=== PATIENT | female | born 1950 | race Caucasian/White ===

== ENCOUNTER 2023-07-18 13:19 | Outpatient (OUT) | payer MEDICARE, MEDICAID, SELFPAY ==
--- NOTE | 2023-07-18 13:32 | MM_ITS ---
Patient Name: NAHED HAMILTON MR#: [id number] : 1950 Exam Date: 07/18/2023 Ordering Doctor: DR NEGRO SUAREZ M.D. RADIOLOGY REPORT PROCEDURE: MM TOMOSYNTHESIS SCREENING BI COMPARISON: MG MAMM SCREEN 3D LILIANA CAD, 06/09/2021. MG MAMM SCREEN 3D LILIANA CAD, 07/06/2022. INDICATIONS: screening Calculator Name NCI Breast Cancer Risk Assessment Tool 5 Year Breast Cancer Risk 1.30% Lifetime Breast Cancer Risk 3.50% Personal Breast Cancer No Personal Ovarian Cancer No Treatments Radiation and Chemotherapy Family Cancers Sister with ovarian cancer at age 64; Mother with lung cancer at age 73; Father with lung cancer at age 61. LOCATION: [facility] BREAST COMPOSITION: Scattered areas fibroglandular density. FINDINGS: DIAGNOSTIC CATEGORY 2--BENIGN FINDING. NO CHANGE FROM COMPARISON. Scattered benign-appearing calcifications are present. Scattered benign-appearing lymph nodes are present. RIGHT BREAST: No significant suspicious finding. LEFT BREAST: No significant suspicious finding. RECOMMENDATIONS: ROUTINE MAMMOGRAM AND CLINICAL EVALUATION IN 12 MONTHS. PLEASE NOTE: A NORMAL MAMMOGRAM DOES NOT EXCLUDE THE POSSIBILITY OF BREAST CANCER. A CLINICALLY SUSPICIOUS PALPABLE LUMP SHOULD BE BIOPSIED. Dictated by: Juvenal Fuentes MD on 07/18/2023 at 15:38 Approved by: Juvenal Fuentes MD on 07/18/2023 at 15:40
== END 2023-07-18 13:20 | disposition home or self-care (01) ==
LOC: MAMMO 13:23
PROVIDERS: PCP Internal Medicine; Visit Provider Internal Medicine
DX: Z12.31 Encounter for screening mammogram for malignant neoplasm of breast (principal); Z80.41 Family history of malignant neoplasm of ovary; Z80.1 Family history of malignant neoplasm of trachea, bronchus and lung
CPT/HCPCS: 77063; 77067

== ENCOUNTER 2023-12-13 14:39 | Outpatient (OUT) | payer MEDICARE, MEDICAID, SELFPAY ==
--- NOTE | 2023-12-13 14:45 | XR_ITS ---
[address] [address] Patient Name: NAHED HAMILTON MRN: [id number] date: 1950 Sex: F Assigned Patient Location: [facility] Current Patient Location: [facility] Accession/Order Number: [id number] Exam Date: 12/13/2023 14:55 Report Date: 12/13/2023 16:00 At the request of: NEGRO SUAREZ Procedure: XR DEXA axial skeleton EXAMINATION: XR DEXA axial skeleton HISTORY: Estrogen Deficiency E28.39 COMPARISON: DEXA bone densitometry 06/09/2021 TECHNIQUE: Dual-energy X-ray absorptiometry (DXA) was performed. FINDINGS: SPINE ANALYSIS: Average bone mineral density is 1.954 g/cm2. T-score (standard deviation relative to young adult mean): 6.5 . -3.9% change since prior study. HIP ANALYSIS: Lowest bone mineral density is within the right femoral neck, 1.392 g/cm2. T-score (standard deviation relative to young adult mean): 2.5 . -1.3% change since prior study. XR/XR DEXA axial skeleton IMPRESSION: World Health Organization Classification: Osteopenia - Moderate Fracture Risk FRAX: Cannot calculate. Pharmacologic treatment recommendations * No uniform recommendation applies to all patients. Management plans must be individualized. * Consider initiating pharmacologic treatment in postmenopausal women and men >= 50 years of age who have the following: Primary fracture prevention: * T-score <= - 2.5 at the femoral neck, total hip, lumbar spine, 33% radius (some uncertainty with existing data) by DXA. * Low bone mass (osteopenia: T-score between - 1.0 and - 2.5) at the femoral neck or total hip by DXA with a 10-year hip fracture risk >= 3% or a 10-year major osteoporosis-related fracture risk >= 20% (i.e., clinical vertebral, hip, forearm, or proximal humerus) based on the [place]-adapted FRAXregistered model. Secondary fracture prevention: * Fracture of the hip or vertebra regardless of BMD [4, 5]. * Fracture of proximal humerus, pelvis, or distal forearm in persons with low bone mass (osteopenia: T-score between - 1.0 and - 2.5). The decision to treat should be individualized in persons with a fracture of the proximal humerus, pelvis, or distal forearm who do not have osteopenia or low BMD [12, 13]. Bertram MS, Gulshan SL, Derek KL, Timmy EM, Chaz KG, AJ, Griffin ES. The clinician's guide to prevention and treatment of osteoporosis. Osteoporos Int. 2021;33(10):1851-3656. doi: 10.1007/t27155-485-46992-q. Epub 2021Oct 08. Erratum in: Osteoporos Int. 2021Jan 07;: PMID: [id number]; PMCID: [id number]. Electronically authenticated by: JENNIFER CROOKS Date: 12/13/2023 16:00
== END 2023-12-13 14:40 | disposition home or self-care (01) ==
LOC: RAD 14:40
PROVIDERS: PCP Internal Medicine; Visit Provider Internal Medicine
DX: E28.39 Other primary ovarian failure (principal); M85.80 Other specified disorders of bone density and structure, unspecified site
CPT/HCPCS: 77080

== ENCOUNTER 2024-03-03 15:30 | Emergency (ER) | payer OTHER, MEDICAID, SELFPAY ==
--- OUTSIDE RECORDS SUMMARY | 2024-03-03 15:36 | XMS_ITS | CCD ---
Author Organization [facility] Care Team Providers Care Blasting Entryman Name Role Phone DR BRUNO SUAREZ Primary Care Unavailable SAMI, DR AGNES Molina Admitting Unavailabl e REINECK, DR AGNES Molina Attending Unavailabl e REINECK, DR AGNES Molina Consulting Unavailabl e HEMMER, DR RENETTA Diaz Admitting Unavailable HEMMER, DR RENETTA Diaz Attending Unavailable ERICK, DR TOM Primary Care Unavailable ZIEBER, DR KUNAL Mckinney Consulting Unavailable HEMMER, DR RENETTA Diaz Consulting Unavailable BRUNO SUAREZ Attending Unavailable BRUNO SUAREZ Attending Unavailable HEMBOO, ERNETTA Diaz Attending Unavailable BRUNO SUAREZ Attending Unavailable BRUNO SUAREZ Attending Unavailable HEMMER, RENETTA Diaz Attending Unavailable Allergies Allergy Classification Reported Allergen(s) Allergy Type Date of Onset Reaction(s) Facility (1 source) Acetaminophen / oxyCODONE Drug Allergy 04-11-2013 [facility] (1 source) Codeine Drug Allergy 04-11-2013 [facility] (1 source) Cortisone Drug Allergy 04-11-2013 [facility] (1 source) diazePAM Drug Allergy 04-11-2013 [facility] (1 source) Esomeprazole Drug Allergy [facility] (1 source) Penicillins Drug allergy (disorder) 04-11-2013 [facility] Problems Problem Classification Problem Date Documented Date Episodic/Chronic Cancer of rectum and anus (1 source) Personal history of other malignant neoplasm of rectum, rectosigmoid junction, and anus; 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: [PERS HX OTH MAL MELVIN RECT RSJ AND ANUS] Onset: 3 Episodic Disorders of lipid metabolism (1 source) Pure hypercholesterolemia, unspecified; 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: [PURE HYPERCHOLESTEROLEMIA UNSPEC] Onset: 3 Chronic E Codes: Natural/environment (1 source) Other and unspecified overexertion or strenuous movements or postures, initial encounter; 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: [OTH AND UNS OVREXRT/STRN MVMT/POS INT] Onset: 3 Episodic Esophageal disorders (1 source) Gastro-esophageal reflux disease without esophagitis; 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: [GERD WITHOUT ESOPHAGITIS] Onset: 3 Chronic Essential hypertension (1 source) Essential (primary) hypertension; 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: [ESSENTIAL PRIMARY HYPERTENSION] Onset: 3 Chronic Other aftercare (1 source) 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; 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: [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] Onset: 3 Episodic Other connective tissue disease (1 source) Fibromyalgia; 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: [FIBROMYALGIA] Onset: 3 Episodic Other screening for suspected conditions (not mental disorders or infectious disease) (4 sources) Encounter for screening mammogram for malignant neoplasm of breast; 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: [ENC SCR MAMMO MALIG NEOPLASM BREAST] Onset: 3 Episodic Residual codes; unclassified (1 source) Family history of malignant neoplasm of trachea, bronchus and lung; 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: [FAM HX MALIG NEOPLSM TRACH BRON LNG] Onset: 3 Episodic Residual codes; unclassified (1 source) Family history of malignant neoplasm of ovary; 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: [FAM HX MALIGNANT NEOPLASM OVARY] Onset: 3 Episodic Spondylosis; intervertebral disc disorders; other back problems (2 sources) Spondylosis without myelopathy or radiculopathy, lumbar region; 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: [Spondylosis without myelopathy or radiculopathy, cervical region] Onset: 3 Chronic Spondylosis; intervertebral disc disorders; other back problems (3 sources) Cervicalgia; 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: [CERVICALGIA] Onset: 3 Episodic Sprains and strains (1 source) Strain of muscle, fascia and tendon at neck level, initial encounter; 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: [STRN MUSC FASC TENDON NECK LEVL INT] Onset: 3 Episodic Results Test Name Value Interpretation Reference Range Facil ity MG MAMM SCREEN 3D LILIANA CADon 07-06-2022 MG MAMM SCREEN 3D LILIANA CAD Patient: NAHED HAMILTON Exam Date: 07/06/2022 : 1950 Gender:F Ordering : DR RENETTA STANFORD Admission #: [id number] Family : Order #: [id number] CLICK HERE TO VIEW EXAM RADIOLOGY REPORT PROCEDURE: MAMMOGRAM SCREENING 3D BILATERAL CAD COMPARISON: MG MAMM SCREEN LILIANA W CAD, 06/02/2020. MG MAMM SCREEN LILIANA W CAD, 04/26/2019. DIGITIZED_MAMMO, 01/22/2008. MG MAMM SCREEN 3D LILIANA CAD, 06/09/2021. INDICATIONS: Screening for malignant neoplasm of breast Calculator Name NCI Breast Cancer Risk Assessment Tool 5 Year Breast Cancer Risk 1.20% Lifetime Breast Cancer Risk 3.70% Personal Breast Cancer No Personal Ovarian Cancer No Treatments Radiation and Chemotherapy Family Cancers Sister with ovarian cancer at age 64; Mother with lung cancer at age 73; Father with lung cancer at age 61. LOCATION: [facility] BREAST COMPOSITION: Scattered areas fibroglandular density. FINDINGS: DIAGNOSTIC CATEGORY 2--BENIGN FINDING: RIGHT BREAST: No significant suspicious finding. Scattered benign-appearing calcifications are present. No significant change has occurred. LEFT BREAST: No significant suspicious finding. No significant change has occurred. RECOMMENDATIONS: ROUTINE MAMMOGRAM AND CLINICAL EVALUATION IN 12 MONTHS. PLEASE NOTE: A NORMAL MAMMOGRAM DOES NOT EXCLUDE THE POSSIBILITY OF BREAST CANCER. A CLINICALLY SUSPICIOUS PALPABLE LUMP SHOULD BE BIOPSIED. Dictated by: Kunal Mallory M.D. on 07/07/2022 at 11:46 Approved by: Kunal Mallory M.D. on 07/07/2022 at 12:01 Normal [facility] Complete Blood Count with Au to Diffon 05-28-2021 Basophils (Bld) [#/Vol] 0.02 10*3/uL Normal 0.00-0.20 [facility] [employer] Operator Comment on above: Performed By: #### C BCAD, CMP, LIPD #### [facility] [address] [place] [id number] Basophils/100 WBC (Bld) 0.3 % Normal [facility] [employer] Comment on above: Performed By: #### C BCAD, CMP, LIPD #### [facility] [address] [place], [place] [id number] Eosinophils (Bld) [#/Vol] 0.04 10*3/uL Normal 0.02-0.50 [facility] [employer] Operator Comment on above: Performed By: #### C BCAD, CMP, LIPD #### [facility] [address] [place], [place] [id number] Eosinophils/100 WBC (Bld) 0.6 % Normal [facility] Specialist Comment on above: Performed By: #### C BCAD, CMP, LIPD #### [facility] [address] [place], [place] [id number] Erythrocyte distribution width (RBC) [Ratio] 13.2 % Normal 11.0-15.0 [facility] Specialist Comment on above: Performed By: #### C BCAD, CMP, LIPD #### [facility] [address] [place], [place] [id number] Hematocrit (Bld) [Volume fraction] 41.5 % Normal 35.0-47.0 [facility] Specialist Comment on above: Performed By: #### C BCAD, CMP, LIPD #### [facility] [address] [place], [place] [id number] Hemoglobin (Bld) [Mass/Vol] 13.7 g/dL Normal 11.6-15.5 [facility] Specialist Comment on above: Performed By: #### C BCAD, CMP, LIPD #### [facility] [address] [place], [place] [id number] Lymphocytes (Bld) [#/Vol] 2.3 10*3/uL Normal 0.9-3.9 [facility] Specialist Comment on above: Performed By: #### C BCAD, CMP, LIPD #### [facility] [address] [place], [place] [id number] Lymphocytes/100 WBC (Bld) 32.3 % Normal [facility] Specialist Comment on above: Performed By: #### C BCAD, CMP, LIPD #### [facility] [address] [place], [place] [id number] MCH (RBC) [Entitic mass] 30.7 pg Normal 27.0-33.0 [facility] Specialist Comment on above: Performed By: #### C BCAD, CMP, LIPD #### [facility] [address] [place], [place] [id number] MCHC (RBC) [Mass/Vol] 33.0 g/dL Normal 32.0-36.0 [facility] [employer] Operator Comment on above: Performed By: #### C BCAD, CMP, LIPD #### [facility] [address] [place], [place] [id number] MCV (RBC) [Entitic vol] 93 fL Normal 80-100 [facility] Operator Comment on above: Performed By: #### C BCAD, CMP, LIPD #### [facility] [address] [place], [place] [id number] Monocytes (Bld) [#/Vol] 0.6 10*3/uL Normal 0.2-0.9 [facility] Operator Comment on above: Performed By: #### C BCAD, CMP, LIPD #### [facility] [address] [place], [place] [id number] Monocytes/100 WBC (Bld) 8.0 % Normal [facility] Operator Comment on above: Performed By: #### C BCAD, CMP, LIPD #### [facility] [address] [place], [place] [id number] Neutrophils (Bld) [#/Vol] 4.1 10*3/uL Normal 1.5-7.8 [facility] Operator Comment on above: Performed By: #### C BCAD, CMP, LIPD #### [facility] [address] [place], [place] [id number] Neutrophils/100 WBC (Bld) 58.5 % Normal [facility] Operator Comment on above: Performed By: #### C BCAD, CMP, LIPD #### [facility] [address] [place], [place] [id number] Platelet mean volume (Bld) [Entitic vol] 9.70 fL Normal 7.50-12.50 [facility] [employer] Operator Comment on above: Performed By: #### C BCAD, CMP, LIPD #### [facility] [address] [place], [place] [id number] Platelets (Bld) [#/Vol] 238 10*3/uL Normal 140-400 [facility] [employer] Operator Comment on above: Performed By: #### C BCAD, CMP, LIPD #### [facility] [address] [place], [place] [id number] RBC (Bld) [#/Vol] 4.46 10*6/uL Normal 3.90-5.20 [facility] Specialist Comment on above: Performed By: #### C BCAD, CMP, LIPD #### [facility] [address] [place], [place] [id number] RDW-SD 45.0 fL Normal 37.0-50.0 [facility] [employer] Operator Comment on above: Performed By: #### C BCAD, CMP, LIPD #### [facility] [address] [place], [place] [id number] WBC (Bld) [#/Vol] 7.0 10*3/uL Normal 3.8-11.0 [facility] [employer] Operator Comment on above: Performed By: #### C BCAD, CMP, LIPD #### [facility] [address] [place], [place] [id number] Comprehensive Metabolic Pane vandana 05-28-2021 Albumin [Mass/Vol] 4.3 g/dL Normal 3.6-5.1 [facility] [employer] Operator Comment on above: Performed By: #### C BCAD, CMP, LIPD #### [facility] [address] [place], [place] [id number] Albumin/Globulin [Mass ratio] 1.6 {ratio} Normal 1.0-2.5 [facility] Specialist Comment on above: Performed By: #### C BCAD, CMP, LIPD #### [facility] [address] [place], [place] [id number] ALP [Catalytic activity/Vol] 86 U/L Normal 35-119 [facility] Specialist Comment on above: Performed By: #### C BCAD, CMP, LIPD #### [facility] [address] [place], [place] [id number] ALT [Catalytic activity/Vol] 16 U/L Normal 6-33 [facility] [employer] Operator Comment on above: Result Comment: 05/13 Female reference range changed. Performed By: #### C BCAD, CMP, LIPD #### [facility] [address] [place], [place] [id number] Anion gap [Moles/Vol] 18 mmol/L Normal 12-20 [facility] [employer] Operator Comment on above: Result Comment: Effe ctive 06/18/2019 reference range changed. Performed By: #### C BCAD, CMP, LIPD #### [facility] [address] [place], [place] [id number] AST [Catalytic activity/Vol] 16 U/L Normal 9-34 [facility] Comment on above: Performed By: #### C BCAD, CMP, LIPD #### [facility] [address] [facility] [place] [id number] Bilirubin [Mass/Vol] 0.53 mg/dL Normal 0.30-1.20 [facility] Comment on above: Performed By: #### C BCAD, CMP, LIPD #### [facility] [address] [place], [place] [id number] BUN/CREA 20 Ratio Normal 6-22 [facility] Specialist Comment on above: Performed By: #### C BCAD, CMP, LIPD #### [facility] [address] [place], [place] [id number] Calcium [Mass/Vol] 10.1 mg/dL Normal 8.6-10.2 [facility] Comment on above: Performed By: #### C BCAD, CMP, LIPD #### [facility] [address] [place], [place] [id number] Chloride [Moles/Vol] 101 mmol/L Normal 98-107 [facility] Specialist Comment on above: Performed By: #### C BCAD, CMP, LIPD #### [facility] [address] [place], [place] [id number] CO2 [Moles/Vol] 28 mmol/L Normal 20-31 [facility] Specialist Comment on above: Performed By: #### C BCAD, CMP, LIPD #### [facility] [address] [facility] [place] [id number] Creatinine [Mass/Vol] 0.8 mg/dL Normal 0.6-1.4 [facility] Comment on above: Performed By: #### C BCAD, CMP, LIPD #### [facility] [address] [facility] [place] [id number] eGFRAA 84 mL/min/1.73m2 Normal >60 [facility] Specialist Comment on above: Performed By: #### C BCAD, CMP, LIPD #### [facility] [address] [place], [place] [id number] eGFRNAA 69 mL/min/1.73m2 Normal >60 [facility] [employer] Operator Comment on above: Performed By: #### C BCAD, CMP, LIPD #### [facility] [address] [place], [place] [id number] Globulin (S) [Mass/Vol] 2.7 g/dL Normal 1.9-3.7 [facility] Operator Comment on above: Performed By: #### C BCAD, CMP, LIPD #### [facility] [address] [place], [place] [id number] Glucose [Mass/Vol] 91 mg/dL Normal 65-99 [facility] Operator Comment on above: Result Comment: For FASTING Glucose --- ADA reference ranges: Normal 65-99 mg/dl Prediabetes 100-125 Diabetes >/= 126 Performed By: #### C BCAD, CMP, LIPD #### [facility] [address] [place], [place] [id number] Potassium [Moles/Vol] 3.8 mmol/L Normal 3.5-5.5 [facility] Operator Comment on above: Performed By: #### C BCAD, CMP, LIPD #### [facility] [address] [place], [place] [id number] Protein [Mass/Vol] 7.0 g/dL Normal 6.1-8.1 [facility] [employer] [facility] Comment on above: Performed By: #### C BCAD, CMP, LIPD #### [facility] [address] [place], [place] [id number] Sodium [Moles/Vol] 143 mmol/L Normal 135-146 [facility] [place] [employer] Comment on above: Performed By: #### C BCAD, CMP, LIPD #### [facility] [address] [place], [place] [id number] Urea nitrogen [Mass/Vol] 16 mg/dL Normal 7-25 [facility] Operator Comment on above: Performed By: #### C BCAD, CMP, LIPD #### [facility] [address] [place], [place] [id number] Lipid Panelon 12-16-2021 Cholesterol [Mass/Vol] 181 mg/dL Normal 125-200 [facility] [employer] Operator Comment on above: Result Comment: Low risk < 200mg/dL Borderline risk 201-239 mg/dl High risk > or equal to 240 Performed By: #### C BCAD, CMP, LIPD #### [facility] [address] [place], [place] [id number] Cholesterol in HDL [Mass/Vol] 54 mg/dL Normal >40 [facility] [employer] Operator Comment on above: Result Comment: High Cardiovascular Risk HDL <40 mg/dL Low Cardiovascular Risk HDL > or equal to 60 mg/dl Performed By: #### C BCAD, CMP, LIPD #### [facility] [address] [place], [place] [id number] Cholesterol in LDL [Mass/Vol] 96 mg/dL Normal [facility] [employer] Operator Comment on above: Result Comment: LDL ATP III CLASSIFICATION LDL less than 100 mg/dl Optimal LDL 100-129 mg/dl Near or above optimal LDL 130-159 Borderline high LDL 160-189 High LDL greater than 189 mg/dl Very High Performed By: #### C BCAD, CMP, LIPD #### [facility] [address] [place], [place] [id number] Cholesterol in VLDL [Mass/Vol] 31 mg/dL Normal [facility] [employer] Operator Comment on above: Performed By: #### C BCAD, CMP, LIPD #### [facility] [address] [place], [place] [id number] Cholesterol.total/C holesterol in HDL [Mass ratio] 3 {ratio} Normal [facility] [employer] Operator Comment on above: Performed By: #### C BCAD, CMP, LIPD #### [facility] [address] [place], [place] [id number] Triglyceride [Mass/Vol] 157 mg/dL High 30-150 [facility] Operator Comment on above: Result Comment: TRIG ATPIII CLASSIFICATIONS TRIG less than 150 mg/dl Normal TRIG 150-199 mg/dl Borderline High TRIG 200-500 mg/dl High TRIG greather than 500 mg/dl Very High Performed By: #### C BCAD, CMP, LIPD #### [facility] [address] [place], [place] [id number] CNOVon 04-04-2019 [facility] Office Visit (RADTSA ) NAHED HAMILTON ([id number]) 1950 F Date Time Provider Department 04/04/19 2:00 PM JOYCE ESTEVES During your visit today, we recorded the following information about you: Temperature Pulse Respiration Blood pressure 98.3 degrees 83/minute 16/minute 141/81 Weight 128.7 kg Joyce Esteves MD 04/04/2019 2:27 PM Signed Radiation Oncology - Follow Up Note PATIENT NAME: Nahed Hamilton PATIENT DIAGNOSIS: ?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 ? INTERVAL HISTORY: Mrs. Hamilton?is doing very well. ?Her appetite is good and she is maintaining her weight. ?She denies diarrhea or dysuria. ALLERGIES Allergen Reactions - Codeine GI Upset - Cortizone-10 Scalp * Rash - Nexium [Esomeprazol* Intolerance - Penicillins Anaphylaxis - Percocet [Oxycodone* Mental Status Change - Valium [Diazepam] Mental Status Change MEDICATIONS: LACTOBACILLUS ACIDOPHILUS (PROBIOTIC ORAL) Take by mouth. cyclobenzaprine (FLEXERIL) 10 mg tablet dicyclomine (BENTYL) 20 mg tablet HYDROcodone-acetamino phen (NORCO) 5-325 mg per tablet terbinafine HCl (LAMISIL AT) 1 % cream Apply 1 application to affected area twice daily. DOCUSATE CALCIUM (STOOL SOFTENER ORAL) Take by mouth. vitamin E acetate (VITAMIN E) 200 unit Capsule Take by mouth once daily. furosemide (LASIX) 40 mg tablet Take 40 mg by mouth as directed. pravastatin 40 mg tablet Take 40 mg by mouth once daily. lisinopril-hydrochlor othiazide (ZESTORETIC) 20-12.5 mg per tablet Take 1 tablet by mouth twice daily. Multivitamin capsule Take 1 capsule by mouth once daily. Ascorbic Acid (VITAMIN C) 500 mg CpER Take 1 tablet by mouth once daily. Potassium 99 mg Tab Take by mouth twice daily. Houck-3 Fatty Acids-Vitamin E (FISH OIL) 1,000 mg cap Take 1 capsule by mouth. PLANT STANOL JUAN ALBERTO (CHOLEST OFF ORAL) Take by mouth once daily. Aspirin 81 mg CpDR Take by mouth once daily. PHYSICAL EXAM: VS: BP 141/81 Pulse 83 Temp 36.8 ?C (98.3 ?F) (Oral) Resp 16 Wt 128.7 kg (283 lb 12.8 oz) SpO2 97% BMI 48.69 kg/m? KPS: 90 General Appearance: Alert and oriented. No acute distress. HEENT: NCAT. Sclera anicteric. PERRL. EOMI. Neck: Normal ROM. No palpable cervical or supraclavicular adenopathy. Chest: No respiratory distress. Lungs clear to auscultation bilaterally. Heart: Regular rate and rhythm. Abdomen: Soft. Nontender. Nondistended.??Rectal examination is unremarkable. Musculoskeletal: No edema. Normal ROM in extremities. No bone or spine tenderness. Neuro: Strength intact and symmetric. Sensation intact. CN II-XII intact. Gait normal. No focal deficits. Skin: No rashes noted Lymphatics: No palpable lymphadenopathy. ? ASSESSMENT AND PLAN: There is no evidence of for recurrence at this time. No follow-up appointment was given in this department. ? Signed by: Joyce Esteves M.D., [facility] ? cc: Dr. Bruno Edouard ? This note was dictated with Matthew Henderson Speaking and may contain some grammatical errors due to limitations of the software. Natalia Flores MA, was present in the examination room throughout the encounter. Referring Provider: JOYCE ESTEVES [[id number]] Allergies As of Date: 04/04/2019 Noted Allergy Reaction CODEINE 08/28/2012 8 - GI Upset CORTIZONE-10 SCALP ITCH RELIEF 08/28/2012 2 - Rash NEXIUM (ESOMEPRAZOLE MAGNESIUM) 08/27/2013 5 - Intolerance PENICILLINS 08/28/2012 10 - Anaphylaxis PERCOCET (OXYCODONE-ACETAMINOP HEN)08/28/2012 1 - Mental Status Change VALIUM (DIAZEPAM) 08/28/2012 1 - Mental Status Change Date Reviewed: 04/04/2019 Reviewed by: Natalia Flores - Fully Assessed Reason for Visit: Anal cancer [Other] Cmt: 1 year follow up Primary Visit Diagnosis:History of anal cancer [Z85.048] Prescriptions as of 04/04/2019 Sig: PROBIOTIC ORAL Take by mouth. CYCLOBENZAPRINE 10 MG TABLET DICYCLOMINE 20 MG TABLET HYDROCODONE 5 MG-ACETAMINOPHE* TERBINAFINE HCL 1 % TOPICAL C* Apply 1 application to affect* STOOL SOFTENER ORAL Take by mouth. VITAMIN E ACETATE 200 UNIT CA* Take by mouth once daily. FUROSEMIDE 40 MG TABLET Take 40 mg by mouth as direct* PRAVASTATIN 40 MG TABLET Take 40 mg by mouth once ariel* LISINOPRIL 20 MG-HYDROCHLOROT* Take 1 tablet by mouth twice * MULTIVITAMIN CAPSULE Take 1 capsule by mouth once * ASCORBIC ACID (VITAMIN C) ER * Take 1 tablet by mouth once d* POTASSIUM 99 MG TABLET Take by mouth twice daily. OMEGA-3 FATTY ACIDS-VITAMIN E* Take 1 capsule by mouth. CHOLEST OFF ORAL Take by mouth once daily. ASPIRIN 81 MG CAPSULE,DELAYED* Take by mouth once daily. Problem List As Of Date 04/04/2019 Noted Resolved Rectal cancer [C20] INVALID FOR*06/25/2015 Anal cancer (HCC) [C21.0] INVALID FOR* History of anal cancer [Z85.048] INVALID FOR* Follow-up and Disposition History Recorded Encounter Status:Closed by JOYCE ESTEVES MD on 04/04/19 [facility] PROGRESSon 04-04-2019 PROGRESS HNO ID: [id number] Author: Joyce Esteves Service: ? 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 ? INTERVAL HISTORY: Mrs. Hamilton?is doing very well. ?Her appetite is good and she is maintaining her weight. ?She denies diarrhea or dysuria. ALLERGIES Allergen Reactions - Codeine GI Upset - Cortizone-10 Scalp * Rash - Nexium [Esomeprazol* Intolerance - Penicillins Anaphylaxis - Percocet [Oxycodone* Mental Status Change - Valium [Diazepam] Mental Status Change MEDICATIONS: LACTOBACILLUS ACIDOPHILUS (PROBIOTIC ORAL) Take by mouth. cyclobenzaprine (FLEXERIL) 10 mg tablet dicyclomine (BENTYL) 20 mg tablet HYDROcodone-acetamino phen (NORCO) 5-325 mg per tablet terbinafine HCl (LAMISIL AT) 1 % cream Apply 1 application to affected area twice daily. DOCUSATE CALCIUM (STOOL SOFTENER ORAL) Take by mouth. vitamin E acetate (VITAMIN E) 200 unit Capsule Take by mouth once daily. furosemide (LASIX) 40 mg tablet Take 40 mg by mouth as directed. pravastatin 40 mg tablet Take 40 mg by mouth once daily. lisinopril-hydrochlor othiazide (ZESTORETIC) 20-12.5 mg per tablet Take 1 tablet by mouth twice daily. Multivitamin capsule Take 1 capsule by mouth once daily. Ascorbic Acid (VITAMIN C) 500 mg CpER Take 1 tablet by mouth once daily. Potassium 99 mg Tab Take by mouth twice daily. Houck-3 Fatty Acids-Vitamin E (FISH OIL) 1,000 mg cap Take 1 capsule by mouth. PLANT STANOL JUAN ALBERTO (CHOLEST OFF ORAL) Take by mouth once daily. Aspirin 81 mg CpDR Take by mouth once daily. PHYSICAL EXAM: VS: BP 141/81 Pulse 83 Temp 36.8 ?C (98.3 ?F) (Oral) Resp 16 Wt 128.7 kg (283 lb 12.8 oz) SpO2 97% BMI 48.69 kg/m? KPS: 90 General Appearance: Alert and oriented. No acute distress. HEENT: NCAT. Sclera anicteric. PERRL. EOMI. Neck: Normal ROM. No palpable cervical or supraclavicular adenopathy. Chest: No respiratory distress. Lungs clear to auscultation bilaterally. Heart: Regular rate and rhythm. Abdomen: Soft. Nontender. Nondistended.??Rectal examination is unremarkable. Musculoskeletal: No edema. Normal ROM in extremities. No bone or spine tenderness. Neuro: Strength intact and symmetric. Sensation intact. CN II-XII intact. Gait normal. No focal deficits. Skin: No rashes noted Lymphatics: No palpable lymphadenopathy. ? ASSESSMENT AND PLAN: There is no evidence of for recurrence at this time. No follow-up appointment was given in this department. ? Signed by: Joyce Esteves M.D., [facility] ? cc: Dr. Bruno Edouard ? This note was dictated with Dragon Naturally Speaking and may contain some grammatical errors due to limitations of the software. Natalia Flores MA, was present in the examination room throughout the encounter. 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 ? INTERVAL HISTORY: Mrs. Hamilton is doing very well. Her appetite is good and she is maintaining her weight. She denies diarrhea or dysuria. She has been having rectal pain and occasional rectal bleeding for the past 2-3 days. She had seen Dr. 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 He is going to do a colonoscopic examination on 04/07/2018. ALLERGIES Allergen Reactions - Codeine GI Upset - Cortizone-10 Scalp * Rash - Nexium [Esomeprazol* Intolerance - Penicillins Anaphylaxis - Percocet [Oxycodone* Mental Status Change - Valium [Diazepam] Mental Status Change MEDICATIONS: LACTOBACILLUS ACIDOPHILUS (PROBIOTIC ORAL) Take by mouth. cyclobenzaprine (FLEXERIL) 10 mg tablet dicyclomine (BENTYL) 20 mg tablet HYDROcodone-acetamino phen (NORCO) 5-325 mg per tablet terbinafine HCl (LAMISIL AT) 1 % cream Apply 1 application to affected area twice daily. DOCUSATE CALCIUM (STOOL SOFTENER ORAL) Take by mouth. vitamin E acetate (VITAMIN E) 200 unit Capsule Take by mouth once daily. furosemide (LASIX) 40 mg tablet Take 40 mg by mouth as directed. pravastatin 40 mg tablet Take 40 mg by mouth once daily. lisinopril-hydrochlor othiazide (ZESTORETIC) 20-12.5 mg per tablet Take 1 tablet by mouth twice daily. Multivitamin capsule Take 1 capsule by mouth once daily. Ascorbic Acid (VITAMIN C) 500 mg CpER Take 1 tablet by mouth once daily. Potassium 99 mg Tab Take by mouth twice daily. Houck-3 Fatty Acids-Vitamin E (FISH OIL) 1,000 mg cap Take 1 capsule by mouth. Aspirin 81 mg CpDR Take by mouth once daily. PLANT STANOL JUAN ALBERTO (CHOLEST OFF ORAL) Take by mouth once daily. PHYSICAL EXAM: VS: BP 148/56 Pulse 75 Temp 36.8 ?C (98.2 ?F) (Oral) Resp 18 Wt 126.1 kg (278 lb) SpO2 96% BMI 47.69 kg/m? KPS: 90 General Appearance: Alert and oriented. No acute distress. HEENT: NCAT. Sclera anicteric. PERRL. EOMI. Neck: Normal ROM. No palpable cervical or supraclavicular adenopathy. Chest: No respiratory distress. Lungs clear to auscultation bilaterally. Heart: Regular rate and rhythm. Abdomen: Soft. Nontender. Nondistended. Rectal examination is unremarkable. Musculoskeletal: No edema. Normal ROM in extremities. No bone or spine tenderness. Neuro: Strength intact and symmetric. Sensation intact. CN II-XII intact. Gait normal. No focal deficits. Skin: No rashes noted Lymphatics: No palpable lymphadenopathy. ? ASSESSMENT AND PLAN: There is no evidence of for recurrence at this time. I will see her again in one year for follow-up examination. ? Signed by: Joyce Esteves M.D., GARRYRO ? cc: Dr. [place] Edouard ? This note was dictated with Matthew Naturally Speaking and may contain some grammatical errors due to limitations of the software. Magali Andino RN was present in the room throughout the encounter. Referring Provider: JOYCE ESTEVES [[id number]] Allergies As of Date: 04/05/2018 Noted Allergy Reaction CODEINE 08/28/2012 8 - GI Upset CORTIZONE-10 SCALP ITCH RELIEF 08/28/2012 2 - Rash NEXIUM (ESOMEPRAZOLE MAGNESIUM) 08/27/2013 5 - Intolerance PENICILLINS 08/28/2012 10 - Anaphylaxis PERCOCET (OXYCODONE-ACETAMINOP HEN)08/28/2012 1 - Mental Status Change VALIUM (DIAZEPAM) 08/28/2012 1 - Mental Status Change Date Reviewed: 04/05/2018 Reviewed by: Magali (Susan) SUSAN Andino - Fully Assessed Reason for Visit: anal cancer [Other] Primary Visit Diagnosis:History of anal cancer [Z85.048] Prescriptions as of 04/05/2018 Sig: PROBIOTIC ORAL Take by mouth. CYCLOBENZAPRINE 10 MG TABLET DICYCLOMINE 20 MG TABLET HYDROCODONE 5 MG-ACETAMINOPHE* TERBINAFINE HCL 1 % TOPICAL C* Apply 1 application to affect* STOOL SOFTENER ORAL Take by mouth. VITAMIN E ACETATE 200 UNIT CA* Take by mouth once daily. FUROSEMIDE 40 MG TABLET Take 40 mg by mouth as direct* PRAVASTATIN 40 MG TABLET Take 40 mg by mouth once ariel* LISINOPRIL 20 MG-HYDROCHLOROT* Take 1 tablet by mouth twice * MULTIVITAMIN CAPSULE Take 1 capsule by mouth once * ASCORBIC ACID (VITAMIN C) ER * Take 1 tablet by mouth once d* POTASSIUM 99 MG TABLET Take by mouth twice daily. OMEGA-3 FATTY ACIDS-VITAMIN E* Take 1 capsule by mouth. ASPIRIN 81 MG CAPSULE,DELAYED* Take by mouth once daily. CHOLEST OFF ORAL Take by mouth once daily. Problem List As Of Date 04/05/2018 Noted Resolved Rectal cancer [C20] INVALID FOR*06/25/2015 Anal cancer (HCC) [C21.0] INVALID FOR* History of anal cancer [Z85.048] INVALID FOR* Disposition: Return in about 1 year (around 04/05/2019). 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 ? INTERVAL HISTORY: Mrs. Hamilton is doing very well. Her appetite is good and she is maintaining her weight. She denies diarrhea or dysuria. She has been having rectal pain and occasional rectal bleeding for the past 2-3 days. She had seen Dr. 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 He is going to do a colonoscopic examination on 04/07/2018. ALLERGIES Allergen Reactions - Codeine GI Upset - Cortizone-10 Scalp * Rash - Nexium [Esomeprazol* Intolerance - Penicillins Anaphylaxis - Percocet [Oxycodone* Mental Status Change - Valium [Diazepam] Mental Status Change MEDICATIONS: LACTOBACILLUS ACIDOPHILUS (PROBIOTIC ORAL) Take by mouth. cyclobenzaprine (FLEXERIL) 10 mg tablet dicyclomine (BENTYL) 20 mg tablet HYDROcodone-acetamino phen (NORCO) 5-325 mg per tablet terbinafine HCl (LAMISIL AT) 1 % cream Apply 1 application to affected area twice daily. DOCUSATE CALCIUM (STOOL SOFTENER ORAL) Take by mouth. vitamin E acetate (VITAMIN E) 200 unit Capsule Take by mouth once daily. furosemide (LASIX) 40 mg tablet Take 40 mg by mouth as directed. pravastatin 40 mg tablet Take 40 mg by mouth once daily. lisinopril-hydrochlor othiazide (ZESTORETIC) 20-12.5 mg per tablet Take 1 tablet by mouth twice daily. Multivitamin capsule Take 1 capsule by mouth once daily. Ascorbic Acid (VITAMIN C) 500 mg CpER Take 1 tablet by mouth once daily. Potassium 99 mg Tab Take by mouth twice daily. Houck-3 Fatty Acids-Vitamin E (FISH OIL) 1,000 mg cap Take 1 capsule by mouth. Aspirin 81 mg CpDR Take by mouth once daily. PLANT STANOL JUAN ALBERTO (CHOLEST OFF ORAL) Take by mouth once daily. PHYSICAL EXAM: VS: BP 148/56 Pulse 75 Temp 36.8 ?C (98.2 ?F) (Oral) Resp 18 Wt 126.1 kg (278 lb) SpO2 96% BMI 47.69 kg/m? KPS: 90 General Appearance: Alert and oriented. No acute distress. HEENT: NCAT. Sclera anicteric. PERRL. EOMI. Neck: Normal ROM. No palpable cervical or supraclavicular adenopathy. Chest: No respiratory distress. Lungs clear to auscultation bilaterally. Heart: Regular rate and rhythm. Abdomen: Soft. Nontender. Nondistended. Rectal examination is unremarkable. Musculoskeletal: No edema. Normal ROM in extremities. No bone or spine tenderness. Neuro: Strength intact and symmetric. Sensation intact. CN II-XII intact. Gait normal. No focal deficits. Skin: No rashes noted Lymphatics: No palpable lymphadenopathy. ? ASSESSMENT AND PLAN: There is no evidence of for recurrence at this time. I will see her again in one year for follow-up examination. ? Signed by: Joyce Esteves M.D., RASHEEDA ? cc: Dr. [place] Edouard ? This note was dictated with Matthew Naturally Speaking and may contain some grammatical errors due to limitations of the software. Magali Andino RN was present in the room throughout the encounter. Normal [facility] Encounters Encounter Date Encounter Type Care Provider Facility Start: 01-09-2024 End: 01-09-2024 ambulatory BRUNO SUAREZ Not Available Start: 11-01-2023 End: 11-01-2023 ambulatory RENETTA LANDAVERDE Not Available Start: 10-10-2023 End: 10-10-2023 ambulatory BRUNO SUAREZ Not Available Start: 07-13-2023 End: 07-13-2023 ambulatory BRUNO SUAREZ Not Available Start: 05-12-2023 End: 05-12-2023 ambulatory BRUNO SUAREZ Not Available Start: 04-26-2023 End: 04-26-2023 ambulatory RENETTA LANDAVERDE Not Available Start: 09-25-2022 End: 09-25-[address] BRUNO SUAREZ Facility:[facility] Start: 07-06-2022 End: 07-07-[address] RENETTA LANDAVERDE Facility:[facility] Payers Date Payer Category Payer Medicare [id number] 1957 Medicaid [id number] 1957 Medicare [id number] 1950 Unknown [id number] 2.16.84 [id number] 1950 Unknown [id number] 2.16.84 [id number] 1950 Unknown [id number] 2.16.84 [id number] 1950 Unknown [id number] 2.16.84 [id number] 1950 Unknown [id number] 2.16.84 [id number] 1950 Unknown [id number] 2.16.84 [id number] 1950 Unknown [id number] [id number] 1950 Unknown [id number] Summary Purpose Family History No Family History Records FoundNo Family History Records FoundNo Family History Records FoundNo Family History Records Found Advance Directives No Advanced Directives Records FoundNo Advanced Directives Records FoundNo Advanced Directives Records FoundNo Advanced Directives Records Found Additional Source Comments INFORMATION SOURCE (unrecogn ized section and content) DATE CREATED AUTHOR 04/05/2019 [facility] DATE CREATED AUTHOR AUTHOR'S ORGANIZ ATION 05/29/2021 [facility] d[facility] Specialist DATE CREATED AUTHOR AUTHOR'S ORGANIZ ATION 09/28/2022 [facility] pital DATE CREATED AUTHOR AUTHOR'S ORGANIZ ATION 01/11/2024 [facility] EPIC FOR RECORDS PERTAINING TO PATIENTS WHO ARE OR HAVE BEEN ENROLLED IN A CHEMICAL DEPENDENCY/SUBSTANCEABUSE PROGRAM, SOME INFORMATION MAY BE OMITTED. This clinical summary was aggregated from multiple sources. Caution should be exercised in using it in the provision of clinical care. This summary normalizes information from multiple sources, and as a consequence, information in this document may materially change the coding, format and clinical context of patient data. In addition, data may be omitted in some cases. CLINICAL DECISIONS SHOULD BE BASED ON THE PRIMARY CLINICAL RECORDS. [facility]. provides no warranty or guarantee of the accuracy or completeness of information in this document.
[2024-03-03 15:38] VITALS: O2SAT 97
[2024-03-03 15:39] VITALS: BP 186/94; PULSE 90; TEMP 36.8; O2SAT 97; BMI 42.5
[2024-03-03 15:40] VITALS: O2SAT 97
[2024-03-03 15:50] VITALS: PULSE 82; O2SAT 96
--- NOTE | 2024-03-03 15:55 | XR_ITS ---
The [address] [address] Patient Name: NAHED HAMILTON MRN: [id number] date: 1950 Sex: F Assigned Patient Location: ER Current Patient Location: ER Accession/Order Number: [id number] Exam Date: 03/03/2024 16:14 Report Date: 03/03/2024 17:11 At the request of: DAVID PEREZ Procedure: XR cervical spine 2-3V PROCEDURE: XR cervical spine 2-3V, XR shoulder RT min 2V, 03/03/2024 4:14 PM EDT CLINICAL INDICATIONS: Right neck and shoulder pain, stiffness. Placental symptoms this a.m. COMPARISON: None TECHNIQUE: Cervical spine 3 views. Right shoulder 3 views. FINDINGS: CERVICAL SPINE: The bones are normal in density. Acute osseous pathology is not demonstrated. 0.2 cm grade 1 anterior C3-4 C4-5 spondylolisthesis is noted. Disc degeneration, spondylosis is most apparent C5-C6 and C6-7. Dorsal nuchal ligament calcifications are seen throughout the mid and lower cervical levels. Remote process favored. Fracture malalignment or bone destruction are not demonstrated. RIGHT SHOULDER: There is mild osteoarthrosis. Mild tuberosity and acromial enthesopathy seen. Chest wall abnormality is not evident. Acute osseous pathology is not demonstrated. Regional soft tissues are normal. XR/XR cervical spine 2-3V IMPRESSION: 1. No acute osseous cervical spine right shoulder pathology 2. Grade 1 anterior C3-4 and C4-5 spondylolisthesis 3. Multilevel mid and lower cervical spine disc degeneration, spondylosis most apparent C5 through C7 4. Remote dorsal nuchal ligament calcification mid and lower cervical spine levels 5. Mild right shoulder osteoarthrosis and enthesopathy Electronically authenticated by: ROMARIO VILLEGAS Date: 03/03/2024 17:11
--- NOTE | 2024-03-03 15:55 | XR_ITS ---
The [address] [address] Patient Name: NAHED HAMILTON MRN: [id number] date: 1950 Sex: F Assigned Patient Location: ER Current Patient Location: ER Accession/Order Number: [id number] Exam Date: 03/03/2024 16:14 Report Date: 03/03/2024 17:11 At the request of: DAVID PEREZ Procedure: XR shoulder RT min 2V PROCEDURE: XR cervical spine 2-3V, XR shoulder RT min 2V, 03/03/2024 4:14 PM EDT CLINICAL INDICATIONS: Right neck and shoulder pain, stiffness. Placental symptoms this a.m. COMPARISON: None TECHNIQUE: Cervical spine 3 views. Right shoulder 3 views. FINDINGS: CERVICAL SPINE: The bones are normal in density. Acute osseous pathology is not demonstrated. 0.2 cm grade 1 anterior C3-4 C4-5 spondylolisthesis is noted. Disc degeneration, spondylosis is most apparent C5-C6 and C6-7. Dorsal nuchal ligament calcifications are seen throughout the mid and lower cervical levels. Remote process favored. Fracture malalignment or bone destruction are not demonstrated. RIGHT SHOULDER: There is mild osteoarthrosis. Mild tuberosity and acromial enthesopathy seen. Chest wall abnormality is not evident. Acute osseous pathology is not demonstrated. Regional soft tissues are normal. XR/XR shoulder RT min 2V IMPRESSION: 1. No acute osseous cervical spine right shoulder pathology 2. Grade 1 anterior C3-4 and C4-5 spondylolisthesis 3. Multilevel mid and lower cervical spine disc degeneration, spondylosis most apparent C5 through C7 4. Remote dorsal nuchal ligament calcification mid and lower cervical spine levels 5. Mild right shoulder osteoarthrosis and enthesopathy Electronically authenticated by: ROMARIO VILLEGAS Date: 03/03/2024 17:11
--- NOTE | 2024-03-03 15:55 | ECG_ITS ---
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
--- NOTE | 2024-03-03 15:59 | ED.EXTPRO1 ---
HPI - Extremity Problem General Chief complaint: Extremity Problem, Nontraumatic Stated complaint: shoulder pain radiating Time Seen by Provider: 03/03/24 15:44 Source: patient Mode of arrival: Wheelchair Limitations: no limitations History of Present Illness HPI Narrative: 74-year-old female presents to the emergency department for right shoulder and right sided neck pain. She has had it for 2 or 3 days, she cannot really remember when it started. There was no injury. It does not seem to radiate anywhere else and she does not have chest pain or left shoulder pain. No fever or cough. She did not have any unusual activity or heavy lifting or injury. It does not hurt at all if she does not move but it hurts if she turns her head. Most of the pain is in her neck, on the right side. Related Data Home Medications ?Medication ?Instructions ?Recorded ?Confirmed amlodipine 5 mg tablet 5 mg PO QDAY 03/03/24 03/03/24 clonidine 0.2 mg/24 hr weekly 1 patch transdermal .weekly 03/03/24 03/03/24 transdermal patch dicyclomine 20 mg tablet 20 mg PO QID 03/03/24 03/03/24 furosemide 40 mg tablet 40 mg PO .COMPLEX 03/03/24 03/03/24 hydrocodone 10 mg-acetaminophen 1 tab PO Q12H PRN pain 03/03/24 03/03/24 325 mg tablet hydrocortisone acetate 25 mg 25 mg NJ Q12H PRN hemorrhoids 03/03/24 03/03/24 rectal suppository lisinopril 20 1 tab PO QDAY 03/03/24 03/03/24 mg-hydrochlorothiazide 12.5 mg tablet methocarbamol 750 mg tablet 750 mg PO Q6H PRN muscle spasm 03/03/24 03/03/24 montelukast 10 mg tablet 10 mg PO QDAY 03/03/24 03/03/24 pravastatin 40 mg tablet 40 mg PO .qhs 03/03/24 03/03/24 sulfamethoxazole 400 1 tab PO QDAY 03/03/24 03/03/24 mg-trimethoprim 80 mg tablet Allergies Allergy/AdvReac Type Severity Reaction Status Date / Time codeine Allergy Abdominal Verified 03/03/24 15:39 Pain Penicillins Allergy Rash Verified 03/03/24 15:39 tizanidine [From Zanaflex] Allergy Rash Verified 03/03/24 15:39 diazepam [From Valium] AdvReac Agitated Verified 03/03/24 15:39 cortisone Allergy Rash Uncoded 03/03/24 15:39 percocet AdvReac Agitated Uncoded 03/03/24 15:39 Review of Systems ROS Narrative A ten point review of systems is negative except as noted above. PFSH PFSH Social History Little interest or pleasure in doing things: not at all Feeling down, depressed, or hopeless: not at all Exam Narrative Exam Narrative: Nurses note and vital signs reviewed and patient is not hypoxic. General: The patient appears uncomfortable and is in no distress. Skin: Warm, dry, no pallor noted. There is no rash noted. Head: Normocephalic, atraumatic Eye: Normal conjunctiva, no drainage Ears, Nose, Mouth, and Throat: oral mucosa is moist. Nares patent. Cardiovascular: Regular Rate and Rhythm Respiratory: Patient is in no distress, no accessory muscle use, lungs are clear to auscultation, no wheezing, rales or rhonchi Back: non-tender. No masses or swelling or rash or bruising in her neck. GI: Soft and nontender Musculoskeletal: The right shoulder is examined. She is reluctant to move it. She is reluctant to turn her head. There is no swelling in her right arm, radial pulse 2+. No bruising or rash. Neurological: A&O, normal speech Psychiatric: Cooperative Constitutional Vital Signs, click to edit/add: Last Vital Signs Temp 98.3 F 03/03/24 15:39 Pulse 76 03/03/24 16:00 Resp 17 03/03/24 16:00 BP 156/69 H 03/03/24 16:00 Pulse Ox 94 L 03/03/24 16:00 O2 Del Method Room Air 03/03/24 15:39 Course Vital Signs Vital signs: Vital Signs Pulse Oximetry 97 03/03/24 15:38 Temperature 98.3 F 03/03/24 15:39 Pulse Rate 76 03/03/24 16:00 Respiratory Rate 17 03/03/24 16:00 Blood Pressure 156/69 H 03/03/24 16:00 Pulse Oximetry 94 L 03/03/24 16:00 Oxygen Delivery Method Room Air 03/03/24 15:39 MDM - Extremity (Nontraumatic) MDM Narrative Medical decision making narrative: X-ray showed significant cervical arthritis. She was given IM Toradol and is feeling improved. She has Champion and Robaxin and Aleve at home that she can take. She is feeling much improved. Treatment diagnosis and follow-up were discussed with the patient. Differential Diagnosis Differential diagnosis: Likely other (Cervical strain, cervical arthritis, muscle) Imaging Data Shoulder, C-spine x-ray: Radiologist's impression: ITS Impressions Cervical Spine X-Ray 03/03/24 15:55 IMPRESSION: 1. No acute osseous cervical spine right shoulder pathology 2. Grade 1 anterior C3-4 and C4-5 spondylolisthesis 3. Multilevel mid and lower cervical spine disc degeneration, spondylosis most apparent C5 through C7 4. Remote dorsal nuchal ligament calcification mid and lower cervical spine levels 5. Mild right shoulder osteoarthrosis and enthesopathy Electronically authenticated by: ROMARIO VILLEGAS Date: 03/03/2024 17:11 Shoulder X-Ray 03/03/24 15:55 IMPRESSION: 1. No acute osseous cervical spine right shoulder pathology 2. Grade 1 anterior C3-4 and C4-5 spondylolisthesis 3. Multilevel mid and lower cervical spine disc degeneration, spondylosis most apparent C5 through C7 4. Remote dorsal nuchal ligament calcification mid and lower cervical spine levels 5. Mild right shoulder osteoarthrosis and enthesopathy Electronically authenticated by: ROMARIO VILLEGAS Date: 03/03/2024 17:11 ECG Data Attestation ECG: I personally reviewed and interpreted this ECG as follows: (EKG on my interpretation shows normal sinus rhythm with rate of 77 and no acute changes.) Discharge Plan Discharge Chief Complaint: Extremity Problem, Nontraumatic Clinical Impression: Cervical arthritis Patient Disposition: Home, Self-Care Time of Disposition Decision: 17:38 Condition: Good Mode of Transportation: Private Vehicle Prescriptions / Home Meds: No Action amlodipine 5 mg tablet 5 mg PO QDAY clonidine 0.2 mg/24 hr patch weekly 1 patch transdermal .weekly dicyclomine 20 mg tablet 20 mg PO QID furosemide 40 mg tablet 40 mg PO .COMPLEX Rx Instructions: 40 mg orally tuesday, tuesday, tuesday; hydrocodone-acetaminophen 10-325 mg tablet 1 tab PO Q12H PRN (Reason: pain) hydrocortisone acetate 25 mg suppository 25 mg NJ Q12H PRN (Reason: hemorrhoids) lisinopril-hydrochlorothiazide 20-12.5 mg tablet 1 tab PO QDAY methocarbamol 750 mg tablet 750 mg PO Q6H PRN (Reason: muscle spasm) montelukast 10 mg tablet 10 mg PO QDAY pravastatin 40 mg tablet 40 mg PO .qhs sulfamethoxazole-trimethoprim 400-80 mg tablet 1 tab PO QDAY Print Language: Kiswahili Instructions: Osteoarthritis (ED), Neck Pain (ED) Referrals: NEGRO SUAREZ [Primary Care Provider] - 1 week
[2024-03-03 16:00] VITALS: BP 156/69; PULSE 76; O2SAT 94
[2024-03-03] MEDS: KETOROLAC TROMETHAMINE 60 MG/2 ML VIAL IM (16:08)
[2024-03-03] MEDS: METHOCARBAMOL 500 MG TABLET PO (17:50)
== END 2024-03-03 17:58 | disposition home or self-care (01) ==
PROVIDERS: Emergency Provider Emergency Medicine; PCP Internal Medicine
DX: M47.812 Spondylosis without myelopathy or radiculopathy, cervical region (principal); M19.011 Primary osteoarthritis, right shoulder
CPT/HCPCS: 72040; 73030; 93005; 96372; 99285; J1885

== ENCOUNTER 2024-07-19 12:41 | Outpatient (OUT) | payer OTHER, MEDICAID, SELFPAY ==
--- NOTE | 2024-07-19 12:43 | MM_ITS ---
Patient Name: NAHED HAMILTON MR#: [id number] : 1950 Exam Date: 07/19/2024 Ordering Doctor: DR NEGRO SUAREZ M.D. RADIOLOGY REPORT PROCEDURE: MM TOMOSYNTHESIS SCREENING BI COMPARISON: MG MAMM SCREEN 3D LILIANA CAD, 07/06/2022. MM TOMOSYNTHESIS SCREENING BI, 07/18/2023. INDICATIONS: Screening for malignant neoplasm of breast Calculator Name NCI Breast Cancer Risk Assessment Tool 5 Year Breast Cancer Risk 1.30% Lifetime Breast Cancer Risk 3.30% Personal Breast Cancer No Personal Ovarian Cancer No Treatments Radiation and Chemotherapy Family Cancers Sister with ovarian cancer at age 64; Mother with lung cancer at age 73; Father with lung cancer at age 61. LOCATION: [facility] BREAST COMPOSITION: There are scattered areas of fibroglandular density. FINDINGS: DIAGNOSTIC CATEGORY 2--BENIGN FINDING. NO CHANGE FROM COMPARISON. Scattered benign-appearing calcifications are present. RIGHT BREAST: No significant suspicious finding. LEFT BREAST: No significant suspicious finding. RECOMMENDATIONS: ROUTINE MAMMOGRAM AND CLINICAL EVALUATION IN 12 MONTHS. PLEASE NOTE: A NORMAL MAMMOGRAM DOES NOT EXCLUDE THE POSSIBILITY OF BREAST CANCER. A CLINICALLY SUSPICIOUS PALPABLE LUMP SHOULD BE BIOPSIED. Dictated by: Juvenal Fuentes MD on 07/20/2024 at 07:24 Approved by: Juvenal Fuentes MD on 07/20/2024 at 07:26
--- OUTSIDE RECORDS SUMMARY | 2024-07-19 12:55 | XMS_ITS | CCD ---
Author Organization [facility] Care Team Providers Care 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 Name Role Phone DR BRUNO MCDANIEL Primary Care Unavailable SAMI, DR AGNES Molina Admitting Unavailabl e REINECK, DR AGNES Molina Attending Unavailabl e REINECK, DR AGNES Molina Consulting Unavailabl e HEMMER, DR RENETTA Diaz Admitting Unavailable HEMBOO, DR RENETTA Diaz Attending Unavailable ERICK, DR TOM Primary Care Unavailable KELSEYEBFELIX, DR KUNAL Mckinney Consulting Unavailable SAIMA, DR RENETTA Diaz Consulting Unavailable Bruno Mcdaniel MD Primary Care Provider Bruno Mcdaniel MD Unavailable [phone] Tuesday ACCOUNTING MACHINE MECHANIC, Magdalene Unavailable RENETTA LANDAVERDE Attending Unavailable BRUNO MCDANIEL Attending Unavailable BRUNO MCDANIEL Attending Unavailable RENETTA LANDAVERDE Attending Unavailable BRUNO MCDANIEL Attending Unavailable BRUNO MCDANIEL Attending Unavailable BRUNO MCDANIEL Attending Unavailable Allergies Allergy Classification Reported Allergen(s) Allergy Type Date of Onset Reaction(s) Facility (1 source) Acetaminophen / oxyCODONE Drug Allergy 04-11-20 13 [facility] Repository (1 source) Codeine Drug Allergy 04-11-20 13 [facility] (1 source) Cortisone Drug Allergy 04-11-20 13 [facility] (1 source) diazePAM Drug Allergy 04-11-20 13 [facility] (1 source) Esomeprazole Drug Allergy [facility] (1 source) Penicillins Drug allergy (disorder) 04-11-20 13 [facility]ository (6 sources) Acetaminophen / oxyCODONE Drug Allergy 08-29-19 13 Unknown [facility] Healthcare (6 sources) Codeine Drug Allergy 11-06-19 23 GI intolerance [facility] Healthcare (6 sources) Cortisone Drug Allergy 02-27-20 20 [facility] (6 sources) Diazepam Propensity to adverse reactions 11-06-19 23 Unknown [facility] (6 sources) Esomeprazole Drug Allergy 08-28-19 14 Unknown [facility] (6 sources) Nitrofurantoin Drug Allergy 11-06-19 23 Unknown [facility] (6 sources) Penicillins Drug Intolerance 03-18-20 20 Unknown [facility] (6 sources) tiZANidine Drug Allergy 11-06-19 23 Rash [facility] Medications Current Medications Medication Drug Class(es) Dates Sig (Normalized) Sig (Original) acetaminophen 325 mg / HYDROcodone bitartrate 10 mg oral tablet (8 sources) Opioid Agonist Start: 04-02-2024 End: 04-17-2024 take 0.5-1 tablets by mouth every six hours for pain HYDROcodone-acetami nophen ([place]) 10-325 MG tablet Indications: Spinal stenosis of lumbar region without neurogenic claudication Take 0.5-1 tablets by mouth every 6 (six) hours if needed for severe pain for up to 15 days 60 tablet 04/02/2024 04/17/2024 Active Start: 05-12-2023 End: 01-09-2024 take 1-2 tablets by mouth every six hours for pain HYDROcodone-acetaminophen ([place]) 5-325 MG tablet Indications: Spinal stenosis of lumbar region without neurogenic claudication Take 1-2 tablets by mouth every 6 (six) hours if needed for moderate pain or severe pain 120 tablet 07/13/2023 01/09/2024 Discontinued (Reorder) amLODIPine 5 mg oral tablet (6 sources) Dihydropyridine Calcium Channel Jaison Start: 12-27-2023 take 1 tablet by mouth in the morning amLODIPine (Norvasc) 5 MG tablet Indications: Benign essential hypertension (CMS/HCC) Take 1 tablet (5 mg) by mouth in the morning. 100 tablet 3 12/27/2023 Active Start: 11-25-2022 End: 11-21-2023 take 1 tablet by mouth in the morning amLODIPine (Norvasc) 5 MG tablet Indications: Benign essential hypertension (CMS/HCC) Take 1 tablet (5 mg) by mouth in the morning. 100 tablet 3 11/25/2022 11/21/2023 Discontinued ascorbic acid 500 mg extended release oral capsule (6 sources) Vitamin C take 1 tablet by mouth in the morning ascorbic acid (Vitamin C) 500 MG ER capsule Take 1 tablet by mouth in the morning. Active calcium carbonate 1250 mg / cholecalciferol 200 unt oral tablet (6 sources) Vitamin D take 1 tablet by mouth once in the morning, then take 1 tablet by mouth once at mealtime Calcium Carbonate-Vitamin D (Oyster Shell Calcium/D) 500-5 MG-MCG tablet Take 1 tablet by mouth in the morning and 1 tablet in the evening. Take with meals. Active 168 hr cloNIDine 0.25046 mg/hr transdermal system (6 sources) Central alpha-2 Adrenergic Agonist Start : 12-27 End: 11-27 cloNIDine (Catapres-TTS) 0.2 MG/24HR Indications: Benign essential hypertension (CMS/HCC) Place 1 patch on the skin 1 (one) time per week 12 patch 3 11/28/2023 Active Cranberry-Vitamin C-Probiotic (AZO CRANBERRY PO) (6 sources) take 1 tablet by mouth in the morning Cranberry-Vitamin C-Probiotic (AZO CRANBERRY PO) Take 1 tablet by mouth in the morning. Active dicyclomine hydrochloride 20 mg oral tablet (6 sources) Anticholinergic Start : 05-20 take 1 tablet by mouth four times daily dicyclomine (Bentyl) 20 MG tablet Indications: Ulcerative proctocolitis (CMS/HCC) TAKE 1 TABLET BY MOUTH FOUR TIMES DAILY 120 tablet 10 05/20/2023 Active diphenhydrAMINE hydrochloride 25 mg oral tablet (6 sources) Histamine-1 Receptor Antagonist diphenhydrAMINE (Benadryl Allergy) 25 MG tablet Take 25 mg by mouth as needed at bedtime. Active famotidine 10 mg oral tablet (6 sources) Histamine-2 Receptor Antagonist take 1 tablet by mouth in the morning famotidine (Pepcid) 10 MG tablet Take 1 tablet by mouth in the morning. Active furosemide 40 mg oral tablet (6 sources) Loop Diuretic Start : 08-17 End: 08-17 take 1 tablet by mouth once furosemide (Lasix) 40 MG tablet Indications: Edema, unspecified type TAKE 1 TABLET BY MOUTH EVERY TUESDAY, TUESDAY, AND TUESDAY 13 tablet 10 08/18/2023 Active hydroCHLOROthiazide 12.5 mg / lisinopril 20 mg oral tablet (6 sources) Thiazide Diuretic, Angiotensin Converting Enzyme Inhibitor Start : 05-12 End: 05-11 take 1 tablet by mouth in the morning lisinopril-hydroCHLOR Othiazide 20-12.5 MG tablet Indications: Benign essential hypertension (CMS/HCC) Take 1 tablet by mouth in the morning. 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 12 suppository 5 10/10/2023 10/09/2024 Active loratadine 10 mg oral tablet (6 sources) take 1 tablet by mouth in the morning loratadine (Claritin) 10 MG tablet Take 10 mg by mouth in the morning. Active methocarbamol 750 mg oral tablet (8 sources) Muscle Relaxant Start : 02-13 End: 04-09 methocarbamol (Robaxin) 750 MG tablet Indications: Spinal stenosis of lumbar region without neurogenic claudication Take 1 tablet (750 mg) by mouth in the morning and 1 tablet (750 mg) at noon and 1 tablet (750 mg) in the evening and 1 tablet (750 mg) before bedtime. 120 tablet 2 04/09/2024 Active Start: 03-28-2023 End: 09-26-2023 methocarbamol (Robaxin) 750 MG tablet Indications: Spinal stenosis of lumbar region without neurogenic claudication Take 1 tablet (750 mg) by mouth in the morning and 1 tablet (750 mg) at noon and 1 tablet (750 mg) in the evening and 1 tablet (750 mg) before bedtime. 120 tablet 2 03/28/2023 09/26/2023 Discontinued (Reorder) montelukast 10 mg oral tablet (6 sources) Leukotriene Receptor Antagonist Start: 01-02-2024 take 1 tablet by mouth in the morning montelukast (Singulair) 10 MG tablet Indications: Allergic rhinitis, unspecified seasonality, unspecified trigger TAKE 1 TABLET BY MOUTH IN THE MORNING 100 tablet 3 01/02/2024 Active Start: 06-03-2023 End: 10-03-2023 take 1 tablet by mouth in the morning montelukast (Singulair) 10 MG tablet Indications: Allergic rhinitis, unspecified seasonality, unspecified trigger Take 1 tablet (10 mg) by mouth in the morning. 30 tablet 3 06/03/2023 10/03/2023 Discontinued (Reorder) Multiple Vitamin (multivitamin) capsule (6 sources) take 1 capsule by mouth in the morning Multiple Vitamin (multivitamin) capsule Take 1 capsule by mouth in the morning. Active pravastatin sodium 40 mg oral tablet (6 sources) HMG-CoA Reductase Inhibitor Start: 023 take 1 tablet by mouth at bedtime pravastatin (Pravachol) 40 MG tablet Indications: Hyperlipidemia, unspecified hyperlipidemia type (CMS/HCC) TAKE 1 TABLET BY MOUTH AT BEDTIME 30 tablet 10 05/20/2023 Active sulfamethoxazole 400 mg / trimethoprim 80 mg oral tablet (8 sources) Dihydrofolate Reductase Inhibitor Antibacterial, Sulfonamide Antimicrobial Start: End: 024 take 1 tablet by mouth once daily sulfamethoxazole-trim ethoprim (Bactrim) 400-80 MG tablet Indications: Recurrent UTI Take 1 tablet by mouth Daily 30 tablet 2 04/09/2024 Active Start: 04-26-2023 End: 08-10-2023 take 1 tablet by mouth in the morning sulfamethoxazole-trimethoprim (Bactrim) 400-80 MG tablet Indications: Recurrent UTI Take 1 tablet by mouth in the morning. 30 tablet 2 04/26/2023 08/10/2023 Discontinued (Reorder) triamcinolone acetonide 1 mg/ml topical cream (6 sources) Corticosteroid Start: 03-15-2022 triamcinolone (Kenalog) 0.1 % cream Apply topically 2 (two) times a day. 03/15/2022 Active vitamin B12 (6 sources) Vitamin B12 Cyanocobalamin 5 00 MCG chewable tablet Chew 500 tablets 1 (one) time each day at the same time. Active vitamin e 180 mg oral capsule (6 sources) take 1 capsule by mouth in the morning vitamin E 180 MG (400 UNIT) capsule Take 180 mg by mouth in the morning. Active Problems Active Problems Problem Classification Problem Date Documented Date Episodic/Chronic Anal and rectal conditions (8 sources) Radiation proctitis; 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: [Radiation proctitis] Onset: 11-05-2022 11-05-2022 Episodic Cancer of rectum and anus (6 sources) Malignant tumor of anus; 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: [Malignant neoplasm of anus, unspecified] Onset: 06-26-2014 11-05-2022 Chronic Disorders of lipid metabolism (9 sources) Pure hypercholesterolemia, unspecified; 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: [Mixed hyperlipidemia] Onset: 03-18-2020 07-13-2023 Chronic E Codes: Natural/environment (1 source) Other and unspecified overexertion or strenuous movements or postures, initial encounter; 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: [OTH AND UNS OVREXRT/STRN MVMT/POS INT] Onset: 09-27-2022 Episodic Esophageal disorders (1 source) Gastro-esophageal reflux disease without esophagitis; 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: [GERD WITHOUT ESOPHAGITIS] Onset: 09-27-2022 Chronic Essential hypertension (15 sources) Essential (primary) hypertension; 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: [Benign essential hypertension] Onset: 03-18-2020 Resolved: 11-11-2022 07-13-2023 Chronic Menopausal disorders (6 sources) Decreased estrogen level; 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: [Other primary ovarian failure] Onset: 11-05-2022 11-05-2022 Chronic Nutritional deficiencies (6 sources) Moderate protein energy malnutrition; 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: [Moderate protein-calorie malnutrition] Onset: 11-05-2022 11-05-2022 Chronic Osteoarthritis (12 sources) Arthritis of left elbow; 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: [Primary osteoarthritis, left elbow] Onset: 11-05-2022 11-05-2022 Chronic Other aftercare (1 source) Other fci (current) drug therapy; 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: [OTH PERSONNEL RECRUITER CURRENT DRUG THERAPY] Onset: 09-27-2022 Episodic Other connective tissue disease (1 source) Fibromyalgia; 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: [FIBROMYALGIA] Onset: 09-27-2022 Episodic Other nervous system disorders (6 sources) Ulnar nerve entrapment at elbow; 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: [Lesion of ulnar nerve, left upper limb] Onset: 11-05-2022 11-05-2022 Chronic Other nutritional; endocrine; and metabolic disorders (6 sources) Morbid obesity; 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: [Morbid (severe) obesity due to excess calories] Onset: 11-05-2022 11-05-2022 Chronic Other screening for suspected conditions (not mental disorders or infectious disease) (6 sources) Encounter for screening mammogram for malignant neoplasm of breast; 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: [Patient encounter status] Onset: 07-06-2022 Episodic Other upper respiratory disease (6 sources) Allergic rhinitis; 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: [Allergic rhinitis, unspecified] Onset: 11-05-2022 11-05-2022 Chronic Regional enteritis and ulcerative colitis (6 sources) Ulcerative proctocolitis; 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] Onset: 11-05-2022 11-05-2022 Chronic Residual codes; unclassified (6 sources) Obstructive sleep apnea syndrome; 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: [Obstructive sleep apnea (adult) (pediatric)] Onset: 11-05-2022 11-05-2022 Chronic Residual codes; unclassified (1 source) Family history of malignant neoplasm of trachea, bronchus and lung; 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: [FAM HX MALIG NEOPLSM TRACH BRON LNG] Onset: 07-08-2022 Episodic Residual codes; unclassified (1 source) Family history of malignant neoplasm of ovary; 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: [FAM HX MALIGNANT NEOPLASM OVARY] Onset: 07-08-2022 Episodic Spondylosis; intervertebral disc disorders; other back problems (10 sources) Spondylosis without myelopathy or radiculopathy, lumbar region; 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: [Spondylosis without myelopathy or radiculopathy, cervical region] Onset: 09-27-2022 11-05-2022 Chronic Spondylosis; intervertebral disc disorders; other back problems (20 sources) Cervicalgia; 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: [Spinal stenosis of lumbar region] Onset: 09-25-2022 Episodic Sprains and strains (1 source) Strain of muscle, fascia and tendon at neck level, initial encounter; 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: [STRN MUSC FASC TENDON NECK LEVL INT] Onset: 09-27-2022 Episodic Urinary tract infections (6 sources) Chronic cystitis; 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: [Other chronic cystitis without hematuria] Onset: 11-05-2022 11-05-2022 Chronic Urinary tract infections (8 sources) Recurrent urinary tract infection; 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: [Urinary tract infection, site not specified] Onset: 11-05-2022 11-05-2022 Episodic Past or Other Problems Problem Classification Problem Date Documented Da te Episodic/Chronic Abdominal pain (6 sources) Generalized abdominal pain; 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: [Generalized abdominal pain] Onset: 02-27-2020 11-05-2022 Episodic Cancer of rectum and anus (13 sources) Personal history of other malignant neoplasm of rectum, rectosigmoid junction, and anus; 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: [History of malignant neoplasm of anus] Onset: 04-06-2017 11-05-2022 Episodic Intestinal obstruction without hernia (6 sources) Intestinal obstruction; 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: [Unspecified intestinal obstruction, unspecified as to partial versus complete obstruction] Onset: 03-12-2020 11-05-2022 Episodic Other connective tissue disease (8 sources) Fibromyalgia; 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: [Fibromyalgia] Onset: 11-05-2022 07-13-2023 Episodic Other connective tissue disease (6 sources) Ganglion cyst of tendon sheath; 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: [Ganglion, unspecified site] Onset: 11-05-2022 11-05-2022 Episodic Other connective tissue disease (6 sources) Muscle pain; 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: [Myalgia, unspecified site] Onset: 11-05-2022 11-05-2022 Episodic Residual codes; unclassified (6 sources) Acquired absence of cervix and uterus; 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: [Acquired absence of both cervix and uterus] Onset: 11-05-2022 11-05-2022 Episodic Residual codes; unclassified (6 sources) Edema; 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: [Edema, unspecified] Onset: 11-05-2022 11-05-2022 Episodic Syncope (6 sources) Syncope; 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: [Syncope and collapse] Onset: 11-05-2022 11-05-2022 Episodic Results Test Name Value Interpretation Reference Range Facil ity MG MAMM SCREEN 3D LILIANA CADon 07-06-2022 MG MAMM SCREEN 3D LILIANA CAD Patient: NAHED WALKER Exam Date: 07/06/2022 : 1950 Gender:F Ordering : DR RENETTA LANDAVERDE PA Admission #: [id number] Family : Order #: [id number] CLICK HERE TO VIEW EXAM RADIOLOGY REPORT [...] lung cancer at age 63. LOCATION: [facility] BREAST COMPOSITION: Scattered areas fibroglandular density. FINDINGS: [...] M.D. on 07/07/2022 at 12:01 Normal [facility] Complete Blood Count with Au to Diffon 05-28-2021 Basophils (Bld) [#/Vol] 0.02 10*3/uL Normal 0.00-0.20 [facility] Specialist Comment on above: Performed By: #### C BCAD, CMP, LIPD #### [facility] [address], [place] [id number] Basophils/100 WBC (Bld) 0.3 % Normal [facility] Specialist Comment on above: Performed By: #### C BCAD, CMP, LIPD #### [facility] [address], [place] [id number] Eosinophils (Bld) [#/Vol] 0.04 10*3/uL Normal 0.02-0.50 [facility] Specialist Comment on above: Performed By: #### C BCAD, CMP, LIPD #### [facility] [address], [place] [id number] Eosinophils/100 WBC (Bld) 0.6 % Normal [facility] Specialist Comment on above: Performed By: #### C BCAD, CMP, LIPD #### [facility] [address], [place] [id number] Erythrocyte distribution width (RBC) [Ratio] 13.2 % Normal 11.0-15.0 [employer] [place] [employer] Comment on above: Performed By: #### C BCAD, CMP, LIPD #### [facility] [address], [place] [id number] Hematocrit (Bld) [Volume fraction] 41.5 % Normal 35.0-47.0 [facility] [employer] Comment on above: Performed By: #### C BCAD, CMP, LIPD #### [facility] [address], [place] [id number] Hemoglobin (Bld) [Mass/Vol] 13.7 g/dL Normal 11.6-15.5 [facility] [employer] Comment on above: Performed By: #### C BCAD, CMP, LIPD #### [facility] [address], [place] [id number] Lymphocytes (Bld) [#/Vol] 2.3 10*3/uL Normal 0.9-3.9 [facility] [employer] Comment on above: Performed By: #### C BCAD, CMP, LIPD #### [facility] [address], [place] [id number] Lymphocytes/100 WBC (Bld) 32.3 % Normal [facility] [employer] Comment on above: Performed By: #### C BCAD, CMP, LIPD #### [facility] [address], [place] [id number] MCH (RBC) [Entitic mass] 30.7 pg Normal 27.0-33.0 [facility] [employer] Comment on above: Performed By: #### C BCAD, CMP, LIPD #### [facility] [address], [place] [id number] MCHC (RBC) [Mass/Vol] 33.0 g/dL Normal 32.0-36.0 [facility] [employer] Comment on above: Performed By: #### C BCAD, CMP, LIPD #### [facility] [address], [place] [id number] MCV (RBC) [Entitic vol] 93 fL Normal 80-100 [facility] [employer] Comment on above: Performed By: #### C BCAD, CMP, LIPD #### [facility] [address], [place] [id number] Monocytes (Bld) [#/Vol] 0.6 10*3/uL Normal 0.2-0.9 [facility] Specialist Comment on above: Performed By: #### C BCAD, CMP, LIPD #### [facility] [address], [place] [id number] Monocytes/100 WBC (Bld) 8.0 % Normal [facility] Specialist Comment on above: Performed By: #### C BCAD, CMP, LIPD #### [facility] [address], [place] [id number] Neutrophils (Bld) [#/Vol] 4.1 10*3/uL Normal 1.5-7.8 [facility] Specialist Comment on above: Performed By: #### C BCAD, CMP, LIPD #### [facility] [address], [place] [id number] Neutrophils/100 WBC (Bld) 58.5 % Normal [facility] Specialist Comment on above: Performed By: #### C BCAD, CMP, LIPD #### [facility] [address], [place] [id number] Platelet mean volume (Bld) [Entitic vol] 9.70 fL Normal 7.50-12.50 [facility] Specialist Comment on above: Performed By: #### C BCAD, CMP, LIPD #### [facility] [address], [place] [id number] Platelets (Bld) [#/Vol] 238 10*3/uL Normal 140-400 [facility] Specialist Comment on above: Performed By: #### C BCAD, CMP, LIPD #### [facility] [address], [place] [id number] RBC (Bld) [#/Vol] 4.46 10*6/uL Normal 3.90-5.20 [facility] Specialist Comment on above: Performed By: #### C BCAD, CMP, LIPD #### [facility] [address], [place] [id number] RDW-SD 45.0 fL Normal 37.0-50.0 [facility] Specialist Comment on above: Performed By: #### C BCAD, CMP, LIPD #### [facility] [address], [place] [id number] WBC (Bld) [#/Vol] 7.0 10*3/uL Normal 3.8-11.0 [facility] [employer] Comment on above: Performed By: #### C BCAD, CMP, LIPD #### [facility] [address], [place] [id number] Comprehensive Metabolic Pane vandana 05-28-2021 Albumin [Mass/Vol] 4.3 g/dL Normal 3.6-5.1 [facility] [employer] Comment on above: Performed By: #### C BCAD, CMP, LIPD #### [facility] [address], [place] [id number] Albumin/Globulin [Mass ratio] 1.6 {ratio} Normal 1.0-2.5 [facility] Specialist Comment on above: Performed By: #### C BCAD, CMP, LIPD #### [facility] [address], [place] [id number] ALP [Catalytic activity/Vol] 86 U/L Normal 35-119 [facility] Specialist Comment on above: Performed By: #### C BCAD, CMP, LIPD #### [facility] [address], [place] [id number] ALT [Catalytic activity/Vol] 16 U/L Normal 6-33 [facility] Specialist Comment on above: Result Comment: 05/13 Female reference range changed. Performed By: #### C BCAD, CMP, LIPD #### [facility] [address], [place] [id number] Anion gap [Moles/Vol] 18 mmol/L Normal 12-20 [facility] Specialist Comment on above: Result Comment: Effe ctive 06/18/2019 reference range changed. Performed By: #### C BCAD, CMP, LIPD #### [facility] [address], [place] [id number] AST [Catalytic activity/Vol] 16 U/L Normal 9-34 [facility] Specialist Comment on above: Performed By: #### C BCAD, CMP, LIPD #### [facility] [address], [place] [id number] Bilirubin [Mass/Vol] 0.53 mg/dL Normal 0.30-1.20 [facility] Specialist Comment on above: Performed By: #### C BCAD, CMP, LIPD #### [facility] [address], [place] [id number] BUN/CREA 20 Ratio Normal 6-22 [facility] Specialist Comment on above: Performed By: #### C BCAD, CMP, LIPD #### [facility] [address], [place] [id number] Calcium [Mass/Vol] 10.1 mg/dL Normal 8.6-10.2 [facility] Comment on above: Performed By: #### C BCAD, CMP, LIPD #### [facility] [address], [place] [id number] Chloride [Moles/Vol] 101 mmol/L Normal 98-107 [facility] Specialist Comment on above: Performed By: #### C BCAD, CMP, LIPD #### [facility] [address], [place] [id number] CO2 [Moles/Vol] 28 mmol/L Normal 20-31 [facility] Specialist Comment on above: Performed By: #### C BCAD, CMP, LIPD #### [facility] [address], [place] [id number] Creatinine [Mass/Vol] 0.8 mg/dL Normal 0.6-1.4 [facility] Specialist Comment on above: Performed By: #### C BCAD, CMP, LIPD #### [facility] [address], [place] [id number] eGFRAA 84 mL/min/1.73m2 Normal >60 [facility] Specialist Comment on above: Performed By: #### C BCAD, CMP, LIPD #### [facility] [address], [place] [id number] eGFRNAA 69 mL/min/1.73m2 Normal >60 [facility] Specialist Comment on above: Performed By: #### C BCAD, CMP, LIPD #### [facility] [address], [place] [id number] Globulin (S) [Mass/Vol] 2.7 g/dL Normal 1.9-3.7 [employer] [place] [employer] Comment on above: Performed By: #### C BCAD, CMP, LIPD #### [facility] [address], [place] [id number] Glucose [Mass/Vol] 91 mg/dL Normal 65-99 [employer] [place] [employer] Comment on above: Result Comment: For FASTING Glucose --- ADA reference ranges: Normal 65-99 mg/dl Prediabetes 100-125 Diabetes >/= 126 Performed By: #### C BCAD, CMP, LIPD #### [facility] [address], [place] [id number] Potassium [Moles/Vol] 3.8 mmol/L Normal 3.5-5.5 [facility] [employer] Comment on above: Performed By: #### C BCAD, CMP, LIPD #### [facility] [address], [place] [id number] Protein [Mass/Vol] 7.0 g/dL Normal 6.1-8.1 [facility] ba [place] [employer] Comment on above: Performed By: #### C BCAD, CMP, LIPD #### [facility] [address], [place] [id number] Sodium [Moles/Vol] 143 mmol/L Normal 135-146 Lalo rn [place] [employer] Comment on above: Performed By: #### C BCAD, CMP, LIPD #### [facility] [address], [place] [id number] Urea nitrogen [Mass/Vol] 16 mg/dL Normal 7-25 [facility] [employer] Comment on above: Performed By: #### C BCAD, CMP, LIPD #### [facility] [address], [place] [id number] Lipid Panelon 05-28-2021 Cholesterol [Mass/Vol] 181 mg/dL Normal 125-200 [facility] [employer] Comment on above: Result Comment: Low risk < 200mg/dL Borderline risk 201-239 mg/dl High risk > or equal to 240 Performed By: #### C BCAD, CMP, LIPD #### [facility] [address], [place] [id number] Cholesterol in HDL [Mass/Vol] 54 mg/dL Normal >40 [facility] [employer] Comment on above: Result Comment: High Cardiovascular Risk HDL <40 mg/dL Low Cardiovascular Risk HDL > or equal to 60 mg/dl Performed By: #### C BCAD, CMP, LIPD #### [facility] [address], [place] [id number] Cholesterol in LDL [Mass/Vol] 96 mg/dL Normal [facility] Specialist Comment on above: Result Comment: LDL ATP III CLASSIFICATION LDL less than 100 mg/dl Optimal LDL 100-129 mg/dl Near or above optimal LDL 130-159 Borderline high LDL 160-189 High LDL greater than 189 mg/dl Very High Performed By: #### C BCAD, CMP, LIPD #### [facility] [address], [place] [id number] Cholesterol in VLDL [Mass/Vol] 31 mg/dL Normal [facility] [employer] Comment on above: Performed By: #### C BCAD, CMP, LIPD #### [facility] [address], [place] [id number] Cholesterol.total/C holesterol in HDL [Mass ratio] 3 {ratio} Normal [facility] [employer] Comment on above: Performed By: #### C BCAD, CMP, LIPD #### [facility] [address], [place] [id number] Triglyceride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 infection, site not specified Radiation proctitis Other specified disorder of rectum and anus Lumbar disc herniation Displacement of lumbar intervertebral disc without myelopathy documented in this encounter [facility] Summary Purpose Family History No Family History Records FoundNo Family History Records FoundNo Family History Records FoundNo Family History Records Found Advance Directives No Advanced Directives Records FoundNo Advanced Directives Records FoundNo Advanced Directives Records FoundNo Advanced Directives Records Found Additional Source Comments INFORMATION SOURCE (unrecogn ized section and content) DATE CREATED AUTHOR 04/05/2019 [facility] DATE CREATED AUTHOR AUTHOR'S ORGANIZ ATION 05/29/2021 [facility] dical Specialist DATE CREATED AUTHOR AUTHOR'S ORGANIZ ATION 09/28/2022 [facility] DATE CREATED AUTHOR AUTHOR'S ORGANIZ ATION 04/10/2024 [facility] dical Specialists EPIC Care Teams (unrecognized sec tion and content) 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 Relationship Specialty Start Date End Date Bruno Mcdaniel MD [address] [place] [address] PCP - General Internal Medicine 10/27/22 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 Relationship Specialty Start Date End Date Bruno Mcdaniel MD [address] [place] [address] PCP - General Internal Medicine 10/27/22 Bruno Mcdaniel MD [address] [place] [address] PCP - ACO Reach 08/12/23TuesdayMagdalene, ACCOUNTING MACHINE MECHANIC [address] [place] [address] Licensed Practical Nurse Family Medicine 03/09/24 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 Relationship Specialty Start Date End Date Bruno Mcdaniel MD [address] [place] [address] PCP - General Internal Medicine 10/27/22 Bruno Mcdaniel MD [address] [place] [address] PCP - ACO Reach 08/12/23Tuesday, Magdalene, ACCOUNTING MACHINE MECHANIC [address] [place] [address] Licensed Practical Nurse Family Medicine 03/09/24 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 [employer] provides no warranty or guarantee of the accuracy or completeness of information in this document.
== END 2024-07-19 12:42 | disposition home or self-care (01) ==
LOC: MAMMO 12:41
PROVIDERS: PCP Internal Medicine; Visit Provider Internal Medicine
DX: Z12.31 Encounter for screening mammogram for malignant neoplasm of breast (principal); Z80.41 Family history of malignant neoplasm of ovary; Z80.1 Family history of malignant neoplasm of trachea, bronchus and lung
CPT/HCPCS: 77063; 77067

== ENCOUNTER 2024-10-17 17:12 | Emergency (ER) | payer OTHER, MEDICAID, SELFPAY ==
[2024-10-17] VITALS (18 sets, daily range): BP systolic 154–216; BP diastolic 42–97; PULSE 59–78; TEMP 36.8; O2SAT 93–98; BMI 39.0
--- NOTE | 2024-10-17 17:29 | ECG_ITS ---
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 Measurements Intervals Vincent Rate: 69 P: 30 KS: 148 QRS: 3 QRSD: 92 T: 21 QT: 380 QTc: 399 Interpretive Statements 1100 Sinus rhythm 9110 normal ECG Compared to ECG 03/03/2024 15:42:42 No significant changes Electronically Signed On 10-17-2024 18:18:54 EDT by CHARLOTTE TIDWELL M.D.
--- NOTE | 2024-10-17 17:31 | ED.CHESTPAI1 ---
Documented by User: [email or web address] Claros 10/17/24 20:04 HPI - Chest Pain General Chief Complaint: Chest Pain Stated Complaint: CHEST PAINS Time Seen by Provider: 10/17/24 17:17 Source: patient Mode of arrival: walk-in Limitations: no limitations History of Present Illness HPI narrative: Patient is a 74-year-old female who presents to the emergency department for evaluation of pain across her upper chest that has been present since last night. She states the pain is worse with deep breathing and movement. She feels it is muscular pain. She has mild associated shortness of breath with no cough, congestion. She states for the last 2 to 3 months she has had pain in the left shoulder joint radiating to the left arm. She has an upcoming MRI that was ordered by her PCP. Documentation shows that she was prescribed baclofen yesterday by her primary care provider. She denies any history of coronary artery disease, CVA, diabetes. She was noted to be hypertensive at initial interview, she states she did take her blood pressure medication today. She denies any leg swelling. She is unaware of any injuries. She has no significant shoulder pain at this time. Risk Factors Coronary artery disease risk factors: hypertension Related Data Home Medications ?Medication ?Instructions ?Recorded ?Confirmed amlodipine 5 mg tablet 5 mg PO QDAY 03/03/24 10/17/24 clonidine 0.2 mg/24 hr weekly 1 patch transdermal .weekly 03/03/24 10/17/24 transdermal patch dicyclomine 20 mg tablet 20 mg PO QID 03/03/24 10/17/24 furosemide 40 mg tablet 40 mg PO .COMPLEX 03/03/24 10/17/24 hydrocodone 10 mg-acetaminophen 1 tab PO Q12H PRN pain 03/03/24 10/17/24 325 mg tablet hydrocortisone acetate 25 mg 25 mg GA Q12H PRN hemorrhoids 03/03/24 10/17/24 rectal suppository lisinopril 20 1 tab PO QDAY 03/03/24 10/17/24 mg-hydrochlorothiazide 12.5 mg tablet methocarbamol 750 mg tablet 750 mg PO Q6H PRN muscle spasm 03/03/24 10/17/24 montelukast 10 mg tablet 10 mg PO QDAY 03/03/24 10/17/24 pravastatin 40 mg tablet 40 mg PO .qhs 03/03/24 10/17/24 sulfamethoxazole 400 1 tab PO QDAY 03/03/24 10/17/24 mg-trimethoprim 80 mg tablet baclofen 10 mg tablet 10 mg PO DAILY 10/17/24 10/17/24 pantoprazole 40 mg tablet,delayed 40 mg PO DAILY 10/17/24 10/17/24 release Previous Rx's ?Medication ?Instructions ?Recorded methylprednisolone 4 mg tablets in See Rx Instructions .Route 10/17/24 a dose pack (Medrol (Chencho)) .COMPLEX #21 ea Allergies Allergy/AdvReac Type Severity Reaction Status Date / Time codeine Allergy Abdominal Verified 03/03/24 15:39 Pain Penicillins Allergy Rash Verified 03/03/24 15:39 tizanidine (From Zanaflex) Allergy Rash Verified 03/03/24 15:39 diazepam (From Valium) AdvReac Agitated Verified 03/03/24 15:39 cortisone Allergy Rash Uncoded 03/03/24 15:39 percocet AdvReac Agitated Uncoded 03/03/24 15:39 Review of Systems ROS Constitutional Denies: fever or chills Ears, nose, mouth, and throat Denies: throat pain or nasal congestion Cardiovascular Reports: chest pain; Denies: edema Respiratory Reports: shortness of breath and pain on inspiration; Denies: cough Gastrointestinal Denies: abdominal pain, nausea or vomiting Musculoskeletal Reports: back pain, extremity pain, joint pain and limited range of motion Integumentary/Breast Denies: rash Neurological Denies: numbness in extremities or weakness in extremities Hematologic/Lymphatic Denies: easy bruising or easy bleeding PFSH PFSH Social History Little interest or pleasure in doing things: not at all Feeling down, depressed, or hopeless: not at all Exam Narrative Exam Narrative: Gen.: Awake, alert, in no distress Head: Normocephalic, atraumatic ENT: Moist mucous membranes Respiratory: No respiratory distress, lungs clear bilaterally, tenderness of the anterior and superior chest bilaterally to palpation Cardio: Regular rate and rhythm Gastrointestinal: Abdomen is soft, nondistended and nontender to palpation Extremities: Limited abduction at the left shoulder, normal copy center specialist strength in the left hand. No bony tenderness or obvious deformity of the left shoulder. No pedal edema Psych: Normal mood and affect Neuro: No focal neuro deficit Skin: Warm, dry, intact, no rashes or color change noted of the shoulder chest Constitutional Vital Signs, click to edit/add: Last Vital Signs Temp 98.2 F 10/17/24 17:17 Pulse 65 10/17/24 19:30 Resp 20 10/17/24 19:30 BP 159/59 H 10/17/24 19:31 Pulse Ox 95 10/17/24 19:30 O2 Del Method Room Air 10/17/24 17:17 Course Vital Signs Vital signs: Vital Signs Temperature 98.2 F 10/17/24 17:17 Pulse Rate 78 10/17/24 17:17 Respiratory Rate 18 10/17/24 17:17 Blood Pressure 216/97 H 10/17/24 17:17 Pulse Oximetry 98 10/17/24 17:17 Oxygen Delivery Method Room Air 10/17/24 17:17 Temperature 98.2 F 10/17/24 17:17 Pulse Rate 65 10/17/24 19:30 Respiratory Rate 20 10/17/24 19:30 Blood Pressure 159/59 H 10/17/24 19:31 Pulse Oximetry 95 10/17/24 19:30 Oxygen Delivery Method Room Air 10/17/24 17:17 MDM - Chest Pain MDM Narrative Medical decision making narrative: EKG, laboratory studies including 2 troponins are within normal limits. CT angio of the chest with no evidence of pulmonary embolism. Patient given education and reassurance, she states she takes baclofen daily, she has been on this medication for some time. She was given a Medrol Dosepak for possible pleurisy/chest wall pain. Follow-up with PCP and return to the ER if symptoms change or worsen SUPERVISED APC VISIT, PHYSICIAN ATTESTATION: Based on the medical record the care appears appropriate. ? Medical Records Data Attestation: I reviewed the patient's medical records. Lab Data Attestation: I reviewed the patient's lab results. Labs: Lab Results 10/17/24 10/17/24 Range/Units 17:45 19:23 WBC 8.9 (4.0-11.0) 10^3/uL RBC 3.94 L (4.20-5.40) 10^6/uL Hgb 12.1 (12.0-16.0) g/dL Hct 36.4 (36.0-48.0) % MCV 92.4 (81.0-99.0) fL MCH 30.7 (26.7-34.0) pg MCHC 33.2 (29.9-35.2) g/dL RDW 13.2 (11.0-15.0) % Plt Count 226 (150-450) 10^3/uL MPV 10.4 (9.5-13.5) fL Neut % (Auto) 64.6 (43.0-75.0) % Lymph % (Auto) 24.8 (20.5-60.0) % [place] % (Auto) 9.3 (1.7-12.0) % Eos % (Auto) 0.5 L (0.9-7.0) % Baso % (Auto) 0.3 (0.2-2.0) % Neut # (Auto) 5.7 (1.4-6.5) 10^3/uL Lymph # (Auto) 2.2 (1.2-3.8) 10^3/uL [place] # (Auto) 0.8 (0.3-0.8) 10^3/uL Eos # (Auto) 0.0 (0.0-0.7) 10^3/uL Baso # (Auto) 0.0 (0.0-0.1) 10^3/uL Abs Immat Gran (auto) 0.04 H (0.00-0.03) 10^3/uL Imm/Tot Granulo (auto) 0.5 (0.0-0.5) % PT 10.7 (9.0-11.6) sec INR 1.01 Sodium 137 (136-145) mmol/L Potassium 3.3 L (3.5-5.1) mmol/L Chloride 100 (98-107) mmol/L Carbon Dioxide 31.7 (21.0-32.0) mmol/L Anion Gap 8.6 BUN 7.0 (7.0-18.0) mg/dL Creatinine 0.79 (0.55-1.02) mg/dL Est GFR ( Amer) >60 (>=60 mL/min/1.73m^2) Est GFR (Non-Af Amer) >60 (>=60 mL/min/1.73m^2) BUN/Creatinine Ratio 8.9 Glucose 98 (74-106) mg/dL Calcium 9.0 (8.5-10.1) mg/dL Magnesium 1.6 L (1.8-2.4) mg/dL Total Bilirubin 0.7 (0.2-1.0) mg/dL AST 22 (15-37) U/L ALT 20 (14-59) U/L Alkaline Phosphatase 95 (46-116) U/L Troponin I High Sens 5.3 6.6 (4.0-51.3) pg/mL NT-Pro-B Natriuret Pep 300.0 (<=900.0) pg/mL Total Protein 6.9 (6.4-8.2) g/dL Albumin 3.1 L (3.4-5.0) g/dL Globulin 3.8 g/dL Albumin/Globulin Ratio 0.[address] scan - chest: Attestation: I have reviewed the pertinent imaging results. Radiologist's impression: NAD ECG Data Attestation: I personally reviewed and interpreted this ECG as follows: (Normal sinus rhythm at a rate of 69, no acute ST elevation or ectopy. EKG reviewed by attending physician) Heart Score History: Slightly/Non-Suspicious ECG: Normal Age: >65 years Risk Factors: >3 Risk Factors/ HX of CAD:2 Troponin: <Normal Limit Total Heart Score Recommendations & Risks:: 4 Discharge Plan Discharge Chief Complaint: Chest Pain Clinical Impression: Atypical chest pain Patient Disposition: Home, Self-Care Time of Disposition Decision: 20:01 Condition: Good Mode of Transportation: Private Vehicle Prescriptions / Home Meds: New methylprednisolone [Medrol ([place])] 4 mg tablets,dose pack See Rx Instructions .ROUTE .COMPLEX Qty: 21 0RF Rx Instructions: Taper as directed No Action amlodipine 5 mg tablet 5 mg PO QDAY clonidine 0.2 mg/24 hr patch weekly 1 patch transdermal .weekly dicyclomine 20 mg tablet 20 mg PO QID furosemide 40 mg tablet 40 mg PO .COMPLEX Rx Instructions: 40 mg orally tuesday, tuesday, tuesday; hydrocodone-acetaminophen 10-325 mg tablet 1 tab PO Q12H PRN (Reason: pain) hydrocortisone acetate 25 mg suppository 25 mg GA Q12H PRN (Reason: hemorrhoids) lisinopril-hydrochlorothiazide 20-12.5 mg tablet 1 tab PO QDAY methocarbamol 750 mg tablet 750 mg PO Q6H PRN (Reason: muscle spasm) montelukast 10 mg tablet 10 mg PO QDAY pravastatin 40 mg tablet 40 mg PO .qhs sulfamethoxazole-trimethoprim 400-80 mg tablet 1 tab PO QDAY baclofen 10 mg tablet 10 mg PO DAILY pantoprazole 40 mg tablet,delayed release (DR/EC) 40 mg PO DAILY Print Language: Singaporean Instructions: Noncardiac Chest Pain (ED) Referrals: NEGRO SUAREZ [Primary Care Provider, Internal Medicine] - 1 week Discharge Date/Time: 10/17/24 20:12 Documented by User: Kathy Trammell MD 10/18/24 01:26 HPI - Chest Pain General Chief Complaint: Chest Pain Stated Complaint: CHEST PAINS Time Seen by Provider: 10/17/24 17:17 Related Data Home Medications ?Medication ?Instructions ?Recorded ?Confirmed amlodipine 5 mg tablet 5 mg PO QDAY 03/03/24 10/17/24 clonidine 0.2 mg/24 hr weekly 1 patch transdermal .weekly 03/03/24 10/17/24 transdermal patch dicyclomine 20 mg tablet 20 mg PO QID 03/03/24 10/17/24 furosemide 40 mg tablet 40 mg PO .COMPLEX 03/03/24 10/17/24 hydrocodone 10 mg-acetaminophen 1 tab PO Q12H PRN pain 03/03/24 10/17/24 325 mg tablet hydrocortisone acetate 25 mg 25 mg GA Q12H PRN hemorrhoids 03/03/24 10/17/24 rectal suppository lisinopril 20 1 tab PO QDAY 03/03/24 10/17/24 mg-hydrochlorothiazide 12.5 mg tablet methocarbamol 750 mg tablet 750 mg PO Q6H PRN muscle spasm 03/03/24 10/17/24 montelukast 10 mg tablet 10 mg PO QDAY 03/03/24 10/17/24 pravastatin 40 mg tablet 40 mg PO .qhs 03/03/24 10/17/24 sulfamethoxazole 400 1 tab PO QDAY 03/03/24 10/17/24 mg-trimethoprim 80 mg tablet baclofen 10 mg tablet 10 mg PO DAILY 10/17/24 10/17/24 pantoprazole 40 mg tablet,delayed 40 mg PO DAILY 10/17/24 10/17/24 release Previous Rx's ?Medication ?Instructions ?Recorded methylprednisolone 4 mg tablets in See Rx Instructions .Route 10/17/24 a dose pack (Medrol (Chencho)) .COMPLEX #21 ea Allergies Allergy/AdvReac Type Severity Reaction Status Date / Time codeine Allergy Abdominal Verified 03/03/24 15:39 Pain Penicillins Allergy Rash Verified 03/03/24 15:39 tizanidine (From Zanaflex) Allergy Rash Verified 03/03/24 15:39 diazepam (From Valium) AdvReac Agitated Verified 03/03/24 15:39 cortisone Allergy Rash Uncoded 03/03/24 15:39 percocet AdvReac Agitated Uncoded 03/03/24 15:39 PFSH PFS Social History Little interest or pleasure in doing things: not at all Feeling down, depressed, or hopeless: not at all Exam Constitutional Vital Signs, click to edit/add: Last Vital Signs Temp 98.2 F 10/17/24 17:17 Pulse 65 10/17/24 19:30 Resp 20 10/17/24 19:30 BP 159/59 H 10/17/24 19:31 Pulse Ox 95 10/17/24 19:30 O2 Del Method Room Air 10/17/24 17:17 Course Vital Signs Vital signs: Vital Signs Temperature 98.2 F 10/17/24 17:17 Pulse Rate 78 10/17/24 17:17 Respiratory Rate 18 10/17/24 17:17 Blood Pressure 216/97 H 10/17/24 17:17 Pulse Oximetry 98 10/17/24 17:17 Oxygen Delivery Method Room Air 10/17/24 17:17 Temperature 98.2 F 10/17/24 17:17 Pulse Rate 65 10/17/24 19:30 Respiratory Rate 20 10/17/24 19:30 Blood Pressure 159/59 H 10/17/24 19:31 Pulse Oximetry 95 10/17/24 19:30 Oxygen Delivery Method Room Air 10/17/24 17:17 MDM - Chest Pain Lab Data Labs: Lab Results 10/17/24 10/17/24 Range/Units 17:45 19:23 WBC 8.9 (4.0-11.0) 10^3/uL RBC 3.94 L (4.20-5.40) 10^6/uL Hgb 12.1 (12.0-16.0) g/dL Hct 36.4 (36.0-48.0) % MCV 92.4 (81.0-99.0) fL MCH 30.7 (26.7-34.0) pg MCHC 33.2 (29.9-35.2) g/dL RDW 13.2 (11.0-15.0) % Plt Count 226 (150-450) 10^3/uL MPV 10.4 (9.5-13.5) fL Neut % (Auto) 64.6 (43.0-75.0) % Lymph % (Auto) 24.8 (20.5-60.0) % [place] % (Auto) 9.3 (1.7-12.0) % Eos % (Auto) 0.5 L (0.9-7.0) % Baso % (Auto) 0.3 (0.2-2.0) % Neut # (Auto) 5.7 (1.4-6.5) 10^3/uL Lymph # (Auto) 2.2 (1.2-3.8) 10^3/uL [place] # (Auto) 0.8 (0.3-0.8) 10^3/uL Eos # (Auto) 0.0 (0.0-0.7) 10^3/uL Baso # (Auto) 0.0 (0.0-0.1) 10^3/uL Abs Immat Gran (auto) 0.04 H (0.00-0.03) 10^3/uL Imm/Tot Granulo (auto) 0.5 (0.0-0.5) % PT 10.7 (9.0-11.6) sec INR 1.01 Sodium 137 (136-145) mmol/L Potassium 3.3 L (3.5-5.1) mmol/L Chloride 100 (98-107) mmol/L Carbon Dioxide 31.7 (21.0-32.0) mmol/L Anion Gap 8.6 BUN 7.0 (7.0-18.0) mg/dL Creatinine 0.79 (0.55-1.02) mg/dL Est GFR ( Amer) >60 (>=60 mL/min/1.73m^2) Est GFR (Non-Af Amer) >60 (>=60 mL/min/1.73m^2) BUN/Creatinine Ratio 8.9 Glucose 98 (74-106) mg/dL Calcium 9.0 (8.5-10.1) mg/dL Magnesium 1.6 L (1.8-2.4) mg/dL Total Bilirubin 0.7 (0.2-1.0) mg/dL AST 22 (15-37) U/L ALT 20 (14-59) U/L Alkaline Phosphatase 95 (46-116) U/L Troponin I High Sens 5.3 6.6 (4.0-51.3) pg/mL NT-Pro-B Natriuret Pep 300.0 (<=900.0) pg/mL Total Protein 6.9 (6.4-8.2) g/dL Albumin 3.1 L (3.4-5.0) g/dL Globulin 3.8 g/dL Albumin/Globulin Ratio 0.8 Heart Score Total Heart Score Recommendations & Risks:: 4 Discharge Plan Discharge Chief Complaint: Chest Pain Clinical Impression: Atypical chest pain Patient Disposition: Home, Self-Care Time of Disposition Decision: 20:01 Condition: Good Mode of Transportation: Private Vehicle Prescriptions / Home Meds: New methylprednisolone [Medrol ([place])] 4 mg tablets,dose pack See Rx Instructions .ROUTE .COMPLEX Qty: 21 0RF Rx Instructions: Taper as directed No Action amlodipine 5 mg tablet 5 mg PO QDAY clonidine 0.2 mg/24 hr patch weekly 1 patch transdermal .weekly dicyclomine 20 mg tablet 20 mg PO QID furosemide 40 mg tablet 40 mg PO .COMPLEX Rx Instructions: 40 mg orally tuesday, tuesday, tuesday; hydrocodone-acetaminophen 10-325 mg tablet 1 tab PO Q12H PRN (Reason: pain) hydrocortisone acetate 25 mg suppository 25 mg GA Q12H PRN (Reason: hemorrhoids) lisinopril-hydrochlorothiazide 20-12.5 mg tablet 1 tab PO QDAY methocarbamol 750 mg tablet 750 mg PO Q6H PRN (Reason: muscle spasm) montelukast 10 mg tablet 10 mg PO QDAY pravastatin 40 mg tablet 40 mg PO .qhs sulfamethoxazole-trimethoprim 400-80 mg tablet 1 tab PO QDAY baclofen 10 mg tablet 10 mg PO DAILY pantoprazole 40 mg tablet,delayed release (DR/EC) 40 mg PO DAILY Print Language: Singaporean Instructions: Noncardiac Chest Pain (ED) Referrals: NEGRO SUAREZ [Primary Care Provider, Internal Medicine] - 1 week Discharge Date/Time: 10/17/24 20:12
[2024-10-17] MEDS: METHOCARBAMOL 1,000 MG/10 ML VIAL 1000 MG IV (17:48)
[2024-10-17] MEDS: KETOROLAC TROMETHAMINE 30 MG/ML VIAL 15 MG IVP (17:48)
[2024-10-17 17:59] LABS: Basophils Percent Auto 0.3 % (0.2-2.0); Eosinophils Percent Auto 0.5 % (0.9-7.0); Hematocrit 36.4 % (36.0-48.0); Hemoglobin 12.1 g/dL (12.0-16.0); Immature Granulocytes Abs Auto 0.04 10^3/uL (0.00-0.03); Immature Granulocytes Pct Auto 0.5 % (0.0-0.5); Lymphocytes Absolute Auto 2.2 10^3/uL (1.2-3.8); Lymphocytes Percent Auto 24.8 % (20.5-60.0); Mean Corpuscular HGB Conc 33.2 g/dL (29.9-35.2); Mean Corpuscular Hemoglobin 30.7 pg (26.7-34.0); Mean Corpuscular Volume 92.4 fL (81.0-99.0); Mean Platelet Volume 10.4 fL (9.5-13.5); Monocytes Absolute Auto 0.8 10^3/uL (0.3-0.8); Monocytes Percent Auto 9.3 % (1.7-12.0); Neutrophils Absolute Auto 5.7 10^3/uL (1.4-6.5); Neutrophils Percent Auto 64.6 % (43.0-75.0); Platelet Count 226 10^3/uL (150-450); Red Blood Count 3.94 10^6/uL (4.20-5.40); Red Cell Distribution Width 13.2 % (11.0-15.0); White Blood Count 8.9 10^3/uL (4.0-11.0)
[2024-10-17] MEDS: ASPIRIN 81 MG TAB.CHEW 162 MG PO (18:06)
[2024-10-17 18:18] LABS: INR 1.01; Prothrombin Time 10.7 sec (9.0-11.6)
[2024-10-17 18:31] LABS: Alanine Aminotransferase 20 U/L (14-59); Albumin Globulin Ratio 0.8; Albumin Level 3.1 g/dL (3.4-5.0); Alkaline Phosphatase 95 U/L (46-116); Anion Gap 8.6; Aspartate Amino Transferase 22 U/L (15-37); BUN Creatinine Ratio 8.9; Bilirubin Total 0.7 mg/dL (0.2-1.0); Carbon Dioxide 31.7 mmol/L (21.0-32.0); Chloride 100 mmol/L (98-107); Estimated GFR (African America >60 (>=60 mL/min/1.73m^2); Estimated GFR (Non-African Ame >60 (>=60 mL/min/1.73m^2); Globulin 3.8 g/dL; Glucose 98 mg/dL (74-106); Magnesium 1.6 mg/dL (1.8-2.4); Potassium 3.3 mmol/L (3.5-5.1); Sodium 137 mmol/L (136-145); Total Protein 6.9 g/dL (6.4-8.2); Troponin I High Sensitivity 5.3 pg/mL (4.0-51.3)
[2024-10-17 19:49] LABS: Troponin I High Sensitivity 6.6 pg/mL (4.0-51.3)
== END 2024-10-17 20:12 | disposition home or self-care (01) ==
PROVIDERS: Physician Assistant; Emergency Provider Emergency Medicine; PCP Internal Medicine
DX: R07.89 Other chest pain (principal); R06.02 Shortness of breath; I10 Essential (primary) hypertension; Z79.899 Other long term (current) drug therapy
CPT/HCPCS: 36415; 71275; 80053; 83735; 83880; 84484; 85025; 85610; 93005; 96374; 96375; 99285; J1885; J2800; Q9967

== ENCOUNTER 2024-11-15 12:54 | Outpatient (OUT) | payer OTHER, MEDICAID, SELFPAY ==
--- OUTSIDE RECORDS SUMMARY | 2015-07-11 05:11 | XMS_ITS | Continuity of Care Document ---
Author Organization [facility] Address 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 Name Role Phone No Information Unavailable Unavailable Advance Directives Directive Yes / No Effective Date File Name No Information Encounters Encounter Description Practice Location Reason(s) For Visit Diagnoses Date Provider Providers Copied on Encounter [facility], [address], [place], [place], [id number], [place] tel:[phone] [facility] No Information No Information Family History Family Member Type Diagnosis Age At Onset No Information Payers Payer name Insurance type Covered green party ID Authoriza tion(s) No Information Social History Type Description Quantity Date Captured Comments Sex Female Smoking Status No Information Sexual Orientation Straight or heterosexual Chief Complaint And Reason For Visit No Information Reason For Referral Reason For Referral No Information History Of Present Illness Encounter Date Complaint History Of Prese nt Illness No Information Functional Status Date Functional Assessmen t No Information Instructions Date Instruction Additional Infor mation No Information Assessments Type Assessment Date No Information Patient Care Teams Name Effective Dates (start - stop) Status Members No Information
--- OUTSIDE RECORDS SUMMARY | 2024-11-15 12:57 | XMS_ITS | Encounter Summary ---
Author Organization [facility] Address [address] [place] [address] Care Team Providers Care Machine Wood Sander Name Role Phone Bruno Mcdaniel MD Primary Care Provider Chio Boothe LPN Unavailable Unavailable Encounter Details Date Type Department Care Team (Late st Contact Info) Description 09/17/2024 Abstract [facility] 112 [facility] 110 [place] [address] Bruno Mcdaniel MD 112 [facility] 110 [place], [place] [id number] Social History Tobacco Use Types Packs/Day Years Used Date Smoking Tobacco: Former Cigarettes Q uit: 2002 Smokeless Tobacco: Never Alcohol Use Standard Drinks/Week Comments Not Currently 0 (1 standard drink = 0.6 oz pure alcohol) Caffeine intake: coffee, soda B1300 Health Literacy Answer Date Recor ded How often do you need to hav e someone help you when you read instructions, pamphlets, or other written material from your doctor or pharmacy? Rarely 01/09/2024 Humiliation, Afraid, Rape, and Kick questionnair e Answer Date Recorded Within the last year, have y ou been afraid of your partner or ex-partner? No 11/10/2022 Within the last year, have y ou been humiliated or emotionally abused in other ways by your partner or ex-partner? No Within the last year, have y ou been kicked, hit, slapped, or otherwise physically hurt by your partner or ex-partner? No 11/10/2022 Within the last year, have y ou been raped or forced to have any kind of sexual activity by your partner or ex-partner? No 11/10/2022 Social Connection and Isolat ion Panel [NHANES] Answer Date Recorded In a typical week, how many times do you talk on the phone with family, friends, or neighbors? More than three times a week 01/09/2024 How often do you get togethe r with friends or relatives? Once a week 01/09/2024 How often do you attend chur or judaism services? Never 01/09/2024 Do you belong to any clubs o r organizations such as yarsani groups, unions, fraternal or athletic groups, or school groups? No 01/09/2024 How often do you attend meet ings of the clubs or organizations you belong to? Never 01/09/2024 Are you , , di vorced, , never , or living with a partner? 01/09/2024 AUDIT-C Answer Date Recorded Q1: How often do you have a drink containing alcohol? Never 01/09/2024 Q2: How many drinks containi ng alcohol do you have on a typical day when you are drinking? Patient does not drink Q3: How often do you have si x or more drinks on one occasion? Never 01/09/2024 Overall Financial Resource Strain (CARDIA) Answe r Date Recorded How hard is it for you to pa y for the very basics like food, housing, medical care, and heating? Not very hard 01/09/2024 PHQ-2 Answer Date Recorded Patient Health Questionnaire-2 Score 0 07/31/2024 [facility] - Occupational Stress Questionnaire Answer Date Recorded Do you feel stress - tense, restless, nervous, or anxious, or unable to sleep at night because your mind is troubled all the time - these days? Not at all 01/09/2024 Exercise Vital Sign Answer Date Recorde d On average, how many days pe r week do you engage in moderate to strenuous exercise (like a brisk walk)? 0 days 01/09/2024 On average, how many minutes do you engage in exercise at this level? 0 min 01/09/2024 Hunger Vital Sign Answer Date Recorded Within the past 12 months, y ou worried that your food would run out before you got the money to buy more. Never true 01/09/20 24 Within the past 12 months, t he food you bought just didn't last and you didn't have money to get more. Never true 01/09/2024 PRAPARE - Transportation Answer Date Re corded In the past 12 months, has l ack of transportation kept you from medical appointments or from getting medications? No 12/12 In the past 12 months, has l ack of transportation kept you from meetings, work, or from getting things needed for daily living? No 01/09/2024 Housing Stability Vital Sign Answer Job e Recorded In the last 12 months, was t here a time when you were not able to pay the mortgage or rent on time? No 11/10/2022 In the last 12 months, how many places have you lived? 1 11/10/2022 In the last 12 months, was t here a time when you did not have a steady place to sleep or slept in a mcc (including now)? No 11/10/2022 Housing Stability Vital Sign Answer Job e Recorded In the last 12 months, was t here a time when you were not able to pay the mortgage or rent on time? No 01/09/2024 In the past 12 months, how m any times have you moved where you were living? 0 01/09/2024 At any time in the past 12 m [facility], were you homeless or living in a mcc (including now)? No 01/09/2024 Comments Unknown Sex and Gender Information Value Date Recorded Sex Assigned at Not on file Legal Sex Female 6:58 PM EDT Gender Identity Not on file Sexual Orientation Not on file documented as of this encounter Plan of Treatment Upcoming Encounters Date Type Department Care Team (Late st Contact Info) Description 01/29/2025 2:00 PM EDT Office Visit [facility] [address] [facility] 110 [place] [address] Kendra Eason PA [address] [facility] 110 [place], [place] [id number] documented as of this encounter Visit Diagnoses Not on filedocumented in this encounter Additional Health Concerns Assessment Noted Time PHQ-9 Depression Total Score: 0 07/31/19 25 1:00 PM EST documented as of this encounter Care Teams Machine Wood Sander Relationship Specialty Start Date End Date Bruno Mcdaniel MD 112 [facility] 110 [place] [address] PCP - General Internal Medicine 10/27/22 Chio Boothe LPN 08/31/24 11/09/24 documented as of this encounter
--- OUTSIDE RECORDS SUMMARY | 2024-11-15 12:57 | XMS_ITS | Encounter Summary ---
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 Never 01/09/2024 Do you belong to any clubs o r organizations such as methodist groups, unions, fraternal or athletic groups, or [...] Date Recorded Patient Health Questionnaire-2 Score 0 10/29/2024 [facility] [place] of Occupat ional Health - Occupational Stress Questionnaire Answer Date [...] place to sleep or slept in a group home (including now)? No 11/10/2022 Housing Stability Vital Sign Answer Job e Recorded In the last 12 months, was t here a time when you were not able to pay the mortgage or rent on time? No 01/09/2024 In the past 12 months, how m any times have you moved where you were living? 0 01/09/2024 At any time in the past 12 m [facility], were you homeless or living in a group home (including now)? No 01/09/2024 Comments Unknown Sex and Gender Information Value Date Recorded Sex Assigned at Not on file Legal Sex Female 6:58 PM EDT Gender Identity Not on file Sexual Orientation Not on file documented as of this encounter Plan of Treatment Upcoming Encounters Date Type Department Care Team (Late st Contact Info) Description 01/29/2025 2:00 PM EDT Office Visit [facility] [address] [place] [address] [place] [address] Kendra Eason PA [address] [place] [address] [place] [address] documented as of this encounter Visit Diagnoses Diagnosis Spinal stenosis of lumbar region without neurogenic claudication documented in this encounter Additional Health Concerns Assessment Noted Time PHQ-9 Depression Total Score: 0 07/31/19 25 1:00 PM EST documented as of this encounter Care Teams Manager Case Relationship Specialty Start Date End Date Bruno Mcdaniel MD 112 [facility] 110 [place] [address] PCP - General Internal Medicine 10/27/22 documented as of this encounter
--- OUTSIDE RECORDS SUMMARY | 2024-11-15 12:57 | XMS_ITS | Encounter Summary ---
Author Organization [facility] Address [address] [place] [address] Care Team Providers Care Supervisor Research Kennel Name Role Phone Bruno Mcdaniel MD Primary Care Provider Bruno Mcdaniel MD Unavailable [phone] TuesdayMagdalene LPN Unavailable [phone] Magnolia Alva RN Unavailable Bruno Mcdaniel MD Unavailable [phone] Chio Boothe LPN Unavailable Unavailable Encounter Details Date Type Department Care Team (Late st Contact Info) Description 04/25/2024 Abstract [facility] 112 [facility] 110 [place] [id number] Bruno Mcdaniel MD 112 [facility] 110 [place] [address] Social History Tobacco Use Types Packs/Day Years [...] How often do you attend chur or hindu services? Never 01/09/2024 Do you belong to any clubs o r organizations such as jehovah's witness groups, unions, fraternal or athletic groups, or [...] Date Recorded Patient Health Questionnaire-2 Score 0 10/09/2023 [facility] of Occupat ional Health - Occupational Stress [...] place to sleep or slept in a snf (including now)? No 11/10/2022 Housing Stability Vital Sign Answer Job e Recorded In the last 12 months, was t here a time when you were not able to pay the mortgage or rent on time? No 01/09/2024 In the past 12 months, how m any times have you moved where you were living? 0 01/09/2024 At any time in the past 12 m [facility], were you homeless or living in a snf (including now)? No 01/09/2024 Comments Unknown Sex and Gender Information Value Date Recorded Sex Assigned at Not on file Legal Sex Female 6:58 PM EDT Gender Identity Not on file Sexual Orientation Not on file documented as of this encounter Plan of Treatment Upcoming Encounters Date Type Department Care Team (Late st Contact Info) Description 01/29/2025 2:00 PM EDT Office Visit [facility] [address] [place] [address] [place] [address] Kendra Eason PA [address] [place] [address] [place] [address] documented as of this encounter Visit Diagnoses Not on filedocumented in this encounter Care Teams Supervisor Research Kennel Relationship Specialty Start Date End Date Bruno Mcdaniel MD [address] [place] [address] [place] [address] PCP - General Internal Medicine 10/27/22 Bruno Mcdaniel MD [address] [place] [address] [place] [address] PCP - ACO Reach 08/12/23 07/19/24 Bruno Mcdaniel MD [address] [place] [address] [place] [address] PCP - ACO Reach 07/27/24 09/13/24TuesdayMagdalene LPN [address] [place] [address] Licensed Practical Nurse Family Medicine 03/09/24 07/20/24 Magnolia Alva, RN Licensed Practical Nurse Family Medicine 07/20/24 08/31/24 Chio Boothe LPN 08/31/24 11/09/24 documented as of this encounter
--- OUTSIDE RECORDS SUMMARY | 2024-11-15 12:57 | XMS_ITS | Encounter Summary ---
Author Organization [facility] Address [address] [place] [address] Care Team Providers Care Ornament Stapler Name Role Phone Bruno Mcdaniel MD Primary Care Provider [phone] Magnolia Alva RN Unavailable [phone] Bruno Mcdaniel MD Unavailable [phone] Chio Boothe LPN Unavailable Unavailable Encounter Details Date Type Department Care Team (Late st Contact Info) Description 07/26/2024 Abstract [facility] 112 [facility] 110 [place] [address] Bruno Mcdaniel MD 112 [facility] 110 [place], [place] [id number] Social History Tobacco Use Types Packs/Day Years [...] How often do you attend chur or congregation services? Never 01/09/2024 Do you belong to any clubs o r organizations such as pentecostal groups, unions, fraternal or athletic groups, or [...] Date Recorded Patient Health Questionnaire-2 Score 0 07/27/2024 [facility] [place] of Occupat ional Health - Occupational Stress [...] place to sleep or slept in a long-term (including now)? No 11/10/2022 Housing Stability Vital Sign Answer Job e Recorded In the last 12 months, was t here a time when you were not able to pay the mortgage or rent on time? No 01/09/2024 In the past 12 months, how m any times have you moved where you were living? 0 01/09/2024 At any time in the past 12 m [facility], were you homeless or living in a long-term (including now)? No 01/09/2024 Comments Unknown Sex and Gender Information Value Date Recorded Sex Assigned at Not on file Legal Sex Female 6:58 PM EDT Gender Identity Not on file Sexual Orientation Not on file documented as of this encounter Functional Status * Over the past 2 weeks, how often have you been bothered by any of the following problems? Question Answer Date of Assessment Author Patient Health Questionnaire-2 Score 0 07/14 7:50 AM EST Mychart, Generic * Little interest or pleasure in doing things Answer Date of Assessment Author Not at all 07/27/2024 7:50 AM EST Mychart, Generic * Feeling down, depressed, or hopeless Answer Date of Assessment Author Not at all 07/27/2024 7:50 AM EST Mychart, Generic documented as of this encounter Plan of Treatment Upcoming Encounters Date Type Department Care Team (Late st Contact Info) Description 01/29/2025 2:00 PM EDT Office Visit [facility] [address] [place] [address] [place] [address] Kendra Eason PA [address] [place] [address] [place] [address] documented as of this encounter Visit Diagnoses Not on filedocumented in this encounter Care Teams Ornament Stapler Relationship Specialty Start Date End Date Bruno Mcdaniel MD [address] [address] [place] [address] PCP - General Internal Medicine 10/27/22 Bruno Mcdaniel MD [address] [address] [place] [address] PCP - ACO Reach 07/27/24 09/13/24 Magnolia Alva, RN Licensed Practical Nurse Family Medicine 07/20/24 08/31/24 Chio Boothe LPN 08/31/24 11/09/24 documented as of this encounter
--- OUTSIDE RECORDS SUMMARY | 2024-11-15 12:57 | XMS_ITS | Encounter Summary ---
Author Organization [facility] Address [address] [place] [address] Care Team Providers Care Dresser Tender Name Role Phone Bruno Mcdaniel MD Primary Care Provider [phone] Chio Boothe LPN Unavailable Unavailable Encounter Details Date Type Department Care Team (Late st Contact Info) Description 09/18/2024 Abstract [facility] 112 [facility] 110 [place] [address] Bruno Mcdaniel MD 112 [facility] 110 [place], [place] [id number] Social History Tobacco Use Types Packs/Day Years [...] How often do you attend chur or confucianism services? Never 01/09/2024 Do you belong to any clubs o r organizations such as restoration groups, unions, fraternal or athletic groups, or [...] Recorded Patient Health Questionnaire-2 Score 0 07/31/2024 [facility] - Occupational Stress Questionnaire Answer Date [...] place to sleep or slept in a retirement (including now)? No 11/10/2022 Housing Stability Vital [...] were you homeless or living in a retirement (including now)? No 01/09/2024 Comments Unknown Sex [...] Visit [facility] [address] [facility] 110 [place] [address] Kendra Eason PA [address] [email or web address] 110 [place], [place] [id number] documented as of this encounter Visit Diagnoses Not on filedocumented in this encounter Additional Health Concerns Assessment Noted Time PHQ-9 Depression Total Score: 0 07/31/19 25 1:00 PM EST documented as of this encounter Care Teams Dresser Tender Relationship Specialty Start Date End Date Bruno Mcdaniel MD 112 [facility] 110 [place] [address] PCP - General Internal Medicine 10/27/22 Chio Boothe LPN 08/31/24 11/09/24 documented as of this encounter
--- OUTSIDE RECORDS SUMMARY | 2024-11-15 12:57 | XMS_ITS | Encounter Summary ---
Author Organization [facility] Address [address] [place] [address] Care Team Providers Care Pegger Dobby Looms Name Role Phone Bruno Mcdaniel MD Primary Care Provider [phone] Chio Boothe LPN Unavailable Unavailable Encounter Details Date Type Department Care Team (Late st Contact Info) Description 11/09/2024 Telephone [facility] 112 [facility] 110 [place] [address] Kendra Eason PA 112 [facility] 110 [place], [place] [id number] Social History Tobacco Use Types Packs/Day Years [...] How often do you attend chur or hoahaoism services? Never 01/09/2024 Do you belong to any clubs o r organizations such as taoism groups, unions, fraternal or athletic groups, or [...] Recorded Patient Health Questionnaire-2 Score 0 10/29/2024 [facility] Health - Occupational Stress Questionnaire Answer Date [...] place to sleep or slept in a senior living (including now)? No 11/10/2022 Housing Stability Vital Sign Answer Job e Recorded In the last 12 months, was t here a time when you were not able to pay the mortgage or rent on time? No 01/09/2024 In the past 12 months, how m any times have you moved where you were living? 0 01/09/2024 At any time in the past 12 m [facility], were you homeless or living in a senior living (including now)? No 01/09/2024 Comments Unknown Sex and Gender Information Value Date Recorded Sex Assigned at Not on file Legal Sex Female 6:58 PM EDT Gender Identity Not on file Sexual Orientation Not on file documented as of this encounter Miscellaneous Notes * Telephone Encounter - ABDOULAYE Wright - 11/09/2024 11:24 AM EDT Sent * Telephone Encounter - PEARL MILES - 11/09/2024 9:00 AM EDT Patient called and is having issues with a UTI. She is having burning and frequency with urination.She would like cipro called to [facility] in [place]. She is taking the bacterium, but it's not helping. Her symptoms started yesterday. documented in this encounter Plan of Treatment Upcoming Encounters Date Type Department Care Team (Late st Contact Info) Description 01/29/2025 2:00 PM EDT Office Visit [facility] [address] [facility] 110 [place] [address] Kendra Eason PA 112 [facility] 110 [place] [address] documented as of this encounter Visit Diagnoses Diagnosis Recurrent UTI- Primary Urinary tract infection, site not specified documented in this encounter Additional Health Concerns Assessment Noted Time PHQ-9 Depression Total Score: 0 07/31/19 1:00 PM EST documented as of this encounter Care Teams Pegger Dobby Looms Relationship Specialty Start Date End Date Bruno Mcdaniel MD 112 [facility] 110 [place] [address] PCP - General Internal Medicine 10/27/22 Chio Boothe LPN 08/31/24 11/09/24 documented as of this encounter
--- OUTSIDE RECORDS SUMMARY | 2024-11-15 12:57 | XMS_ITS | Clinical Summary ---
Author Organization [facility] Address [address] [place] [address] Care Team Providers Care Horse Farm Manager Name Role Phone Unavailable Primary Care Provider Unavailabl e Social History Tobacco Use Types Packs/Day Years Used Date Smoking Tobacco: Never Assessed Sex and Gender Information Value Date Recorded Sex Assigned at Not on file Gender Identity Not on file Sexual Orientation Not on file Plan of Treatment Health Maintenance Due Date Last Done Comments CT Colonography 1952 Colonoscopy 1952 Colorectal Cancer Screening 1952 FIT-DNA 1952 FIT 1952 FOBT 1950 Medicare Annual Wellness (AWV) 1950 Sigmoidoscopy 1952 Depression Screening 1964 Adult Tetanus 02/15/1974 Mammogram 1992 Zoster Vaccines (1 of 2) 02/15/2002 Fall Risk Screening 02/15/2017 Pneumococcal Vaccine: 65+ Ye ars (1 of 1 - PCV) 02/15/2017 COVID-19 Vaccine (2023-2 5 season) 2024 Influenza Vaccine (Season Ended) 2025 HIB Vaccines Aged Out No longer eligi ble based on patient's age to complete this topic HPV Vaccines Aged Out No longer eligi ble based on patient's age to complete this topic IPV Vaccines Aged Out No longer eligi ble based on patient's age to complete this topic Meningococcal B Vaccine Aged Out No l onger eligible based on patient's age to complete this topic Meningococcal Vaccine Aged Out No vandana layla eligible based on patient's age to complete this topic Rotavirus Vaccines Aged Out No longer eligible based on patient's age to complete this topic
--- OUTSIDE RECORDS SUMMARY | 2024-11-15 12:57 | XMS_ITS ---
Author Organization [facility] Address [address] [place] [address] Care Team Providers Care Buyer Internship Name Role Phone Jonas PHILLIP MD, Bruno Stubbs Primary Care Provider [phone] Active Problems Problem Noted Date Diagnosed Date History of anal cancer 04/06/2017 Anal cancer 06/26/2014 Current Treatment and Therapy Plans No current plan information found. Past Treatment and Therapy Plans NON-CHEMO 1 Plan Name Start Date Discontinue Date Treatment Medications Discontinue Reason Plan Provider Cycles CENTRAL LINE FLUSH - Weekly x 24 weeks 08/28/2012 No medications scheduled. Treatment Complete [place] 1 of 1 cycle started Resolved Problems Problem Noted Date Diagnosed Date Resolved Date Rectal cancer 08/28/2012 06/25/2015
--- OUTSIDE RECORDS SUMMARY | 2024-11-15 12:57 | XMS_ITS | Encounter Summary ---
Author Organization [facility] Address [address] [place] [address] Care Team Providers Care Gate Tender Name Role Phone Bruno Mcdaniel MD Primary Care Provider Magnolia Alva RN Unavailable [phone] Bruno Mcdaniel MD Unavailable [phone] Chio Boothe LPN Unavailable Unavailable Encounter Details Date Type Department Care Team (Late st Contact Info) Description 07/26/2024 Abstract [facility] 112 [facility] 110 [place] [address] Bruno Mcdaniel MD 112 [facility] 110 [place], [place] [id number] Social History Tobacco Use Types Packs/Day Years [...] How often do you attend chur or worship services? Never 01/09/2024 Do you belong to any clubs o r organizations such as congregation groups, unions, fraternal or athletic groups, or [...] Recorded Patient Health Questionnaire-2 Score 0 07/27/2024 [facility] of Occupat ional Health - Occupational Stress [...] to sleep or slept in a senior care (including now)? No 11/10/2022 Housing Stability Vital Sign Answer Job e Recorded In the last 12 months, was t here a time when you were not able to pay the mortgage or rent on time? No 01/09/2024 In the past 12 months, how m any times have you moved where you were living? 0 01/09/2024 At any time in the past 12 m [facility], were you homeless or living in a senior care (including now)? No 01/09/2024 Comments Unknown Sex [...] [address] [place] [address] Kendra Eason PA [address] [place] [address] documented as of this encounter Visit Diagnoses Not on filedocumented in this encounter Care Teams Gate Tender Relationship Specialty Start Date End Date Bruno Mcdaniel MD [address] [place] [address] PCP - General Internal Medicine 10/27/22 Bruno Mcdaniel MD [address] [place] [address] PCP - ACO Reach 07/27/24 09/13/24 Magnolia Alva, RN Licensed Practical Nurse Family Medicine 07/20/24 08/31/24 Chio Boothe LPN 08/31/24 11/09/24 documented as of this encounter
--- OUTSIDE RECORDS SUMMARY | 2024-11-15 12:57 | XMS_ITS | Encounter Summary ---
Author Organization [facility] Healthcare Address [address] [place] [address] Care Team Providers Care Childhood Development Teacher Name Role Phone Bruno Mcdaniel MD Primary Care Provider [phone] Chio Boothe LPN Unavailable Unavailable Encounter Details Date Type Department Care Team (Late st Contact Info) Description 11/09/2024 Patient Outreach [facility] [address] [place] [address] Magnolia Alva, SUSAN Social History Tobacco Use Types Packs/Day Years [...] How often do you attend chur or sabianism services? Never 01/09/2024 Do you belong to any clubs o r organizations such as confucianism groups, unions, fraternal or athletic groups, or [...] Patient Health Questionnaire-2 Score 0 10/29/2024 [facility] of Occupat ional Health - Occupational Stress [...] place to sleep or slept in a fdc (including now)? No 11/10/2022 Housing Stability Vital Sign Answer Job e Recorded In the last 12 months, was t here a time when you were not able to pay the mortgage or rent on time? No 01/09/2024 In the past 12 months, how m any times have you moved where you were living? 0 01/09/2024 At any time in the past 12 m [facility], were you homeless or living in a fdc (including now)? No 01/09/2024 Comments Unknown Sex and Gender Information Value Date Recorded Sex Assigned at Not on file Legal Sex Female 6:58 PM EDT Gender Identity Not on file Sexual Orientation Not on file documented as of this encounter Progress Notes * Magnolia Alva RN - 11/09/2024 10:43 AM EDT Chart reviewed. Pt returns phone call for CCM. States he is having burning with urination that started last night and has been taking the bactrim as prescribed for past year and has not had any issues until now. Advise her that message was sent to Sonali STANFORD this am when she called office and sonali will address when she has time and office or myself will call her back with directions. Discuss CCM pr jami with pt and explain that she has fallen off attribution list and will have a copay for CCM. Pt states she no longer wants to participate in CCM and does not want to fill out hardship form. Advise pt to call office with needs and if anything in the future changes, we can always re-assess for CCM. Pt verbalizes understanding. documented in this encounter Plan of Treatment Upcoming Encounters Date Type Department Care Team (Late st Contact Info) Description 01/29/2025 2:00 PM EDT Office Visit [facility] [address] [facility] [address] [place] [address] Sonali Eason PA [address] [facility] [address] [place] [address] documented as of this encounter Visit Diagnoses Diagnosis Benign essential hypertension (CMS/HCC)- Primary Essential hypertension, benign Moderate mixed hyperlipidemia not requiring statin therapy (CMS/HCC) documented in this encounter Additional Health Concerns Assessment Noted Time PHQ-9 Depression Total Score: 0 07/31/19 25 1:00 PM EST documented as of this encounter Care Teams Childhood Development Teacher Relationship Specialty Start Date End Date Bruno Mcdaniel MD [address] [facility] [address] [place] [address] PCP - General Internal Medicine 10/27/22 Chio Boothe LPN 08/31/24 11/09/24 documented as of this encounter
--- OUTSIDE RECORDS SUMMARY | 2024-11-15 12:57 | XMS_ITS | Encounter Summary ---
Author Organization [facility] Healthcare Address [address] [place] [address] Care Team Providers Care Groundskeeping Maintenance Worker Name Role Phone Bruno Mcdaniel MD Primary Care Provider [phone] Chio Boothe LPN Unavailable Unavailable Encounter Details Date Type Department Care Team (Late st Contact Info) Description 10/24/2024 Abstract [facility] [address] [place] [address] Chio Boothe LPN Social History Tobacco Use Types Packs/Day Years [...] 01/09/2024 How often do you attend chur ch or restorationist services? Never 01/09/2024 Do you belong to any clubs o r organizations such as christianity groups, unions, fraternal or athletic groups, or [...] Date Recorded Patient Health Questionnaire-2 Score 0 10/16/2024 [facility] of Occupat ional Health - Occupational Stress [...] time in the past 12 m [facility], were you homeless or living in [...] Visit [facility] [address] [place] [address] Kendra Eaosn PA [address] [place] [address] documented as of this encounter Visit Diagnoses Not on filedocumented in this encounter Additional Health Concerns Assessment Noted Time PHQ-9 Depression Total Score: 0 07/31/19 25 1:00 PM EST documented as of this encounter Care Teams Groundskeeping Maintenance Worker Relationship Specialty Start Date End Date Bruno Mcdaniel MD 112 [facility] 110 [place] [address] PCP - General Internal Medicine 10/27/22 Chio Boothe LPN 08/31/24 11/09/24 documented as of this encounter
--- OUTSIDE RECORDS SUMMARY | 2024-11-15 12:57 | XMS_ITS | Encounter Summary ---
Author Organization [facility] Address [address] [place] [address] Care Team Providers Care Traffic Director Name Role Phone Bruno Mcdaniel MD Primary Care Provider [phone] Bruno Mcdaniel MD Unavailable [phone] TuesdayMagdalene LPN Unavailable [phone] Magnolia Alva RN Unavailable [phone] Bruno Mcdaniel MD Unavailable [phone] Chio Boothe LPN Unavailable Unavailable Encounter Details Date Type Department Care Team (Late st Contact Info) Description 04/23/2024 Abstract [facility] 112 [facility] 110 [place] [id number] Bruno Mcdaniel MD 112 [facility] 110 [place] [address] Social History Tobacco Use Types [...] any clubs o r organizations such as cheondoism groups, unions, fraternal or athletic groups, or [...] Recorded Patient Health Questionnaire-2 Score 0 10/09/2023 [facility] of Occupat ional Health - Occupational [...] place to sleep or slept in a chcf (including now)? No 11/10/2022 Housing Stability Vital Sign Answer Job e Recorded In the last 12 months, was t here a time when you were not able to pay the mortgage or rent on time? No 01/09/2024 In the past 12 months, how m any times have you moved where you were living? 0 01/09/2024 At any time in the past 12 m [facility], were you homeless or living in a chcf (including now)? No 01/09/2024 Comments Unknown Sex [...] [address] [place] [address] Kendra Eason PA [address] [place] [address] documented as of this encounter Visit Diagnoses Not on filedocumented in this encounter Care Teams Traffic Director Relationship Specialty Start Date End Date Bruno Mcdaniel MD [address] [place] [address] PCP - General Internal Medicine 10/27/22 Bruno Mcdaniel MD [address] [place] [address] PCP - ACO Reach 08/12/23 07/19/24 Bruno Mcdaniel MD [address] [place] [address] PCP - ACO Reach 07/27/24 09/13/24TuesdayMagdalene LPN [address] [place] [address] Licensed Practical Nurse Family Medicine 03/09/24 07/20/24 Magnolia Alva, RN Licensed Practical Nurse Family Medicine 07/20/24 08/31/24 Chio Boothe LPN 08/31/24 11/09/24 documented as of this encounter
--- OUTSIDE RECORDS SUMMARY | 2024-11-15 12:57 | XMS_ITS | Encounter Summary ---
Author Organization [facility] Address [address] [place] [address] Care Team Providers Care Recreation Therapy Aide Name Role Phone Bruno Mcdaniel MD Primary Care Provider [phone] Bruno Mcdaniel MD Unavailable [phone] TuesdayMagdalene LPN Unavailable [phone] Magnolia Alva RN Unavailable Bruno Mcdaniel MD Unavailable [phone] Chio Boothe LPN Unavailable Unavailable Encounter Details Date Type Department Care Team (Late st Contact Info) Description 03/05/2024 Abstract [facility] 112 [facility] 110 [place] [id number] Bruno Mcdaniel MD 112 [facility] 110 [place] [address] Social History Tobacco Use Types [...] How often do you attend chur or alevism services? Never 01/09/2024 Do you belong to any clubs o r organizations such as bahai groups, unions, fraternal or athletic groups, or [...] Recorded Patient Health Questionnaire-2 Score 0 10/09/2023 [facility] of Occupat ional Health - Occupational Stress [...] place to sleep or slept in a long term (including now)? No 11/10/2022 Housing Stability Vital Sign Answer Job e Recorded In the last 12 months, was t here a time when you were not able to pay the mortgage or rent on time? No 01/09/2024 In the past 12 months, how m any times have you moved where you were living? 0 01/09/2024 At any time in the past 12 m [facility], were you homeless or living in a long term (including now)? No 01/09/2024 Comments Unknown Sex [...] [address] [place] [address] Kendra Eason PA [address] [place] [address] documented as of this encounter Visit Diagnoses Not on filedocumented in this encounter Care Teams Recreation Therapy Aide Relationship Specialty Start Date End Date Bruno Mcdaniel MD [address] [place] [address] PCP - General Internal Medicine 10/27/22 Bruno Mcdaniel MD [address] [place] [address] PCP - ACO Reach 08/12/23 07/19/24 Bruno Mcdaniel MD [address] [place] [address] PCP - ACO Reach 07/27/24 09/13/24TuesdayMagdalene LPN [address] [place] [address] Licensed Practical Nurse Family Medicine 03/09/24 07/20/24 Magnolia Alva, RN Licensed Practical Nurse Family Medicine 07/20/24 08/31/24 Chio Boothe LPN 08/31/24 11/09/24 documented as of this encounter
--- OUTSIDE RECORDS SUMMARY | 2024-11-15 12:57 | XMS_ITS | Clinical Summary ---
Author Organization [facility] Address [address] [place] [address] Care Team Providers Care Loan Coordinator Name Role Phone Bruno Mcdaniel MD Primary Care Provider [phone] Allergies Active Allergy Reactions Criticality Noted Date Comments Codeine GI intolerance 11/05/2022 Cortisone 02/27/2020 Esomeprazole GI intolerance 08/27/2013 Nausea Nitrofurantoin Unknown 11/05/2022 Oxycodone-Acetaminophen Unknown 08/28/2012 Penicillins Unknown 03/18/2020 Diazepam Unknown 11/05/2022 Tizanidine Rash Low 11/05/2022 Medications Cyanocobalamin 500 MCG chewable tablet Chew 500 tablets 1 (one) time each day at the same time. Active diphenhydrAMINE (Benadryl Allergy) 25 MG tablet Take 25 mg by mouth as needed at bedtime. Active loratadine (Claritin) 10 MG tablet Take 10 mg by mouth in the morning. Active Multiple Vitamin (multivitamin) capsule Take 1 capsule by mouth in the morning. Active ascorbic acid (Vitamin C) 500 MG ER capsule Take 1 tablet by mouth in the morning. Active Calcium Carbonate-Vitamin D (Oyster Shell Calcium/D) 500-5 MG-MCG tablet Take 1 tablet by mouth in the morning and 1 tablet in the evening. Take with meals. Active Cranberry-Vitamin C-Probiotic (AZO CRANBERRY PO) Take 1 tablet by mouth in the morning. Active famotidine (Pepcid) 10 MG tablet Take 1 tablet by mouth in the morning. Active vitamin E 180 MG (400 UNIT) capsule Take 180 mg by mouth in the morning. Active amLODIPine (Norvasc) 5 MG tabletIndications: Benign essential hypertension (CMS/HCC) Take 1 tablet (5 mg) by mouth in the morning. 100 tablet 3 12/27/19 24 Active montelukast (Singulair) 10 MG tabletIndications: Allergic rhinitis, unspecified seasonality, unspecified trigger TAKE 1 TABLET BY MOUTH IN THE MORNING 100 tablet 3 01/02/20 24 Active baclofen (Lioresal) 10 MG tabletIndications: Spinal stenosis of lumbar region without neurogenic claudication Take 1 tablet (10 mg) by mouth in the morning and 1 tablet (10 mg) in the evening and 1 tablet (10 mg) before bedtime. 90 tablet 11 04/19/20 24 025 Active lisinopril-hydroCH LOROthiazide 20-12.5 MG tabletIndications: Benign essential hypertension (CMS/HCC) Take 1 tablet by mouth Daily 100 tablet 3 05/07/20 24 025 Active pravastatin (Pravachol) 40 MG tabletIndications: Hyperlipidemia, unspecified hyperlipidemia type (CMS/HCC) Take 1 tablet (40 mg) by mouth at bedtime 100 tablet 06/27/19 25 Active furosemide (Lasix) 40 MG tabletIndications: Edema, unspecified type Take 1 tablet by mouth every Tuesday, Tuesday and Tuesday 13 tablet 06/27/19 25 Active dicyclomine (Bentyl) 20 MG tabletIndications: Ulcerative proctocolitis (CMS/HCC) Take 1 tablet (20 mg) by mouth in the morning and 1 tablet (20 mg) at noon and 1 tablet (20 mg) in the evening and 1 tablet (20 mg) before bedtime. 120 tablet 06/27/19 25 Active pantoprazole (ProtoNix) 40 MG EC tabletIndications: Gastroesophageal reflux disease, unspecified whether esophagitis present Take 1 tablet (40 mg) by mouth Daily Do not crush, chew, or split. 100 tablet 3 09/25/19 25 025 Active cloNIDine (Catapres-TTS) 0.2 MG/24HRIndications :Benign essential hypertension (CMS/HCC) Place 1 patch on the skin 1 (one) time per week 12 patch 3 10/09/19 25 Active ondansetron ODT (Zofran-ODT) 4 MG disintegrating tablet Take 4 mg by mouth every 8 (eight) hours if needed for nausea or vomiting 07/31/19 25 Active Lactobacillus (AZO VAGINAL HEALTH PROBIOTIC PO) Take by mouth Daily Active CRANBERRY-D MANNOSE PO Take 1 tablet by mouth Daily Active sulfamethoxazole-t rimethoprim (Bactrim) 400-80 MG tabletIndications: Recurrent UTI Take 1 tablet by mouth Daily 30 tablet 2 11/07/19 25 Active HYDROcodone-acetam inophen (Bangor) 10-325 MG tabletIndications: Spinal stenosis of lumbar region without neurogenic claudication Take 0.5-1 tablets by mouth every 6 (six) hours if needed for severe pain for up to 15 days 60 tablet 11/13/19 25 025 Active triamcinolone (Kenalog) 0.1 % cream Apply topically 2 (two) times a day. 03/15/20 22 025 Discontinu ed(Therapy completed) HYDROcodone-acetam inophen (Bangor) 10-325 MG tabletIndications: Spinal stenosis of lumbar region without neurogenic claudication Take 0.5-1 tablets by mouth every 6 (six) hours if needed for severe pain for up to 15 days 60 tablet 07/23/19 25 025 Discontinu ed(Reorder ) sulfamethoxazole-t rimethoprim (Bactrim) 400-80 MG tabletIndications: Recurrent UTI Take 1 tablet by mouth Daily 30 tablet 2 07/31/19 25 025 Discontinu ed(Reorder ) methylPREDNISolone (Medrol Dospak) 4 MG tablets TAKE BY MOUTH DIRECTED ON PACKAGE 10/19/19 25 025 Discontinu ed(Therapy completed) ciprofloxacin (Cipro) 250 MG tabletIndications: Recurrent UTI Take 1 tablet (250 mg) by mouth in the morning and 1 tablet (250 mg) before bedtime. Do all this for 3 days. 6 tablet 11/10/19 25 025 Active Problems Problem Noted Date Diagnosed Date Chronic superficial gastritis without bleeding 0 10/29/2024 Gastroesophageal reflux disease 07/31/2024 Spinal stenosis of thoracic region 11/09/2022 Allergic rhinitis 11/05/2022 Acquired absence of both cervix and uterus 11/05 Arthritis of left elbow 11/05/2022 Benign essential hypertension 11/05/2022 Chronic cystitis 11/05/2022 Edema 11/05/2022 Estrogen deficiency 11/05/2022 Fibromyalgia 11/05/2022 Ganglion of tendon sheath 11/05/2022 Lumbar disc herniation 11/05/2022 Moderate protein-calorie malnutrition 11/05/2022 Morbid obesity 11/05/2022 Myalgia 11/05/2022 Obstructive sleep apnea 11/05/2022 Osteoarthritis 11/05/2022 Radiation proctitis 11/05/2022 Recurrent UTI 11/05/2022 Spinal stenosis of lumbar re gion without neurogenic claudication 11/05/2022 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 10/12 Ulcerative proctocolitis 11/05/2022 Hyperlipidemia 03/18/2020 History of anal cancer 04/06/2017 Resolved Problems Problem Noted Date Diagnosed Date Resolved Date Nausea and vomiting 08/28/2024 10/30/19 25 Syncope 11/05/2022 07/31/2024 HTN (hypertension), benign 03/18/2020 0 11/11/2022 History of malignant neoplas m of rectum, rectosigmoid junction, and anus 03/18/2020 07/31/19 25 Bowel obstruction 03/12/2020 07/31/2024 Generalized abdominal pain 02/27/2020 0 07/31/2024 Anal cancer 06/26/2014 07/31/2024 Encounters Date Type Department Care Team Description 11/12/2024 Refill [facility] [address] [address] Bruno Mcdaniel MD Spinal stenosis of lumbar region without neurogenic claudication 11/09/2024 Patient Outreach [facility] [address] [place] [address] Magnolia Alva RN 11/09/2024 Telephone [facility] 112 [facility] [address] [place] [address] Kenrda Eason PA 11/06/2024 Refill [facility] 112 [facility] [address] [place] [address] DuklJaclyn mcmillan, RADIOCHEMICAL TECHNICIAN Recurrent UTI 10/29/2024 1:30 PM EDT Office Visit [facility] [address] [facility] [address] [place] [address] Kendra Eason PA Internal derangement of left shoulder (Primary Dx); Chronic left shoulder pain; Atypical chest pain; Benign essential hypertension (CMS/HCC); Chronic superficial gastritis without bleeding 10/29/2024 Bamboo flowsheet [facility] [address] [facility] [address] [place] [address] Kendra Eason PA 10/29/2024 Travel 10/24/2024 Patient Outreach [facility] [address] [place] [address] Chio Boothe LPN 10/24/2024 Abstract [facility] [address] [place] [address] Chio Boothe [facility] 10/23/2024 Travel 10/16/2024 2:30 PM EDT Office Visit [facility] [address] [facility] [address] [place] [address] Kendra Eason PA Internal derangement of left shoulder (Primary Dx); Chronic left shoulder pain 10/16/2024 Travel 10/08/2024 Refill [facility] [address] [facility] [address] [place] [address] Bruno Mcdaniel MD Benign essential hypertension (CMS/HCC) 09/24/2024 Refill [facility] [address] [facility] [address] [place] [address] Bruno Mcdaniel MD Gastroesophageal reflux disease, unspecified whether esophagitis present 09/18/2024 Abstract [facility] [address] [facility] [address] [place] [address] Bruno Mcdaniel MD 09/17/2024 Clinisync Result Encounter [facility] External Department Unsolicited Provider, Generic External Data 09/17/2024 Abstract [facility] [address] [facility] [address] [place] [address] Bruno Mcdaniel MD 09/17/2024 Abstract [facility] [address] [facility] [address] [place] [address] Bruno Mcdaniel MD from Last 3 Months Immunizations Immunization Administration Dates Next Due Influenza, High Dose Seasona l, Preservative Free 02/23/2024,04/21/2020,03/22/2019,03/23 Influenza, High-dose Seasona l, Quadrivalent, Preservative Free 03/15/2023 Influenza, injectable, quadrivalent 02/26/2016 Influenza, injectable, quadr ivalent, preservative free 03/25/2015 Influenza, recombinant, quad rivalent, injectable, preservative free 05/28/2021 Influenza, seasonal, injectable 02/11/2014 Influenza, seasonal, intrade rmal, preservative free 03/24/2017 Pneumococcal Conjugate PCV 13 03/25/2015 Pneumococcal Polysaccharide PPSV23 04/21/2017, Zoster, Recombinant 08/01/2024 Zoster, live 04/12/2014 Family History Medical History Relation Name Comments Cancer Father Hyperlipidemia Father Cancer Mother Multiple myeloma Neg Hx Relation Name Status Comments Father Mother Social History Tobacco Use Types Packs/Day Years Used Date Smoking Tobacco: Former Cigarettes Q uit: 2002 Smokeless Tobacco: Never Tobacco Cessation:Counseling Given: Not Answered Alcohol Use Standard Drinks/Week Comments Not Currently [...] How often do you attend chur or restorationist services? Never 01/09/2024 Do you belong to any clubs o r organizations such as amish groups, unions, fraternal or athletic groups, or [...] Recorded Patient Health Questionnaire-2 Score 0 10/29/2024 [facility] - [...] place to sleep or slept in a halfway (including now)? No 11/10/2022 Housing Stability Vital Sign Answer Job e Recorded In the last 12 months, was t here a time when you were not able to pay the mortgage or rent on time? No 01/09/2024 In the past 12 months, how m any times have you moved where you were living? 0 01/09/2024 At any time in the past 12 m [facility], were you homeless or living in a halfway (including now)? No 01/09/2024 Comments Unknown Sex and Gender Information Value Date Recorded Sex Assigned at Not on file Legal Sex Female 6:58 PM EDT Gender Identity Not on file Sexual Orientation Not on file Last Filed Vital Signs Vital Sign Reading Time Taken Comments Blood Pressure 130/72 10/29/2024 1:31 PM EDT Pulse 68 10/29/2024 1:31 PM EDT Temperature - - Respiratory Rate 16 10/29/2024 1:31 PM EDT Oxygen Saturation 97% 10/29/2024 1:31 PM EDT Inhaled Oxygen Concentration - - Weight 99.9 kg (220 lb 3.2 oz) 10/29/2024 1:31 P M EDT Height 161.3 cm (5' 3.5 ) 10/29/2024 1:31 PM EDT Body Mass Index 38.39 10/29/2024 1:31 PM EDT Plan of Treatment Upcoming Encounters Date Type Department Care Team (Late st Contact Info) Description 01/29/2025 2:00 PM EDT Office Visit [facility] 112 [facility] [address] [place] [address] Kendra Eason PA [address] [place] [facility] [address] [place] [address] Health Maintenance Due Date Last Done Comments CT Colonography 1950 FIT-DNA 1950 FIT 1950 FOBT 1950 Sigmoidoscopy 1950 Mammogram 07/20/2025 07/20/2024, 0 10/2023, 07/18/2023, Additional history exists Medicare Annual Wellness (AWV) 07/31/2025 0 07/31/2024, 10/10/2023, 05/27/2021 Colonoscopy 09/17/2034 09/17/2024, 040 12/2024, 04/07/2018, Additional history exists Colorectal Cancer Screening 09/17/2034 Pneumococcal Vaccine: 65+ Years Completed 04/21/2017, 03/25/2015, 03/15/2011 Influenza Vaccine Completed 02/23/2024, , 05/28/2021, Additional history exists Procedures Procedure Name Priority Date/Time Associated Diagnosis Comments [facility] Routine 09/17/2024 10:50 AM EDT COLONOSCOPY Routine 09/17/2024 MM TOMOSYNTHESIS SCREENING BI 07/20/2024 7:26 AM EST from Last 3 Months or Most Recently Relevant to Health Maintenance Results * [facility] (09/17/2024 10:50 AM EDT) [facility] Path Number: [id number] -- Diagnosis -- A. Gastric antrum, biopsy: - Mild chronic inactive gastritis. - Negative for H. pylori organisms on ANDI stain. B. Ascending colon, biopsy: - Pieces of tubular adenoma. C. Rectum, biopsy: - Mild active proctitis with lamina propria edema. Juvenal Bernstein M.D. Electronically Signed Out amish/09/20/2024 Clinical Information Pre-Op Diagnosis: ENCOUNTER FOR SCREENING COLONOSCOPY; NAUSEA AND VOMITING Operative Findings: ANTRAL BIOPSIES; ASCENDING COLON POLYP; RECTAL BIOPSIES Operation Performed: COLONOSCOPY POLYPECTOMY; ESOPHAGOGASTRODU ODENOSCOPY BIOPSY se Source of Specimen A: ANTRAL BX B: ASCENDING COLON POLYP C: RECTUM BIOPSY Gross Description A. NAHED HAMILTON ANTRAL BIOPSIES Received in formalin is one schultz-white tissue fragment, 0.4 x 0.2 x 0.1 cm. Entirely 1cs. B. NAHED HAMILTON, ASCENDING COLON POLYP Received in formalin are four schultz-white tissue fragments from < 0.1 to 0.7 cm and are 1.0 x 0.8 x 0.3 cm in aggregate. Entirely 1cs. C. NAHED HAMILTON, RECTAL BIOPSIES Received in formalin are four schultz-white tissue fragments from 0.3 to 0.7 cm and are 1.0 x 0.9 x 0.3 cm in aggregate. Entirely 1cs. jj tm Ishan Thacker M.D./se:09/18/2024 Microscopic Description A-C. Microscopic examination performed. Processing Lab: [place] [id number] Interpretation Performed at [place] [address] SURGICAL PATHOLOGY CONSULTATION Patient Name: NAHED HAMILTON [facility] Rec: [id number] [facility] [employer] [facility] ANATOMIC PATHOLOGY [address] [place] [address]. [address] MHPT 09/17/2024 10:5 0 AM EDT 09/17/2024 11:50 AM EDT Narrative [facility] - 09/20/2024 10:27 AM EDT Original Ordering Provider: CHENG WITT us Generic External Data Provider [facility] F inal Result [facility] MHPT * (ABNORMAL) Hm Colonoscopy (09/17/2024) Anatomical Region Laterality Modality Other 09/17/2024 Narrative 10/16/2024 7:44 AM EDT Polypectomy. Kendra [facility] Final Resul t * MM TOMOSYNTHESIS SCREENING BI (07/20/2024 7:26 AM EST) Anatomical Region Laterality Modality Other 07/20/2024 7:26 AM EST Narrative 07/20/2024 7:27 [place] [address] Mammography Report Signed Patient: NAHED HAMILTON MR#: [id number] : 1950 Acct:[id number] Age/Sex: 74 / F ADM Date: 07/19/24 Loc: MAMMO Attending Dr: BRUNO MCDANIEL Ordering Physician: BRUNO MCDANIEL Results: Date of Service: 07/19/24 Follow Up: Procedure(s): MM tomosynthesis screening BI Accession Number(s): [id number] cc: BRUNO MCDANIEL Patient Name: NAHED HAMILTON MR#: [id number] : 1950 Exam Date: 07/19/2024 Ordering Doctor: DR BRUNO MCDANIEL M.D. RADIOLOGY REPORT PROCEDURE: MM TOMOSYNTHESIS SCREENING BI COMPARISON: MG MAMM SCREEN 3D [place] CAD, 07/06/2022. MM TOMOSYNTHESIS SCREENING BI, 07/18/2023. INDICATIONS: Screening for malignant neoplasm of breast Calculator Name NCI Breast Cancer Risk Assessment Tool 5 Year Breast Cancer Risk 1.30% Lifetime Breast Cancer Risk 3.30% Personal Breast Cancer No Personal Ovarian Cancer No Treatments Radiation and Chemotherapy Family Cancers Sister with ovarian cancer at age 64; Mother with lung cancer at age 73; Father with lung cancer at age 61. LOCATION: [facility] BREAST COMPOSITION: There are scattered areas of fibroglandular density. FINDINGS: DIAGNOSTIC CATEGORY 2--BENIGN FINDING. NO CHANGE FROM COMPARISON. Scattered benign-appearing calcifications are present. RIGHT BREAST: No significant suspicious finding. LEFT BREAST: No significant suspicious finding. RECOMMENDATIONS: ROUTINE MAMMOGRAM AND CLINICAL EVALUATION IN 12 MONTHS. PLEASE NOTE: A NORMAL MAMMOGRAM DOES NOT EXCLUDE THE POSSIBILITY OF BREAST CANCER. A CLINICALLY SUSPICIOUS PALPABLE LUMP SHOULD BE BIOPSIED. Dictated by: Juvenal Fuentes MD on 07/20/2024 at 07:24 Approved by: Juvenal Fuentes MD on 07/20/2024 at 07:26 Dictated By: Juvenal Fuentes M.D. Signed By: 07/20/24726 DD/ 5 TD/TT: Retail Key Holder: Procedure Note Radiology, Radiologist, MD - 07/20/2024 [place] [address] Mammography Report Signed Patient: NAHED HAMILTON RMR#: [id number] : 1950cct:[id number] Age/Sex: 74 / FADM Date: 07/19/24 Loc: MAMMO Attending Dr: BRUNO MCDANIEL Ordering Physician: BRUNO MCDANIELResults: Date of Service: 07/19/24Follow Up: Procedure(s): MM tomosynthesis screening BI Accession Number(s): [id number] cc: BRUNO MCDANIEL Patient Name: NAHED HAMILTON MR#: [id number] : 1950 Exam Date: 07/19/2024 Ordering Doctor: DR BRUNO MCDANIEL M.D. RADIOLOGY REPORT PROCEDURE: MM TOMOSYNTHESIS SCREENING BI COMPARISON: MG MAMM SCREEN 3D [place] CAD, 07/06/2022. MM TOMOSYNTHESIS SCREENING BI, 07/18/2023. INDICATIONS: Screening for malignant neoplasm of breast Calculator Name NCI Breast Cancer Risk Assessment Tool 5 Year Breast Cancer Risk 1.30% Lifetime Breast Cancer Risk 3.30% Personal Breast Cancer No Personal Ovarian Cancer No Treatments Radiation and Chemotherapy Family Cancers Sister with ovarian cancer at age 64; Mother with lung cancer at age 73; Father with lung cancer at age 61. LOCATION: [facility] BREAST COMPOSITION: There are scattered areas of fibroglandulardensity. FINDINGS: DIAGNOSTIC CATEGORY 2--BENIGN FINDING. NO CHANGE FROM COMPARISON.Scattered benign-appearing calcifications are present. RIGHT BREAST: No significant suspicious finding. LEFT BREAST: No significant suspicious finding. RECOMMENDATIONS: ROUTINE MAMMOGRAM AND CLINICAL EVALUATION IN 12 MONTHS. PLEASE NOTE: A NORMAL MAMMOGRAM DOES NOT EXCLUDE THE POSSIBILITY OFBREAST CANCER. A CLINICALLY SUSPICIOUS PALPABLE LUMP SHOULD BE BIOPSIED. Dictated by: Juvenal Fuentes MD on 07/20/2024 at 07:24 Approved by: Juvenal Fuentes MD on 07/20/2024 at 07:26 Dictated By: Juvenal Fuentes M.D. Signed By:07/20/24726 DD/ 5 TD/TT: Retail Key Holder: Bruno Mcdaniel MD [facility] Final Result from Last 3 Months or Most Recently Relevant to Health Maintenance Insurance MEDICAID [place] [employer] MEDICARE Care Teams Loan Coordinator Relationship Specialty Start Date End Date Bruno Mcdaniel MD [address] [facility] [address] [place] [address] PCP - General Internal Medicine 10/27/22
--- OUTSIDE RECORDS SUMMARY | 2024-11-15 12:57 | XMS_ITS | Encounter Summary ---
Author Organization [facility] Address [address] [place] [address] Care Team Providers Care Laboratory Animal Facility Supervisor Name Role Phone Bruno Mcdaniel MD Primary Care Provider [phone] Chio Boothe LPN Unavailable Unavailable Encounter Details Date Type Department Care Team (Late st Contact Info) Description 09/17/2024 Abstract [facility] 112 [facility] [address] [place] [address] Bruno Mcdaniel MD 112 [facility] 110 [place], [place] [id number] Social History Tobacco Use Types Packs/Day Years [...] How often do you attend chur or shinto services? Never 01/09/2024 Do you belong to any clubs o r organizations such as moravian groups, unions, fraternal or athletic groups, or [...] Recorded Patient Health Questionnaire-2 Score 0 07/31/2024 [facility] Questionnaire Answer Date [...] any time in the past 12 m [facility], were you homeless or living in [...] Visit [facility] [address] [facility] [address] [place] [address] Kendra Eason PA [address] [facility] [address] [place], [place] [id number] documented as of this encounter Visit Diagnoses Not on filedocumented in this encounter Additional Health Concerns Assessment Noted Time PHQ-9 Depression Total Score: 0 07/31/19 25 1:00 PM EST documented as of this encounter Care Teams Laboratory Animal Facility Supervisor Relationship Specialty Start Date End Date Bruno Mcdaniel MD 112 [facility] [address] [place] [address] PCP - General Internal Medicine 10/27/22 Chio Boothe LPN 08/31/24 11/09/24 documented as of this encounter
--- OUTSIDE RECORDS SUMMARY | 2024-11-15 12:57 | XMS_ITS | Clinical Summary ---
Author Organization [facility] Address [address] [place], [place] [id number] Care Team Providers Care Pocket Maker Name Role Phone Jonas PHILLIP MD, Bruno Stubbs Primary Care Provider [phone] Allergies Active Allergy Reactions Criticality Noted Date Comments Codeine GI Upset 08/28/2012 Cortizone-10 Scalp Itch Relief Rash 08/28 Esomeprazole Magnesium Intolerance 08/27/2013 Penicillins Anaphylaxis 08/28/2012 Oxycodone-Acetaminophen Mental Status Change Diazepam Mental Status Change 08/28/2012 Medications furosemide (LASIX) 40 mg tablet Take 40 mg by mouth as directed. Active pravastatin 40 mg tablet Take 40 mg by mouth once daily. Active lisinopril-hydro chlorothiazide (ZESTORETIC) 20-12.5 mg per tablet Take 1 tablet by mouth twice daily. Active Multivitamin capsule Take 1 capsule by mouth once daily. Active Ascorbic Acid (VITAMIN C) 500 mg CpER Take 1 tablet by mouth once daily. Active Potassium 99 mg Tab Take by mouth twice daily. Active [place]-3 Fatty Acids-Vitamin E (FISH OIL) 1,000 mg cap Take 1 capsule by mouth. Active Aspirin 81 mg CpDR Take by mouth once daily. Active PLANT STANOL JUAN ALBERTO (CHOLEST OFF ORAL) Take by mouth once daily. Active DOCUSATE CALCIUM (STOOL SOFTENER ORAL) Take by mouth. Activ e vitamin E acetate (VITAMIN E) 200 unit Capsule Take by mouth once daily. Active terbinafine HCl (LAMISIL AT) 1 % cream Apply 1 application to affected area twice daily. 1 Tube 0 6 Active cyclobenzaprine (FLEXERIL) 10 mg tablet 6 Active dicyclomine (BENTYL) 20 mg tablet 6 Active HYDROcodone-acet aminophen (NORCO) 5-325 mg per tablet 6 Active LACTOBACILLUS ACIDOPHILUS (PROBIOTIC ORAL) Take by mouth. Active Active Problems Problem Noted Date Diagnosed Date History of anal cancer 04/06/2017 Anal cancer 06/26/2014 Resolved Problems Problem Noted Date Diagnosed Date Resolved Date Rectal cancer 08/28/2012 06/25/2015 Family History Medical History Relation Comments Cancer Brother Colon cancer Cancer Father lung cancer Cancer Mother Lung cancer Relation Status Comments Brother Father Mother Social History Tobacco Use Types Packs/Day Years Used Date Smoking Tobacco: Former Cigarettes Smokeless Tobacco: Never Alcohol Use Standard Drinks/Week Comments Not Asked 0 (1 standard drink = 0.6 oz pur e alcohol) Area Deprivation Index Answer Date Terence rded National Score (1-100), lower number is lower ri sk Not on file 05/21/2020 State Score (1-10), lower number is lower risk N ot on file 05/21/2020 Data from: https://www.neighborhoodatlas.medicine.[facility]/. Last address used for calculation Not on file 05/21/2020 Comments No Sex and Gender Information Value Date Recorded Sex Assigned at Not on file Legal Sex Female 10:12 AM EST Gender Identity Not on file Sexual Orientation Not on file Last Filed Vital Signs Vital Sign Reading Time Taken Comments Blood Pressure 141/81 04/04/2019 2:10 PM EDT Pulse 83 04/04/2019 2:10 PM EDT Temperature 36.8 C (98.3 F) 04/04/2019 2:10 PM EDT Respiratory Rate 16 04/04/2019 2:10 PM EDT Oxygen Saturation 97% 04/04/2019 2:1 0 PM EDT Inhaled Oxygen Concentration - - Weight 128.7 kg (283 lb 12. 8 oz) 04/04/2019 2:10 PM EDT Height 162.6 cm (5' 4.02 ) 12/01/2015 1 :57 PM EDT verified dmc Body Mass Index 48.69 12/01/2015 1:57 PM EDT Plan of Treatment Health Maintenance Due Date Last Done Comments Anxiety Screening 02/15/1970 Depression Screening 02/15/1970 Hepatitis C Screening 02/15/1970 DTaP,Tdap,Td Vaccine (1 - Tdap) 02/15/[address] Colonography 02/15/1997 Cologuard (FIT-DNA) 02/15/1997 Colonoscopy 02/15/1997 Colorectal Cancer Screening 02/15/1997 Fecal Occult Blood 02/15/1997 Lipid Screening 02/15/1997 Sigmoidoscopy 02/15/1997 Pneumococcal Vaccine: 50+ (1 of 1 - PCV) 02/15/2002 Shingrix Vaccine (1 of 2) 02/15/2002 Diabetes Screening 08/29/2015 08/28/2012 Bone Density Screening 02/15/2017 Covid-19 Vaccine (1 - 2023- season) 2024 Advance Directive Discussion 06/13/2024 Influenza Vaccine (Season Ended) 2025 RSV Vaccine (1 - 1-dose 75+ series) 02/15/2027 Procedures Procedure Name Priority Date/Time Associated Diagnosis Comments COMPREHENSIVE METABOLIC PANEL Routine 08/28/2012 1:03 PM EDT Anal cancer from Last 3 Months or Most Recently Relevant to Health Maintenance Results * (ABNORMAL) COMP METABOLIC PANEL (08/28/2012 1:03 PM EDT) Protein, Total 7.0 6.0 - 8.4 g/dL [facility] Albumin 4.2 3.5 - 5.0 g/dL [facility] Calcium 9.3 8.5 - 10.5 mg/dL [facility] Bilirubin, Total 0.2 0.0 - 1.5 mg/dL [facility] Alkaline Phosphatase 87 40 - 150 U/L [facility] AST 17 7 - 40 U/L [facility] Glucose 124(H) 65 - 100 mg/dL [facility] BUN 12 8 - 25 mg/dL [facility] Creatinine 0.82 0.70 - 1.40 mg/dL [facility] Sodium 140 132 - 148 mmol/L [facility] Potassium 3.5 3.5 - 5.0 mmol/L [facility] Chloride 99 98 - 110 mmol/L [facility] CO2 27 23 - 32 mmol/L [facility] Anion Gap 14 0 - 15 mmol/L [facility] ALT 22 0 - 45 U/L [facility] eGFR- >60 [facility] eGFR-All Other Races >60 . [facility] Comment: eGFR (Estimated GFR) Units of measure: mL/min/1.73 meters squared eGFR is derived from the reexpressed MDRD Study equation using the following parameters: serum creatinine, age, gender and race. The creatinine assay has been calibrated to be traceable to IDMS. An eGFR <60 mL/min/1.73m2 for >3 months is consistent with chronic kidney disease. Refer to KDOQI guidelines for clinical interpretation. 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 [address] from Last 3 Months or Most Recently Relevant to Health Maintenance Insurance MEDICAID [place] MEDICARE Advance Directives Documents on File Type Date Recorded Patient Comb Winder Expl anation Advance Directive(s) 12/25/2012 6:03 PM Care Teams Pocket Maker Relationship Specialty Start Date End Date Bruno Mcdaniel II, MD PCP - General Internal Medicine 06/09/11
--- OUTSIDE RECORDS SUMMARY | 2024-11-15 12:57 | XMS_ITS | Clinical Summary ---
Author Organization Selvin [facility] Address [address] [place] [address] Care Team Providers Care Cro Name Role Phone Bruno Mcdaniel MD Primary Care Provider [phone] Allergies Active Allergy Reactions Criticality Noted Date Comments Codeine Other (See Comments) 08/28/2012 Cortisone Rash Low 09/17/2024 Broke out with a rash after cortisone injection Diazepam Anxiety,Other (See Comments) Low 08/28/2012 Esomeprazole Other (See Comments) 08/27/2013 Nausea Hydrocortisone Rash Low 08/28/2012 Nitrofurantoin Nausea And Vomiting Low 11/05/2022 Oxycodone-Acetaminophen Other (See Comments) 08/28/2012 Penicillins Anaphylaxis,Other (See Comments) High 08/28/2012 Tizanidine Rash Low 11/05/2022 Medications amLODIPine (NORVASC) 5 MG tablet Take 1 tablet by mouth every morning Active baclofen (LIORESAL) 10 MG tablet TAKE 1 TABLET BY MOUTH THREE TIMES DAILY (IN THE MORNING, IN THE EVENING and BEFORE bedtime) Active Ascorbic Acid ER 500 MG CPCR Take 1 tablet by mouth every morning Active Calcium Carbonate-Vitamin D (OYSTER SHELL CALCIUM/D) 500-5 MG-MCG TABS Take 1 tablet by mouth 2 times daily (with meals) Active cloNIDine (CATAPRES) 0.2 MG/24HR PTWK place 1 patch on the skin ONCE A WEEK Active Cyanocobalamin 500 MCG CHEW Take 500 tablets by mouth every 24 hours Active dicyclomine (BENTYL) 20 MG tablet TAKE 1 TABLET BY MOUTH IN THE MORNING then TAKE 1 TABLET BY MOUTH at noon then TAKE 1 TABLET BY MOUTH IN THE EVENING then TAKE 1 TABLET BY MOUTH BEFORE bedtime Active diphenhydrAMINE (BENADRYL) 25 MG tablet Take 1 tablet by mouth nightly as needed Active famotidine (PEPCID) 10 MG tablet Take 1 tablet by mouth daily Active furosemide (LASIX) 40 MG tablet TAKE 1 TABLET BY MOUTH EVERY TUESDAY, TUESDAY, and TUESDAY Active HYDROcodone-acetam inophen (NORCO) 10-325 MG per tablet 5 Active lisinopril-hydroCH LOROthiazide (PRINZIDE;ZESTORET IC) 20-12.5 MG per tablet Take 1 tablet by mouth daily Active loratadine (CLARITIN) 10 MG tablet Take 1 tablet by mouth daily Active montelukast (SINGULAIR) 10 MG tablet Take 1 tablet by mouth every morning Active Multiple Vitamin (MULTIVITAMIN) capsule Take 1 capsule by mouth daily Active ondansetron (ZOFRAN-ODT) 4 MG disintegrating tablet DISSOLVE 1 TABLET ON THE TONGUE EVERY 8 HOURS NEEDED FOR NAUSEA and FOR VOMITING 5 Active pantoprazole (PROTONIX) 40 MG tablet Take 1 tablet by mouth daily 5 Active pravastatin (PRAVACHOL) 40 MG tablet Take 1 tablet by mouth nightly 5 Active sulfamethoxazole-t rimethoprim (BACTRIM;SEPTRA) 400-80 MG per tablet Take 1 tablet by mouth daily 5 Active vitamin E 180 MG (400 UNIT) CAPS capsule Take 180 mg by mouth daily Active Cranberry-Vitamin C-Probiotic (AZO CRANBERRY PO) Take 1 tablet by mouth daily Active triamcinolone (KENALOG) 0.1 % cream Apply topically 2 times daily Apply topically 2 times daily. Active Active Problems Problem Noted Date Diagnosed Date Nausea and vomiting 08/28/2024 Radiation proctitis 08/20/2024 UC (ulcerative colitis) 08/20/2024 Gastroesophageal reflux disease without esophagi tis 08/20/2024 Nausea 08/20/2024 History of anal cancer 08/20/2024 Entrapment of left ulnar nerve 08/20/2024 Spinal stenosis of thoracic region 08/20/2024 Spinal stenosis in cervical region 08/20/2024 Recurrent UTI 08/20/2024 Primary osteoarthritis of left elbow 08/20/2024 KARLOS (obstructive sleep apnea) 08/20/2024 Myalgia 08/20/2024 Morbid obesity 08/20/2024 Moderate protein-calorie malnutrition 08/20/2024 Lumbar disc herniation 08/20/2024 Mixed hyperlipidemia 08/20/2024 Anal cancer 08/20/2024 Fibromyalgia 08/20/2024 Estrogen deficiency 08/20/2024 Edema 08/20/2024 Chronic cystitis 08/20/2024 Primary hypertension 08/20/2024 Allergic rhinitis 08/20/2024 Resolved Problems Problem Noted Date Diagnosed Date Resolved Date Encounter for screening colonoscopy 08/28/2024 09/27/2024 Encounters Date Type Department Care Team Description 09/25/2024 1:00 PM EDT Office Visit [facility] Part of [facility] [address] [place] [address] Devan Dick, DO Postop check (Primary Dx) 09/17/2024 10:43 AM EDT Anesthesia Event [facility] [address] [facility] [address] [place] [address] Berry Hayden, TRANSPORTATION ANALYST - SKY 09/17/2024 10:09 AM EDT - 09/17/2024 10:51 AM EDT [facility] [address] [facility] [place] [address] Devan Dick, DO COLONOSCOPY POLYPECTOMY 09/17/2024 9:24 AM EDT - 09/17/2024 12:25 PM EDT Hospital Encounter [facility] [address] [facility] [place] [address] Devan Dick, DO Encounter for screening colonoscopy; Nausea and vomiting Discharge Disposition: Home or Self Care 09/17/2024 Travel 08/28/2024 2:26 PM EDT - 08/28/2024 11:59 PM EDT Hospital Encounter [facility] [address] [place] [address] Essential hypertension Discharge Disposition: Home or Self Care 08/28/2024 1:00 PM EDT Office Visit [facility] Part of [address] [place] [address] Devan Dick, DO History of anal cancer (Primary Dx); Nausea and vomiting, unspecified vomiting type 08/28/2024 Orders Only [facility] Part of [address] [place] [address] Devan Dick, DO Essential hypertension (Primary Dx); Encounter for screening colonoscopy 08/20/2024 Orders Only [facility] Part of [address] [place] [address] Carisa Ventura MA from Last 3 Months Immunizations Immunization Administration Dates Next Due Influenza Virus Vaccine 02/26/2016,03/25/2015, Influenza, FLUBLOK, (age 18 y+), Quadv PF, 0.5mL 05/28/2021 Influenza, FLUZONE High Dose (age 65 y+), IM, Quadv, 0.7mL 03/15/2023 Influenza, FLUZONE High Dose , (age 65 y+), IM, Trivalent PF, 0.5mL 02/23/2024,04/21/2020,03/22/2019,2017 Influenza, Intradermal, Pres ervative free 03/24/2017 Pneumococcal, PCV-13, PREVNA R 13, (age 6w+), IM, 0.5mL 03/25/2015 Pneumococcal, PPSV23, PNEUMO VAX 23, (age 2y+), SC/IM, 0.5mL 04/21/2017,03/15/2011 Zoster Live (Zostavax) 04/12/2014 Social History Tobacco Use Types Packs/Day Years Used Date Smoking Tobacco: Never Smokeless Tobacco: Never Tobacco Cessation:Counseling Given: Not Answered Alcohol Use Standard Drinks/Week Comments Not Currently 0 (1 standard drink = 0.6 oz pur e alcohol) Interpersonal Safety Domain Source: IP Abuse Scr eening Answer Date Recorded Physical abuse Denies 09/17/2024 Verbal abuse Denies 09/17/2024 Emotional abuse Denies 09/17/2024 Financial abuse Denies 09/17/2024 Sexual abuse Denies 09/17/2024 Comments Unknown Sex and Gender Information Value Date Recorded Sex Assigned at Not on file Legal Sex Female 2:44 AM EDT Gender Identity Not on file Sexual Orientation Not on file Last Filed Vital Signs Vital Sign Reading Time Taken Comments Blood Pressure 138/76 09/25/2024 1:05 PM EDT Pulse 55 09/17/2024 12:10 PM EDT Temperature 36.4 C (97.5 F) 09/17/2024 11:30 AM EDT Respiratory Rate 18 09/25/2024 1:05 PM EDT Oxygen Saturation 98% 09/25/2024 1:05 PM EDT Inhaled Oxygen Concentration - - Weight 99.7 kg (219 lb 11.2 oz) 09/25/2024 1:05 PM EDT Height 162.6 cm (5' 4.02 ) 09/25/2024 1:05 PM ED T Body Mass Index 37.69 09/25/2024 1:05 PM EDT Plan of Treatment Health Maintenance Due Date Last Done Comments Lipids 02/15/1962 Depression Screen 1964 Hepatitis C screen 02/15/1970 DTaP/Tdap/Td vaccine (1 - Tdap) 02/15/1971 FIT/FOBT: Average risk 02/15/1997 Fecal-DNA (Cologuard): Average risk 02/15/1997 Sigmoidoscopy/CT colonography 02/15/1997 Respiratory Syncytial Virus (RSV) or age 60 yrs+ (1 - Risk 60-74 years 1-dose series) 2012 COVID-19 Vaccine ( - 2023- season) 2024 Breast cancer screen 07/06/2024 07/06/2022, 06/09/2021, 06/02/2020, Additional history exists Annual Wellness Visit (Medicare) 08/28/2024 Shingles vaccine (3 of 3) 09/26/2024 08/01/2024, Colonoscopy 09/17/2029 09/17/2024 Colorectal Cancer Screen 09/17/2029 Pneumococcal 50+ years Vaccine Completed 04/21/2017, 03/25/2015, 03/15/2011 DEXA (modify frequency per FRAX score) Completed 05/27/2021, 05/31/2019, 05/31/2019 Flu vaccine Completed 02/23/2024, 10/0 08/2022, 05/28/2021, Additional history exists Hepatitis A vaccine Aged Out No longe r eligible based on patient's age to complete this topic Hepatitis B vaccine Aged Out No longe r eligible based on patient's age to complete this topic Hib vaccine Aged Out No longer eligi ble based on patient's age to complete this topic Meningococcal (ACWY) vaccine Aged Out No longer eligible based on patient's age to complete this topic Meningococcal B vaccine Aged Out No l onger eligible based on patient's age to complete this topic Polio vaccine Aged Out No longer elig ible based on patient's age to complete this topic Procedures Procedure Name Priority Date/Time Associated Diagnosis Comments SURGICAL PATHOLOGY REPORT Routine 2024 10:50 AM EDT ESOPHAGOGASTRODUODENOSCOPY BIOPSY 09/17/2024 10:43 AM EDT Encounter for screening colonoscopy Nausea and vomiting COLONOSCOPY POLYPECTOMY SNARE/BIOPSY 09/17/2024 10:43 AM EDT Encounter for screening colonoscopy Nausea and vomiting EKG 12-LEAD Routine 08/28/2024 2:32 PM EDT Essential hypertension from Last 3 Months Results * SURGICAL PATHOLOGY REPORT (09/17/2024 10:50 AM EDT) Surgical Pathology Report Path Number: [id number] -- Diagnosis -- A. Gastric antrum, biopsy: - Mild chronic inactive gastritis. - Negative for H. pylori organisms on H&E stain. B. Ascending colon, biopsy: - Pieces of tubular adenoma. C. Rectum, biopsy: - Mild active proctitis with lamina propria edema. Juvenal Bernstein M.D. Electronically Signed Out 09/20/2024 Clinical Information Pre-Op Diagnosis: ENCOUNTER FOR SCREENING COLONOSCOPY; NAUSEA AND VOMITING Operative Findings: ANTRAL BIOPSIES; ASCENDING COLON POLYP; RECTAL BIOPSIES Operation Performed: COLONOSCOPY POLYPECTOMY; ESOPHAGOGASTRODU ODENOSCOPY BIOPSY se Source of Specimen A: ANTRAL BX B: ASCENDING COLON POLYP C: RECTUM BIOPSY Gross Description Lynn HAMILTON, ANTRAL BIOPSIES Received in formalin is one [...] Description A-C. Microscopic examination performed. Processing Lab: [address] [address] Interpretation Performed at [address] [id number] SURGICAL PATHOLOGY CONSULTATION Patient Name: NAHED HAMILTON [facility] Rec: [id number] [employer] [facility] ANATOMIC PATHOLOGY [address] [place] [address]. [place] [address] [facility] 09/17/2024 10:5 0 AM EDT 09/17/2024 11:50 AM EDT Devan Dick DO PATHOLOGY/CYTOLOGY ORDERA BLES Final Result [facility] [address] [place] [address], [facility] [phone] [facility] Print System * EKG 12 Lead (08/28/2024 2:32 PM EDT) Ventricular Rate 98 BPM [facility] Atrial Rate 98 BPM [facility] P-R Interval 148 ms [facility] QRS Duration 88 ms [facility] Q-T Interval 336 ms [facility] QTc Calculation (Bazett) 428 ms [facility] P [place] 56 degrees [facility] R [place] -25 degrees [facility] T [place] 51 degrees [facility] 08/28/2024 2:32 PM EDT Narrative PN [facility] - 08/28/2024 7:51 PM EDT Normal sinus rhythm Minimal voltage criteria for LVH, may be normal variant ( R in aVL ) Borderline ECG No previous ECGs available Confirmed by Gerson Pelaez MD ([id number]) on 08/28/2024 7:51:05 PM Procedure Note Gerson Pelaez MD - 08/28/2024 Normal sinus rhythm Minimal voltage criteria for LVH, may be normal variant ( R in aVL ) Borderline ECG No previous ECGs available Confirmed by Gerson Pelaez MD ([id number]) on 08/28/2024 7:51:05 PM Devan Dick DO ECG ORDERABLES Final Res ult Performing Organization Address City/State/[facility] Co de Phone Number [facility] from Last 3 Months Insurance MEDICARE MEDICAID [place] [facility]IC[facility]ICARE Care Teams Cro Relationship Specialty Start Date End Date Bruno Mcdaniel MD [address] [facility] [address] [place] [address] PCP - General Internal Medicine 08/13/24
--- OUTSIDE RECORDS SUMMARY | 2024-11-15 12:57 | XMS_ITS | Encounter Summary ---
Author Organization [facility] Address [address] [place] [address] Care Team Providers Care Life Specialist Name Role Phone Bruno Mcdaniel MD Primary Care Provider Magnolia Alva RN Unavailable [phone] Bruno Mcdaniel MD Unavailable [phone] Chio Boothe LPN Unavailable Unavailable Encounter Details Date Type Department Care Team (Late st Contact Info) Description 08/01/2024 Abstract [facility] [address] [facility] [address] [place] [address] Bruno Mcdaniel MD 112 [facility] 110 [place], [place] [id number] Social History Tobacco Use Types Packs/Day Years [...] How often do you attend chur or baptist services? Never 01/09/2024 Do you belong to any clubs o r organizations such as spiritism groups, unions, fraternal or athletic groups, or [...] Recorded Patient Health Questionnaire-2 Score 0 07/31/2024 [facility] of Occupat ional Health - Occupational Stress [...] place to sleep or slept in a care home (including now)? No 11/10/2022 Housing Stability [...] any time in the past 12 m [facility], were you homeless or living in a care home (including now)? No 01/09/2024 Comments Unknown Sex and Gender Information Value Date Recorded Sex Assigned at Not on file Legal Sex Female 6:58 PM EDT Gender Identity Not on file Sexual Orientation Not on file documented as of this encounter Plan of Treatment Upcoming Encounters Date Type Department Care Team (Late st Contact Info) Description 01/29/2025 2:00 PM EDT Office Visit [facility] [address] [facility] [address] [place] [id number] Kendra Eason PA [address] [facility] [address] [place] [address] documented as of this encounter Visit Diagnoses Not on filedocumented in this encounter Additional Health Concerns Assessment Noted Time PHQ-9 Depression Total Score: 0 07/31/19 25 1:00 PM EST documented as of this encounter Care Teams Life Specialist Relationship Specialty Start Date End Date Bruno Mcdaniel MD [address] [facility] [address] [place] [address] PCP - General Internal Medicine 10/27/22 Bruno Mcdaniel MD [address] [facility] [address] [place] [address] PCP - ACO Reach 07/27/24 09/13/24 Magnolia Alva, RN Licensed Practical Nurse Family Medicine 07/20/24 08/31/24 Chio Boothe LPN 08/31/24 11/09/24 documented as of this encounter
--- OUTSIDE RECORDS SUMMARY | 2024-11-15 12:57 | XMS_ITS | Encounter Summary ---
Author Organization [facility] Address [address] [place] [address] Care Team Providers Care A Operator Name Role Phone Bruno Mcdaniel MD Primary Care Provider Bruno Mcdaniel MD Unavailable [phone] TuesdayMagdalene LPN Unavailable [phone] Magnolia Alva RN Unavailable Bruno Mcdaniel MD Unavailable [phone] Chio Boothe LPN Unavailable Unavailable Encounter Details Date Type Department Care Team (Late st Contact Info) Description 04/18/2024 Abstract [facility] 112 [facility] 110 [place] [id number] Bruno Mcdaniel MD 112 [facility] 110 [place] [address] Social History Tobacco Use Types [...] any clubs o r organizations such as adventism groups, unions, fraternal or athletic groups, or [...] Recorded Patient Health Questionnaire-2 Score 0 10/09/2023 [facility] of Occupat ional Health [...] any time in the past 12 m [facility], were you homeless or living in [...] [address] [place] [address] [place] [address] Kendra Eason PA [address] [place] [address] [place] [address] documented as of this encounter Visit Diagnoses Not on filedocumented in this encounter Care Teams A Operator Relationship Specialty Start Date End Date Bruno Mcdaniel MD [address] [place] [address] [place] [address] PCP - General Internal Medicine 10/27/22 Bruno Mcdaniel MD [address] [place] [address] [place] [address] PCP - ACO Reach 08/12/23 07/19/24 Bruno Mcdaniel MD [address] [place] [address] [place] [address] PCP - ACO Reach 07/27/24 09/13/24TuesdayMagdalene LPN [address] [place] [address] Licensed Practical Nurse Family Medicine 03/09/24 07/20/24 Magnolia Alva, RN Licensed Practical Nurse Family Medicine 07/20/24 08/31/24 Chio Boothe LPN 08/31/24 11/09/24 documented as of this encounter
--- OUTSIDE RECORDS SUMMARY | 2024-11-15 12:57 | XMS_ITS | Encounter Summary ---
Author Organization [facility] Address [address] [place] [address] Care Team Providers Care Turkey Farmer Name Role Phone Bruno Mcdaniel MD Primary Care Provider Bruno Mcdaniel MD Unavailable [phone] TuesdayMagdalene LPN Unavailable [phone] Magnolia Alva RN Unavailable Bruno Mcdaniel MD Unavailable [phone] Chio Boothe LPN Unavailable Unavailable Encounter Details Date Type Department Care Team (Late st Contact Info) Description 02/10/2023 Abstract [facility] 112 [facility] 110 [place] [id number] Bruno Mcdaniel MD 112 [facility] 110 [place] [address] Social History Tobacco Use Types Packs/Day Years Used Date Smoking Tobacco: Former Cigarettes Q uit: 2002 Smokeless Tobacco: Never Alcohol Use Standard Drinks/Week Comments Not Currently 0 (1 standard drink = 0.6 oz pur e alcohol) Humiliation, Afraid, Rape, and Kick questionnair e [...] neighbors? More than three times a week 11/10/2022 How often do you get togethe r with friends or relatives? Once a week 11/10/2022 How often do you attend chur or christianity services? Never 11/10/2022 Do you belong to any clubs o r organizations such as jewish groups, unions, fraternal or athletic groups, or school groups? No 11/10/2022 How often do you attend meet ings of the clubs or organizations you belong to? Never 11/10/2022 Are you , , di vorced, , never , or living with a partner? Living with partner 11/10/2022 AUDIT-C Answer Date Recorded Q1: How often do you have a drink containing alcohol? Never 11/10/2022 Q2: How many drinks containi ng alcohol do you have on a typical day when you are drinking? Patient does not drink Q3: How often do you have si x or more drinks on one occasion? Never 11/10/2022 Overall Financial Resource Strain (CARDIA) Answe r Date Recorded How hard is it for you to pa y for the very basics like food, housing, medical care, and heating? Not hard at all 11/10/2022 [facility] of Occupat ional Health - Occupational Stress Questionnaire Answer Date Recorded Do you feel stress - tense, restless, nervous, or anxious, or unable to sleep at night because your mind is troubled all the time - these days? Not at all 11/10/2022 Exercise Vital Sign Answer Date Recorde d On average, how many days pe r week do you engage in moderate to strenuous exercise (like a brisk walk)? 0 days 11/10/2022 On average, how many minutes do you engage in exercise at this level? 0 min 11/10/2022 Hunger Vital Sign Answer Date Recorded Within the past 12 months, y ou worried that your food would run out before you got the money to buy more. Never true 11/11/19 23 Within the past 12 months, t he food you bought just didn't last and you didn't have money to get more. Never true 11/10/2022 PRAPARE - Transportation Answer Date Re corded In the past 12 months, has l ack of transportation kept you from medical appointments or from getting medications? No 10/13 In the past 12 months, has l ack of transportation kept you from meetings, work, or from getting things needed for daily living? No 11/10/2022 Housing Stability Vital Sign Answer [...] place to sleep or slept in a [place] [facility] [place] facility (including now)? No 11/10/2022 Comments Unknown Sex and Gender Information Value Date Recorded Sex Assigned at Not on file Legal Sex Female 6:58 PM EDT Gender Identity Not on file Sexual Orientation Not on file COVID-19 Exposure Response Date Recorded In the last 10 days, have yo u been in contact with someone who was confirmed or suspected to have Coronavirus/COVID-19? No / Unsure 02/09/2023 1:49 PM EDT documented as of this encounter Plan of Treatment Upcoming Encounters Date Type Department Care Team (Late st Contact Info) Description 01/29/2025 2:00 PM EDT Office Visit [facility] 112 [facility] 110 [place] [address] Kendra Eason PA 112 [facility] 110 [place] [address] documented as of this encounter Visit Diagnoses Not on filedocumented in this encounter Care Teams Turkey Farmer Relationship Specialty Start Date End Date Bruno Mcdaniel MD [address] [facility] 110 [place] [address] PCP - General Internal Medicine 10/27/22 Bruno Mcdaniel MD [address] [facility] [address] [place] [address] PCP - ACO Reach 08/12/23 07/19/24 Bruno Mcdaniel MD [address] [facility] [address] [place] [address] PCP - ACO Reach 07/27/24 09/13/24TuesdayMagdalene LPN [address] [facility] [address] [place] [address] Licensed Practical Nurse Family Medicine 03/09/24 07/20/24 Magnolia Alva, RN Licensed Practical Nurse Family Medicine 07/20/24 08/31/24 Chio Boothe LPN 08/31/24 11/09/24 documented as of this encounter
--- OUTSIDE RECORDS SUMMARY | 2024-11-15 12:57 | XMS_ITS | Encounter Summary ---
Author Organization [facility] Address [address] [place] [address] Care Team Providers Care Physician Relations Representative Name Role Phone Bruno Mcdaniel MD Primary Care Provider Bruno Mcdaniel MD Unavailable [phone] TuesdayMagdalene LPN Unavailable [phone] Magnolia Alva RN Unavailable [phone] Bruno Mcdaniel MD Unavailable [phone] Chio Boothe LPN Unavailable Unavailable Encounter Details Date Type Department Care Team (Late st Contact Info) Description 11/16/2022 Orders Only [facility] 112 [facility] 110 [place] [id number] Kendra Eason PA [address] [facility] 110 [place], [place] [id number] Social History Tobacco Use Types Packs/Day Years [...] How often do you attend chur or jew services? Never 11/10/2022 Do you belong to any clubs o r organizations such as muslim groups, unions, fraternal or athletic groups, or [...] and heating? Not hard at all 11/10/2022 [facility] of Occupat ional Health - Occupational Stress [...] place to sleep or slept in a [facility]p (including now)? No 11/10/2022 Comments Unknown Sex [...] suspected to have Coronavirus/COVID-19? No / Unsure 11/10/2022 5:34 PM EDT documented as of this encounter Plan of Treatment Upcoming Encounters Date Type Department Care Team (Late st Contact Info) Description 01/29/2025 2:00 PM EDT Office Visit [facility] 112 [facility] 110 [place] [address] Kendra Eason PA 112 [facility] 110 [place] [address] documented as of this encounter Procedures Procedure Name Priority Date/Time Associated Diagnosis Comments SCANNED LABS Routine 11/11/2022 11:36 AM EDT documented in this encounter Results * SCANNED LABS (11/11/2022 11:36 AM EDT) us [facility] CHG PERFORMABLES Final Res ult documented in this encounter Visit Diagnoses Not on filedocumented in this encounter Care Teams Physician Relations Representative Relationship Specialty Start Date End Date Bruno Mcdaniel MD [address] [facility] [address] [place] [address] PCP - General Internal Medicine 10/27/22 Bruno Mcdaniel MD [address] [facility] [address] [place] [address] PCP - ACO Reach 08/12/23 07/19/24 Bruno Mcdaniel MD [address] [facility] [address] [place] [address] PCP - ACO Reach 07/27/24 09/13/24TuesdayMagdalene LPN [address] [place] [address] Licensed Practical Nurse Family Medicine 03/09/24 07/20/24 Magnolia Alva, RN Licensed Practical Nurse Family Medicine 07/20/24 08/31/24 Chio Boothe LPN 08/31/24 11/09/24 documented as of this encounter
--- OUTSIDE RECORDS SUMMARY | 2024-11-15 12:57 | XMS_ITS | Referral Summary ---
Author Organization [facility] Address [address] [place] [address] Care Team Providers Care Jet Wiper Name Role Phone Unavailable Primary Care Provider Unavailabl e Social History Tobacco Use Types Packs/Day Years Used Date Smoking Tobacco: Never Assessed Sex and Gender Information Value Date Recorded Sex Assigned at Not on file Gender Identity Not on file Sexual Orientation Not on file Plan of Treatment Not on file
--- OUTSIDE RECORDS SUMMARY | 2024-11-15 12:57 | XMS_ITS | Encounter Summary ---
Author Organization [facility] Address [address] [place] [address] Care Team Providers Care Web Services Architect Name Role Phone Bruno Mcdaniel MD Primary Care Provider [phone] Chio Boothe LPN Unavailable Unavailable Reason for Visit * Reason Onset Date Comments Med Refill 11/06/2024 Encounter Details Date Type Department Care Team (Late st Contact Info) Description 11/06/2024 Refill [facility] [address] [facility] [address] [place] [address] Jaclyn Hightower LPN [address] [place] [address] Recurrent UTI Social History Tobacco Use Types Packs/Day Years [...] How often do you attend chur or episcopalian services? Never 01/09/2024 Do you belong to any clubs o r organizations such as yazdanism groups, unions, fraternal or athletic groups, or [...] Recorded Patient Health Questionnaire-2 Score 0 10/29/2024 [facility] - Occupational Stress Questionnaire Answer Date [...] [facility] in the [facility] were you homeless or living in [...] Visit [facility] [address] [facility] 110 [place] [address] Kendra Eason PA [address] [facility] 110 [place] [address] documented as of this encounter Visit Diagnoses Diagnosis Recurrent UTI Urinary tract infection, site not specified documented in this encounter Additional Health Concerns Assessment Noted Time PHQ-9 Depression Total Score: 0 07/31/19 1:00 PM EST documented as of this encounter Care Teams Web Services Architect Relationship Specialty Start Date End Date Bruno Mcdaniel MD 112 [facility] 110 [place] [address] PCP - General Internal Medicine 10/27/22 Chio Boothe LPN 08/31/24 11/09/24 documented as of this encounter
--- NOTE | 2024-11-15 12:58 | MR_ITS ---
The [address] [address] Patient Name: NAHED HAMILTON MRN: [id number] date: 1950 Sex: F Assigned Patient Location: MRI Current Patient Location: MRI Accession/Order Number: [id number] Exam Date: 11/15/2024 14:28 Report Date: 11/15/2024 14:35 At the request of: RENETTA LANDAVERDE Procedure: MR shoulder LT wo con MR LEFT SHOULDER CLINICAL INFORMATION: Chronic left shoulder pain.. COMPARISON: None. PROCEDURE: Axial, oblique coronal, and oblique sagittal long TR images of the shoulder were obtained. FINDINGS: ROTATOR CUFF AND ASSOCIATED STRUCTURES Biceps Tendon: There is a partial-thickness tear of the biceps tendon proximally. Rotator cuff: There is an intrasubstance tear accompanied by a bursal surface partial thickness tear of the infraspinatus tendon. There is a perforating full-thickness tear of the supraspinatus tendon near the insertion site with a partial-thickness bursal surface tear extending medially. This is the subscapularis tendon and teres minor tendons are intact. Musculature: There is no muscular tear, contusion, or atrophy. Bursa: No bursal effusion or thickening is seen. OSSEOUS STRUCTURES Acromioclavicular joint: There are moderate to severe degenerative changes of the acromioclavicular joint. Fluid is noted in the joint space. A type 2 acromion configuration is noted. There is no anterior or lateral acromial downsloping. Bones: No Hill-Sachs, reverse Hill-Sachs, or bony Bankart lesions are seen. There are no fractures or regions of abnormal bone marrow signal intensity. GLENOHUMERAL JOINT Joint: There is no glenohumeral joint effusion. Cartilage: No focal hyaline cartilage defects are noted. Labrum: There is increased signal intensity along the superior glenoid labrum suggesting a chronic degenerative process versus a remote tear. Other support structures: No capsular or ligamentous abnormality is seen. MR/MR shoulder LT wo con IMPRESSION: 1. There is an intrasubstance tear accompanied by a bursal surface partial thickness tear of the infraspinatus tendon. 2. There is a perforating full-thickness tear of the supraspinatus tendon near the insertion site with a partial-thickness bursal surface tear extending medially. 3. There is a partial-thickness tear of the biceps tendon proximally. 4. There is increased signal intensity along the superior glenoid labrum suggesting a chronic degenerative process versus a remote tear. 5. There are moderate to severe degenerative changes of the acromioclavicular joint. Fluid is noted in the joint space. Impression dictated by: Valente Goddard M.D. 11/15/2024 2:35 PM Dictation Location: [place] [address] Electronically authenticated by: [id number] Y Date: 11/15/2024 14:35
--- OUTSIDE RECORDS SUMMARY | 2024-11-15 12:58 | XMS_ITS | Clinical Summary ---
Author Organization [facility] Address [id number] [address] [place] [address] Care Team Providers Care Business Office Director Name Role Phone Bruno Mcdaniel MD Primary Care Provider [phone] Allergies Active Allergy Reactions Criticality Noted Date Comments Codeine 02/27/2020 Cortisone 02/27/2020 Esomeprazole Magnesium Other (See Comments) Penicillins 02/27/2020 Oxycodone-Acetaminophen 02/27/2020 Diazepam 02/27/2020 Medications lisinopriL (PRINIVIL,ZESTRI L) 40 mg tablet Take 1 tablet (40 mg total) by mouth daily. 0 Active dicyclomine (BENTYL) 20 mg tablet Take 20 mg by mouth 4 (four) times a day. 0 Active furosemide (LASIX) 40 mg tablet Take 40 mg by mouth every other day. Tuesday and Tuesday Active ascorbic acid, vitamin C, (VITAMIN C) 500 mg capsule, extended release CR capsule Take 1 tablet by mouth daily. Active DOCUSATE CALCIUM ORAL Take 100 mg by mouth daily. Active multivitamin capsule Take 1 capsule by mouth daily. Active lisinopril-hydro CHLOROthiazide (PRINZIDE,ZESTOR ETIC) 20-12.5 mg per tablet Take 1 tablet by mouth 2 (two) times a day. Active potassium 99 mg tablet Take 99 mg by mouth 2 (two) times a day. Active pravastatin (PRAVACHOL) 40 mg tablet Take 40 mg by mouth daily. Active vitamin E acetate 200 unit capsule Take 400 mg by mouth daily. Active OMEGA-3 FATTY ACIDS-VITAMIN E ORAL Take 1,000 mg by mouth 2 (two) times a day. Active Lactobacillus acidophilus 1 billion cell capsule Take 1 tablet by mouth daily. Active plant stanol richard 450 mg capsule Take 1 capsule by mouth daily. Active terbinafine (LamISIL) 1 % cream Apply 1 application topically as needed. Active pumpkin seed extract-soy germ (Azo Bladder ControL) 300 mg capsule Take 2 capsules by mouth daily. Active tiZANidine (ZANAFLEX) 4 mg tablet Take 4 mg by mouth every 8 (eight) hours as needed for muscle spasms. Active HYDROcodone-acet aminophen (VICODIN) 5-300 mg per tablet Take 1 tablet by mouth every 6 (six) hours as needed for pain. Active calcium carbonate-vitami n D3 (CALCIUM 500 + D) 500 mg(1,250mg) -200 units per tablet Take 1 tablet by mouth 2 (two) times a day with meals. Active Active Problems Problem Noted Date Diagnosed Date Bowel obstruction 03/12/2020 Generalized abdominal pain 02/27/2020 Immunizations No known immunizations Social History Tobacco Use Types Packs/Day Years Used Date Smoking Tobacco: Never Smokeless Tobacco: Never Alcohol Use Standard Drinks/Week Comments Not Currently 0 (1 standard drink = 0.6 oz pur e alcohol) Social Connection and Isolation Panel [NHANES] A nswer Date Recorded In a typical week, how many times do you talk on the phone with family, friends, or neighbors? Twice a week 02/27/20 20 How often do you get togethe r with friends or relatives? Twice a week 02/27/2020 How often do you attend [facility] or mormonism services? 1 to 4 times per year 02/27/2020 Do you belong to any clubs o r organizations such as shinto groups, unions, fraternal or athletic groups, or school groups? No 02/27/2020 How often do you attend meet ings of the clubs or organizations you belong to? Never 02/27/2020 Are you , , di vorced, , never , or living with a partner? Living with partner 02/27/2020 PHQ-2 Answer Date Recorded Total Score 0 03/12/2020 [facility] - Occupational Stress Questionnaire Answer Date Recorded Do you feel stress - tense, restless, nervous, or anxious, or unable to sleep at night because your mind is troubled all the time - these days? Only a little 02/27/2020 Exercise Vital Sign Answer Date Recorde d On average, how many days pe r week do you engage in moderate to strenuous exercise (like a brisk walk)? 0 days 02/27/2020 On average, how many minutes do you engage in exercise at this level? 0 min 02/27/2020 Childcare Answer Date Recorded Do problems getting child ca re make it difficult for you to work or study? No 03/12/2020 Employment Answer Date Recorded Do you need help finding a [employer] center and/or a training program? No 03/12/2020 Purpose - Life Answer Date Recorded Purpose and direction in life Unknown Comments No Sex and Gender Information Value Date Recorded Sex Assigned at Not on file Legal Sex Female 12:06 PM EDT Gender Identity Not on file Sexual Orientation Not on file Last Filed Vital Signs Vital Sign Reading Time Taken Comments Blood Pressure 150/63 03/17/2020 11:16 AM EDT Pulse 80 03/17/2020 11:16 AM EDT Temperature 36.6 C (97.8 F) 03/17/2020 8:18 AM EDT Respiratory Rate 18 03/17/2020 11:1 6 AM EDT Oxygen Saturation 96% 03/17/2020 11: 16 AM EDT Inhaled Oxygen Concentration - - Weight 123.1 kg (271 lb 6.2 oz) 03/17/2020 4:49 AM EDT Height 162.5 cm (5' 3.98 ) 03/14/2020 4:45 AM ED T Body Mass Index 46.62 03/14/2020 4:45 AM EDT Plan of Treatment Health Maintenance Due Date Last Done Comments Depression Screening 1962 Tobacco Screening 1962 Adult BMI Screening 02/15/1970 DTaP,Tdap and Td Vaccines (1 - Tdap) 02/15/1971 Zoster (Shingles) Vaccine (1 of 2) 02/15/2002 Fall Risk Screening 02/15/2017 Influenza Vaccine 02/11/2025 Goals Goal Patient Goal Type Associated Problems Recent Progress Patient-Stated? Author Home General Yes Yamel Juarez LSW Note: Evaluation of progress towards goal: Safe dc transition from hospital to home with family support. Medical Devices Not on file Insurance MEDICARE MEDICAID [place] Advance Directives * Full Code (Latest Code Status on File) Date Activated Date Inactivated Comments 03/12/2020 8:15 PM 03/17/2020 5:02 PM * Full Code Date Activated Date Inactivated Comments 02/27/2020 6:36 AM 03/12/2020 7:13 PM Care Teams Business Office Director Relationship Specialty Start Date End Date Bruno Mcdaniel MD 112 [facility] 110 [place] [address] PCP - General Internal Medicine 02/27/20
--- OUTSIDE RECORDS SUMMARY | 2024-11-15 12:58 | XMS_ITS | Encounter Summary ---
Author Organization [facility] Address [address] [place] [address] Care Team Providers Care Plant Sprayer Name Role Phone Bruno Mcdaniel MD Primary Care Provider [phone] Bruno Mcdaniel MD Unavailable [phone] TuesdayMagdalene LPN Unavailable [phone] Magnolia Alva RN Unavailable [phone] Bruno Mcdaniel MD Unavailable [phone] Chio Boothe LPN Unavailable Unavailable Encounter Details Date Type Department Care Team (Late st Contact Info) Description 04/27/2023 Abstract [facility] 112 [facility] 110 [place] [address] Bruno Mcdaniel MD 112 [facility] 110 [place] [address] Social History Tobacco Use Types Packs/Day Years Used Date Smoking Tobacco: Former Cigarettes Q uit: 2002 Smokeless Tobacco: Never Alcohol Use Standard Drinks/Week Comments Not Currently 0 (1 standard drink = 0.6 oz pure alcohol) Caffeine intake: coffee, soda Humiliation, Afraid, Rape, and Kick questionnair e [...] How often do you attend chur or buddhist services? Never 11/10/2022 Do you belong to [...] and heating? Not hard at all 11/10/2022 [facility] of Occupat ional Health - Occupational Stress [...] in a retirement (including now)? No 11/10/2022 Comments Unknown Sex and Gender Information Value Date Recorded Sex Assigned at Not on file Legal Sex Female 6:58 PM EDT Gender Identity Not on file Sexual Orientation Not on file documented as of this encounter Plan of Treatment Upcoming Encounters Date Type Department Care Team (Late st Contact Info) Description 01/29/2025 2:00 PM EDT Office Visit [facility] [address] [place] [address] [place] [address] Kendra Eason PA [address] [facility] [address] [place] [address] documented as of this encounter Visit Diagnoses Not on filedocumented in this encounter Care Teams Plant Sprayer Relationship Specialty Start Date End Date Bruno Mcdaniel MD [address] [facility] [address] [place] [address] PCP - General Internal Medicine 10/27/22 Bruno Mcdaniel MD [address] [facility] [address] [place] [address] PCP - ACO Reach 08/12/23 07/19/24 Bruno Mcdaniel MD [address] [facility] [address] [place] [address] PCP - ACO Reach 07/27/24 09/13/24TuesdayMagdalene LPN [address] [place] [address] Licensed Practical Nurse Family Medicine 03/09/24 07/20/24 Magnolia Alva, RN Licensed Practical Nurse Family Medicine 07/20/24 08/31/24 Chio Boothe LPN 08/31/24 11/09/24 documented as of this encounter
--- OUTSIDE RECORDS SUMMARY | 2024-11-15 12:58 | XMS_ITS ---
Author Organization [facility] Address [address] [place] [address] Care Team Providers Care Hurricane Tracker Name Role Phone Bruno Mcdaniel MD Primary Care Provider [phone] Chronic Care Management (CCM) Status:Closed (Closed) Start date:03/09/2024 Enrollment date:03/09/2024 Enrollment reason:Identified using hospital discharge data End date:11/09/2024 Close reason:Insurance no longer covers Overview 03/09/24, 1:22 PM - Magdalene Tuesday, PLASTIC DIE MAKER APPRENTICE- Patient gives verbal consent to be enrolled in CCM Program and understands there could be a bill for this service if her insurance should change. <November 09, 2024, 10:47 - Magnolia Alva RN> Pt no longer wishes to participate in CCM r/t possible copay. Will call office w/ needs. Continued Care and Services Coordination
--- OUTSIDE RECORDS SUMMARY | 2024-11-15 12:58 | XMS_ITS | Encounter Summary ---
Author Organization [facility] Address [address] [place] [address] Care Team Providers Care Circular Saw Edge Fuser Name Role Phone Bruno Mcdaniel MD Primary Care Provider Bruno Mcdaniel MD Unavailable TuesdayMagdalene LPN Unavailable [phone] Magnolia Alva RN Unavailable [phone] Bruno Mcdaniel MD Unavailable [phone] Chio Boothe LPN Unavailable Unavailable Encounter Details Date Type Department Care Team (Late st Contact Info) Description 04/28/2023 Orders Only [facility] [address] [place] [address] A, Unknown Practice [address] [place] [address] Social History Tobacco Use Types Packs/Day Years [...] How often do you attend chur or pentecostal services? Never 11/10/2022 Do you belong to [...] and heating? Not hard at all 11/10/2022 [facility] of Occupat ional Health - Occupational [...] in a mcc (including now)? No 11/10/2022 Comments Unknown Sex and Gender Information Value Date Recorded Sex Assigned at Not on file Legal Sex Female 6:58 PM EDT Gender Identity Not on file Sexual Orientation Not on file documented as of this encounter Plan of Treatment Upcoming Encounters Date Type Department Care Team (Late st Contact Info) Description 01/29/2025 2:00 PM EDT Office Visit [facility] 112 [facility] 110 [place] [address] Kendra Eason PA [address] [facility] 110 [place] [address] documented as of this encounter Procedures Procedure Name Priority Date/Time Associated Diagnosis Comments SCANNED LABS Routine 04/28/2023 2:23 PM EST documented in this encounter Results * SCANNED LABS (04/28/2023 2:23 PM EST) us Unknown Practice A LAB CHG PERFORMABLES Final Re sult documented in this encounter Visit Diagnoses Not on filedocumented in this encounter Care Teams Circular Saw Edge Fuser Relationship Specialty Start Date End Date Bruno Mcdaniel MD [address] [place] [address] PCP - General Internal Medicine 10/27/22 Bruno Mcdaniel MD [address] [place] [address] PCP - ACO Reach 08/12/23 07/19/24 Bruno Mcdaniel MD [address] [place] [address] PCP - ACO Reach 07/27/24 09/13/24Tuesday, SUZANNA Del Castillo [address] [place] [address] Licensed Practical Nurse Family Medicine 03/09/24 07/20/24 Magnolia Alva, RN Licensed Practical Nurse Family Medicine 07/20/24 08/31/24 Chio Boothe LPN 08/31/24 11/09/24 documented as of this encounter
--- OUTSIDE RECORDS SUMMARY | 2024-11-15 12:58 | XMS_ITS | Encounter Summary ---
Author Organization [facility] Address [address] [place] [address] Care Team Providers Care Family Services Assistant Name Role Phone Bruno Mcdaniel MD Primary Care Provider [phone] Bruno Mcdaniel MD Unavailable [phone] TuesdayMagdalene LPN Unavailable [phone] Magnolia Alva RN Unavailable Bruno Mcdaniel MD Unavailable [phone] Chio Boothe LPN Unavailable Unavailable Encounter Details Date Type Department Care Team (Late st Contact Info) Description 03/09/2023 Orders Only [facility] [address] [place] [address] A, Unknown Practice [address] [place] [address] Social History Tobacco Use Types [...] How often do you attend chur or mandaen services? Never 11/10/2022 Do you belong to any clubs o r organizations such as druze groups, unions, fraternal or athletic groups, or [...] and heating? Not hard at all 11/10/2022 [facility] of Occupat ional Health - Occupational Stress [...] place to sleep or slept in a fci (including now)? No 11/10/2022 Comments Unknown Sex [...] EDT Office Visit [facility] 112 [facility] 110 [place] [address] Kendra Eason PA 112 [facility] 110 [place] [address] documented as of this encounter Procedures Procedure Name Priority Date/Time Associated Diagnosis Comments SCANNED LABS Routine 03/09/2023 3:35 PM EDT documented in this encounter Results * SCANNED LABS (03/09/2023 3:35 PM EDT) us Unknown Practice A LAB CHG PERFORMABLES Final Re sult documented in this encounter Visit Diagnoses Not on filedocumented in this encounter Care Teams Family Services Assistant Relationship Specialty Start Date End Date Bruno Mcdaniel MD [address] [place] [address] PCP - General Internal Medicine 10/27/22 Bruno Mcdaniel MD [address] [place] [address] PCP - ACO Reach 08/12/23 07/19/24 Bruno Mcdaniel MD [address] [place] [address] PCP - ACO Reach 07/27/24 09/13/24TuesdayMagdalene LPN [address] [place] [address] Licensed Practical Nurse Family Medicine 03/09/24 07/20/24 Magnolia Alva, RN Licensed Practical Nurse Family Medicine 07/20/24 08/31/24 Chio Boothe LPN 08/31/24 11/09/24 documented as of this encounter
--- OUTSIDE RECORDS SUMMARY | 2024-11-15 12:58 | XMS_ITS | Clinical Summary ---
Author Organization [facility] Address [address] [facility] [place] [address] Phone Care Team Providers Care Pattern Chain Builder Name Role Phone Unavailable Primary Care Provider Unavailabl e Social History Tobacco Use Types Packs/Day Years Used Date Smoking Tobacco: Never Assessed Comments Unknown Sex and Gender Information Value Date Recorded Sex Assigned at Not on file Legal Sex Female 11:45 PM EST Gender Identity Not on file Sexual Orientation Not on file Plan of Treatment Not on file
--- OUTSIDE RECORDS SUMMARY | 2024-11-15 12:58 | XMS_ITS | Encounter Summary ---
Author Organization [facility] Address [address] [place] [address] Care Team Providers Care Horse Groomer Name Role Phone Bruno Mcdaniel MD Primary Care Provider Bruno Mcdaniel MD Unavailable [phone] TuesdayMagdalene LPN Unavailable [phone] Magnolia Alva RN Unavailable Bruno Mcdaniel MD Unavailable [phone] Chio Boothe LPN Unavailable Unavailable Encounter Details Date Type Department Care Team (Late st Contact Info) Description 12/13/2023 Clinisync Result Encounter [facility] External Department Unsolicited Bruno Mcdaniel MD [address] [id number] Social History Tobacco Use Types Packs/Day Years [...] 11/10/2022 How often do you attend chur ch or yazidi services? Never 11/10/2022 Do you belong to [...] and heating? Not hard at all 11/10/2022 PHQ-2 Answer Date Recorded Patient Health Questionnaire-2 Score 0 10/09/2023 [facility] [place] of Occupat ional Health - Occupational Stress [...] place to sleep or slept in a custodial (including now)? No 11/10/2022 Comments Unknown Sex and Gender Information Value Date Recorded Sex Assigned at Not on file Legal Sex Female 6:58 PM EDT Gender Identity Not on file Sexual Orientation Not on file documented as of this encounter Plan of Treatment Upcoming Encounters Date Type Department Care Team (Late st Contact Info) Description 01/29/2025 2:00 PM EDT Office Visit [facility] [address] [facility] 110 [place] [address] Kendra Eason PA [address] [facility] 110 [place] [address] documented as of this encounter Procedures Procedure Name Priority Date/Time Associated Diagnosis Comments XR DEXA AXIAL SKELETON 12/13/2023 4:00 PM EDT documented in this encounter Results * XR DEXA AXIAL SKELETON (12/13/2023 4:00 PM EDT) Anatomical Region Laterality Modality Other 12/13/2023 4:00 PM EDT Narrative 12/13/2023 4:02 PM EDT The [address] [address] XRay Report Signed Patient: NAHED HAMILTON MR#: [id number] : 1950 Acct:[id number] Age/Sex: 73 / F ADM Date: 12/13/23 Loc: RAD Attending Dr: BRUNO MCDANIEL Ordering Physician: BRUNO MCDANIEL Date of Service: 12/13/23 Procedure(s): XR DEXA axial skeleton Accession Number(s): [id number] cc: BRUNO MCDANIEL [address] [address] Patient Name: NAHED HAMILTON MRN: [id number] date: 1950 Sex: F Assigned Patient Location: [facility] Current Patient Location: RAD Accession/Order Number: [id number] Exam Date: 12/13/2023 14:55 Report Date: 12/13/2023 16:00 At the request of: BRUNO MCDANIEL Procedure: XR DEXA axial skeleton EXAMINATION: XR DEXA axial skeleton HISTORY: Estrogen Deficiency E28.39 COMPARISON: DEXA bone densitometry 06/09/2021 TECHNIQUE: Dual-energy X-ray absorptiometry (DXA) was performed. FINDINGS: SPINE ANALYSIS: Average bone mineral density is 1.954 g/cm2. T-score (standard deviation relative to young adult mean): 6.5 . -3.9% change since prior study. HIP ANALYSIS: Lowest bone mineral density is within the right femoral neck, 1.392 g/cm2. T-score (standard deviation relative to young adult mean): 2.5 . -1.3% change since prior study. XR/XR DEXA axial skeleton IMPRESSION: World Health Organization Classification: Osteopenia - Moderate Fracture Risk FRAX: Cannot calculate. Pharmacologic treatment recommendations * No uniform recommendation applies to all patients. Management plans must be individualized. * Consider initiating pharmacologic treatment in postmenopausal women and men >= 50 years of age who have the following: Primary fracture prevention: * T-score <= - 2.5 at the femoral neck, total hip, lumbar spine, 33% radius (some uncertainty with existing data) by DXA. * Low bone mass (osteopenia: T-score between - 1.0 and - 2.5) at the femoral neck or total hip by DXA with a 10-year hip fracture risk >= 3% or a 10-year major osteoporosis-related fracture risk >= 20% (i.e., clinical vertebral, hip, forearm, or proximal humerus) based on the [place]-adapted FRAXregistered model. Secondary fracture prevention: * Fracture of the hip or vertebra regardless of BMD [4, 5]. * Fracture of proximal humerus, pelvis, or distal forearm in persons with low bone mass (osteopenia: T-score between - 1.0 and - 2.5). The decision to treat should be individualized in persons with a fracture of the proximal humerus, pelvis, or distal forearm who do not have osteopenia or low BMD [12, 13]. Bertram MS, Gulshan SL, Derek KL, Timmy EM, Chaz KG, AJ, Griffin ES. The clinician's guide to prevention and treatment of osteoporosis. Osteoporos Int. 2021;33(10):0386-8441. doi: 10.1007/w85711-896-79482-g. Epub 2021Oct 08. Erratum in: Osteoporos Int. 2021Jan 07;: PMID: 15322092; PMCID: [id number]. Electronically authenticated by: KUNLA MALLORY Date: 12/13/2023 16:00 Dictated By: Kunal Mallory M.D. Signed By: 12/13/23 1602 DD/ 1600 TD/TT: Allergist/Pediatric Pulmonologist: Procedure Note Radiology, Radiologist, MD - 12/13/2023 [place] [address] XRay Report Signed Patient: NAHED HAMILTON RMR#: [id number] : 2Acct:[id number] Age/Sex: 73 / FADM Date: 12/13/23 Loc: RAD Attending Dr: BRUNO MCDANIEL Ordering Physician: BRUNO MCDANIEL Date of Service: 12/13/23 Procedure(s): XR DEXA axial skeleton Accession Number(s): [id number] cc: BRUNO MCDANIEL [place] [id number] Patient Name: NAHED HAMILTON MRN: [id number] date: 1950 Sex: F Assigned Patient Location: RAD Current Patient Location: RAD Accession/Order Number: [id number] Exam Date: 12/13/2023 14:55 Report Date: 12/13/2023 16:00 At the request of: BRUNO MCDANIEL Procedure: XR DEXA axial skeleton EXAMINATION: XR DEXA axial skeleton HISTORY: Estrogen Deficiency E28.39 COMPARISON: DEXA bone densitometry 06/09/2021 TECHNIQUE: Dual-energy X-ray absorptiometry (DXA) was performed. FINDINGS: SPINE ANALYSIS: Average bone mineral density is 1.954 g/cm2. T-score (standard deviation relative to young adult mean): 6.5 . -3.9% change since prior study. HIP ANALYSIS: Lowest bone mineral density is within the right femoral neck, 1.392 g/cm2. T-score (standard deviation relative to young adult mean): 2.5 . -1.3% change since prior study. XR/XR DEXA axial skeleton IMPRESSION: World Health Organization Classification: Osteopenia - Moderate FractureRisk FRAX: Cannot calculate. Pharmacologic treatment recommendations * No uniform recommendation applies to all patients. Management plans mustbe individualized. * Consider initiating pharmacologic treatment in postmenopausal women andmen >= 50 years of age who have the following: Primary fracture prevention: * T-score <= - 2.5 at the femoral neck, total hip, lumbar spine, 33%radius (some uncertainty with existing data) by DXA. * Low bone mass (osteopenia: T-score between - 1.0 and - 2.5) at thefemoral neck or total hip by DXA with a 10-year hip fracture risk >= 3% or y26-cegr major osteoporosis-related fracture risk >= 20% (i.e., clinical vertebral, hip, forearm, or proximal humerus) based on the US-adapted FRAXregisteredmodel. Secondary fracture prevention: * Fracture of the hip or vertebra regardless of BMD [4, 5]. * Fracture of proximal humerus, pelvis, or distal forearm in persons withlow bone mass (osteopenia: T-score between - 1.0 and - 2.5). The decision totreat should be individualized in persons with a fracture of the proximalhumerus, pelvis, or distal forearm who do not have osteopenia or low BMD [12, 13]. Bertram MS, Gulshan SL, Derek KL, Timmy EM, Chaz KG, AJ,Griffin ES. The clinician's guide to prevention and treatment of osteoporosis.Osteoporos Int. 2021;33(10):4370-8515. doi: 10.1007/l74166-327-01121-k. Ep. Erratum in: Osteoporos Int. 2021Jan 07;: PMID: 10638500; PMCID: [id number]. Electronically authenticated by: KUNAL MALLORY Date: 12/13/2023 16:00 Dictated By: Kunal Mallory M.D. Signed By:12/13/23 1602 DD/ 1600 TD/TT: Allergist/Pediatric Pulmonologist: Bruno Mcdaniel MD [facility] Final Result documented in this encounter Visit Diagnoses Not on filedocumented in this encounter Care Teams Horse Groomer Relationship Specialty Start Date End Date Bruno Mcdaniel MD [address] [place] [address] PCP - General Internal Medicine 10/27/22 Bruno Mcdaniel MD [address] [place] [address] PCP - ACO Reach 08/12/23 07/19/24 Bruno Mcdaniel MD [address] [place] [address] PCP - ACO Reach 07/27/24 09/13/24TuesdayMagdalene LPN [address] [address] Licensed Practical Nurse Family Medicine 03/09/24 07/20/24 Magnolia Alva, SUSAN Licensed Practical Nurse Family Medicine 07/20/24 08/31/24 Chio Boothe LPN 08/31/24 11/09/24 documented as of this encounter
--- OUTSIDE RECORDS SUMMARY | 2024-11-15 12:58 | XMS_ITS | Encounter Summary ---
Author Organization [facility] Address [address] [place] [address] Care Team Providers Care Cable Television Program Director Name Role Phone Bruno Mcdaniel MD Primary Care Provider Bruno Mcdaniel MD Unavailable [phone] TuesdayMagdalene LPN Unavailable [phone] Magnolia Alva RN Unavailable Bruno Mcdaniel MD Unavailable [phone] Chio Boothe LPN Unavailable Unavailable Encounter Details Date Type Department Care Team (Late st Contact Info) Description 07/18/2023 Clinisync Result Encounter [facility] External Department Unsolicited Bruno Mcdaniel MD [address] [id number] Social History Tobacco Use Types Packs/Day Years [...] you attend chur or congregation services? Never 11/10/2022 Do you belong to any clubs o r organizations such as jainism groups, unions, fraternal or athletic groups, or [...] and heating? Not hard at all 11/10/2022 [facility] [place] of Occupat ional Health - Occupational Stress [...] place to sleep or slept in a assisted (including now)? No 11/10/2022 Comments Unknown Sex and Gender Information Value Date Recorded Sex Assigned at Not on file Legal Sex Female 6:58 PM EDT Gender Identity Not on file Sexual Orientation Not on file documented as of this encounter Plan of Treatment Upcoming Encounters Date Type Department Care Team (Late st Contact Info) Description 01/29/2025 2:00 PM EDT Office Visit [facility] 112 [facility] 110 [place] [address] Kendra Eason PA [address] [facility] 110 [place] [address] documented as of this encounter Procedures Procedure Name Priority Date/Time Associated Diagnosis Comments MM TOMOSYNTHESIS SCREENING BI 07/18/2023 3:40 PM EST documented in this encounter Results * MM TOMOSYNTHESIS SCREENING BI (07/18/2023 3:40 PM EST) Anatomical Region Laterality Modality Other 07/18/2023 3:40 PM EST Narrative 07/18/2023 3:41 [place] [address] Mammography Report Signed Patient: Nahed Hamilton MR#: [id number] : 1950 Acct:[id number] Age/Sex: 73 / F ADM Date: 07/18/23 Loc: MAMMO Attending Dr: BRUNO MCDANIEL Ordering Physician: BRUNO MCDANIEL Results: Date of Service: 07/18/23 Follow Up: Procedure(s): MM tomosynthesis screening BI Accession Number(s): [id number] cc: ERICKBRUNO Patient Name: NAHED HAMILTON MR#: [id number] : 1950 Exam Date: 07/18/2023 Ordering Doctor: DR BRUNO MCDANIEL M.D. RADIOLOGY REPORT PROCEDURE: MM TOMOSYNTHESIS SCREENING BI COMPARISON: MG MAMM SCREEN 3D [place]NA CAD, 06/09/2021. MG MAMM SCREEN 3D [place]ILIANA CAD, 07/06/2022. INDICATIONS: screening Calculator Name NCI Breast Cancer Risk Assessment Tool 5 Year Breast Cancer Risk 1.30% Lifetime Breast Cancer Risk 3.50% Personal Breast Cancer No Personal Ovarian Cancer No Treatments Radiation and Chemotherapy Family Cancers Sister with ovarian cancer at age 64; Mother with lung cancer at age 73; Father with lung cancer at age 61. LOCATION: The [facility] BREAST COMPOSITION: Scattered areas fibroglandular density. FINDINGS: DIAGNOSTIC CATEGORY 2--BENIGN FINDING. NO CHANGE FROM COMPARISON. Scattered benign-appearing calcifications are present. Scattered benign-appearing lymph nodes are present. RIGHT BREAST: No significant suspicious finding. LEFT BREAST: No significant suspicious finding. RECOMMENDATIONS: ROUTINE MAMMOGRAM AND CLINICAL EVALUATION IN 12 MONTHS. PLEASE NOTE: A NORMAL MAMMOGRAM DOES NOT EXCLUDE THE POSSIBILITY OF BREAST CANCER. A CLINICALLY SUSPICIOUS PALPABLE LUMP SHOULD BE BIOPSIED. Dictated by: Juvenal Fuentes MD on 07/18/2023 at 15:38 Approved by: Juvenal Fuentes MD on 07/18/2023 at 15:40 Dictated By: Juvenal Fuentes M.D. Signed By: 07/18/23 1541 DD/ 1540 TD/TT: Hr Shared Services Consultant: Procedure Note Radiology, RadiologistMD - 07/18/2023 [place] [address] Mammography Report Signed Patient: Nahed Hamilton RMR#: [id number] : 1950cct:[id number] Age/Sex: 73 / FADM Date: 07/18/23 Loc: MAMMO Attending Dr: BRUNO MCDANIEL Ordering Physician: BRUNO MCDANIELResults: Date of Service: 07/18/23Follow Up: Procedure(s): MM tomosynthesis screening BI Accession Number(s): [id number] cc: ERICKMILENABRUNO Patient Name: NAHED HAMILTON MR#: [id number] : 1950 Exam Date: 07/18/2023 Ordering Doctor: DR BRUNO MCDANIEL M.D. RADIOLOGY REPORT PROCEDURE: MM TOMOSYNTHESIS SCREENING BI COMPARISON: MG MAMM SCREEN 3D [place]IL[place]NA CAD, 06/09/2021. MG MAMM SCREEN 3DBIL CAD, 07/06/2022. INDICATIONS: screening Calculator Name NCI Breast Cancer Risk Assessment Tool 5 Year Breast Cancer Risk 1.30% Lifetime Breast Cancer Risk 3.50% Personal Breast Cancer No Personal Ovarian Cancer No Treatments Radiation and Chemotherapy Family Cancers Sister with ovarian cancer at age 64; Mother with lung cancer at age 73; Father with lung cancer at age 61. LOCATION: The [facility] BREAST COMPOSITION: Scattered areas fibroglandular density. FINDINGS: DIAGNOSTIC CATEGORY 2--BENIGN FINDING. NO CHANGE FROM COMPARISON. Scattered benign-appearing calcifications are present. Scattered benign-appearing lymph nodes are present. RIGHT BREAST: No significant suspicious finding. LEFT BREAST: No significant suspicious finding. RECOMMENDATIONS: ROUTINE MAMMOGRAM AND CLINICAL EVALUATION IN 12 MONTHS. PLEASE NOTE: A NORMAL MAMMOGRAM DOES NOT EXCLUDE THE POSSIBILITY OFBREAST CANCER. A CLINICALLY SUSPICIOUS PALPABLE LUMP SHOULD BE BIOPSIED. Dictated by: Juvenal Fuentes MD on 07/18/2023 at 15:38 Approved by: Juvenal Fuentes MD on 07/18/2023 at 15:40 Dictated By: Juvenal Fuentes M.D. Signed By:07/18/23 1541 DD/ 1540 TD/TT: Hr Shared Services Consultant: Bruno Mcdaniel MD [facility] Final Result documented in this encounter Visit Diagnoses Not on filedocumented in this encounter Care Teams Cable Television Program Director Relationship Specialty Start Date End Date Bruno Mcdaniel MD [address] [place] [address] PCP - General Internal Medicine 10/27/22 Bruno Mcdaniel MD [address] [place] [address] PCP - ACO Reach 08/12/23 07/19/24 Bruno Mcdaniel MD [address] [place] [address] PCP - ACO Reach 07/27/24 09/13/24TuesdayMagdalene LPN [address] [place] [address] Licensed Practical Nurse Family Medicine 03/09/24 07/20/24 Magnolia Alva, RN Licensed Practical Nurse Family Medicine 07/20/24 08/31/24 Chio Boothe LPN 08/31/24 11/09/24 documented as of this encounter
--- OUTSIDE RECORDS SUMMARY | 2024-11-15 12:58 | XMS_ITS | Encounter Summary ---
Author Organization [facility] Address [address] [place] [address] Care Team Providers Care Casting Assistant Name Role Phone Bruno Mcdaniel MD Primary Care Provider Bruno Mcdaniel MD Unavailable [phone] TuesdayMagdalene LPN Unavailable [phone] Magnolia Alva RN Unavailable Bruno Mcdaniel MD Unavailable [phone] Chio Boothe LPN Unavailable Unavailable Encounter Details Date Type Department Care Team (Late st Contact Info) Description 10/12/2023 Abstract [facility] 112 [facility] 110 [place] [id number] Bruno Mcdaniel MD 112 [facility] 110 [place] [address] Social History Tobacco Use Types [...] How often do you attend chur or faith services? Never 11/10/2022 Do you belong to any clubs o r organizations such as sikhism groups, unions, fraternal or athletic groups, or [...] Recorded Patient Health Questionnaire-2 Score 0 10/09/2023 [facility] [place] of Occupat ional Health - Occupational Stress [...] Visit [facility] [address] [facility] 110 [place] [address] Kendra Eason PA [address] [facility] 110 [place] [address] documented as of this encounter Visit Diagnoses Not on filedocumented in this encounter Care Teams Casting Assistant Relationship Specialty Start Date End Date Bruno Mcdaniel MD [address] [facility] 110 [place] [address] PCP - General Internal Medicine 10/27/22 Bruno Mcdaniel MD [address] [place] [address] PCP - ACO Reach 08/12/23 07/19/24 Bruno Mcdaniel MD [address] [place] [address] PCP - ACO Reach 07/27/24 09/13/24Tuesday, SUZANNA Del Castillo [address] [place] [address] Licensed Practical Nurse Family Medicine 03/09/24 07/20/24 Magnolia Alva, RN Licensed Practical Nurse Family Medicine 07/20/24 08/31/24 Chio Boothe LPN 08/31/24 11/09/24 documented as of this encounter
--- OUTSIDE RECORDS SUMMARY | 2024-11-15 12:58 | XMS_ITS | Encounter Summary ---
Author Organization [facility] Address [address] [place] [address] Care Team Providers Care Plastics Tooling Engineer Name Role Phone Burno Mcdaniel MD Primary Care Provider [phone] Bruno Mcdaniel MD Unavailable [phone] TuesdayMagdalene LPN Unavailable [phone] Magnolia Alva RN Unavailable Bruno Mcdaniel MD Unavailable Chio Boothe LPN Unavailable Unavailable Encounter Details Date Type Department Care Team (Late st Contact Info) Description 01/16/2024 Abstract [facility] 112 [facility] 110 [place] [id number] Bruno Mcdaniel MD 112 [facility] 110 [place] [address] Social History Tobacco Use Types [...] How often do you attend chur or scientology services? Never 01/09/2024 Do you belong to any clubs o r organizations such as congregational groups, unions, fraternal or athletic groups, or [...] Recorded Patient Health Questionnaire-2 Score 0 10/09/2023 [facility] Occupat ional Health - Occupational [...] time in the past 12 m [facility], were you homeless or living in a [...] [address] [place] [address] Kendra Eason PA [address] [place] [address] documented as of this encounter Visit Diagnoses Not on filedocumented in this encounter Care Teams Plastics Tooling Engineer Relationship Specialty Start Date End Date Bruno Mcdaniel MD [address] [place] [address] PCP - General Internal Medicine 10/27/22 Bruno Mcdaniel MD [address] [place] [address] PCP - ACO Reach 08/12/23 07/19/24 Bruno Mcdaniel MD [address] [place] [address] PCP - ACO Reach 07/27/24 09/13/24TuesdayMagdalene LPN [address] [place] [address] Licensed Practical Nurse Family Medicine 03/09/24 07/20/24 Magnolia Alva, RN Licensed Practical Nurse Family Medicine 07/20/24 08/31/24 Chio Boothe LPN 08/31/24 11/09/24 documented as of this encounter
--- OUTSIDE RECORDS SUMMARY | 2024-11-15 12:58 | XMS_ITS | Encounter Summary ---
Author Organization [facility] Address [address] [place] [address] Care Team Providers Care Ore Fielder Name Role Phone Bruno Mcdaniel MD Primary Care Provider Bruno Mcdaniel MD Unavailable [phone] TuesdayMagdalene LPN Unavailable [phone] Magnolia Alva RN Unavailable Bruno Mcdaniel MD Unavailable [phone] Chio Boothe LPN Unavailable Unavailable Encounter Details Date Type Department Care Team (Late st Contact Info) Description 07/19/2023 Orders Only [facility] [address] [facility] 110 [place] [id number] Bruno Mcdaniel MD 112 [facility] 110 [place], [place] [id number] Social History Tobacco Use Types Packs/Day Years [...] How often do you attend chur or restoration services? Never 11/10/2022 Do you belong to any clubs o r organizations such as oriental orthodox groups, unions, fraternal or athletic groups, or [...] and heating? Not hard at all 11/10/2022 [facility] of Occupat ional Health - Occupational Stress [...] place to sleep or slept in a correction (including now)? No 11/10/2022 Comments Unknown Sex and Gender Information Value Date Recorded Sex Assigned at Not on file Legal Sex Female 6:58 PM EDT Gender Identity Not on file Sexual Orientation Not on file documented as of this encounter Plan of Treatment Upcoming Encounters Date Type Department Care Team (Late st Contact Info) Description 01/29/2025 2:00 PM EDT Office Visit [facility] [address] [facility] 110 [place] [address] Kendra Eason PA [address] [facility] 110 [place] [address] documented as of this encounter Procedures Procedure Name Priority Date/Time Associated Diagnosis Comments MAMMOGRAM* Routine 07/18/2023 9:07 AM EST documented in this encounter Results * MAMMOGRAM* (07/18/2023 9:07 AM EST) Anatomical Region Laterality Modality Radiographic Valerie ging us Bruno Mcdaniel MD IMG XR PROCEDURES Final Result documented in this encounter Visit Diagnoses Not on filedocumented in this encounter Care Teams Ore Fielder Relationship Specialty Start Date End Date Bruno Mcdaniel MD [address] [place] [address] PCP - General Internal Medicine 10/27/22 Bruno Mcdaniel MD [address] [place] [address] PCP - ACO Reach 08/12/23 07/19/24 Bruno Mcdaniel MD [address] [place] [address] PCP - ACO Reach 07/27/24 09/13/24Tuesday, SUZANNA Del Castillo [address] [place] [address] Licensed Practical Nurse Family Medicine 03/09/24 07/20/24 Magnolia Alva, RN Licensed Practical Nurse Family Medicine 07/20/24 08/31/24 Chio Boothe LPN 08/31/24 11/09/24 documented as of this encounter
--- OUTSIDE RECORDS SUMMARY | 2024-11-15 12:58 | XMS_ITS | Encounter Summary ---
Author Organization [facility] Address [address] [place] [address] Care Team Providers Care Insurance Sales Manager Name Role Phone Bruno Mcdaniel MD Primary Care Provider [phone] Bruno Mcdaniel MD Unavailable [phone] TuesdayMagdalene LPN Unavailable [phone] Magnolia Alva RN Unavailable [phone] Bruno Mcdaniel MD Unavailable [phone] Chio Boothe LPN Unavailable Unavailable Encounter Details Date Type Department Care Team (Late st Contact Info) Description 03/07/2024 Abstract [facility] 112 [facility] 110 [place] [id number] Bruno Mcdaniel MD 112 [facility] 110 [place] [address] Social History Tobacco Use Types [...] any clubs o r organizations such as catholic groups, unions, fraternal or athletic groups, or [...] place to sleep or slept in a detention (including now)? No 11/10/2022 Housing Stability Vital Sign Answer Job e Recorded In the last 12 months, was t here a time when you were not able to pay the mortgage or rent on time? No 01/09/2024 In the past 12 months, how m any times have you moved where you were living? 0 01/09/2024 At any time in the past [address] [facility], were you homeless or living in a detention (including now)? No 01/09/2024 Comments Unknown Sex [...] [address] [place] [address] Kendra Eason PA [address] [place] [address] documented as of this encounter Visit Diagnoses Not on filedocumented in this encounter Care Teams Insurance Sales Manager Relationship Specialty Start Date End Date Bruno Mcdaniel MD [address] [place] [address] PCP - General Internal Medicine 10/27/22 Bruno Mcdaniel MD [address] [place] [address] PCP - ACO Reach 08/12/23 07/19/24 Bruno Mcdaniel MD [address] [place] [address] PCP - ACO Reach 07/27/24 09/13/24TuesdayMagdalene LPN [address] [place] [address] Licensed Practical Nurse Family Medicine 03/09/24 07/20/24 Magnolia Alva, RN Licensed Practical Nurse Family Medicine 07/20/24 08/31/24 Chio Boothe LPN 08/31/24 11/09/24 documented as of this encounter
== END 2024-11-15 12:55 | disposition home or self-care (01) ==
LOC: MRI 12:54
PROVIDERS: PCP Internal Medicine; Visit Provider Physician Assistant
DX: M24.812 Other specific joint derangements of left shoulder, not elsewhere classified (principal); M25.512 Pain in left shoulder; G89.29 Other chronic pain; S46.812A Strain of other muscles, fascia and tendons at shoulder and upper arm level, left arm, initial encounter; M75.122 Complete rotator cuff tear or rupture of left shoulder, not specified as traumatic; S46.212A Strain of muscle, fascia and tendon of other parts of biceps, left arm, initial encounter; M19.012 Primary osteoarthritis, left shoulder
CPT/HCPCS: 73221

== ENCOUNTER 2025-03-21 12:19 | Outpatient (REF) | payer OTHER, MEDICAID, SELFPAY ==
--- OUTSIDE RECORDS SUMMARY | 2025-03-21 12:27 | XMS_ITS | CCD ---
Author Organization [facility] Care Team Providers Care Pi/Senior Research Associate Name Role Phone DR BRUNO MCDANIEL Primary Care Unavailable SAMI, DR ISHAN Molina Admitting Unavailabl e REINECK, DR ISHAN Molina Attending Unavailabl e REINECK, DR ISHAN Molina Consulting Unavailabl e HEMMER, DR KENDRA Diaz Admitting Unavailable HEMBOO, DR KENDRA Diaz Attending Unavailable ERICK, DR TOM Primary Care Unavailable DAKSHA, DR JENNIFER Mckinney Consulting Unavailable SAIMA, DR KENDRA Diaz Consulting Unavailable Bruno Mcdaniel MD Primary Care Provider Bruno Mcdaniel MD Unavailable Tuesday RN ORTHOPAEDICS, Magdalene Unavailable Magnolia Alva RN Unavailable Bruno Mcdaniel MD Unavailable Bruno Mcdaniel MD Primary Care Provider [phone] CHENG DICK Referring Unavailable BRUNO MCDANIEL Primary Care Unavailable Boothe RN ORTHOPAEDICS, Chio Unavailable Unavailable CHENG DICK Admitting Unavailable CHENG DICK Attending Unavailable BRUNO MCDANIEL Primary Care Unavailable Boothe RN ORTHOPAEDICS, Chio Unavailable Unavailable BRUNO MCDANIEL Referring Unavailable BRUNO MCDANIEL Primary Care Unavailable BRUNO MCDANIEL Referring Unavailable BRUNO MCDANIEL Primary Care Unavailable BRUNO MCDANIEL Referring Unavailable BRUNO MCDANIEL Primary Care Unavailable Bruno Mcdaniel MD Primary Care Provider KENDRA LANDAVERDE Attending Unavailable KENDRA LANDAVERDE Attending Unavailable KENDRA LANDAVERDE Attending Unavailable JR. OLIVERA GEORGE C Attending Unavaila angi OLIVERA JR., GEORGE C Referring Unavaila ble CHARITY PINON Attending Unavailable JR. OLIVERA GEORGE C Referring Unavaila ble TATTERSALL, CHELSEA Attending Unavailable JR. JOSELIN, CHARLOTTE Rubalcava Referring Unavaila CHELSEA Palomares Attending Unavailable JR. JOSELIN, CHARLOTTE Rubalcava Referring Unavaila ble KENDRA LANDAVERDE Attending Unavailable CHARITY PINON Attending Unavailable JR. JOSELIN, CHARLOTTE Rubalcava Referring Unavaila nagi OLIVERA JR., CHARLOTTE Rubalcava Attending Unavaila EDWARD Flores Attending Unavailable KENDRA LANDAVERDE Attending Unavailable BRUNO MCDANIEL Attending Unavailable SAM ATKINSON Attending Unavailable KENDRA LANDAVERDE Referring Unavailable Allergies Allergy Classification Reported Allergen(s) Allergy Type Date of Onset Reaction(s) Facility (1 source) Acetaminophen / oxyCODONE Drug Allergy 04-11-20 13 [facility] (2 sources) Codeine; 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: [CODEINE] Drug Allergy 04-11-20 13 [facility] (2 sources) Cortisone; 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: [CORTISONE] Drug Allergy 04-11-20 13 [facility] (1 source) diazePAM Drug Allergy 04-11-20 13 [facility] (1 source) Esomeprazole Drug Allergy [facility] (2 sources) Penicillins; 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: [PENICILLINS] Drug allergy (disorder) 04-11-20 13 [facility] (20 sources) Acetaminophen / oxyCODONE; 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: [OXYCODONE-ACETAM INOPHEN] Drug Allergy 08-29-19 13 Unknown, Other (See Comments) [facility] (20 sources) Codeine Drug Allergy 08-29-19 13 GI intolerance, Other (See Comments), GI Disturbance [facility] (20 sources) Cortisone Drug Allergy 02-27-20 20 Rash [facility] (20 sources) Diazepam; 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: [DIAZEPAM] Propensity to adverse reactions 02-27-20 20 Unknown [facility] (20 sources) Esomeprazole Drug Allergy 08-28-19 14 Unknown, GI intolerance, Other (See Comments), Rash [facility] (20 sources) Nitrofurantoin; 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: [NITROFURANTOIN] Drug Allergy 11-06-19 23 Unknown, Nausea And Vomiting [facility] (20 sources) Penicillins Drug Intolerance 03-18-20 20 Unknown [facility] (20 sources) tiZANidine; 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: [TIZANIDINE] Drug Allergy 11-06-19 23 Rash [facility] (3 sources) diazePAM Drug Allergy 08-29-19 13 Anxiety, Other (See Comments), Hallucinations [facility] (2 sources) Hydrocortisone Drug Allergy 08-29-19 13 Rash [facility] (2 sources) Penicillins Propensity to adverse reactions to drug 08-29-19 13 Anaphylaxis, Other (See Comments) [facility] (1 source) Esomeprazole; 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: [ESOMEPRAZOLE MAGNESIUM] Drug Allergy 08-28-19 14 [facility] (1 source) Penicillins Propensity to adverse reactions to drug 02-27-20 20 Other (See Comments) [facility] Medications Current Medications Medication Drug Class(es) Dates Sig (Normalized) Sig (Original) acetaminophen 325 mg / HYDROcodone bitartrate 10 mg oral tablet (20 sources) Opioid Agonist Start: 01-30-2025 End: 03-27-2025 take 0.5-1 tablets by mouth every six hours for pain HYDROcodone-acetami nophen (Girard) 10-325 MG tablet Indications: Spinal stenosis of lumbar region without neurogenic claudication Take 0.5-1 tablets by mouth every 6 (six) hours if needed for severe pain for up to 15 days 20 tablet 03/12/2025 03/27/2025 Active Start: 07-23-2024 End: 11-27-2024 take 0.5-1 tablets by mouth every six hours for pain HYDROcodone-acetaminophen (Girard) 10-325 MG tablet Indications: Spinal stenosis of lumbar region without neurogenic claudication Take 0.5-1 tablets by mouth every 6 (six) hours if needed for severe pain for up to 15 days 60 tablet 11/12/2024 11/27/2024 Active Start: 07-23-2024 HYDROcodone-ac etaminophen (NORCO) 10-325 MG per tablet 07/23/2024 Active Start: 04-02-2024 End: 04-17-2024 take 0.5-1 tablets by mouth every six hours for pain HYDROcodone-acetaminophen (Girard) 10-325 MG tablet Indications: Spinal stenosis of lumbar region without neurogenic claudication Take 0.5-1 tablets by mouth every 6 (six) hours if needed for severe pain for up to 15 days 60 tablet 04/02/2024 04/17/2024 Active Start: 05-12-2023 End: 01-09-2024 take 1-2 tablets by mouth every six hours for pain HYDROcodone-acetaminophen (Girard) 5-325 MG tablet Indications: Spinal stenosis of lumbar region without neurogenic claudication Take 1-2 tablets by mouth every 6 (six) hours if needed for moderate pain or severe pain 120 tablet 07/13/2023 01/09/2024 Discontinued (Reorder) End: 02-28-2025 take 1 tablet by mouth every six hours as needed for pain HYDROcodone-acetaminophen (VICODIN) 5-30 0 mg per tablet Take 1 tablet by mouth every 6 (six) hours as needed for pain. 02/28/2025 Discontinued amLODIPine 5 mg oral tablet (20 sources) Dihydropyridine Calcium Channel Jaison Start: 12-27-2023 End: 01-30-2025 take 1 tablet by mouth in the morning amLODIPine (Norvasc) 5 MG tablet Indications: Benign essential hypertension Take 1 tablet (5 mg) by mouth in the morning. 100 tablet 3 01/30/2025 Active Start: 11-25-2022 End: 11-21-2023 take 1 tablet by mouth in the morning amLODIPine (Norvasc) 5 MG tablet Indications: Benign essential hypertension (CMS/HCC) Take 1 tablet (5 mg) by mouth in the morning. 100 tablet 3 11/25/2022 11/21/2023 Discontinued ascorbic acid 500 mg extended release oral capsule (20 sources) Vitamin C take 1 tablet by mouth in the morning ascorbic acid (Vitamin C) 500 MG ER capsule Take 1 tablet by mouth in the morning. Active baclofen 10 mg oral tablet (20 sources) gamma-Aminobutyr ic Acid-ergic Agonist Start: End: take 1 tablet by mouth in the morning, then take 1 tablet by mouth in the evening, then take 1 tablet by mouth at bedtime baclofen (Lioresal) 10 MG tablet Indications: Spinal stenosis of lumbar region without neurogenic claudication Take 1 tablet (10 mg) by mouth in the morning and 1 tablet (10 mg) in the evening and 1 tablet (10 mg) before bedtime. 90 tablet 11 04/19/2024 04/19/2025 Active calcium carbonate 1250 mg / cholecalciferol 200 unt oral tablet (20 sources) Vitamin D take 1 tablet by mouth once in the morning, then take 1 tablet by mouth once at mealtime Calcium Carbonate-Vitamin D (Oyster Shell Calcium/D) 500-5 MG-MCG tablet Take 1 tablet by mouth in the morning and 1 tablet in the evening. Take with meals. Active take 1 tablet by emre th once daily in the morning, then take 1 tablet by mouth once at mealtime calcium carbonate-vitamin D3 (CALCIUM 50 0 + D) 500 mg(1,250mg) -200 units per tablet Take 1 tablet by mouth in the morning and 1 tablet in the evening. Take with meals. Active Calcium Carbonate-Vitamin D (OYSTER SHELL CALCIUM/D) 500-5 MG-MCG TABS (2 sources) take 1 tablet by mouth twice daily at mealtime Calcium Carbonate-Vitamin D (OYSTER SHELL CALCIUM/D) 500-5 MG-MCG TABS Take 1 tablet by mouth 2 times daily (with meals) Active calcium chloride 0.0014 meq/ml / potassium chloride 0.004 meq/ml / sodium chloride 0.103 meq/ml / sodium lactate 0.028 meq/ml injectable solution (1 source) Start: 2024 IntraVENous, at 100 mL/hr, CONTINUOUS, Starting on Tue09/17/24 at 1000, Pre-op (day of surgery) ciprofloxacin 250 mg oral tablet (8 sources) Quinolone Antimicrobial Start: 2024 End: 2024 take 1 tablet by mouth in the morning ciprofloxacin (Cipro) 250 MG tablet Indications: Acute cystitis with hematuria Take 1 tablet (250 mg) by mouth in the morning and 1 tablet (250 mg) before bedtime. Do all this for 7 days. 14 tablet 03/13/2025 03/20/2025 Active Start: 12-10-2024 End: 12-13-2024 take 1 tablet by mouth in the morning ciprofloxacin (Cipro) 250 MG tablet Indications: Recurrent UTI Take 1 tablet (250 mg) by mouth in the morning and 1 tablet (250 mg) before bedtime. Do all this for 3 days. 6 tablet 12/10/2024 12/13/2024 Active Start: 11-09-2024 End: 11-12-2024 take 1 tablet by mouth in the morning ciprofloxacin (Cipro) 250 MG tablet Indications: Recurrent UTI Take 1 tablet (250 mg) by mouth in the morning and 1 tablet (250 mg) before bedtime. Do all this for 3 days. 6 tablet 11/09/2024 11/12/2024 Active 168 hr cloNIDine 0.65575 mg/hr transdermal system (20 sources) Central alpha-2 Adrenergic Agonist Start: 10-08-2024 cloNIDine (Catapres- TTS) 0.2 MG/24HR Indications: Benign essential hypertension Place 1 patch on the skin 1 (one) time per week 12 patch 3 10/08/2024 Active Start: 12-27-2022 End: 11-28-2023 cloNIDine (Catapres-TTS) 0.2 MG/24HR Indications: Benign essential hypertension (CMS/HCC) Place 1 patch on the skin 1 (one) time per week 12 patch 3 11/28/2023 Active apply 1 dose transde rmal route every week cloNIDine (CATAPRES) 0.2 MG/24HR PTWK place 1 patch on the skin ONCE A WEEK Active CRANBERRY-D MANNOSE PO (20 sources) take 1 tablet by emre th once daily CRANBERRY-D MANNOSE PO Take 1 tablet by mouth Daily Active Cranberry-Vitamin C-Probioti c (AZO CRANBERRY PO) (20 sources) take 1 tablet by emre th once daily Cranberry-Vitamin C-Probiotic (AZO CRANBERRY PO) Take 1 tablet by mouth Daily Active take 1 tablet by mouth once ariel y Cranberry-Vitamin C-Probiotic (AZO CRANBERRY PO) Take 1 tablet by mouth daily Active take 1 tablet by mouth in the mo rning Cranberry-Vitamin C-Probiotic (AZO CRANBERRY PO) Take 1 tablet by mouth in the morning. Active dicyclomine hydrochloride 20 mg oral tablet (20 sources) Anticholinergic Start: 02-10-2020 dicyclomine (Bentyl) 20 MG tablet Indications: Ulcerative proctocolitis (HCC) Take 1 tablet (20 mg) by mouth in the morning and 1 tablet (20 mg) at noon and 1 tablet (20 mg) in the evening and 1 tablet (20 mg) before bedtime. 120 tablet 10 06/27/2024 Active diphenhydrAMINE hydrochloride 25 mg oral tablet (20 sources) Histamine-1 Receptor Antagonist diphenhydrAMINE (Benadryl Allergy) 25 MG tablet Take 25 mg by mouth as needed at bedtime Active docusate sodium 100 mg oral tablet (1 source) take 100 mg by mouth once daily DOCUSATE CALCIUM ORAL Take 100 mg by mouth daily. Active famotidine 10 mg oral tablet (20 sources) Histamine-2 Receptor Antagonist take 1 tablet by mouth once daily famotidine (Pepcid) 10 MG tablet Take 1 tablet by mouth Daily Active furosemide 40 mg oral tablet (20 sources) Loop Diuretic Start: 06-27-2024 take 1 tablet by mouth once furosemide (Lasix) 40 MG tablet Indications: Edema, unspecified type Take 1 tablet by mouth every Tuesday, Tuesday and Tuesday 13 tablet 10 06/27/2024 Active Start: 08-18-2023 End: 08-18-2023 take 1 tablet by mouth once furosemide (Lasix) 40 MG t ablet Indications: Edema, unspecified type TAKE 1 TABLET BY MOUTH EVERY TUESDAY, TUESDAY, AND TUESDAY 13 tablet 10 08/18/2023 Active take 1 tablet by emre th every other day furosemide (LASIX) 40 mg tablet Take 40 mg by mouth every other day. Tuesday and Tuesday Active hydroCHLOROthiazide 12.5 mg / lisinopril 20 mg oral tablet (20 sources) Thiazide Diuretic, Angiotensin Converting Enzyme Inhibitor Start: 05-07-2024 End: 03-06-2026 take 1 tablet by mouth once daily lisinopril-hydroCHLOROthiazide 20-12.5 MG tablet Indications: Benign essential hypertension Take 1 tablet by mouth Daily 100 tablet 3 01/30/2025 03/06/2026 Active Start: 05-12-2023 End: 05-11-2024 take 1 tablet by mouth in the morning lisinopril-hydroCHLOROthiazide 20-12.5 M G tablet Indications: Benign essential hypertension (CMS/HCC) Take 1 tablet by mouth in the morning. 90 tablet 3 05/12/2023 05/11/2024 Active take 1 tablet by emre th twice daily lisinopril-hydroCHLOROthiazide (PRINZIDE,ZESTORETIC) 20-12.5 mg per tablet Take 1 tablet by mouth 2 (two) times a day. 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 12 suppository 5 10/10/2023 10/09/2024 Active hydrocortisone acetate 10 mg/ml / pramoxine hydrochloride 10 mg/ml rectal cream (4 sources) Corticosteroid Start: 03-12-2025 pramoxine-hydrocortisone (Analpram-HC) 1-1 % rectal cream INSERT into rectum FOUR TIMES DAILY NEEDED 03/12/2025 Active Lactobacillus (20 sources) Lactobacillus (A Diet4Life HEALTH PROBIOTIC PO) Take by mouth Daily Active lactobacillus acidophilus [id number] unt oral capsule (1 source) take 1 tablet by mouth in the morning Lactobacillus acidophilus 1 billion cell capsule Take 1 tablet by mouth in the morning. Active loratadine 10 mg oral tablet (20 sources) take 1 tablet by mouth once daily loratadine (Claritin) 10 MG tablet Take 10 mg by mouth Daily Active methocarbamol 750 mg oral tablet (8 sources) Muscle Relaxant Start: 02-14-2024 End: 04-09-2024 methocarbamol (Robaxin) 750 MG tablet Indications: Spinal [...] Discontinued (Reorder) montelukast 10 mg oral tablet (20 sources) Leukotriene Receptor Antagonist Start: 01-23-2025 take 1 tablet by mouth in the morning montelukast (Singulair) 10 MG tablet Indications: Allergic rhinitis, unspecified seasonality, unspecified trigger Take 1 tablet (10 mg) by mouth in the morning. 100 tablet 3 01/23/2025 Active Start: 01-02-2024 take 1 tablet by emre th in the morning montelukast (Singulair) 10 MG [...] 10/03/2023 Discontinued (Reorder) Multiple Vitamin (multivitamin) capsule (20 sources) take 1 capsule by mouth once daily Multiple Vitamin (multivitamin) capsule Take 1 capsule by mouth Daily Active take 1 capsule by mouth in the m orning Multiple Vitamin (multivitamin) capsule Take 1 capsule by mouth in the morning. Active Multiple Vitamin (MULTIVITAMIN) capsule (2 sources) take 1 capsule by mouth once daily Multiple Vitamin (MULTIVITAMIN) capsule Take 1 capsule by mouth daily Active multivitamin capsule (1 source) take 1 capsule by mouth in the morning multivitamin capsule Take 1 capsule by mouth in the morning. Active ondansetron 4 mg disintegrating oral tablet (20 sources) Serotonin-3 Receptor Antagonist Start: 02-02-20 take 1 tablet by mouth every eight hours for nausea ondansetron ODT (Zofran-ODT) 4 MG disintegrating tablet Indications: Chronic superficial gastritis without bleeding Take 1 tablet (4 mg) by mouth every 8 (eight) hours if needed for nausea or vomiting 20 tablet 3 02/01/2025 Active Start: 07-31-2024 End: 08-07-2024 take 1 tablet by mouth every eight hours for nausea ondansetron ODT (Zofran-ODT) 4 MG disintegrating tablet Indications: Chronic superficial gastritis without bleeding Take 1 tablet (4 mg) by mouth every 8 (eight) hours if needed for nausea or vomiting 20 tablet 3 02/01/2025 Active pantoprazole 40 mg delayed release oral tablet (20 sources) Proton Pump Inhibitor Start: 07-31-2024 End: 11-23-2024 take 1 tablet by mouth once daily pantoprazole (ProtoNix) 40 MG EC tablet Indications: Gastroesophageal reflux disease, unspecified whether esophagitis present Take 1 tablet (40 mg) by mouth Daily Do not crush, chew, or split. 100 tablet 3 09/24/2024 Active plant stanol richard 450 mg oral capsule (1 source) take 1 capsule by mouth once daily plant stanol richard 450 mg capsule Take 1 capsule by mouth daily. Active potassium gluconate 2.5 meq oral tablet (1 source) take 1 tablet by mouth twice daily potassium 99 mg tablet Take 99 mg by mouth 2 (two) times a day. Active pravastatin sodium 40 mg oral tablet (20 sources) HMG-CoA Reductase Inhibitor Start: 05-20-2023 take 1 tablet by mouth at bedtime pravastatin (Pravachol) 40 MG tablet Indications: Hyperlipidemia, unspecified hyperlipidemia type Take 1 tablet (40 mg) by mouth at bedtime 100 tablet 3 06/27/2024 Active pumpkin seed extract-soy germ (Azo Bladder ControL) 300 mg capsule (1 source) take 2 capsules by mouth once daily pumpkin seed extract-soy germ (Azo Bladder ControL) 300 mg capsule Take 2 capsules by mouth daily. Active sulfamethoxazole 400 mg / trimethoprim 80 mg oral tablet (20 sources) Dihydrofolate Reductase Inhibitor Antibacterial, Sulfonamide Antimicrobial Start: 11-06-2024 End: 01-30-2025 take 1 tablet by mouth once daily sulfamethoxazole-tri methoprim (Bactrim) 400-80 MG tablet Indications: Recurrent UTI Take 1 tablet by mouth Daily 100 tablet 3 01/30/2025 Active Start: 04-25-2024 End: 07-31-2024 take 1 tablet by mouth once daily sulfamethoxazole-trimethoprim (Bactrim) 400-80 MG tablet Indications: Recurrent UTI Take 1 tablet by mouth Daily 30 tablet 2 07/31/2024 Active Start: 01-25-2024 End: 04-09-2024 take 1 tablet by mouth once daily sulfamethoxazole-trimethoprim (Bactrim) 400-80 MG tablet Indications: Recurrent UTI Take 1 tablet by mouth Daily 30 tablet 2 04/09/2024 Active Start: 04-26-2023 End: 08-10-2023 take 1 tablet by mouth in the morning sulfamethoxazole-trimethoprim (Bactrim) 400-80 MG tablet Indications: Recurrent UTI Take 1 tablet by mouth in the morning. 30 tablet 2 04/26/2023 08/10/2023 Discontinued (Reorder) take 1 tablet by emre th once in the morning sulfamethoxazole-trimethoprim (BACTRIM,SEPTRA) 400-80 mg per tablet Take 1 tablet by mouth in the morning. Active triamcinolone acetonide 1 mg/ml topical cream (19 sources) Corticosteroid Start: 03-15-2022 End: 10-29-2024 triamcinolone (Kenalog) 0.1 % cream Apply topically 2 (two) times a day. 03/15/2022 10/29/2024 Discontinued (Therapy completed) vitamin B12 (20 sources) Vitamin B12 Cyanocobalamin 5 00 MCG chewable tablet Chew 500 tablets 1 (one) time each day at the same time Active take 1 tablet by emre th every twenty-four hours Cyanocobalamin 500 MCG CHEW Take 500 tablets by mouth every 24 hours Active Cyanocobalamin 5 00 MCG chewable tablet Chew 500 tablets 1 (one) time each day at the same time. Active vitamin e 180 mg oral capsule (20 sources) take 1 capsule by mo uth once daily vitamin E 180 MG (400 UNIT) capsule Take 180 mg by mouth Daily Active take 2 capsules by mouth once da [place] vitamin E acetate 200 unit capsule Take 400 mg by mouth daily. Active Completed/Discontinued Medications Medication Drug Class(es) Dates Sig (Normalized) Sig (Original) lisinopril 40 mg oral tablet (1 source) Angiotensin Converting Enzyme Inhibitor Start: 0 End: take 1 tablet by mouth once daily lisinopriL (PRINIVIL,ZESTRIL) 40 mg tablet Take 1 tablet (40 mg total) by mouth daily. 03/13/2020 02/28/2025 Discontinued methylPREDNISolone (18 sources) Corticosteroid Start: End: methylPREDNISolone (Medrol Dospak) 4 MG tablets Indications: Acute pain of left shoulder Follow schedule on package instructions 21 tablet 01/08/2025 02/05/2025 Discontinued (Therapy completed) Start: 07-29-2025 methylPREDNISo lone (Medrol Dospak) 4 MG tablets Indications: Acute pain of left shoulder Follow schedule on package instructions 21 tablet 01/08/2025 Active Start: 10-18-2024 End: 10-29-2024 methylPREDNISolone (Medrol D ospak) 4 MG tablets TAKE BY MOUTH DIRECTED ON PACKAGE 10/18/2024 10/29/2024 Discontinued (Therapy completed) OMEGA-3 FATTY ACIDS-VITAMIN E ORAL (1 source) End: 02-28-2025 take 1000 mg by mouth twice daily OMEGA-3 FATTY ACIDS-VITAMIN E ORAL Take 1,000 mg by mouth 2 (two) times a day. 02/28/2025 Discontinued terbinafine hydrochloride 10 mg/ml topical cream (1 source) Allylamine Antifungal End: 02-28-2025 terbinafine (LamISIL) 1 % cream Apply 1 application topically as needed. 02/28/2025 Discontinued tiZANidine 4 mg oral tablet (1 source) Central alpha-2 Adrenergic Agonist End: 02-28-2025 take 1 tablet by mouth every eight hours as needed tiZANidine (ZANAFLEX) 4 mg tablet Take 4 mg by mouth every 8 (eight) hours as needed for muscle spasms. 02/28/2025 Discontinued Problems Active Problems Problem Classification Problem Date Documented Da te Episodic/Chronic Administrative/social admission (2 sources) Patient encounter status; 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: [Other specified counseling] 07-31-2024 Episodic Anal and rectal conditions (20 sources) Radiation proctitis; 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: [Radiation proctitis] Onset: 3 11-05-2022 Episodic Disorders of lipid metabolism (20 sources) Pure hypercholesterolemia, unspecified; 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: [Mixed hyperlipidemia] Onset: 0 07-13-2023 Chronic E Codes: Natural/environment (1 source) Other and unspecified overexertion or strenuous movements or postures, initial encounter; 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: [OTH AND UNS OVREXRT/STRN MVMT/POS INT] Onset: 3 Episodic Esophageal disorders (20 sources) Gastro-esophageal reflux disease without esophagitis; 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: [Gastroesophageal reflux disease] Onset: 3 07-31-2024 Chronic Essential hypertension (20 sources) Essential (primary) hypertension; 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: [Benign essential hypertension] Onset: 0 Resolved: 3 07-13-2023 Chronic Gastritis and duodenitis (20 sources) Chronic superficial gastritis; 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: [Chronic superficial gastritis without bleeding] Onset: 5 10-29-2024 Chronic Genitourinary symptoms and ill-defined conditions (2 sources) Dysuria; 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: [Dysuria] 03-12-2025 Episodic Menopausal disorders (20 sources) Decreased estrogen level; 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: [Other primary ovarian failure] Onset: 3 11-05-2022 Chronic Neoplasms of unspecified nature or uncertain behavior (4 sources) Neoplasm of uncertain behavior of skin of back; 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: [Neoplasm of uncertain behavior of skin] 01-30-2025 Episodic Nonspecific chest pain (2 sources) Atypical chest pain; 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: [Other chest pain] 10-29-2024 Episodic Nutritional deficiencies (20 sources) Moderate protein energy malnutrition; 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: [Moderate protein-calorie malnutrition] Onset: 3 11-05-2022 Chronic Osteoarthritis (20 sources) Arthritis of left elbow; 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: [Primary osteoarthritis, left elbow] Onset: 3 11-05-2022 Chronic Other aftercare (1 source) Other terminal system operator (current) drug therapy; 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: [OTH RECOVERY COORDINATOR CURRENT DRUG THERAPY] Onset: 3 Episodic Other connective tissue disease (1 source) Fibromyalgia; 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: [FIBROMYALGIA] Onset: 3 Episodic Other gastrointestinal disorders (4 sources) Loose stool; 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: [Other fecal abnormalities] 03-12-2025 Episodic Other nervous system disorders (20 sources) Ulnar nerve entrapment at elbow; 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: [Lesion of ulnar nerve, left upper limb] Onset: 3 11-05-2022 Chronic Other nervous system disorders (2 sources) Chronic pain; 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: [Other chronic pain] 07-31-2024 Chronic Other nervous system disorders (2 sources) Entrapment of left ulnar nerve; 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: [Lesion of ulnar nerve, left upper limb] Onset: 5 08-20-2024 Chronic Other non-traumatic joint disorders (6 sources) Derangement of left shoulder joint; 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: [Other specific joint derangements of left shoulder, not elsewhere classified] 10-16-2024 Chronic Other non-traumatic joint disorders (20 sources) Pain in left shoulder; 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: [Pain in joint, shoulder region] Onset: 5 07-31-2024 Episodic Other non-traumatic joint disorders (4 sources) Chronic pain of left upper limb; 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: [Pain in left shoulder] 10-16-2024 Episodic Other nutritional; endocrine; and metabolic disorders (20 sources) Morbid obesity; 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: [Morbid (severe) obesity due to excess calories] Onset: 3 11-05-2022 Chronic Other screening for suspected conditions (not mental disorders or infectious disease) (10 sources) Encounter for screening mammogram for malignant neoplasm of breast; 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: [Patient encounter status] Onset: Episodic Other skin disorders (1 source) Seborrheic keratosis; 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: [Other seborrheic keratosis] 03-15-2025 Episodic Other upper respiratory disease (20 sources) Allergic rhinitis; 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: [Allergic rhinitis, unspecified] Onset: 3 11-05-2022 Chronic Other upper respiratory disease (2 sources) Allergic rhinitis due to pollen; 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: [Allergic rhinitis due to pollen] 07-31-2024 Chronic Regional enteritis and ulcerative colitis (20 sources) Ulcerative proctocolitis; 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] Onset: 3 11-05-2022 Chronic Residual codes; unclassified (20 sources) Obstructive sleep apnea syndrome; 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: [Obstructive sleep apnea (adult) (pediatric)] Onset: 3 11-05-2022 Chronic Residual codes; unclassified (1 source) Family history of malignant neoplasm of trachea, bronchus and lung; 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: [FAM HX MALIG NEOPLSM TRACH BRON LNG] Onset: 3 Episodic Residual codes; unclassified (1 source) Family history of malignant neoplasm of ovary; 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: [FAM HX MALIGNANT NEOPLASM OVARY] Onset: 3 Episodic Residual codes; unclassified (2 sources) Localized edema; 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: [Localized edema] 07-31-2024 Episodic Spondylosis; intervertebral disc disorders; other back problems (20 sources) Spondylosis without myelopathy or radiculopathy, lumbar region; 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: [Spondylosis without myelopathy or radiculopathy, cervical region] Onset: 3 11-05-2022 Chronic Sprains and strains (5 sources) Strain of muscle, fascia and tendon at neck level, initial encounter; 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: [Sprain of left rotator cuff capsule] Onset: 3 01-11-2025 Episodic Unclassified (2 sources) Chronic pain of left upper limb 10-16-2024 Unclassified (1 source) Autogenerated Problem Onset: 5 02-05-2025 Urinary tract infections (20 sources) Chronic cystitis; 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: [Other chronic cystitis without hematuria] Onset: 3 11-05-2022 Chronic Past or Other Problems Problem Classification Problem Date Documented Date Episodic/Chronic Abdominal pain (20 sources) Generalized abdominal pain; 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: [Generalized abdominal pain] Onset: 02-27-2020 Resolved: 07-31-2024 11-05-2022 Episodic Cancer of rectum and anus (20 sources) Malignant tumor of anus; 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: [Malignant neoplasm of anus, unspecified] Onset: 06-26-2014 Resolved: 07-31-2024 11-05-2022 Chronic Cancer of rectum and anus (20 sources) Personal history of other malignant neoplasm of rectum, rectosigmoid junction, and anus; 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: [History of malignant neoplasm of anus] Onset: 04-06-2017 Resolved: 07-31-2024 11-05-2022 Episodic Intestinal obstruction without hernia (20 sources) Intestinal obstruction; 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: [Unspecified intestinal obstruction, unspecified as to partial versus complete obstruction] Onset: 03-12-2020 Resolved: 07-31-2024 11-05-2022 Episodic Mood disorders (20 sources) Mood disorders Onset: 03-12-2020 Resolved: 07-31-2024 07-31-2024 Nausea and vomiting (20 sources) Nausea; 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: [Nausea] Onset: 08-20-2024 Resolved: 10-29-2024 07-31-2024 Episodic Other connective tissue disease (20 sources) Fibromyalgia; 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: [Fibromyalgia] Onset: 11-05-2022 07-13-2023 Episodic Other connective tissue disease (20 sources) Ganglion cyst of tendon sheath; 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: [Ganglion, unspecified site] Onset: 11-05-2022 11-05-2022 Episodic Other connective tissue disease (20 sources) Muscle pain; 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: [Myalgia, unspecified site] Onset: 11-05-2022 11-05-2022 Episodic Residual codes; unclassified (20 sources) Acquired absence of cervix and uterus; 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: [Acquired absence of both cervix and uterus] Onset: 11-05-2022 11-05-2022 Episodic Residual codes; unclassified (20 sources) Edema; 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: [Edema, unspecified] Onset: 11-05-2022 11-05-2022 Episodic Spondylosis; intervertebral disc disorders; other back problems (20 sources) Cervicalgia; 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: [Spinal stenosis of lumbar region] Onset: 09-25-2022 Episodic Syncope (20 sources) Syncope; 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: [Syncope and collapse] Onset: 11-05-2022 Resolved: 07-31-2024 11-05-2022 Episodic Unclassified (2 sources) Acute pain of left shoulder 01-11-2025 Unclassified (1 source) Preprocedural examination done 02-28-2025 Urinary tract infections (20 sources) Recurrent urinary tract infection; 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: [Urinary tract infection, site not specified] Onset: 11-05-2022 11-05-2022 Episodic Results Test Name Value Interpretation Reference Range Facility Urinalysis macro (dipstick) panel (U)on 03-12-2025 Bilirubin, UA Negative Negative - 4(70) +++ mg/dL [facility] Blood, UA Negative Negative - 50 Barrera/mcL [facility] Clarity, UA Clear [facility] re Color, UA Light Yellow [facility] are Glucose, UA Negative Negative - 1999(110) ++++ mg/dL [facility] Interpretation and review of laboratory results Abnormal [facility] re Ketones, UA Negative Negative - 160(16) ++++ mg/dL [facility] Leukocytes, UA Moderate Negative - 500+++ Malaika/mcL [facility] Nitrite, UA Negative Negative - Positive [facility] pH, UA 6 5 - 9 [facility] e Protein, UA Trace Negative - 1999(20) ++++ mg/dL [facility] Spec Grav, UA 1.005 1 - 1.03 [facility] Urobilinogen, UA 1.0 0.2 - 12 mg/dL [facility] BASIC METABOLIC PANELon 02-11 Anion gap [Moles/Vol] 10 mmol/L Normal 5-15 [facility] Comment on above: Performed By: #### B MP #### [facility] ([facility]) [address] [place] [address] VIR Calcium [Mass/Vol] 9.5 mg/dL Normal 8.5-10.5 [facility] Comment on above: Performed By: #### B MP #### [facility] ([facility]) [address] [place] [address] VIR Chloride [Moles/Vol] 101 mmol/L Normal 98-109 [facility] Comment on above: Performed By: #### B MP #### [facility] ([facility]) [address] [place] [address] VIR CO2 [Moles/Vol] 30 mmol/L Normal 22-32 [facility] Comment on above: Performed By: #### B MP #### [facility] ([facility]) [address] [place] [address] VIR Creatinine [Mass/Vol] 0.84 mg/dL Normal 0.40-1.00 [facility] Comment on above: Result Comment: METH OD TRACEABLE TO IDMS STANDARD Performed By: #### B MP #### [facility] ([facility]) [address] [place] [address] VIR GFR/1.73 sq M.predicted among non-blacks MDRD (S/P/Bld) [Vol rate/Area] 73 mL/min/{1.73_m2} Normal >=60 [facility] Comment on above: Result Comment: Repo rted eGFR is based on the CKD-EPI 2020 equation that does not use a race coefficient. Performed By: #### B MP #### [facility] ([facility]) [address] [place] [address] VIR Glucose [Mass/Vol] 111 mg/dL High 65-99 [facility] Comment on above: Performed By: #### B MP #### [facility] ([facility]) [address] [place] [address] VIR Potassium [Moles/Vol] 3.5 mmol/L Normal 3.5-5.0 [facility] Comment on above: Performed By: #### B MP #### [facility] ([facility]) [address] [place] [address] VIR Sodium [Moles/Vol] 141 mmol/L Normal 134-146 [facility] Comment on above: Performed By: #### B MP #### [facility] ([facility]) [address] [place] [address] VIR Urea nitrogen [Mass/Vol] 15 mg/dL Normal 5-27 [facility] Comment on above: Performed By: #### B MP #### [facility] ([facility]) [address] [place] [address] VIR Basic Metabolic Panelon 02-11 Anion gap [Moles/Vol] 10 mmol/L 5 - 15 mmol/L [facility] Calcium [Mass/Vol] 9.5 mg/dL 8.5 - 10. 5 mg/dL [facility] Chloride [Moles/Vol] 101 mmol/L 98 - 109 mmol/L [facility] CO2 [Moles/Vol] 30 mmol/L 22 - 32 mmol/L [facility] Creatinine [Mass/Vol] 0.84 mg/dL 0.40 - 1.00 mg/dL [facility] Comment on above: METHOD TRACEABLE TO IDMS STANDARD EGFR Non-Race Dependent 73 - PINF [facility] Comment on above: Reported eGFR is bas ed on the CKD-EPI 2020 equation that does not use a race coefficient. Glucose [Mass/Vol] 111 mg/dL High 65 - 99 mg/dL [facility] Interpretation and review of laboratory results Abnormal [facility] Potassium [Moles/Vol] 3.5 mmol/L 3.5 - 5.0 mmol/L [facility] Sodium [Moles/Vol] 141 mmol/L 134 - 146 mmol/L [facility] Urea nitrogen [Mass/Vol] 15 mg/dL 5 - 27 mg/dL [facility] ECG 12 leadon 02-28-2025 TRACEMASTERVUE [facility] No Panel Informationon 12-11 STAPHYLOCOCCUS EPIDERMIDIS, HAEMOLYTICUS, LUGDUNENSIS, SAPROPHYTICUS (URINA 0 [facility] STAPHYLOCOCCUS EPIDERMIDIS, HAEMOLYTICUS, LUGDUNENSIS, SAPROPHYTICUS (URINA Not detected [facility] INFECTION (HTR X)on 12-11-2024 ACINETOBACTER BAUMANII 0 [facility] ACINETOBACTER BAUMANII Not detected [facility] KARIN ALBICANS, PARAPSILOSIS, TROPICALIS 0 [facility] KARIN ALBICANS, PARAPSILOSIS, TROPICALIS Not detected [facility] KARIN GLABRATA 0 [facility] KARIN GLABRATA Not detected [facility] KARIN KRUSEI 0 [facility] hcare KARIN KRUSEI Not detected [facility] CITROBACTER FREUNDII 0 [facility] CITROBACTER FREUNDII Not detected [facility] DFR (A1, A5), SUL (1,2) 26.87 Abnormal [facility] DFR (A1, A5), SUL (1,2) Detected Abnormal [facility] ENTEROBACTER AEROGENES, CLOACAE 0 [facility] re ENTEROBACTER AEROGENES, CLOACAE Not detected [facility] re ENTEROCOCCUS FAECALIS, FAECIUM 0 [facility] ENTEROCOCCUS FAECALIS, FAECIUM Not detected [facility] e ESCHERICHIA COLI 26.987 Abnormal [facility] ESCHERICHIA COLI Detected Abnormal [facility] Interpretation and review of laboratory results Abnormal [facility] Health[facility] re KLEBSIELLA PNEUMONIAE, OXYTOCA 0 [facility] KLEBSIELLA PNEUMONIAE, OXYTOCA Not detected [facility] MORGANELLA MORGANII 0 [facility] MORGANELLA MORGANII Not detected [facility] PROTEUS MIRABILIS, VULGARIS 0 [facility] PROTEUS MIRABILIS, VULGARIS Not detected [facility] PSEUDOMONAS AERUGINOSA 0 [facility] PSEUDOMONAS AERUGINOSA Not detected [facility] SERRATIA MARCESCENS 0 [facility] SERRATIA MARCESCENS Not detected [facility] STAPHYLOCOCCUS AUREUS 0 [facility] STAPHYLOCOCCUS AUREUS Not detected [facility] STREPTOCOCCUS AGALACTIAE (GROUP B STREP) 0 [facility] STREPTOCOCCUS AGALACTIAE (GROUP B STREP) Not detected [facility] STREPTOCOCCUS PYOGENES (GROUP A STREP) 0 [facility] STREPTOCOCCUS PYOGENES (GROUP A STREP) Not detected [facility] TET B, TET M 26.218 Abnormal [facility] TET B, TET M Detected Abnormal [facility] MR SHOULDER LEFT W/Oon 11-15 [place] [address] Magnetic Resonance Report Signed Patient: NAHED WALKER MR#: [id number] : 1950 Acct:[id number] Age/Sex: 74 / F ADM Date: 11/15/24 Loc: MRI Attending Dr: KENDRA LANDAVERDE Ordering Physician: KENDRA LANDAVERDE Date of Service: 11/15/24 Procedure(s): MR shoulder LT wo con Accession Number(s): [id number] cc: BRUNO MCDANIEL ; KENDRA LANDAVERDE [place] [address] Patient Name: NAHED WALKER MRN: [id number] date: 1950 Sex: F Assigned Patient Location: MRI Current Patient Location: MRI Accession/Order Number: [id number] Exam Date: 11/15/2024 14:28 Report Date: 11/15/2024 14:35 At the request of: KENDRA LANDAVERDE Procedure: MR shoulder LT wo con MR LEFT SHOULDER CLINICAL INFORMATION: Chronic left shoulder pain.. COMPARISON: None. PROCEDURE: Axial, oblique coronal, and oblique sagittal long TR images of the shoulder were obtained. FINDINGS: ROTATOR CUFF AND ASSOCIATED STRUCTURES Biceps Tendon: There is a partial-thickness tear of the biceps tendon proximally. Rotator cuff: There is an intrasubstance tear accompanied by a bursal surface partial thickness tear of the infraspinatus tendon. There is a perforating full-thickness tear of the supraspinatus tendon near the insertion site with a partial-thickness bursal surface tear extending medially. This is the subscapularis tendon and teres minor tendons are intact. Musculature: There is no muscular tear, contusion, or atrophy. Bursa: No bursal effusion or thickening is seen. OSSEOUS STRUCTURES Acromioclavicular joint: There are moderate to severe degenerative changes of the acromioclavicular joint. Fluid is noted in the joint space. A type 2 acromion configuration is noted. There is no anterior or lateral acromial downsloping. Bones: No Hill-Sachs, reverse Hill-Sachs, or bony Bankart lesions are seen. There are no fractures or regions of abnormal bone marrow signal intensity. GLENOHUMERAL JOINT Joint: There is no glenohumeral joint effusion. Cartilage: No focal hyaline cartilage defects are noted. Labrum: There is increased signal intensity along the superior glenoid labrum suggesting a chronic degenerative process versus a remote tear. Other support structures: No capsular or ligamentous abnormality is seen. MR/MR shoulder LT wo con IMPRESSION: 1. There is an intrasubstance tear accompanied by a bursal surface partial thickness tear of the infraspinatus tendon. 2. There is a perforating full-thickness tear of the supraspinatus tendon near the insertion site with a partial-thickness bursal surface tear extending medially. 3. There is a partial-thickness tear of the biceps tendon proximally. 4. There is increased signal intensity along the superior glenoid labrum suggesting a chronic degenerative process versus a remote tear. 5. There are moderate to severe degenerative changes of the acromioclavicular joint. Fluid is noted in the joint space. Impression dictated by: Valente Goddard M.D. 11/15/2024 2:35 PM Dictation Location: [place] [address] Electronically authenticated by: [id number] Y Date: 11/15/2024 14:35 Dictated By: Valente Goddard M.D. Signed By: 11/15/24 1438 DD/ 1435 TD/TT: Produce Production Team Member: [facility] Radiology, Radiologist, MD - 11/15/2024 [facility] [place] [id number] Magnetic Resonance Report Signed Patient: NAHED WALKER MR#: [id number] : 1950 Acct:[id number] Age/Sex: 74 / F ADM Date: 11/15/24 Loc: MRI Attending Dr: KENDRA LANDAVERDE Ordering Physician: KENDRA LANDAVERDE Date of Service: 11/15/24 Procedure(s): MR shoulder LT wo con Accession Number(s): [id number] cc: BRUNO MCDANIEL ; KENDRA LANDAVERDE [place] [id number] Patient Name: NAHED WALKER MRN: [facility]:[id number] date: 1950 Sex: F Assigned Patient Location: MRI Current Patient Location: MRI Accession/Order Number: [id number] Exam Date: 11/15/2024 14:28 Report Date: 11/15/2024 14:35 At the request of: KENDRA LANDAVERDE Procedure: MR shoulder LT wo con MR LEFT SHOULDER CLINICAL INFORMATION: Chronic left shoulder pain.. COMPARISON: None. PROCEDURE: Axial, oblique coronal, and oblique sagittal long TR images of the shoulder were obtained. FINDINGS: ROTATOR CUFF AND ASSOCIATED STRUCTURES Biceps Tendon: There is a partial-thickness tear of the biceps tendon proximally. Rotator cuff: There is an intrasubstance tear accompanied by a bursal surface partial thickness tear of the infraspinatus tendon. There is a perforating full-thickness tear of the supraspinatus tendon near the insertion site with a partial-thickness bursal surface tear extending medially. This is the subscapularis tendon and teres minor tendons are intact. Musculature: There is no muscular tear, contusion, or atrophy. Bursa: No bursal effusion or thickening is seen. OSSEOUS STRUCTURES Acromioclavicular joint: There are moderate to severe degenerative changes of the acromioclavicular joint. Fluid is noted in the joint space. A type 2 acromion configuration is noted. There is no anterior or lateral acromial downsloping. Bones: No Hill-Sachs, reverse Hill-Sachs, or bony Bankart lesions are seen. There are no fractures or regions of abnormal bone marrow signal intensity. GLENOHUMERAL JOINT Joint: There is no glenohumeral joint effusion. Cartilage: No focal hyaline cartilage defects are noted. Labrum: There is increased signal intensity along the superior glenoid labrum suggesting a chronic degenerative process versus a remote tear. Other support structures: No capsular or ligamentous abnormality is seen. MR/MR shoulder LT wo con IMPRESSION: 1. There is an intrasubstance tear accompanied by a bursal surface partial thickness tear of the infraspinatus tendon. 2. There is a perforating full-thickness tear of the supraspinatus tendon near the insertion site with a partial-thickness bursal surface tear extending medially. 3. There is a partial-thickness tear of the biceps tendon proximally. 4. There is increased signal intensity along the superior glenoid labrum suggesting a chronic degenerative process versus a remote tear. 5. There are moderate to severe degenerative changes of the acromioclavicular joint. Fluid is noted in the joint space. Impression dictated by: Valnete Goddard M.D. 11/15/2024 2:35 PM Dictation Location: [place] [address] Electronically authenticated by: [id number] Y Date: 11/15/2024 14:35 Dictated By: Valente Goddard M.D. Signed By: 11/15/248 DD/ 34 TD/TT: Produce Production Team Member: Occasion Radiology [facility]ative[facility] W/OOrdered By: Radiologist Radiology on 11-15-2024 [employer] Work Phone: No Panel Informationon 10-16 Interpretation and review of laboratory results Abnormal [facility]37[facility] re Polypectomy. [facility] [employer] are [employer] e [facility]Y [facility] 09-20-[address] [facility] Path Number: [id number] -- Diagnosis -- A. Gastric antrum, biopsy: [...] POLYP; RECTAL BIOPSIES Operation Performed: COLONOSCOPY POLYPECTOMY; ESOPHAGOGASTRODUODENO SCOPY BIOPSY se Source of Specimen A: ANTRAL BX B: ASCENDING COLON POLYP C: RECTUM BIOPSY Gross Description A. NAHED WALKER ANTRAL BIOPSIES Received in formalin is one schultz-white tissue fragment, 0.4 x 0.2 x 0.1 cm. Entirely 1cs. B. NAHED WALKER, ASCENDING COLON POLYP Received in formalin are four schultz-white tissue fragments from < 0.1 to 0.7 cm and are 1.0 x 0.8 x 0.3 cm in aggregate. Entirely 1cs. C. NAHED WALKER, RECTAL BIOPSIES Received in formalin are four schultz-white tissue fragments from 0.3 to 0.7 cm and are 1.0 x 0.9 x 0.3 cm in aggregate. Entirely 1cs. jj tm Ishan Thacker M.D./se:09/18/2024 Microscopic Description A-C. Microscopic examination performed. Processing Lab: [address] [id number] Interpretation Performed at [address] [id number] SURGICAL PATHOLOGY CONSULTATION Patient Name: NAHED WALKER Rec: [id number] [facility] [employer] [facility] ANATOMIC PATHOLOGY [address] [place] [address]. [place], [place] [id number] [facility] Original Ordering Provider: CHENG WITT [facility] No Panel Informationon 09-17 Radiology Study observation (narrative) [facility] Surgical Pathology Reporton 09-17-2024 Surgical Pathology Report (NOTE) Path Number: [id number] -- Diagnosis -- A. Gastric antrum, biopsy: [...] POLYP; RECTAL BIOPSIES Operation Performed: COLONOSCOPY POLYPECTOMY; ESOPHAGOGASTRODUODENO SCOPY BIOPSY se Source of Specimen A: ANTRAL BX B: ASCENDING COLON POLYP C: RECTUM BIOPSY Gross Description A. NAHED WALKER, ANTRAL BIOPSIES Received in formalin is one schultz-white tissue fragment, 0.4 x 0.2 x 0.1 cm. Entirely 1cs. B. NAHED WALKER, ASCENDING COLON POLYP Received in formalin are four schultz-white tissue fragments from < 0.1 to 0.7 cm and are 1.0 x 0.8 x 0.3 cm in aggregate. Entirely 1cs. C. NAHED WALKER, RECTAL BIOPSIES Received in formalin are four schultz-white tissue fragments from 0.3 to 0.7 cm and are 1.0 x 0.9 x 0.3 cm in aggregate. Entirely 1cs. jj tm Ishan Thacker M.D./se:09/18/2024 Microscopic Description A-C. Microscopic examination performed. Processing Lab: [address] [id number] Interpretation Performed at [address] [phone] SURGICAL PATHOLOGY CONSULTATION Patient Name: NAHED WALKER [facility] Rec: [id number] [facility] [employer] [facility] ANATOMIC PATHOLOGY [address] [place] [phone] Normal [facility] EKG 12 LeadOrdered By: Gerson Jerome hmlaw on 08-28-2024 Atrial Rate 98 BPM [facility] [employer] Work Phone: P [place] 56 degrees [facility] [employer] Work Phone: P-R Interval 148 ms [facility] [employer] [facility] [employer] Work Phone: Q-T Interval 336 ms [facility] [employer] [facility] [employer] Work Phone: QRS Duration 88 ms [facility] [employer] [facility] [employer] Work Phone: QTc Calculation (Bazett) 428 ms [facility] [employer] Work Phone: R [place] -25 degrees [facility] [employer] Work Phone: T [place] 51 degrees [facility] [employer] Work Phone: Ventricular Rate 98 BPM [employer] [employer] [facility] Work Phone: Selvin Olson [facility] [employer] Work Phone: EKG 12 Leadon 08-28-2024 Normal sinus rhythm Minimal voltage criteria for LVH, may be normal variant ( R in aVL ) Borderline ECG No previous ECGs available Confirmed by Gerson Pelaez MD ([id number]) on 08/28/2024 7:51:05 PM [facility] RADIOLOGY Gerson Pelaez MD - 08/28/2024 Normal sinus rhythm Minimal voltage criteria for LVH, may be normal variant ( R in aVL ) Borderline ECG No previous ECGs available Confirmed by Gerson Pelaez MD ([id number]) on 08/28/2024 7:51:05 PM [employer]jeremy [facility] MM TOMOSYNTHESIS SCREENING B Ion 07-20-2024 [place] [address] Mammography Report Signed Patient: NAHED WALKER MR#: [id number] : 1950 Acct:[id number] Age/Sex: 74 / F ADM Date: 07/19/24 Loc: MAMMO Attending Dr: BRUNO MCDANIEL Ordering Physician: BRUNO MCDANIEL Results: Date of Service: 07/19/24 Follow Up: Procedure(s): MM tomosynthesis screening BI Accession Number(s): [id number] cc: BRUNO MCDANIEL Patient Name: NAHED WALKER MR#: [id number] : 1950 Exam Date: 07/19/2024 Ordering Doctor: [...] lung cancer at age 63. LOCATION: [facility] BREAST COMPOSITION: There are scattered areas of [...] on 07/20/2024 at 07:26 Dictated By: Juvenal uFentes M.D. Signed By: 07/20/24726 DD/ 5 TD/TT: Produce Production Team Member: [facility] Radiology, Radiologist, - 07/20/2024 [place] [address] Mammography Report Signed Patient: NAHED WALKER MR#: [id number] : 1950 Acct:[id number] Age/Sex: 74 / F ADM Date: 07/19/24 Loc: MAMMO Attending Dr: BRUNO MCDANIEL Ordering Physician: BRUNO MCDANIEL Results: Date of Service: 07/19/24 Follow Up: Procedure(s): MM tomosynthesis screening BI Accession Number(s): [id number] cc: BRUNO MCDANIEL Patient Name: NAHED WALKER MR#: [id number] : 1950 Exam Date: 07/19/2024 Ordering Doctor: [...] lung cancer at age 63. LOCATION: [facility] BREAST COMPOSITION: There are scattered areas of [...] M.D. Signed By: 07/20/24726 DD/ 5 TD/TT: Produce Production Team Member: [facility] [employer] Radiology Study observation (narrative) [facility] [employer] MM TOMOSYNTHESIS SCREENING B IOrdered By: Radiologist Radiology on 07-20-2024 [facility]37[employer] Work Phone: MG MAMM SCREEN 3D LILIANA CADon 07-06-2022 [facility] MAMM SCREEN 3D LILIANA CAD Patient: NAHED WALKER Exam Date: 07/06/2022 : 1950 Gender:F Ordering : DR KENDRA STANFORD Admission #: [id number] Family : Order #: [id number] CLICK HERE TO VIEW EXAM RADIOLOGY REPORT [...] lung cancer at age 63. LOCATION: [facility] BREAST COMPOSITION: Scattered areas fibroglandular density. [...] PALPABLE LUMP SHOULD BE BIOPSIED. Dictated by: Jennifer Mallory M.D. on 07/07/2022 at 11:46 Approved by: Jnenifer Mallory M.D. on 07/07/2022 at 12:01 Normal [facility] Complete Blood Count with Au to Diffon 05-28-2021 Basophils (Bld) [#/Vol] 0.02 10*3/uL Normal 0.00-0.20 [facility] Specialist Comment on above: Performed By: #### C BCAD, CMP, LIPD #### [facility] [address], [place] [id number] Basophils/100 WBC (Bld) 0.3 % Normal [facility] Pediatric Clinical Dietician Comment on above: Performed By: #### C BCAD, CMP, LIPD #### [facility] [address], [place] [id number] Eosinophils (Bld) [#/Vol] 0.04 10*3/uL Normal 0.02-0.50 [facility] Specialist Comment on above: Performed By: #### C BCAD, CMP, LIPD #### [facility] [address], [place] [id number] Eosinophils/100 WBC (Bld) 0.6 % Normal [facility] Pediatric Clinical Dietician Comment on above: Performed By: #### C BCAD, CMP, LIPD #### [facility] [address], [place] [id number] Erythrocyte distribution width (RBC) [Ratio] 13.2 % Normal 11.0-15.0 [facility] Specialist Comment on above: Performed By: #### C BCAD, CMP, LIPD #### [facility] [address], [place] [id number] Hematocrit (Bld) [Volume fraction] 41.5 % Normal 35.0-47.0 [facility] Specialist Comment on above: Performed By: #### C BCAD, CMP, LIPD #### [facility] [address], [place] [id number] Hemoglobin (Bld) [Mass/Vol] 13.7 g/dL Normal 11.6-15.5 [facility] Specialist Comment on above: Performed By: #### C BCAD, CMP, LIPD #### [facility] [address], [place] [id number] Lymphocytes (Bld) [#/Vol] 2.3 10*3/uL Normal 0.9-3.9 [facility] Pediatric Clinical Dietician Comment on above: Performed By: #### C BCAD, CMP, LIPD #### [facility] [address], [place] [id number] Lymphocytes/100 WBC (Bld) 32.3 % Normal [facility] Specialist Comment on above: Performed By: #### C BCAD, CMP, LIPD #### [facility] [address], [place] [id number] MCH (RBC) [Entitic mass] 30.7 pg Normal 27.0-33.0 [facility] Pediatric Clinical Dietician Comment on above: Performed By: #### C BCAD, CMP, LIPD #### [facility] [address], [place] [id number] MCHC (RBC) [Mass/Vol] 33.0 g/dL Normal 32.0-36.0 [facility] Pediatric Clinical Dietician Comment on above: Performed By: #### C BCAD, CMP, LIPD #### [facility] [address], [place] [id number] MCV (RBC) [Entitic vol] 93 fL Normal 80-100 [facility] Pediatric Clinical Dietician Comment on above: Performed By: #### C BCAD, CMP, LIPD #### [facility] [address], [place] [id number] Monocytes (Bld) [#/Vol] 0.6 10*3/uL Normal 0.2-0.9 [facility] Specialist Comment on above: Performed By: #### C BCAD, CMP, LIPD #### [facility] [address], [place] [id number] Monocytes/100 WBC (Bld) 8.0 % Normal [facility] Specialist Comment on above: Performed By: #### C BCAD, CMP, LIPD #### [facility] [address], [place] [id number] Neutrophils (Bld) [#/Vol] 4.1 10*3/uL Normal 1.5-7.8 [facility] Comment on above: Performed By: #### C BCAD, CMP, LIPD #### [facility] [address], [place] [id number] Neutrophils/100 WBC (Bld) 58.5 % Normal [facility] Comment on above: Performed By: #### C BCAD, CMP, LIPD #### [facility] [address], [place] [id number] Platelet mean volume (Bld) [Entitic vol] 9.70 fL Normal 7.50-12.50 [facility] Comment on above: Performed By: #### C BCAD, CMP, LIPD #### [facility] [address], [place] [id number] Platelets (Bld) [#/Vol] 238 10*3/uL Normal 140-400 [facility] Comment on above: Performed By: #### C BCAD, CMP, LIPD #### [facility] [address], [place] [id number] RBC (Bld) [#/Vol] 4.46 10*6/uL Normal 3.90-5.20 [facility] Comment on above: Performed By: #### C BCAD, CMP, LIPD #### [facility] [address], [place] [id number] RDW-SD 45.0 fL Normal 37.0-50.0 [facility] Comment on above: Performed By: #### C BCAD, CMP, LIPD #### [facility] [address], [place] [id number] WBC (Bld) [#/Vol] 7.0 10*3/uL Normal 3.8-11.0 [facility] Comment on above: Performed By: #### C BCAD, CMP, LIPD #### [facility] [address], [place] [id number] Comprehensive Metabolic Pane [facility] 05-28-2021 Albumin [Mass/Vol] 4.3 g/dL Normal 3.6-5.1 [facility] Comment on above: Performed By: #### C BCAD, CMP, LIPD #### [facility] [address], [place] [id number] Albumin/Globulin [Mass ratio] 1.6 {ratio} Normal 1.0-2.5 [facility] Specialist Comment on above: Performed By: #### C BCAD, CMP, LIPD #### [facility] [address], [place] [id number] ALP [Catalytic activity/Vol] 86 U/L Normal 35-119 [facility] Comment on above: Performed By: #### C BCAD, CMP, LIPD #### [facility] [address], [place] [id number] ALT [Catalytic activity/Vol] 16 U/L Normal 6-33 [facility] Comment on above: Result Comment: 05/13 Female reference range changed. Performed By: #### C BCAD, CMP, LIPD #### [facility] [address], [place] [id number] Anion gap [Moles/Vol] 18 mmol/L Normal 12-20 [facility] Specialist Comment on above: Result Comment: Effe ctive 06/18/2019 reference range changed. Performed By: #### C BCAD, CMP, LIPD #### [facility] [address], [place] [id number] AST [Catalytic activity/Vol] 16 U/L Normal 9-34 [facility] Specialist Comment on above: Performed By: #### C BCAD, CMP, LIPD #### [facility] [address], [place] [id number] Bilirubin [Mass/Vol] 0.53 mg/dL Normal 0.30-1.20 [facility] Specialist Comment on above: Performed By: #### C BCAD, CMP, LIPD #### [facility] [address], [place] [id number] BUN/CREA 20 Ratio Normal 6-22 [facility] Specialist Comment on above: Performed By: #### C BCAD, CMP, LIPD #### [facility] [address], [place] [id number] Calcium [Mass/Vol] 10.1 mg/dL Normal 8.6-10.2 [facility] [place] [facility] Dietic[facility] Comment on above: Performed By: #### C BCAD, CMP, LIPD #### [facility] [address], [place] [id number] Chloride [Moles/Vol] 101 mmol/L Normal 98-107 [facility] Pediatric Clinical Dietician Comment on above: Performed By: #### C BCAD, CMP, LIPD #### [facility] [address], [place] [id number] CO2 [Moles/Vol] 28 mmol/L Normal 20-31 [facility] Pediatric Clinical Dietician Comment on above: Performed By: #### C BCAD, CMP, LIPD #### [facility] [address], [place] [id number] Creatinine [Mass/Vol] 0.8 mg/dL Normal 0.6-1.4 [facility] Pediatric Clinical Dietician Comment on above: Performed By: #### C BCAD, CMP, LIPD #### [facility] [address], [place] [id number] eGFRAA 84 mL/min/1.73m2 Normal >60 [facility] Pediatric Clinical Dietician Comment on above: Performed By: #### C BCAD, CMP, LIPD #### [facility] [address], [place] [id number] eGFRNAA 69 mL/min/1.73m2 Normal >60 [facility] Pediatric Clinical Dietician Comment on above: Performed By: #### C BCAD, CMP, LIPD #### [facility] [address], [place] [id number] Globulin (S) [Mass/Vol] 2.7 g/dL Normal 1.9-3.7 [facility] Pediatric Clinical Dietician Comment on above: Performed By: #### C BCAD, CMP, LIPD #### [facility] [address], [place] [id number] Glucose [Mass/Vol] 91 mg/dL Normal 65-99 [facility] [place] [facility] Clinical Dietician Comment on above: Result Comment: For FASTING Glucose --- ADA reference ranges: Normal 65-99 mg/dl Prediabetes 100-125 Diabetes >/= 126 Performed By: #### C BCAD, CMP, LIPD #### [facility] [address], [place] [id number] Potassium [Moles/Vol] 3.8 mmol/L Normal 3.5-5.5 [facility] Pediatric Clinical Dietician Comment on above: Performed By: #### C BCAD, CMP, LIPD #### [facility] [address], [place] [id number] Protein [Mass/Vol] 7.0 g/dL Normal 6.1-8.1 [facility] Pediatric Clinical Dietician Comment on above: Performed By: #### C BCAD, CMP, LIPD #### [facility] [address], [place] [id number] Sodium [Moles/Vol] 143 mmol/L Normal 135-146 [facility] Pediatric Clinical Dietician Comment on above: Performed By: #### C BCAD, CMP, LIPD #### [facility] [address], [place] [id number] Urea nitrogen [Mass/Vol] 16 mg/dL Normal 7-25 [facility] Pediatric Clinical Dietician Comment on above: Performed By: #### C BCAD, CMP, LIPD #### [facility] [address], [place] [id number] Lipid Panelon 05-28-2021 Cholesterol [Mass/Vol] 181 mg/dL Normal 125-200 [facility] Pediatric Clinical Dietician Comment on above: Result Comment: Low risk < 200mg/dL Borderline risk 201-239 mg/dl High risk > or equal to 240 Performed By: #### C BCAD, CMP, LIPD #### [facility] [address], [place] [id number] Cholesterol in HDL [Mass/Vol] 54 mg/dL Normal >40 [facility] Pediatric Clinical Dietician Comment on above: Result Comment: High Cardiovascular Risk HDL <40 mg/dL Low Cardiovascular Risk HDL > or equal to 60 mg/dl Performed By: #### C BCAD, CMP, LIPD #### [facility] [address], [place] [id number] Cholesterol in LDL [Mass/Vol] 96 mg/dL Normal [facility] Pediatric Clinical Dietician Comment on above: Result Comment: LDL ATP III CLASSIFICATION LDL less than 100 mg/dl Optimal LDL 100-129 mg/dl Near or above optimal LDL 130-159 Borderline high LDL 160-189 High LDL greater than 189 mg/dl Very High Performed By: #### C BCAD, CMP, LIPD #### [facility] [address], [place] [id number] Cholesterol in VLDL [Mass/Vol] 31 mg/dL Normal [facility] Specialist Comment on above: Performed By: #### C BCAD, CMP, LIPD #### [facility] [address], [place] [id number] Cholesterol.total/ Cholesterol in HDL [Mass ratio] 3 {ratio} Normal [facility] Specialist Comment on above: Performed By: #### C BCAD, CMP, LIPD #### [facility] [address], [place] [id number] Triglyceride [Mass/Vol] 157 mg/dL High 30-150 [facility] Pediatric Clinical Dietician Comment on above: Result Comment: TRIG ATPIII CLASSIFICATIONS TRIG less than 150 mg/dl Normal TRIG 150-199 mg/dl Borderline High TRIG 200-500 mg/dl High TRIG greather than 500 mg/dl Very High Performed By: #### C BCAD, CMP, LIPD #### [facility] [address], [place] [id number] CNOVon 04-04-2019 CNOV Office Visit (RONA ) NAHED WALKER ([id number]) 1950 F Date Time Provider Department 04/04/19 2:00 PM JOYCE BARRETO During your visit today, we recorded the following information about you: Temperature Pulse Respiration Blood pressure 98.3 degrees 83/minute 16/minute 141/81 Weight 128.7 kg Joyce Barreto MD 04/04/2019 2:27 PM Signed Radiation Oncology - Follow Up Note PATIENT NAME: Nahed Mckinney Deirdremelvina PATIENT DIAGNOSIS: ?Stage II (T2N0M0) squamous cell [...] mg Tab Take by mouth twice daily. Steilacoom-3 Fatty Acids-Vitamin E (FISH OIL) 1,000 mg cap Take 1 capsule by mouth. PLANT STANOL RICHARD (CHOLEST OFF ORAL) Take by mouth once [...] in this department. ? Signed by: Joyce Barreto M.D., RASHEEDA ? cc: Dr. Bruno Edouard ? This note was dictated with Dragon Naturally Speaking and may contain some grammatical errors due to limitations of the software. Natalia Flores MA, was present in the examination room throughout the encounter. Referring Provider: JOYCE BARRETO [[id number]] Allergies As of Date: 04/04/2019 Noted Allergy [...] Disposition History Recorded Encounter Status:Closed by JOYCE BARRETO MD on 04/04/19 [facility] PROGRESSon 04-04-2019 PROGRESS HNO ID: [id number] Author: Joyce Barreto Service: ? Author Type: Physician Type: Progress [...] mg Tab Take by mouth twice daily. [place]il[place]oom-3 Fatty Acids-Vitamin E (FISH OIL) 1,000 mg cap Take 1 capsule by mouth. PLANT STANOL RICHARD (CHOLEST OFF ORAL) Take by mouth once [...] in this department. ? Signed by: Joyce Barreto M.D., RASHEEDA ? cc: Dr. Bruno Edouard ? This note was dictated with Matthew Naturally Speaking and may contain some grammatical errors due to limitations of the software. Natalia Flores MA, was present in the examination room throughout the encounter. Normal [facility] CNOVon 04-05-2018 CNOV Office Visit (RADTSA ) NAHED WALKER ([id number]) 1950 F Date Time Provider Department 04/05/18 2:00 PM JOYCE BARRETO During your visit today, we recorded the following information about you: Temperature Pulse Respiration Blood pressure 98.2 degrees 75/minute 18/minute 148/56 Weight 126.1 kg Joyce Barreto MD 04/05/2018 4:32 PM Signed Radiation Oncology [...] mg Tab Take by mouth twice daily. [place]oom-3 Fatty Acids-Vitamin E (FISH OIL) 1,000 mg cap Take 1 capsule by mouth. Aspirin 81 mg CpDR Take by mouth once daily. PLANT STANOL RICHARD (CHOLEST OFF ORAL) Take by mouth once [...] for follow-up examination. ? Signed by: Joyce Barreto M.D., [facility] ? cc: Dr. [place] Edouard ? This note was dictated with Sybilon Naturally Speaking and may contain some grammatical errors due to limitations of the software. Magali Andino RN was present in the room throughout the encounter. Referring Provider: JOYCE BARRETO [[id number]] Allergies As of Date: 04/05/2018 Noted Allergy Reaction CODEINE 08/28/2012 8 - GI Upset CORTIZONE-10 SCALP ITCH RELIEF 08/28/2012 2 - Rash NEXIUM (ESOMEPRAZOLE MAGNESIUM) 08/27/2013 5 - Intolerance PENICILLINS 08/28/2012 10 - Anaphylaxis PERCOCET (OXYCODONE-ACETAMINOP HEN)08/28/2012 1 - Mental Status Change VALIUM (DIAZEPAM) 08/28/2012 1 - Mental Status Change Date Reviewed: 04/05/2018 Reviewed by: Magali (Madeleine) MADELEINE Andino - Fully Assessed Reason for Visit: [...] Disposition History Recorded Encounter Status:Closed by JOYCE BARRETO MD on 04/05/18 [facility] PROGRESSon 04-05-2018 PROGRESS HNO ID: [id number] Author: Joyce Barreto Service: (none) Author Type: Physician Type: Progress [...] mg Tab Take by mouth twice daily. [place]oom-3 Fatty Acids-Vitamin E (FISH OIL) 1,000 mg cap Take 1 capsule by mouth. Aspirin 81 mg CpDR Take by mouth once daily. PLANT STANOL RICHARD (CHOLEST OFF ORAL) Take by mouth once [...] for follow-up examination. ? Signed by: Joyce Barreto M.D., [facility] ? cc: Dr. [place] Edouard ? This note was dictated with Dragon Naturally Speaking and may contain some grammatical errors due to limitations of the software. Magali Andino RN was present in the room throughout the encounter. Normal [facility] Vital Signs Date Time Vital Sign Value Performing Clinician Facility 03-19-2025 15:04-0400 Body height 160 cm Kendra Hemmer PA Work Phone: [facility] 03-19-2025 15:04-0400 Body mass index (BMI) [Ratio] 38.79 kg/m2 Kendra Hemmer PA Work Phone: [facility] 03-19-2025 15:04-0400 Body weight 99.34 kg Kendra Hemmer PA Work Phone: [facility] 03-19-2025 15:04-0400 Diastolic blood pressure 64 mm[Hg] Kendra Hemmer PA Work Phone: [facility] 03-19-2025 15:04-0400 Heart rate 61 /min Kendra Hemmer PA Work Phone: [facility] 03-19-2025 15:04-0400 Respiratory rate 16 /min Kendra Hemmer PA Work Phone: [facility] 03-19-2025 15:04-0400 SaO2% (BldA) [Mass fraction] 96 % Kendra Hemmer PA Work Phone: [facility] 03-19-2025 15:04-0400 Systolic blood pressure 136 mm[Hg] Kendra Hemmer PA Work Phone: [facility] 03-12-2025 14:34-0400 Body height 158.8 cm Kendra Hemmer PA Work Phone: [facility] 03-12-2025 14:34-0400 Body mass index (BMI) [Ratio] 39.56 kg/m2 Kendra Hemmer PA Work Phone: [facility] 03-12-2025 14:34-0400 Body weight 99.7 kg Kendra Hemmer PA Work Phone: [facility] 03-12-2025 14:34-0400 Diastolic blood pressure 84 mm[Hg] Kendra Hemmer PA Work Phone: [facility] 03-12-2025 14:34-0400 Heart rate 69 /min Kendra Hemmer PA Work Phone: [facility] 03-12-2025 14:34-0400 Respiratory rate 16 /min Kendra Hemmer PA Work Phone: [facility] 03-12-2025 14:34-0400 SaO2% (BldA) [Mass fraction] 96 % Kendra Hemmer PA Work Phone: [facility] 03-12-2025 14:34-0400 Systolic blood pressure 132 mm[Hg] Kendra Hemmer PA Work Phone: [facility] 03-11-2025 13:58-0400 Body height 160 cm Edward Kohler RANGE RIDER Work Phone: [facility] 03-11-2025 13:58-0400 Body mass index (BMI) [Ratio] 38.44 kg/m2 Edward Kohler RANGE RIDER Work Phone: [facility] 03-11-2025 13:58-0400 Body weight 98.43 kg Edward Kohler RANGE RIDER Work Phone: [facility] 02-28-2025 10:37-0400 Body height 161.3 cm Pmh 2 [facility] 02-28-2025 10:37-0400 Body mass index (BMI) [Ratio] 37.66 kg/m2 Pmh 2 [facility] 02-28-2025 10:37-0400 Body weight 97.98 kg Pmh 2 [facility] 01-30-2025 14:40-0400 Body height 158.8 cm Kendra Hemmer PA Work Phone: [facility] 01-30-2025 14:40-0400 Body mass index (BMI) [Ratio] 40.03 kg/m2 Kendra Hemmer PA Work Phone: [facility] 01-30-2025 14:40-0400 Body weight 100.88 kg Kendra Hemmer PA Work Phone: [facility] 01-30-2025 14:40-0400 Diastolic blood pressure 82 mm[Hg] Kendra Hemmer PA Work Phone: [facility] 01-30-2025 14:40-0400 Heart rate 64 /min Kendra Hemmer PA Work Phone: [facility] 01-30-2025 14:40-0400 Respiratory rate 16 /min Kendra Hemmer PA Work Phone: [facility] 01-30-2025 14:40-0400 SaO2% (BldA) [Mass fraction] 95 % Kendra Hemmer PA Work Phone: [facility] 01-30-2025 14:40-0400 Systolic blood pressure 134 mm[Hg] Kendra Hemmer PA Work Phone: [facility] 10-29-2024 13:31-0400 Body height 161.3 cm Kendra Hemmer PA Work Phone: [facility] 10-29-2024 13:31-0400 Body mass index (BMI) [Ratio] 38.39 kg/m2 Kendra Hemmer PA Work Phone: [facility] 10-29-2024 13:31-0400 Body weight 99.88 kg Kendra Hemmer PA Work Phone: [facility] 10-29-2024 13:31-0400 Diastolic blood pressure 72 mm[Hg] Kendra Hemmer PA Work Phone: [facility] 10-29-2024 13:31-0400 Heart rate 68 /min Kendra Hemmer PA Work Phone: [facility] 10-29-2024 13:31-0400 Respiratory rate 16 /min Kendra Hemmer PA Work Phone: [facility] 10-29-2024 13:31-0400 SaO2% (BldA) [Mass fraction] 97 % Kendra Hemmer PA Work Phone: [facility] 10-29-2024 13:31-0400 Systolic blood pressure 130 mm[Hg] Kendra Hemmer PA Work Phone: [facility] 10-16-2024 14:43-0400 Body height 161.3 cm Kendra Hemmer PA Work Phone: [facility] 10-16-2024 14:43-0400 Body mass index (BMI) [Ratio] 38.46 kg/m2 Kendra Hemmer PA Work Phone: [facility] 10-16-2024 14:43-0400 Body weight 100.06 kg Kendra Hemmer PA Work Phone: [facility] 10-16-2024 14:43-0400 Diastolic blood pressure 74 mm[Hg] Kendra Hemmer PA Work Phone: [facility] 10-16-2024 14:43-0400 Heart rate 73 /min Kendra Hemmer PA Work Phone: [facility] 10-16-2024 14:43-0400 Respiratory rate 16 /min Kendra Hemmer PA Work Phone: [facility] 10-16-2024 14:43-0400 SaO2% (BldA) [Mass fraction] 97 % Kendra Hemmer PA Work Phone: [facility] 10-16-2024 14:43-0400 Systolic blood pressure 126 mm[Hg] Kendra Hemmer PA Work Phone: [facility] 09-17-2024 12:10-0400 Heart rate 55 /min Cheng Dick DO Work Phone: [facility] 09-17-2024 12:10-0400 Respiratory rate 20 /min Cheng Dick DO Work Phone: [facility] 09-17-2024 12:10-0400 SaO2% (BldA) [Mass fraction] 94 % Cheng Dick DO Work Phone: [facility] [employer] 09-17-2024 12:05-0400 Diastolic blood pressure 62 mm[Hg] Cheng Dick DO Work Phone: [facility] [employer] 09-17-2024 12:05-0400 Systolic blood pressure 127 mm[Hg] Cheng Dick DO Work Phone: [facility] [employer] 09-17-2024 11:30-0400 Body temperature 97.5 [degF] Cheng Dick DO Work Phone: [facility] [employer] 09-17-2024 09:41-0400 Body height 162.6 cm Cheng Dick DO Work Phone: [facility] [employer] 09-17-2024 09:41-0400 Body mass index (BMI) [Ratio] 36.99 kg/m2 Cheng Dick DO [facility] 09-17-2024 09:41-0400 Body weight 97.75 kg Cheng Dick [facility] 07-31-2024 14:04-0500 Body height 161.3 cm Kendra Landaverde PA Work Phone: [facility] 07-31-2024 14:04-0500 Body mass index (BMI) [Ratio] 38.05 kg/m2 Kendra Hemmer PA Work Phone: [facility] 07-31-2024 14:04-0500 Body weight 98.97 kg Kendra Hemmer PA Work Phone: [facility] 07-31-2024 14:04-0500 Diastolic blood pressure 76 mm[Hg] Kendra Hemmer PA Work Phone: [facility] 07-31-2024 14:04-0500 Heart rate 67 /min Kendra Gillmer PA Work Phone: [facility] 07-31-2024 14:04-0500 Respiratory rate 16 /min Kendra STANFORD Work Phone: [facility] 07-31-2024 14:04-0500 SaO2% (BldA) [Mass fraction] 95 % Kendra Landaverde PA Work Phone: [facility] 07-31-2024 14:04-0500 Systolic blood pressure 128 mm[Hg] Kendra STANFORD Work Phone: [facility] 04-09-2024 14:03-0400 Body mass index (BMI) [Ratio] 41.95 kg/m2 Bruno Mcdaniel MD Work Phone: [facility] 04-09-2024 14:03-0400 Body weight 109.14 kg Bruno Mcdaniel MD Work Phone: [facility] 04-09-2024 14:03-0400 Diastolic blood pressure 75 mm[Hg] Bruno Mcdaniel MD Work Phone: [facility] 04-09-2024 14:03-0400 Heart rate 81 /min Bruno Mcdaniel MD Work Phone: [facility] 04-09-2024 14:03-0400 Respiratory rate 18 /min Bruno Mcdaniel MD Work Phone: [facility] 04-09-2024 14:03-0400 SaO2% (BldA) [Mass fraction] 96 % Bruno Mcdaniel MD Work Phone: [facility] 04-09-2024 14:03-0400 Systolic blood pressure 130 mm[Hg] Bruno Mcdaniel MD Work Phone: [facility] 07-13-2023 13:37-0500 Body mass index (BMI) [Ratio] 42.06 kg/m2 Bruno Mcdaniel MD Work Phone: [facility] 07-13-2023 13:37-0500 Body weight 109.41 kg Bruno Mcdaniel MD Work Phone: [facility] 07-13-2023 13:37-0500 Diastolic blood pressure 89 mm[Hg] Bruno Mcdaniel MD Work Phone: [facility] 07-13-2023 13:37-0500 Heart rate 77 /min rBuno Mcdaniel MD Work Phone: [facility] 07-13-2023 13:37-0500 Respiratory rate 16 /min Bruno Mcdaniel MD Work Phone: [facility] 07-13-2023 13:37-0500 SaO2% (BldA) [Mass fraction] 97 % Bruno Mcdaniel MD Work Phone: [facility] 07-13-2023 13:37-0500 Systolic blood pressure 138 mm[Hg] Bruno Mcdaniel MD Work Phone: [facility] Healthcare Encounters Encounter Date Encounter Type Care Provider Facility Start: 03-19-2025 End: 03-19-2025 Office outpatient visit 15 minutes Kendra Landaverde PA Work Phone: [facility] [facility] Comment on above: Loose stools (Primar y Dx); Radiation proctitis Start: 03-19-2025 End: 03-19-2025 Bamboo flowsheet Kendra Landaverde PA Work Phone: [facility] [place] [facility] Start: 03-19-2025 End: 03-19-2025 Bamboo flowsheet Kendra Landaverde PA Work Phone: [facility] [place] [facility] Start: 03-15-2025 End: 03-15-2025 Bamboo flowsheet Sam Northeim PA Work Phone: [facility] Start: 03-15-2025 End: 03-15-2025 Bamboo flowsheet Sam Northeim PA Work Phone: [facility] Start: 03-15-2025 End: 03-15-2025 Office outpatient visit 10 minutes Sam Northeim PA Work Phone: [facility] Comment on above: Seborrheic keratosis (Primary Dx) Start: 03-15-2025 End: 03-15-2025 ambulatory SAM NORTHEIM Not Available Start: 03-12-2025 End: 03-12-2025 Office outpatient visit 25 minutes Kendra Landaverde PA Work Phone: [facility] [place] [facility] Comment on above: Recurrent UTI (Prima ry Dx); Dysuria; Spinal stenosis of lumbar region without neurogenic claudication; Chronic superficial gastritis without bleeding; Ulcerative proctocolitis (HCC); Loose stools Start: 03-12-2025 End: 03-12-2025 ambulatory KENDRA LANDAVERDE Not Available Start: 03-12-2025 End: 03-12-2025 Bamboo flowsheet Kendra Landaverde PA Work Phone: [facility] [place] [facility] Start: 03-12-2025 End: 03-12-2025 Bamboo flowsheet Kendra Landaverde PA Work Phone: [facility] [place] [facility] Start: 03-11-2025 End: 03-11-2025 Bamboo flowsheet Edward Kohler RANGE RIDER Work Phone: [facility] Start: 03-11-2025 End: 03-11-2025 Bamboo flowsheet Edward Kohler RANGE RIDER Work Phone: [facility] Start: 03-11-2025 End: 03-11-2025 Patient encounter procedure Edward Kohler RANGE RIDER Work Phone: [facility] Comment on above: Pre-op evaluation (P rimary Dx) Start: 03-11-2025 End: 03-11-2025 Preprocedural examination done Edward Kohler RANGE RIDER Work Phone: [facility] Work Phone: Start: 03-11-2025 End: 03-11-2025 ambulatory EDWARD KOHLER Not Available Start: 02-28-2025 End: 02-28-2025 Patient encounter procedure [facility] Pre-Admission Testing 2 [facility] Comment on above: Preop examination (P rimary Dx); Hypertension, unspecified type Start: 02-28-2025 End: 02-28-2025 Preprocedural examination done [facility] 2 [facility] Start: 02-28-2025 End: 02-28-2025 ambulatory BRUNO MCDANIEL [facility] Start: 02-28-2025 Encounter for other preprocedural examination BRUNO [facility] Start: 02-25-2025 End: 02-26-2025 Telephone encounter Aguilar Dallas Gini Olivera DO Work Phone: [facility] Comment on above: having mole removed March 15, 2025 Start: 02-05-2025 End: 02-05-2025 Bamboo flowsheet Jr. Charlotte Peraltacesario DO Work Phone: [facility] Start: 02-05-2025 End: 02-05-2025 Bamboo flowsheet Jr. Charlotte Rubalcava Joselin DO Work Phone: [facility] Start: 02-05-2025 End: 02-05-2025 Office outpatient visit 40 minutes JrAguilar Charlotte Gini Olivera DO Work Phone: [facility] Comment on above: Acute pain of left s hokarin (Primary Dx); Sprain of left rotator cuff capsule, initial encounter Start: 02-05-2025 End: 02-05-2025 ambulatory Aguilar CHAROLTTE Gini OLIVERA Not Available Start: 01-31-2025 End: 01-31-2025 ambulatory Charity Pinon PT Work Phone: [facility] Comment on above: Acute pain of left s hokarin (Primary Dx) Start: 01-30-2025 End: 01-30-2025 ambulatory KENDRA LANDAVERDE Not Available Start: 01-30-2025 End: 01-30-2025 Office outpatient visit 25 minutes Kendra Landaverde PA Work Phone: [facility] Comment on above: Benign essential hyp ertension (Primary Dx); Recurrent UTI; Spinal stenosis of lumbar region without neurogenic claudication; Neoplasm of uncertain behavior of skin of back Start: 01-30-2025 End: 01-30-2025 Bamboo flowsheet Kendra Landaverde PA Work Phone: [facility] [place] [facility] Start: 01-30-2025 End: 01-30-2025 Bamboo flowsheet Kendra Landaverde PA Work Phone: [facility] [place] [facility] Start: 01-29-2025 End: 01-29-2025 Bamboo flowsheet Chelsea Estes MOTOR LODGE CLERK [facility] Start: 01-29-2025 End: 01-29-2025 Bamboo flowsheet Chelsea Estes MOTOR LODGE CLERK [facility] Start: 01-29-2025 End: 01-29-2025 ambulatory Chelsea Estes MOTOR LODGE CLERK [facility] Comment on above: Acute pain of left s hermilo (Primary Dx) Start: 01-24-2025 End: 01-24-2025 Bamboo flowsheet Chelsea Estes MOTOR LODGE CLERK [facility] Start: 01-24-2025 End: 01-24-2025 Bamboo flowsheet Chelsea Estes MOTOR LODGE CLERK [facility] Start: 01-24-2025 End: 01-24-2025 ambulatory Chelsea Estes MOTOR LODGE CLERK [facility] Comment on above: Acute pain of left s hermilo (Primary Dx) Start: 01-17-2025 End: 01-17-2025 Bamboo flowsheet Charity Pinon PT Work Phone: [facility] Start: 01-17-2025 End: 01-17-2025 Bamboo flowsheet Charity Pinon PT Work Phone: [facility] Start: 01-17-2025 End: 01-17-2025 ambulatory Charity Pinon PT Work Phone: [facility] Comment on above: Acute pain of left s hermilo (Primary Dx) Start: 01-08-2025 End: 01-08-2025 Bamboo flowsheet Jr. Charlotte Olivera DO Work Phone: [facility] Start: 01-08-2025 End: 01-08-2025 Bamboo flowsheet Jr. Charlotte Rubalcava Stepcesario DO Work Phone: [facility] Start: 01-08-2025 End: 01-08-2025 Office outpatient new 45 minutes JrAguilar Peraltacesario DO Work Phone: [facility] Comment on above: Sprain of left rotat or cuff capsule, initial encounter (Primary Dx); Acute pain of left shoulder Start: 01-08-2025 End: 01-08-2025 ambulatory JR., CHARLOTTE OLIVERA Not Available Start: 12-10-2024 End: 12-11-2024 External Result Encounter Kendra STANFORD Work Phone: [facility] Department Unsolicited Start: 12-10-2024 End: 12-11-2024 External Result Encounter Kendra STANFORD Work Phone: [facility] Unsolicited Start: 12-10-2024 End: 12-10-2024 ambulatory KENDRA LANDAVERDE Not Available Start: 11-15-2024 End: 11-15-2024 Clinisync Result Encounter Kendra Landaverde PA Work Phone: [facility] Unsolicited Start: 11-15-2024 End: 11-15-2024 Clinisync Result Encounter Kendra STANFORD Work Phone: [facility] Unsolicited Start: 11-12-2024 End: 11-12-2024 Sesar Mcdaniel MD Work Phone: [facility] Comment on above: Spinal stenosis of l umbar region without neurogenic claudication Start: 11-09-2024 End: 11-09-2024 Telephone encounter Kendra STANFORD Work Phone: [facility] Start: 10-29-2024 End: 10-29-2024 Bamboo flowsheet Kendra STANFORD Work Phone: [facility] Start: 10-29-2024 End: 10-29-2024 Bamboo flowsheet Kendra STANFORD Work Phone: [facility] Start: 10-29-2024 End: 10-29-2024 Office outpatient visit 25 minutes Kendra Landaverde PA Work Phone: [facility] Comment on above: Internal derangement of left shoulder (Primary Dx); Chronic left shoulder pain; Atypical chest pain; Benign essential hypertension (CMS/HCC); Chronic superficial gastritis without bleeding Start: 10-29-2024 End: 10-29-2024 ambulatory KENDRA Joe SAIMA Not Available Start: 10-16-2024 End: 10-16-2024 Office outpatient visit 15 minutes Kendra STANFORD Work Phone: [facility] Comment on above: Internal derangement of left shoulder (Primary Dx); Chronic left shoulder pain Start: 10-16-2024 End: 10-16-2024 ambulatory KENDRA LANDAVERDE Not Available Start: 09-17-2024 End: 09-20-2024 Clinisync Result Encounter Generic External Data Provider [facility] Unsolicited Start: 09-17-2024 End: 09-20-2024 Clinisync Result Encounter Generic External Data Provider [facility] External Department Unsolicited Start: 09-17-2024 End: 09-17-2024 ambulatory [facility] Start: 09-17-2024 End: 09-17-2024 Subsequent hospital visit by physician Cheng Dick DO Work Phone: [facility] Comment on above: Encounter for screen ing colonoscopy; Nausea and vomiting Start: 08-28-2024 End: 08-28-2024 ambulatory [facility]as[facility] Start: 08-28-2024 End: 08-28-2024 Subsequent hospital visit by physician Bruno Mcdaniel MD Work Phone: [facility] Comment on above: Essential hypertensi on Start: 07-31-2024 End: 07-31-2024 Bamboo flowsheet Kendra Landaverde PA Work Phone: [facility] Start: 07-31-2024 End: 07-31-2024 Bamboo flowsheet Kendra STANFORD Work Phone: [facility] Start: 07-31-2024 End: 07-31-2024 Patient encounter procedure Kendra STANFORD Work Phone: [facility] Comment on above: Medicare annual [facility] visit, subsequent (Primary Dx); ACP (advance care planning); Recurrent UTI; Nausea; Acute pain of left shoulder; Gastroesophageal reflux disease, unspecified whether esophagitis present; History of anal cancer; Radiation proctitis; Ulcerative proctocolitis (CMS/HCC); Acquired absence of both cervix and uterus; Chronic cystitis; Arthritis of left elbow; Fibromyalgia; Ganglion of tendon sheath; Lumbar disc herniation; Myalgia; Primary osteoarthritis involving multiple joints; Moderate protein-calorie malnutrition (CMS/HCC); Morbid obesity (CMS/HCC); Seasonal allergic rhinitis due to pollen; Localized edema; Estrogen deficiency; Mixed hyperlipidemia (CMS/HCC); Benign essential hypertension (CMS/HCC); 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; Spinal stenosis of thoracic region; Obstructive sleep apnea; Spinal stenosis of lumbar region without neurogenic claudication; Other chronic pain Start: 07-31-2024 End: 07-31-2024 ambulatory KENDRA LANDAVERDE Not Available Start: 07-23-2024 End: 07-23-2024 Refill Magnolia العراقي MA [facility] Comment on above: Spinal stenosis of l umbar region without neurogenic claudication Start: 07-20-2024 End: 07-20-2024 Clinisync Result Encounter Bruno Mcdaniel MD Work Phone: [facility] Unsolicited Start: 07-20-2024 End: 07-20-2024 Clinisync Result Encounter Bruno Mcdaniel MD Work Phone: [facility] Unsolicited Start: 04-09-2024 End: 04-09-2024 Bamboo flowsheet Bruno [...] Available Start: 04-02-2024 End: 04-02-2024 Refill Jaclyn Bridgetthipolito RN ORTHOPAEDICS [facility] Comment on above: Spinal stenosis of l umbar region without neurogenic claudication Start: 07-13-2023 End: 07-13-2023 Office outpatient visit 25 minutes Bruno Mcdaniel MD Work Phone: [facility] Comment on above: Spinal stenosis of l umbar region without neurogenic claudication (Primary Dx); Encounter for screening mammogram for malignant neoplasm of breast; Benign essential hypertension (CMS/HCC); Mixed hyperlipidemia (CMS/HCC); Fibromyalgia Start: 09-25-2022 End: 09-25-[address] BRUNO MCDANIEL Facility:[facility] Start: 07-06-2022 End: 07-07-[address] KENDRA LANDAVERDE Facility:[facility] Procedures Date Procedure Procedure Detail Performing Clinician Start: 03-12-2025 Urnls dip stick/tabl et rgnt non-auto w/o micrscp Kendra STANFORD Work Phone: Start: 12-10-2024 URINARY TRACT INFECT ION (HTRX) Kendra STANFORD Work Phone: Start: 11-15-2024 MR SHOULDER LEFT W/O Angelita STANFORD Work Phone: Start: 09-17-2024 HM COLONOSCOPY Kendra STANFORD Work Phone: Start: 09-17-[address] [facility] Generic External Data Provider Start: 09-17-2024 Colonoscopy Cheng potter DO Work Phone: Start: 08-28-2024 Ecg routine ecg w/le ast 12 lds w/i&r Cheng Wilkersonterson DO Work Phone: Start: 07-20-2024 MM TOMOSYNTHESIS SCR EENING BI Bruno Mcdaniel MD Work Phone: Start: 07-20-2024 Mammography Bruno mccloud MD Work Phone: Start: 07-18-2023 Mammography Bruno mccloud MD Work Phone: Start: 04-07-2018 Colonoscopy Bruno mccloud MD Work Phone: Plan of Treatment Date Care Activity Detail Author Start: 09-17-2034 Screening for malignant neoplasm of colon [facility] Healthcare Start: 04-07-2028 Screening for malignant neoplasm of colon [facility] Healthcare Start: 02-28-2026 Adult BMI Screening Adult BMI Screening [facility] Start: 02-28-2026 Tobacco Screening Tobacco Screening [facility] Start: 07-31-2025 Medicare Annual Wellness (AWV) Medicare Annual Wellnes s (AWV) [facility] Start: 07-20-2025 Screening for malignant neoplasm of breast Mammogram [facility] Start: 05-02-2025 End: 05-02-2025 Patient encounter procedure 05/02/2025 2:30 PM EST [facility] [address] [place] [phone] Kendra Landaverde PA [address] [facility] [address] [place] [address] [facility] Start: 04-09-2025 End: 04-09-2025 Patient encounter procedure 04/09/2025 10:00 AM EDT Office Visit [facility] [address] [place] [address] Jitendra Yun PA [address] [place] [address] [facility] Start: 03-26-2025 End: 03-26-2025 Admission to same day surgery center 03/26/2025 12:30 PM EDT - 03/26/2025 2:45 PM EDT Surgery [facility] [address] [place] [address] Charlotte Olivera Jr., DO [address] [place] [address] ARTHROSCOPIC REPAIR ROTATOR CUFF SHOULDER [61878 (CPT )] [facility] Comment on above: ARTHROSCOPIC REPAIR ROTATOR CUFF SHOULDE R [52019 (CPT )] Start: 03-26-2025 End: 03-26-2025 Anesthesia consultation 03/26/2025 12:30 PM EDT Anesthesia Event [facility] [address] [place] [address] Thomas Geiger, DO [address] [place] [address] [facility] Start: 03-26-2025 End: 03-26-2025 Arthroscopy shoulder biceps tenodesis ARTHROSCOPIC TENODESIS BICEPS SHOULDER left shoulder internal derangement 03/26/2025 12:30 PM EDT [facility] Start: 03-26-2025 End: 03-26-2025 Arthroscopy shoulder rotator cuff repair ARTHROSCOPIC REPAIR ROTATOR CUFF SHOULDER left shoulder internal derangement 03/26/2025 12:30 PM EDT [facility] Start: 03-26-2025 Subsequent hospital visit by physician 03/26/2025 12:30 PM EDT Hospital Encounter [facility] [address] [place] [address] Charlotte Olivera Jr., DO [address] [place] [address] [facility] Start: 03-19-2025 End: 03-19-2025 Patient encounter procedure 03/19/2025 3:00 PM EDT Off ice Visit [facility] [place] [facility] [address] [place] [phone] Kendra Landaverde PA [address] [facility] [address] [place] [address] Arrived [facility] [place] [facility] Comment on above: Arrived Start: 03-19-2025 End: 03-19-2026 Ova and parasite screen Ova and parasite screen Microbiology Routine Loose stools Expected: 03/19/2025 (Approximate), Expires: 03/19/2026 [facility] Comment on above: Expected: 03/19/2025 (Approximate), Expi res: 03/19/2026 Start: 03-19-2025 End: 03-19-2026 Stool culture Stool culture Microbiology Routine Loose stools Expected: 03/19/2025 (Approximate), Expires: 03/19/2026 [facility] Work Phone: Comment on above: Expected: 03/19/2025 (Approximate), Expi res: 03/19/2026 Start: 03-15-2025 End: 03-15-2025 Patient encounter procedure [facility] Comment on above: Neoplasm of uncertain behavior of skin o f back Start: 03-12-2025 End: 03-12-2025 Patient encounter procedure [facility] Comment on above: Arrived Start: 03-12-2025 End: 03-12-2026 URINARY TRACT INFECTION (HTRX) URINARY TRACT INFECTION (HTRX) Lab Routine Dysuria Recurrent UTI Expected: 03/12/2025 (Approximate), Expires: 03/12/2026 [facility] Work Phone: Comment on above: Expected: 03/12/2025 (Approximate), Expi res: 03/12/2026 Start: 03-11-2025 End: 03-11-2025 Patient encounter procedure 03/11/2025 2:00 PM EDT Off ice Visit [facility] [place] [facility] [address] [place] [address] Edward Kohler, RANGE RIDER [address] [place], [place] [id number] [facility] Comment on above: Arrived Start: 03-05-2025 End: 03-05-2025 Patient encounter procedure 03/05/2025 1:30 PM EDT Off [facility] Visit [facility] [address] [place] [phone] Jitendra Yun PA [address] [place] [phone] [facility] Start: 02-11-2025 Influenza vaccination [facility] Start: 02-07-2025 End: 02-07-2025 ambulatory 02/07/2025 1:00 PM EDT Treatment [facility] [address] [place] [phone] Amanda Trejo, MOTOR LODGE CLERK [address] [place] [address] [facility] Start: 02-05-2025 End: 02-05-2025 ambulatory 02/05/2025 12:00 PM EDT Treatment [facility] [address] [place] [phone] Chelsea Estes PTA [facility] Start: 02-05-2025 End: 02-05-2025 Patient encounter procedure [facility] Comment on above: Arrived Start: 01-31-2025 End: 01-31-2025 ambulatory 01/31/2025 1:00 PM EDT Treatment [facility] [address] [place] [phone] Amanda Trejo, MOTOR LODGE CLERK [address] [place] [address] [facility] Start: 01-30-2025 End: 01-30-2025 Patient encounter procedure 01/30/2025 2:30 PM EDT Off ice Visit [facility] [place] [address] [place] [phone] Kendra Landaverde PA [address] [facility] [address] [place] [address] [facility] Start: 01-29-2025 End: 01-29-2025 Patient encounter procedure [facility] Start: 01-29-2025 End: 01-29-2025 ambulatory 01/29/2025 1:30 PM EDT Treatment [facility] [address] [place] [address] Chelsea Estes, MOTOR LODGE CLERK Acute pain of left shoulder (Primary Dx) [facility] Comment on above: Acute pain of left shoulder (Primary Dx) Start: 01-24-2025 End: 01-24-2025 ambulatory 01/24/2025 1:00 PM EDT Treatment [facility] [address] [place] [phone] Chelsea Estes MOTOR LODGE CLERK Arrived [facility] Comment on above: Arrived Start: 01-17-2025 End: 01-17-2025 ambulatory [facility] Comment on above: Acute pain of left shoulder Start: 01-08-2025 End: 01-08-2025 Patient encounter procedure [facility] Comment on above: Arrived Start: 10-30-2024 End: 10-30-2024 Patient encounter procedure 10/30/2024 2:30 PM EDT Off ice Visit [facility] [address] [facility] [address] [place] [address] Kendra Landaverde PA [address] [facility] [address] [place] [address] [facility] Start: 10-29-2024 End: 10-29-2024 Patient encounter procedure [facility] Comment on above: Arrived Start: 10-16-2024 End: 10-16-2025 MR Shoulder - left WO contrast MR shoulder left wo IV contrast Imaging Routine Internal derangement of left shoulder Chronic left shoulder pain Expected: 10/16/2024 (Approximate), Expires: 10/16/2025 [facility] Work Phone: Comment on above: Expected: 10/16/2024 (Approximate), Expi res: 10/16/2025 Start: 10-09-2024 Medicare Annual Wellness (AWV) Medicare Annual Wellnes s (AWV) [facility] Start: 09-26-2024 Administration of varicella zoster vaccine Zoster (Shingles) Vaccine (3 of 3) [facility] Start: 09-26-2024 Shingles vaccine (3 of 3) Shingles vaccine (3 of 3) [facility] Start: 09-17-2024 End: 09-17-2024 Admission to same day surgery center 09/17/2024 12:37 PM EDT - 09/17/2024 1:19 PM EDT Surgery [facility] [address] [place] [address] Cheng Dick, DO [address] [place], [place] [id number] COLONOSCOPY [facility] Comment on above: COLONOSCOPY Start: 09-17-2024 End: 09-17-2024 Colon ca scrn not hi rsk ind COLORECTAL CANCER SCREENI NG, NOT HIGH RISK Encounter for screening colonoscopy Nausea and vomiting 09/17/2024 12:37 PM EDT [facility] Start: 09-17-2024 End: 09-17-2024 Esophagogastroduodenoscopy transoral diagnostic ESOPHAGOGASTRODUODENOSCOPY Encounter for screening colonoscopy Nausea and vomiting 09/17/2024 12:37 PM EDT [facility] Start: 09-17-2024 Subsequent hospital visit by physician 09/17/2024 12:37 PM EDT Hospital Encounter [facility] [address] [facility] [place] [address] Cheng Dick, DO [address], [place] [id number] [facility] Start: 09-17-2024 End: 09-17-2024 Colon ca scrn not hi rsk ind COLORECTAL CANCER SCREENI NG, NOT HIGH RISK Encounter for screening colonoscopy Nausea and vomiting 09/17/2024 10:43 AM EDT [facility] Start: 09-17-2024 End: 09-17-2024 Esophagogastroduodenoscopy transoral diagnostic ESOPHAGOGASTRODUODENOSCOPY Encounter for screening colonoscopy Nausea and vomiting 09/17/2024 10:43 AM EDT [facility] Start: 08-28-2024 Annual Wellness Visit (Medicare) Annual Wellness Visit (Medicare) [facility] Start: 07-31-2024 End: 07-31-2024 Patient encounter procedure 07/31/2024 2:00 PM EST Off ice Visit [facility] [address] [place] [address] Kendra Landaverde PA [address] [place] [address] Arrived [facility] Comment on above: Arrived Start: 07-30-2024 End: 07-30-2024 Patient encounter procedure 07/30/2024 2:30 PM EST Off ice Visit [facility] [address] [place] [address] Bruno Mcdaniel MD [address] [place] [address] [facility] Start: 07-18-2024 Screening for malignant neoplasm of breast Mammogram [facility] Start: 07-06-2024 Screening for malignant neoplasm of breast Breast cancer screen [facility] Start: 07-02-2024 End: 07-02-2024 Patient encounter procedure 07/02/2024 3:00 PM EST Off ice Visit [facility] [address] [place] [address] Bruno Mcdaniel MD [address] [facility] [address] [place] [address] [facility] Start: 04-09-2024 End: 04-09-2024 Patient encounter procedure [facility] Comment on above: Arrived Start: 02-12-2024 COVID-19 Vaccine () COVID-19 Vaccine ( season) [facility] Start: 02-15-2017 Fall Risk Screening Fall Risk Screening [facility] Start: 2012 Respiratory Syncytial Virus (RSV) or age 60 yrs+ (1 - Risk 60-74 years 1-dose series) Respiratory Syncytial Virus (RSV) or age 60 yrs+ (1 - Risk 60-74 years 1-dose series) [facility] Start: 02-15-1997 Screening for malignant neoplasm of colon [facility] Start: 02-15-1971 DTaP,Tdap and Td Vaccines (1 - Tdap) DTaP,Tdap and Td Vaccines (1 - Tdap) [facility] Start: 02-15-1971 DTaP/Tdap/Td vaccine (1 - Tdap) DTaP/Tdap/Td vaccine (1 - Tdap) [facility] Start: 02-15-1970 Adult BMI Follow Up Plan Adult BMI Follow Up Plan [facility] Start: 02-15-1970 Hepatitis C screening Hepatitis C screen [facility] Start: 1964 Depression Screen Depression Screen [facility] Start: 1964 Depression Screening Depression Screening [facility] Start: 02-15-1962 Lipid panel Lipids [facility] Start: 1952 Screening for malignant neoplasm of colon [facility] Pathology study Surgical Patholo gy Lab Routine Encounter for screening colonoscopy Nausea and vomiting Release Upon Ordering for 1 Occurrences starting 09/17/2024 [facility] [place] Work Phone: Comment on above: Release Upon Ordering for 1 Occurrences starting 09/17/2024 End: 09-17-2024 SURGICAL PATHOLOGY REPORT SURGICAL PATHOLOGY REPORT La b Routine Once for 1 Occurrences starting 09/17/2024 until 09/17/2024 [facility] Comment on above: Once for 1 Occurrences starting 09/18/19 until 09/17/2024 XR Shoulder - left 2 Views XR sh oulder 2+ views left Imaging Routine Acute pain of left shoulder 01/08/2025 11:23 AM EDT [facility] [employer] Work Phone: Immunizations Immunization Date Immunization Notes Care Provider Nasir zafar 08-01-2024 zoster vaccine recombinant Kendra STANFORD Work Phone: [facility] 08-01-2024 zoster vaccine, unspecified formulation [facility] 2 [facility] 02-23-2024 influenza, high dose seasonal, preservative-free Bruno Mcdaniel MD Work Phone: [facility] 02-23-2024 influenza virus vacc ine, unspecified formulation Jr. Olivera DO Work Phone: [facility] 03-15-2023 Influenza, High-dose Seasonal, Quadrivalent, Preservative Free Bruno Mcdaniel MD Work Phone: [facility] 05-28-2021 Seasonal, quadrivale nt, recombinant, injectable influenza vaccine, preservative free Bruno Mcdaniel MD Work Phone: [facility] 04-21-2020 influenza, high dose seasonal, preservative-free Bruno Mcdaniel MD Work Phone: [facility] 03-22-2019 influenza, high dose seasonal, preservative-free Bruno Mcdaniel MD Work Phone: [facility] 03-23-2018 influenza, high dose seasonal, preservative-free Bruno Mcdaniel MD Work Phone: [facility] 04-21-2017 pneumococcal polysaccharide vaccine, 23 valent Bruno Mcdaniel MD Work Phone: [facility] 03-24-2017 seasonal influenza, intradermal, preservative free Bruno Mcdaniel MD Work Phone: [facility] 02-26-2016 influenza virus vacc ine, unspecified formulation Bruno Mcdaniel MD Work Phone: [facility] 02-26-2016 influenza, injectabl e, quadrivalent, contains preservative Bruno Mcdaniel MD Work Phone: [facility] 03-25-2015 influenza virus vacc ine, unspecified formulation Bruno Mcdaniel MD Work Phone: [facility] 03-25-2015 influenza, injectabl e, quadrivalent, preservative free Bruno Mcdaniel MD Work Phone: [facility] 03-25-2015 pneumococcal conjuga te vaccine, 13 valent Bruno Mcdaniel MD Work Phone: [facility] 04-12-2014 zoster vaccine, live Bruno Mcdaniel MD Work Phone: [facility] 02-11-2014 influenza virus vacc ine, unspecified formulation Bruno Mcdaniel MD Work Phone: [facility] 02-11-2014 influenza, seasonal, injectable Bruno Mcdaniel MD Work Phone: [facility] 03-15-2011 pneumococcal polysaccharide vaccine, 23 tarik Mcdaniel MD Work Phone: [facility] Healthcare Payers Date Payer Category Payer Medicare HMO [employer] [id number] 2023 Medicare (Managed Care) [employer] [id number] 2023 Unknown [id number]. [id number] 2018 Medicaid [id number] 2007 Medicare MEDICARE MEDICAR E PART B [id number] 2007-[address] [place] [address] Medicare [id number] 1959 Medicaid [id number] 1959 Medicare [id number] 1952 Unknown [id number] 2.16.840.1.482635.3.579.2. 593 1952 Unknown [id number] 2.16.840.1.649624.3.579.2. 593 1952 Unknown [id number] 2.16.840.1.091829.3.579.2. 173 1952 Unknown [id number] 2.16.840.1.732420.3.579.2. 174 1952 Unknown [id number] 2.16.840.1.033368.3.579.2. 1286 1952 Unknown [id number] 2.16.840.1.718315.3.579.2. 1286 1952 Unknown [id number] 2.16.840.1.472791.3.579.2. 1286 1952 Unknown [id number] 2.16.840.1.496347.3.579.2. 1259 1952 Unknown [id number] 2.16.840.1.232705.3.579.2. 1259 1952 Unknown [id number] 2.16.840.1.246962.3.579.2. 1259 1952 Unknown [id number] 2.16.840.1.280968.3.579.2. 1259 1952 Unknown [id number] 2.16.840.1.389266.3.579.2. 9 1952 Unknown [id number] 2.16.840.1.178122.3.579.2. 1258 1952 Unknown [id number] 2.16.840.1.980151.3.579.2. 1258 1952 Unknown [id number] 2.16.840.1.553652.3.579.2. 1258 1952 Unknown [id number] 2.16.840.1.602960.3.579.2. 1258 1952 Unknown [id number] 2.16.840.1.321725.3.579.2. 1258 1952 Unknown [id number] 2.16.840.1.704584.3.579.2. 1258 1952 Unknown [id number] 2.16.840.1.955470.3.579.2. 1258 1952 Unknown [id number] 2.16.840.1.105153.3.579.2. 1258 1952 Unknown [id number] 2.16.840.1.148668.3.579.2. 1258 1952 Unknown [id number] 2.16.840.1.768340.3.579.2. 1258 1952 Unknown [id number] 2.16.840.1.123581.3.579.2. 1259 Social History Date Type Detail Facility Start: 11-05-2022 End: 03-11-2025 Tobacco smoking status MIIS Ex-smoker [facility] End: 06-13-2002 History of tobacco use Current smoker [facility] End: 06-13-2002 History of tobacco use Cigarette Smoker [facility] Start: 11-05-2022 End: 03-11-2025 Tobacco use and exposure Smokeless tobacco non-user [facility] Start: 07-13-2023 End: 03-19-2025 Alcoholic beverage intake Ex-drinker (finding) [facility] Start: 11-10-2022 End: 01-09-2024 History of Social function [facility] Start: 11-10-2022 End: 01-09-2024 [id number] Health Literacy [...] Not at all [facility] (I/We) worried whejose alfredo er (my/our) food would run out before (I/we) got money to buy more. Never true [facility] Start: 04-26-2023 Alcohol Comment Caffeine intak e: coffee, soda [facility] Start: 1950 Sex assigned at Not on file [facility] Start: 02-27-2020 End: 08-28-2024 Tobacco smoking status NHIS Never smoked tobacco [facility] Start: 11-15-2012 End: 01-16-2015 Sex Female (finding) [facility] How often do you nee d to have someone help you when you read instructions, pamphlets, or other written material from your doctor or pharmacy [SILS] Rarely [facility] Are you now , , , , never or living with a partner? Living with partner [facility] Do you feel stress - tense, restless, nervous, or anxious, or unable to sleep at night because your mind is troubled all the time - these days [OSQ] Only a little [facility] Goals Date Patient Goal Desired Activity /State Personal health goal Comment on above: Formatting of this n ote might be different from the original. Evaluation of progress towards goal: Safe dc transition from hospital to home with family support. Personal health goal Functional Status Date Assessment Result Facility 03-19-2025 Patient Health Quest ionnaire 2 item (PHQ-2) [Reported] [facility] 03-12-2025 Patient Health Quest ionnaire 2 item (PHQ-2) [Reported] [facility] 01-30-2025 Patient Health Quest ionnaire 2 item (PHQ-2) [Reported] [facility] 10-29-2024 Patient Health Quest ionnaire 2 item (PHQ-2) [Reported] [facility] 10-16-2024 Patient Health Quest ionnaire 2 item (PHQ-2) [Reported] [facility] Clinical Notes 07-13-2023 to 03-19-2025 ABDOULAYE Wright - 03/19/2025 3:00 PM ABDOULAYE Rankin - 03/15/2025 12:40 PM ABDOULAYE Kraft - 03/12/2025 2:30 PM Kane Kohler NP - 03/11/2025 2:00 PM EDTPatient Instructions Note Date & Type Note Facility 03-19-2025 History of Present illness Narrative Images from the original note were not included. Subjective Patient ID: Nahed Walker is a 75 y.o. female who presents for loose stools. Nahed is present today for follow up loose stools. She was seen for this on 03/12/25 and was rx'd hydrocortisone rectal cream. She states she is still using hydrocortisone cream and it does help with the soreness, that is just about gone, but is still having off/on loose stools/diarrhea. Some days she goes to the bathroom all day, alternating normal and loose stools, and other days she doesn't. She has taken Imodium and that helps. States sometimes after taking an Imodium she won't have a BM for a few days. Has cut the Dicyclomine down to three times a day and initially thought that might be helping, but isn't sure. She is just concerned d/t she is scheduled for shoulder surgery on 03/26/25 and wants to make sure she can still have the surgery. States she does not feel sick. Takes two different probiotics. Over the past 2 weeks, how often have you been bothered by any of the following problems? Little interest or pleasure in doing things: Not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 No changes in treatment are suggested at this time. Girard and Baclofen prn. 14. Ganglion of tendon sheath This is a chronic medical condition that is stable since last assessment. Will continue to monitor. 15. Lumbar disc herniation This is a chronic medical condition that is stable since last assessment. No changes in treatment are suggested at this time. Girard and Baclofen prn. 16. Myalgia This is a chronic medical condition that is stable since last assessment. No changes in treatment are suggested at this time. Girard and Baclofen prn. 17. Primary osteoarthritis involving multiple joints This is a chronic medical condition that is stable since last assessment. No changes in treatment are suggested at this time. 18. Moderate protein-calorie malnutrition (CMS/HCC) Aim for balanced diet. Adequate protein. 19. Morbid obesity (CMS/HCC) Pt has lost 22 pounds since her last appt. This has been unintentional weight loss due to GI issues. Encouraged healthy diet. Will monitor. 20. Seasonal allergic rhinitis due to pollen This is a chronic medical condition that is stable since last assessment. No changes in treatment are suggested at this time. Continue Singulair, Claritin, Benadryl. 21. Localized edema This is a chronic medical condition that is stable since last assessment. No changes in treatment are suggested at this time. Continue Lasix, hydrochlorothiazide. No swelling on exam today. 22. Estrogen deficiency This is a chronic medical condition that is stable since last assessment. No changes in treatment are suggested at this time. Will continue to monitor with routine preventative screenings. 23. Mixed hyperlipidemia (CMS/HCC) This is a chronic medical condition that is stable since last assessment. No changes in treatment are suggested at this time. Will continue to monitor with routine labs. 24. Benign essential hypertension (CMS/HCC) Patient's blood pressure is currently well controlled. Continue with current medications and I will continue to monitor. Goal BP remains less than 130/80. 25. 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 No changes in treatment are suggested at this time. 26. Spinal stenosis of thoracic region This is a chronic medical condition that is stable since last assessment. No changes in treatment are suggested at this time. Girard and Baclofen prn. 27. Obstructive sleep apnea This is a chronic medical condition that is stable since last assessment. No changes in treatment are suggested at this time. 28. Spinal stenosis of lumbar region without neurogenic claudication Medication choice and dosage is appropriate for patient's current medical conditions. Patient will continue to be required to be seen in our office at least every three months for monitoring. At each follow up visit I will reassess the patient's need for the medication. Patient is to have this medication prescribed only through this office. Failure to follow the rules and regulations will result in tapering and discontinuation of medications if applicable. Patient verbalized understanding. OARRS Report was reviewed for this patient. 29. Other chronic pain Pain Management agreement reviewed with patient and signed by both patient and provider. A copy of the signed agreement was offered to the patient. Reviewed the potential risks of opioid therapy including potential for [employer]ER s/e, GI s/e, respiratory s/e, dermatologic s/e, and urinary s/e, in addition to potential for allergic reaction, tolerance of the medication, dependence on the medication, potential for withdrawal with abrupt cessation, and potential for addiction. Also reviewed patient responsibilities regarding opioid therapy, and reasons why medication may need to be discontinued. See Chronic Opioid Therapy Agreement document for complete details. Follow up in about 3 months (around 10/28/2024) for Medicare Wellness Visit. Kendra URIBE PA-C documented in this encounter [facility] 04-09-2024 History of Present illness Narrative Images from the original note [...] TUESDAY, AND TUESDAY 13 tablet 10 HYDROcodone-acetaminophen (Girard) 10-325 MG tablet Take 0.5-1 tablets by [...] Right TUBAL LIGATION Bilateral 1976 Visit Vitals BP 130/75 Pulse 81 Resp [...] Wellness, Perform Labwork. documented in this encounter [facility] 07-13-2023 History of Present illness Narrative Subjective Patient ID: Nahed Walker [...] time. On Tuesday, Tuesday, and Tuesday HYDROcodone-acetaminophen (Girard) 5-325 MG tablet Take 1-2 tablets by [...] Past Surgical History: Procedure Laterality Date APPENDECTOMY 1998 ARTHROCENTESIS ASPIR/INJECTION LARGE JOINT X US GUIDE right knee joint BLADDER SURGERY 1998 bladder plication CARDIAC CATHETERIZATION 01/12/2016 CARPAL TUNNEL RELEASE Right CHOLECYSTECTOMY COLONOSCOPY 2012 COLONOSCOPY W/ BIOPSIES 2009 EXPLORATORY LAPAROTOMY 02/27/2020 LEIDY-Wiecek HYSTERECTOMY 1998 OTHER SURGICAL HISTORY chemotherapy;Disease:Squamous Cell of Anal Canal TOTAL KNEE ARTHROPLASTY Left 2006 TRIGGER FINGER RELEASE Right TUBAL LIGATION Bilateral 1975 Visit Vitals Smoking Status Former Review of Systems Objective Physical Exam Assessment/Plan No follow-ups on file. documented in this encounter [facility] Healthcare Evaluation note Diagnosis Spinal stenosis of lumbar region without neurogenic claudication- Primary Encounter for screening mammogram for malignant neoplasm of breast Benign essential hypertension (CMS/HCC) Essential hypertension, benign Mixed hyperlipidemia (CMS/HCC) Mixed hyperlipidemia Fibromyalgia Unspecified myalgia and myositis documented in this encounter [facility] HealthcareEvaluation note* Diagnosis Spinal stenosis of lumbar region without neurogenic claudication documented in this encounter [facility] Diagnosis Spinal stenosis of lumbar region without neurogenic claudication- Primary Recurrent UTI Urinary tract infection, site not specified Radiation proctitis Other specified disorder of rectum and anus Lumbar disc herniation Displacement of lumbar intervertebral disc without myelopathy documented in this encounter [facility] note* Diagnosis Spinal stenosis of lumbar region without neurogenic claudication documented in this encounter [facility]* Diagnosis Medicare annual wellness visit, subsequent- Primary ACP (advance care planning) Other specified counseling Recurrent UTI Urinary tract infection, site not specified Nausea Nausea alone Acute pain of left shoulder Gastroesophageal reflux disease, unspecified whether esophagitis present History of anal cancer Radiation proctitis Other specified disorder of rectum and anus 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 Chronic cystitis Other chronic cystitis Arthritis of left elbow Fibromyalgia Unspecified myalgia and myositis Ganglion of tendon sheath Lumbar disc herniation Displacement of lumbar intervertebral disc without myelopathy Myalgia Unspecified myalgia and myositis Primary osteoarthritis involving multiple joints Moderate protein-calorie malnutrition (CMS/HCC) Morbid obesity (CMS/HCC) Morbid obesity Seasonal allergic rhinitis due to pollen Localized edema Edema Estrogen deficiency Other ovarian failure Mixed hyperlipidemia (CMS/HCC) Mixed hyperlipidemia Benign essential hypertension (CMS/HCC) Essential hypertension, benign 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 Spinal stenosis of thoracic region Obstructive sleep apnea Obstructive sleep apnea (adult) (pediatric) Spinal stenosis of lumbar region without neurogenic claudication Other chronic pain documented in this encounter [facility]* Diagnosis Encounter for screening colonoscopy Special screening for malignant neoplasms, colon Nausea and vomiting Nausea with vomiting Essential hypertension Unspecified essential hypertension Encounter for screening colonoscopy Special screening for malignant neoplasms, colon Nausea and vomiting Nausea with vomiting documented in this encounter [facility]* Diagnosis Encounter for screening colonoscopy Special screening for malignant neoplasms, colon Nausea and vomiting Nausea with vomiting [facility]* Diagnosis Internal derangement of left shoulder- Primary Chronic left shoulder pain Pain in joint, shoulder region documented in this encounter [facility]* Diagnosis Internal derangement of left shoulder- Primary Chronic left shoulder pain Pain in joint, shoulder region Atypical chest pain Other chest pain Benign essential hypertension (CMS/HCC) Essential hypertension, benign Chronic superficial gastritis without bleeding documented [facility] this encounter [facility]* Diagnosis Recurrent UTI- Primary Urinary tract infection, site not specified documented in this encounter [facility]* Diagnosis Spinal stenosis of lumbar region without neurogenic claudication documented in this encounter [facility]* Diagnosis Sprain of left rotator cuff capsule, initial encounter- Primary Acute pain of left shoulder documented in this encounter [facility]* Diagnosis Acute pain of left shoulder- Primary documented in this [facility]* Diagnosis Acute pain of left shoulder- Primary documented in this [facility]* Diagnosis Benign essential hypertension- Primary Essential hypertension, benign Recurrent UTI Urinary tract infection, site not specified Spinal stenosis of lumbar region without neurogenic claudication Neoplasm of uncertain behavior of skin of back documented in this encounter [facility]* Diagnosis Acute pain of left shoulder- Primary documented in this encounter [facility]* Diagnosis Acute pain of left shoulder- Primary Sprain of left rotator cuff capsule, initial encounter documented in this encounter [facility]* Diagnosis Preop examination- Primary Unspecified pre-operative examination Hypertension, unspecified type Preop examination Unspecified pre-operative examination Hypertension, unspecified type [facility] Diagnosis Pre-op evaluation- Primary documented in this encounter [facility]* Diagnosis Recurrent UTI- Primary Urinary tract infection, site not specified Dysuria Spinal stenosis of lumbar region without neurogenic claudication Chronic superficial gastritis without bleeding Ulcerative proctocolitis (HCC) Loose stools Abnormal feces documented in this encounter [facility]* Diagnosis Seborrheic keratosis- Primary documented in this encounter [facility]* Diagnosis Loose stools- Primary Abnormal feces Radiation proctitis Other specified disorder of rectum and anus documented in this encounter [facility] for visit Narrative* Auth/Cert Specialty Diagnoses / Procedures Referred By Dominick paige Referred To Contact Diagnoses Encounter for screening colonoscopy Nausea and vomiting Procedures DE COLON CA SCRN NOT HI RSK IND DE ESOPHAGOGASTRODUODENOSCOPY TRANSORAL DIAGNOSTIC DE EGD TRANSORAL BIOPSY SINGLE/MULTIPLE DE EGD BALLOON DILATION ESOPHAGUS <30 MM DIAM DE COLONOSCOPY FLX DX W/COLLJ SPEC WHEN PFRMD DE COLONOSCOPY W/BIOPSY SINGLE/MULTIPLE DE COLSC FLX W/RMVL OF TUMOR POLYP LESION SNARE TQ DE COLORECTAL SCRN; HI RISK IND COLORECTAL CANCER SCREENING, NOT HIGH RISK ESOPHAGOGASTRODUODENOSCOPY Cheng Dick, DO [address] [place] [address] Phone: tel: fax: [facility] [address] [place] [address] Referral ID Status Reason Start Date Expiration Date Visits Re quested Visits Authorized [id number] 1 1 [facility] for visit Narrative* Consultation (Routine) - Pending Review Specialty Diagnoses / Procedures Referred By Dominick paige Referred To Contact Physical Therapy Diagnoses Acute pain of left shoulder Procedures DE OFFICE/OUTPATIENT NEW HIGH MDM 60 MINUTES Jr. Charlotte Olivera, DO [address] [place] [address] Phone: tel: fax: Charity Pinon, PT [address] [place] [address] Phone: tel: fax: Referral ID Status Reason Start Date Expiration Date Visits Requested Visits Authorized [id number] Pending Review Consult and Treat 01/08/2025 07/07/2025 1 1 [facility] Consultation (Routine) - Authorized Specialty Diagnoses / Procedures Referred By Dominick paige Referred To Contact Physical Therapy Diagnoses Acute pain of left shoulder Procedures DE OFFICE/OUTPATIENT NEW HIGH MDM 60 MINUTES Jr. Charlotte Olivera, DO [address] [facility] [address] [place] [address] Phone: tel: fax: Charity Pinon, PT [address] [facility] [place] [address] Phone: tel: fax: Referral ID Status Reason Start Date Expiration Date Visits Requested Visits Authorized [id number] Authorized Consult and Treat 01/08/2025 07/07/2025 12 12 [facility] Summary Purpose Family History No Family History Records FoundNo Family History Records FoundNo Family History Records FoundNo Family History Records FoundNo Family History Records FoundNo Family History Records FoundNo Family History Records Found Advance Directives Date Activated Date Inactivated Comments 03/12/2020 8:15 PM 03/17/2020 5:02 PM Date Activated Date Inactivated Comments 02/27/2020 6:36 AM 03/12/2020 7:13 PM Additional Source Comments INFORMATION SOURCE (unrecogn ized section and content) DATE CREATED AUTHOR 04/05/2019 [facility] DATE CREATED AUTHOR AUTHOR'S ORGANIZ ATION 05/29/2021 [facility] dical Specialist DATE CREATED AUTHOR AUTHOR'S ORGANIZ ATION 09/28/2022 [facility] DATE CREATED AUTHOR AUTHOR'S ORGANIZ ATION 08/30/2024 [facility] DATE CREATED AUTHOR AUTHOR'S ORGANIZ ATION 09/22/2024 [facility] DATE CREATED AUTHOR AUTHOR'S ORGANIZ ATION 03/01/2025 [facility] DATE CREATED AUTHOR AUTHOR'S ORGANIZ ATION 03/17/2025 [facility] dical Specialists EPIC Care Teams (unrecognized sec tion and content) Pi/Senior Research Associate Relationship Specialty Start Date End Date Bruno Mcdaniel MD [address] [place] [address] PCP - General Internal Medicine 10/27/22 Pi/Senior Research Associate Relationship Specialty Start Date End Date Bruno Mcdaniel MD [address] [place] [address] PCP - General Internal Medicine 10/27/22 Bruno Mcdaniel MD [address] [place] [address] PCP - ACO Reach 08/12/23Tuesday, Magdalene, RN ORTHOPAEDICS [address] [place] [address] Licensed Practical Nurse Family Medicine 03/09/24 Pi/Senior Research Associate Relationship Specialty Start Date End Date Bruno Mcdaniel MD [address] [place] [address] PCP - General Internal Medicine 10/27/22 Bruno Mcdanile MD [address] [place] [address] PCP - ACO Reach 08/12/23Tuesday, Magdalene, RN ORTHOPAEDICS [address] [place] [address] Licensed Practical Nurse Family Medicine 03/09/24 Pi/Senior Research Associate Relationship Specialty Start Date End Date Bruno Mcdaniel MD [address] [place] [address] PCP - General Internal Medicine 10/27/22 Bruno Mcdaniel MD [address] [place] [address] PCP - ACO Reach 08/12/23Tuesday, Magdalene, RN ORTHOPAEDICS [address] [place] [address] Licensed Practical Nurse Family Medicine 03/09/24 Pi/Senior Research Associate Relationship Specialty Start Date End Date Bruno Mcdaniel MD [address] [place] [address] PCP - General Internal Medicine 10/27/22 Bruno Mcdaniel MD [address] [place] [address] PCP - ACO Reach 08/12/23Tuesday, VITALIY Del CastilloN [address] [place] [address] Licensed Practical Nurse Family Medicine 03/09/24 Pi/Senior Research Associate Relationship Specialty Start Date End Date Bruno Mcdaniel MD [address] [place] [address] PCP - General Internal Medicine 10/27/22 Magnolia Alva, MADELEINE Licensed Practical Nurse Family Medicine 07/20/24 Pi/Senior Research Associate Relationship Specialty Start Date End Date Bruno Mcdaniel MD [address] [place] [address] PCP - General Internal Medicine 10/27/22 Bruno Mcdaniel MD [address] [place] [address] PCP - ACO Reach 07/27/24 Magnolia Alva, RN Licensed Practical Nurse Family Medicine 07/20/24 Pi/Senior Research Associate Relationship Specialty Start Date End Date Bruno Mcdaniel MD [address] [place] [address] PCP - General Internal Medicine 10/27/22 Bruno Mcdaniel MD [address] [place] [address] PCP - ACO Reach 07/27/24 Magnolia Alva RN Licensed Practical Nurse Family Medicine 07/20/24 Pi/Senior Research Associate Relationship Specialty Start Date End Date Bruno Mcdaniel MD [address] [place] [address] PCP - General Internal Medicine 08/13/24 Pi/Senior Research Associate Relationship Specialty Start Date End Date Bruno Mcdaniel MD [address] [place] [address] PCP - General Internal Medicine 08/13/24 Pi/Senior Research Associate Relationship Specialty Start Date End Date Bruno Mcdaniel MD [address] [place] [address] PCP - General Internal Medicine 10/27/22 Chio Boothe LPN 08/31/24 Pi/Senior Research Associate Relationship Specialty Start Date End Date Bruno Mcdaniel MD [address] [place] [address] PCP - General Internal Medicine 10/27/22 Chio Boothe LPN 08/31/24 Pi/Senior Research Associate Relationship Specialty Start Date End Date Bruno Mcdaniel MD [address] [place] [address] PCP - General Internal Medicine 10/27/22 Chio Boothe LPN 08/31/24 Pi/Senior Research Associate Relationship Specialty Start Date End Date Bruno Mcdaniel MD [address] [place] [address] PCP - General Internal Medicine 10/27/22 Chio Boothe, SUZANNA 08/31/24 Pi/Senior Research Associate Relationship Specialty Start Date End Date Bruno Mcdaniel MD [address] [place] [address] PCP - General Internal Medicine 10/27/22 Chio Boothe, RN ORTHOPAEDICS 08/31/24 11/09/24 Pi/Senior Research Associate Relationship Specialty Start Date End Date Bruno Mcdaniel MD [address] [place] [address] PCP - General Internal Medicine 10/27/22 Pi/Senior Research Associate Relationship Specialty Start Date End Date Bruno Mcdaniel MD [address] [place] [address] PCP - General Internal Medicine 10/27/22 Pi/Senior Research Associate Relationship Specialty Start Date End Date Bruno Mcdaniel MD [address] [place] [address] PCP - General Internal Medicine 10/27/22 Pi/Senior Research Associate Relationship Specialty Start Date End Date Bruno Mcdaniel MD [address] [place] [address] PCP - General Internal Medicine 10/27/22 Pi/Senior Research Associate Relationship Specialty Start Date End Date Bruno Mcdaniel MD [address] [place] [address] PCP - General Internal Medicine 10/27/22 Pi/Senior Research Associate Relationship Specialty Start Date End Date Bruno Mcdaniel MD [address] [place] [address] PCP - General Internal Medicine 10/27/22 Pi/Senior Research Associate Relationship Specialty Start Date End Date Bruno Mcdaniel MD [address] [place] [address] PCP - General Internal Medicine 10/27/22 Pi/Senior Research Associate Relationship Specialty Start Date End Date Bruno Mcdaniel MD [address] [place] [address] PCP - General Internal Medicine 10/27/22 Pi/Senior Research Associate Relationship Specialty Start Date End Date Bruno Mcdaniel MD [address] [place] [address] PCP - General Internal Medicine 10/27/22 Pi/Senior Research Associate Relationship Specialty Start Date End Date Bruno Mcdaniel MD [address] [place] [address] PCP - General Internal Medicine 10/27/22 Pi/Senior Research Associate Relationship Specialty Start Date End Date Bruno Mcdaniel MD [address] [place] [address] PCP - General Internal Medicine 10/27/22 Pi/Senior Research Associate Relationship Specialty Start Date End Date Bruno Mcdaniel MD [address] [place] [address] PCP - General Internal Medicine 10/27/22 Pi/Senior Research Associate Relationship Specialty Start Date End Date Bruno Mcdaniel MD [address] [place] [address] PCP - General Internal Medicine 10/27/22 Pi/Senior Research Associate Relationship Specialty Start Date End Date Bruon Mcdaniel MD [address] [place] [address] PCP - General Internal Medicine 02/27/20 Pi/Senior Research Associate Relationship Specialty Start Date End Date Bruno Mcdaniel MD [address] [facility] [address] [place] [address] PCP - General Internal Medicine 10/27/22 Pi/Senior Research Associate Relationship Specialty Start Date End Date Bruno Mcdaniel MD [address] [facility] [address] [place] [address] PCP - General Internal Medicine 10/27/22 Pi/Senior Research Associate Relationship Specialty Start Date End Date Bruno Mcdaniel MD [address] [facility] [address] [place] [address] PCP - General Internal Medicine 10/27/22 Pi/Senior Research Associate Relationship Specialty Start Date End Date Bruno Mdcaniel MD [address] [facility] [address] [place] [address] PCP - General Internal Medicine 10/27/22 Pi/Senior Research Associate Relationship Specialty Start Date End Date Bruno Mcdaniel MD [address] [facility] [address] [place] [address] PCP - General Internal Medicine 10/27/22 Reason for Visit (unrecogniz ed section and content) Reason Onset Date Comments Med Refill 04/02/2024 Reason Onset Date Comments Med Refill 07/23/2024 Reason Comments Med Refill Ondansetron, Bactrim Reason Comments Shoulder Pain Left shoulder is sti ll bothering her. MRI was ordered last o/v for [facility] but she has not heard anything from [facility]. Has been exercising it and it has improved her ROM. Using roll on Aspercreme or Biofreeze. Pain is worst at night. Reason Onset Date Comments Med Refill 11/12/2024 Reason Comments Pain Reason Comments Med Refill Bactrim, Lisinopril, Amlodipine Suspicious Skin Lesion She has some mole s on her back she would like for you to look at, they do not bother her but wants to make sure they don't need to be removed. A few have gotten bigger Reason Comments Pain Reason Onset Date Comments having mole removed March 15, 2025 02/25/2025 Reason Comments Pre-op Visit Reason Comments burning with urination Had this a little last week. Has shoulder surgery scheduled for 03/26/25 and wants to make sure she doesn't have an infection. Med Refill Hydrocodone Reason Comments Suspicious Skin Lesion Specialty Diagnoses / Procedures Referred By Contac t Referred To Contact Dermatology Diagnoses Neoplasm of uncertain behavior of skin of back Procedures DE OFFICE/OUTPATIENT NEW HIGH MDM 60 MINUTES Kendra Landaverde PA [address] [place] [address] Phone: tel: fax: Savana Velez MD [address] [place] [address] Phone: tel: fax: Referral ID Status Reason Start Date Expiration Date V isits Requested Visits Authorized [id number] Closed Specialty Services Required 01/30/2025 07/29/2025 1 1 Continuous Active and Recently Administ ered Medications (unrecognized section and content) Medication Order 09/15/2024 09/16/2024 09/17/2024 lactated ringers infusion IntraVENous, at 100 mL/hr, CONTINUOUS, Starting on Tue09/17/24 at 1000, Pre-op (day of surgery) 1043 (New Bag - Prov ider: PINO Frank CRNA)1124 (Anesthesia Volume Adjustment - Provider: PINO Frank CRNA) FOR RECORDS PERTAINING TO PATIENTS WHO ARE [...] BE BASED ON THE PRIMARY CLINICAL RECORDS. [employer] provides no warranty or guarantee of the accuracy or completeness of information in this document.
== END 2025-03-21 12:20 | disposition home or self-care (01) ==
LOC: LAB 12:19
PROVIDERS: PCP Internal Medicine; Visit Provider Physician Assistant
DX: R19.5 Other fecal abnormalities (principal)
CPT/HCPCS: 87045; 87046; 87177; 87209; 87427

== ENCOUNTER 2025-03-22 09:12 | Outpatient (REF) | payer OTHER, MEDICAID, SELFPAY ==
--- OUTSIDE RECORDS SUMMARY | 2025-03-22 09:32 | XMS_ITS | CCD ---
Author Organization [facility] Care Team Providers Care Derivatives Trader Name Role Phone DR BRUNO MCDANIEL Primary Care Unavailable SAMI, DR ISHAN Molina Admitting Unavailabl e REINSOWMYA, DR ISHAN Molina Attending Unavailabl e SAMI, DR ISHAN Molina Consulting Unavailabl e HEMMER, DR KENDRA Diaz Admitting Unavailable HEMBOO, DR KENDRA Diaz Attending Unavailable ERICK, DR TOM Primary Care Unavailable DAKSHA, DR JENNIFER Mckinney Consulting Unavailable SAIMA, DR KENDRA Diaz Consulting Unavailable Bruno Mcdaniel MD Primary Care Provider Bruno Mcdaniel MD Unavailable [phone] DRY CLEANING COUNTER CLERK, Magdalene Unavailable Melody Alva RNher Unavailable [phone] Bruno Mcdaniel MD Unavailable Bruno Mcdaniel MD Primary Care Provider CHENG DICK Referring Unavailable BRUNO MCDANIEL Primary Care Unavailable Boothe DRY CLEANING COUNTER CLERK, Chio Unavailable Unavailable CHENG DICK Admitting Unavailable CHENG DICK Attending Unavailable BRUNO MCDANIEL Primary Care Unavailable [place] DRY CLEANING COUNTER CLERK, Chio Unavailable Unavailable BRUNO MCDANIEL Referring Unavailable BRUNO MCDANIEL Primary Care Unavailable BRUNO MCDANIEL Referring Unavailable BRUNO MCDANIEL Primary Care Unavailable BRUNO MCDANIEL Referring Unavailable BRUNO MCDANIEL Primary Care Unavailable Bruno Mcdaniel MD Primary Care Provider KENDRA LANDAVERDE Attending Unavailable SAM ATKINSON Attending Unavailable KENDRA LANDAVERDE Referring Unavailable BRUNO MCDANIEL Attending Unavailable KENDRA LANDAVERDE Attending Unavailable EDWARD KOHLER Attending Unavailable JR. OLIVERA GEORGE C Attending Unavaila CHARITY Cazares Attending Unavailable STEPJR. CESARIO, CHARLOTTE Rubalcava Referring Unavaila ble CHELSEA ESTES Attending Unavailable STEPJR. CESARIO, CHARLOTTE Rubalcava Referring Unavaila ble CHELSEA ESTES Attending Unavailable STEPJR. CESARIO, CHARLOTTE Rubalcava Referring Unavaila ble CHARITY PINON Attending Unavailable STEPJR. CESARIO, CHARLOTTE Rubalcava Referring Unavaila ble STEPJR. CESARIO, CHARLOTTE Rubalcava Referring Unavaila ble STEPJR. CESARIO, CHARLOTTE Rubalcava Attending Unavaila ble HEMMERKENDRA Attending Unavailable HEMMERKENDRA Attending Unavailable HEMMERKENDRA Attending Unavailable HEMMERKENDRA Attending Unavailable Allergies Allergy Classification Reported Allergen(s) Allergy Type Date of Onset Reaction(s) Facility (1 source) Acetaminophen / oxyCODONE Drug Allergy 04-11-20 13 [facility] Repository (2 sources) Codeine; 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: [CODEINE] Drug Allergy 04-11-20 13 [facility] Repository (2 sources) Cortisone; 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: [CORTISONE] Drug Allergy 04-11-20 13 [facility] Repository (1 source) diazePAM Drug Allergy 04-11-20 13 [facility] (1 source) Esomeprazole Drug Allergy [facility] Repository (2 sources) Penicillins; 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: [PENICILLINS] Drug allergy (disorder) 04-11-20 13 [facility] Repository (20 sources) Acetaminophen / oxyCODONE; [...] 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: [TIZANIDINE] Drug Allergy 11-06-19 23 [facility] (3 sources) diazePAM Drug Allergy 08-29-19 13 Anxiety, Other (See Comments), Hallucinations [facility] (2 sources) Hydrocortisone Drug Allergy 08-29-19 13 Rash [facility] (2 sources) Penicillins Propensity to adverse reactions to drug 08-29-19 13 Anaphylaxis, Other (See Comments) [facility] (1 source) Esomeprazole; 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: [ESOMEPRAZOLE MAGNESIUM] Drug Allergy 08-28-19 14 [facility] Repository (1 source) Penicillins Propensity to adverse reactions to drug 02-27-20 20 Other (See Comments) [facility] Medications Current Medications Medication Drug Class(es) Dates Sig (Normalized) Sig (Original) acetaminophen 325 mg / HYDROcodone bitartrate 10 mg oral tablet (20 sources) Opioid Agonist Start: 01-30-2025 End: 03-27-2025 take 0.5-1 tablets by mouth every six hours for pain HYDROcodone-acetami nophen ([place]) 10-325 MG tablet Indications: Spinal stenosis of lumbar region without neurogenic claudication Take 0.5-1 tablets by mouth every 6 (six) hours if needed for severe pain for up to 15 days 20 tablet 03/12/2025 03/27/2025 Active Start: 07-23-2024 End: 11-27-2024 take 0.5-1 tablets by mouth every six hours for pain HYDROcodone-acetaminophen ([place]) 10-325 MG tablet Indications: Spinal stenosis of lumbar region without neurogenic claudication Take 0.5-1 tablets by mouth every 6 (six) hours if needed for severe pain for up to 15 days 60 tablet 11/12/2024 11/27/2024 Active Start: 07-23-2024 HYDROcodone-ac etaminophen ([place]) 10-325 MG per tablet 07/23/2024 Active Start: 04-02-2024 End: 04-17-2024 take 0.5-1 tablets by mouth every six hours for pain HYDROcodone-acetaminophen ([place]) 10-325 MG tablet Indications: Spinal stenosis of lumbar region without neurogenic claudication Take 0.5-1 tablets by mouth every 6 (six) hours if needed for severe pain for up to 15 days 60 tablet 04/02/2024 04/17/2024 Active Start: 05-12-2023 End: 01-09-2024 take 1-2 tablets by mouth every six hours for pain HYDROcodone-acetaminophen ([place]) 5-325 MG tablet Indications: Spinal stenosis of [...] tablet 11/09/2024 11/12/2024 Active 168 hr cloNIDine 0.63707 mg/hr transdermal system (20 sources) Central alpha-2 [...] 03/12/2025 Active Lactobacillus (20 sources) Lactobacillus (A ZO [facility] PROBIOTIC PO) Take by mouth Daily Active lactobacillus acidophilus [id number] unt oral capsule (1 source) take 1 [...] tablet 01/08/2025 02/05/2025 Discontinued (Therapy completed) Start: 01-08-2025 methylPREDNISo lone (Medrol Dospak) 4 MG tablets [...] 11-05-2022 Chronic Other aftercare (1 source) Other press tender long goods (current) drug therapy; 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: [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 DRUG THERAPY] Onset: 3 Episodic Other [...] UA Negative Negative - 4(70) +++ mg/dL [facility] Blood, UA Negative Negative - 50 Barrera/mcL [facility] Clarity, UA Clear [facility] re Color, UA Light Yellow [facility] are Glucose, UA Negative Negative - 1999(110) ++++ mg/dL [facility] Interpretation and review of laboratory results Abnormal [facility] re Ketones, UA Negative Negative - 160(16) ++++ mg/dL [facility] Leukocytes, UA Moderate Negative - 500+++ Malaika/mcL [facility] Nitrite, UA Negative Negative - Positive [facility] pH, UA 6 5 - 9 [facility] e Protein, UA Trace Negative - 1999(20) ++++ mg/dL [facility] Spec Grav, UA 1.005 1 - 1.03 [facility] Urobilinogen, UA 1.0 0.2 - 12 mg/dL [facility] e BASIC METABOLIC PANELon 02-11 Anion gap [Moles/Vol] 10 mmol/L Normal 5-[address] [facility] Comment on above: Performed By: #### B MP #### [facility] ([facility]) [address] [place] [address] VIR Calcium [Mass/Vol] 9.5 mg/dL Normal 8.5-10.5 [facility] Comment on above: Performed By: #### B MP #### [facility] ([facility]) [address] [place] [address] VIR Chloride [Moles/Vol] 101 mmol/L Normal 98-[address] [facility] Comment on above: Performed By: #### B MP #### [facility] ([facility]) [address] [place] [address] VIR CO2 [Moles/Vol] 30 mmol/L Normal 22-32 [facility] Comment on above: Performed By: #### B MP #### [facility] ([facility]) [address] [place] [address] VIR Creatinine [Mass/Vol] 0.84 mg/dL Normal 0.40-1.[address] [facility] Comment on above: Result Comment: METH OD TRACEABLE TO IDMS STANDARD Performed By: #### B MP #### [facility] ([facility]) [address] [place] [address] VIR GFR/1.73 sq M.predicted among non-blacks MDRD (S/P/Bld) [Vol rate/Area] 73 mL/min/{1.73_m2} Normal >=60 [facility] Comment on above: Result Comment: Repo rted eGFR is based on the CKD-EPI 2020 equation that does not use a race coefficient. Performed By: #### B MP #### [facility] ([facility]) [address] [place] [address] VIR Glucose [Mass/Vol] 111 mg/dL High 65-99 [facility] Comment on above: Performed By: #### B MP #### [facility] ([facility]) [address] [place] [address] VIR Potassium [Moles/Vol] 3.5 mmol/L Normal 3.5-5.[address] [facility] Comment on above: Performed By: #### B MP #### [facility] ([facility]) [address] [place] [address] VIR Sodium [Moles/Vol] 141 mmol/L Normal 134-146 [facility] Comment on above: Performed By: #### B MP #### [facility] ([facility]) [address] [place] [address] VIR Urea nitrogen [Mass/Vol] 15 mg/dL Normal 5-[address] [facility] Comment on above: Performed By: #### B MP #### [facility] ([facility]) [address] [place] [address] VIR Basic Metabolic Panelon 02-11 Anion gap [Moles/Vol] 10 mmol/L 5 - 15 mmol/L [facility] Calcium [Mass/Vol] 9.5 mg/dL 8.5 - 10. 5 mg/dL [facility] Chloride [Moles/Vol] 101 mmol/L 98 - 109 mmol/L [facility] CO2 [Moles/Vol] 30 mmol/L 22 - 32 mmol/L [facility] Creatinine [Mass/Vol] 0.84 mg/dL 0.40 - 1.00 mg/dL [facility] Comment on above: METHOD TRACEABLE TO IDMS STANDARD EGFR Non-Race Dependent 73 - PINF [facility] Comment on above: Reported eGFR is bas ed on the CKD-EPI 2020 equation that does not use a race coefficient. Glucose [Mass/Vol] 111 mg/dL High 65 - 99 mg/dL [facility] Interpretation and review of laboratory results Abnormal [facility] Potassium [Moles/Vol] 3.5 mmol/L 3.5 - 5.0 mmol/L [facility] Sodium [Moles/Vol] 141 mmol/L 134 - 146 mmol/L [facility] Urea nitrogen [Mass/Vol] 15 mg/dL 5 - 27 mg/dL [facility] ECG 12 leadon 02-28-2025 TRACEMASTERVUE [facility] No Panel Informationon 12-11 STAPHYLOCOCCUS EPIDERMIDIS, HAEMOLYTICUS, LUGDUNENSIS, SAPROPHYTICUS (URINA 0 [facility] STAPHYLOCOCCUS EPIDERMIDIS, HAEMOLYTICUS, LUGDUNENSIS, SAPROPHYTICUS (URINA Not detected [facility] URINARY TRACT INFECTION (HTR X)on 12-11-2024 ACINETOBACTER BAUMANII 0 [facility] ACINETOBACTER BAUMANII Not detected [facility] KARIN ALBICANS, PARAPSILOSIS, TROPICALIS 0 [facility] KARIN ALBICANS, PARAPSILOSIS, TROPICALIS Not detected [facility] K[facility]IN GLABRATA 0 [facility]IN GLABRATA Not detected [facility] KARIN KRUSEI 0 [facility] hcare KARIN KRUSEI Not [facility] CITROBACTER FREUNDII 0 [facility] CITROBACTER FREUNDII Not detected [facility] DFR (A1, A5), SUL (1,2) 26.87 Abnormal [facility] Healthcare DFR (A1, A5), SUL (1,2) Detected Abnormal [facility] Healthcare ENTEROBACTER AEROGENES, CLOACAE 0 [facility] re ENTEROBACTER AEROGENES, CLOACAE Not detected [facility] re ENTEROCOCCUS FAECALIS, FAECIUM 0 [facility] ENTEROCOCCUS FAECALIS, FAECIUM Not detected [facility] e ESCHERICHIA COLI 26.987 Abnormal [facility] ESCHERICHIA COLI Detected Abnormal [facility] ltare Interpretation and review of laboratory results Abnormal [facility] re KLEBSIELLA PNEUMONIAE, OXYTOCA 0 [facility] KLEBSIELLA PNEUMONIAE, OXYTOCA Not detected [facility] MORGANELLA MORGANII 0 [facility] MORGANELLA MORGANII Not detected [facility] PROTEUS MIRABILIS, VULGARIS 0 [facility] PROTEUS MIRABILIS, VULGARIS Not detected [facility] PSEUDOMONAS AERUGINOSA 0 [facility] PSEUDOMONAS AERUGINOSA Not detected [facility] SERRATIA MARCESCENS 0 [facility] SERRATIA MARCESCENS Not detected [facility] STAPHYLOCOCCUS AUREUS 0 [facility] STAPHYLOCOCCUS AUREUS Not detected [facility] STREPTOCOCCUS AGALACTIAE (GROUP B STREP) 0 [facility] STREPTOCOCCUS AGALACTIAE (GROUP B STREP) Not detected [facility] STREPTOCOCCUS PYOGENES (GROUP A STREP) 0 [facility] STREPTOCOCCUS PYOGENES (GROUP A STREP) Not detected [facility] TET B, TET M 26.218 Abnormal [facility] TET B, TET M Detected Abnormal [facility] MR SHOULDER LEFT W/Oon 11-15 [place] [address] Magnetic Resonance Report Signed Patient: NAHED WALKER MR#: [id number] : 1950 Acct:[id number] Age/Sex: 74 / F ADM Date: 11/15/24 Loc: MRI Attending Dr: KENDRA LANDAVERDE Ordering Physician: KENDRA LANDAVERDE Date of Service: 11/15/24 Procedure(s): MR shoulder LT wo con Accession Number(s): [id number] cc: BRUNO MCDANIEL ; KENDRA LANDAVERDE [place] [address] Patient Name: NAHED WALKER MRN: [facility]:[id number] date: 1950 Sex: F Assigned Patient Location: MRI Current Patient Location: MRI Accession/Order Number: [id number] Exam Date: 11/15/2024 14:28 Report Date: 11/15/2024 [...] Goddard M.D. 11/15/2024 2:35 PM Dictation Location: [place] [address] Electronically authenticated by: [id number] Y Date: 11/15/2024 14:35 Dictated By: Valente Goddard M.D. Signed By: 11/15/24 1438 DD/ 1435 TD/TT: Travel Journalist: [facility] Radiology, Radiologist, MD - 11/15/2024 [place] [address] Magnetic Resonance Report Signed Patient: NAHED WALKER MR#: [id number] : 1950 Acct:[id number] Age/Sex: 74 / F ADM Date: 11/15/24 Loc: MRI Attending Dr: KENDRA LANDAVERDE Ordering Physician: KENDRA LANDAVERDE Date of Service: 11/15/24 Procedure(s): MR shoulder LT wo con Accession Number(s): [id number] cc: BRUNO MCDANIEL ; KENDRA LANDAVERDE [place] [address] Patient Name: NAHED WALKER MRN: [facility]:[id number] date: 1950 Sex: F Assigned Patient Location: MRI Current Patient Location: MRI Accession/Order Number: [id number] Exam Date: 11/15/2024 14:28 Report Date: 11/15/2024 [...] Goddard M.D. 11/15/2024 2:35 PM Dictation Location: [place] [address] Electronically authenticated by: [id number] Y Date: 11/15/2024 14:35 Dictated By: Valente Goddard M.D. Signed By: 11/15/24 1438 DD/ 34 TD/TT: Travel Journalist: [facility] (QEEP) Radiology Study observation (narrative) [facility] [employer] MR SHOULDER LEFT W/OOrdered By: Radiologist Radiology on 11-15-2024 [employer] Work Phone: No Panel Informationon 10-16 Interpretation and review of laboratory results Abnormal [facility] [employer] re Polypectomy. [facility] are [facility] [employer] Servicescar e [facility] 09-20-[address] [facility] (NOTE) Path Number: [id number] -- Diagnosis -- A. Gastric antrum, biopsy: [...] x 0.1 cm. Entirely 1cs. B. NAHED WALKER ASCENDING COLON POLYP Received in formalin are [...] Description A-C. Microscopic examination performed. Processing Lab: [place] [id number] Interpretation Performed at [place] [id number] SURGICAL PATHOLOGY CONSULTATION Patient Name: NAHED WALKER [facility] Rec: [id number] [facility] ANATOMIC PATHOLOGY [address] [place] [phone] [facility] Original Ordering Provider: [facility] No Panel Informationon 09-17 Radiology Study observation (narrative) [facility] Surgical Pathology Reporton 09-17-2024 Surgical Pathology Report (NOTE) Path Number: [id number] -- Diagnosis -- A. Gastric antrum, biopsy: [...] Description A-C. Microscopic examination performed. Processing Lab: [address] [phone] Interpretation Performed at [address] [phone] SURGICAL PATHOLOGY CONSULTATION Patient Name: NAHED WALKER [facility] Rec: [id number] [facility] ANATOMIC PATHOLOGY [address] [place] [phone] Normal [facility] EKG 12 LeadOrdered By: Gerson moss on 08-28-2024 Atrial Rate 98 BPM [facility] [employer] Work Phone: P [place] 56 degrees [facility] [employer] Work Phone: P-R Interval 148 ms Bon [employer] [facility] [employer] Phone: Q-T Interval 336 ms Bon [employer] [facility] [employer] Work Phone: QRS Duration 88 ms Bon [employer] [facility] [employer] Work Phone: QTc Calculation (Bazett) 428 ms [facility] [employer] Work Phone: R [place] -25 degrees [facility] [employer] Work Phone: T [place] 51 degrees [facility] [email or web address] Work Phone: Ventricular Rate [address] [facility] Work Phone: Selvin Olson [facility] [employer] Work Phone: EKG 12 Leadon 08-28-2024 Normal sinus rhythm Minimal voltage criteria for LVH, may be normal variant ( R in aVL ) Borderline ECG No previous ECGs available Confirmed by Gerson Pelaez MD ([id number]) on 08/28/2024 7:51:05 PM [facility] RADIOLOGY Gerson Pelaez MD - 08/28/2024 Normal sinus rhythm Minimal voltage criteria for LVH, may be normal variant ( R in aVL ) Borderline ECG No previous ECGs available Confirmed by Gerson Pelaez MD ([id number]) on 08/28/2024 7:51:05 PM Selvin [employer] [facility] MM TOMOSYNTHESIS SCREENING B Ion 07-20-2024 [place] [address] Mammography Report Signed Patient: NAHED WALKER MR#: [id number] : 1950 Acct:[id number] Age/Sex: 74 / F ADM Date: 07/19/24 Loc: MAMMO Attending Dr: BRUNO MCDANIEL Ordering Physician: BRUNO MCDANIEL Results: Date of Service: 07/19/24 Follow Up: Procedure(s): MM tomosynthesis screening BI Accession Number(s): [id number] cc: BRUNO MCDANIEL Patient Name: NAHED WALKER MR#: [id number] : 1950 Exam Date: 07/19/2024 Ordering Doctor: [...] lung cancer at age 63. LOCATION: [facility] BREAST COMPOSITION: There are scattered areas [...] M.D. Signed By: 07/20/24726 DD/ 5 TD/TT: Travel Journalist: [facility] Radiology, Radiologist, - 07/20/2024 [place] [address] Mammography Report Signed Patient: NAHED WALKER MR#: [id number] : 1950 Acct:[id number] Age/Sex: 74 / F ADM Date: 07/19/24 Loc: MAMMO Attending Dr: BRUNO MCDANIEL Ordering Physician: BRUNO MCDANIEL Results: Date of Service: 07/19/24 Follow Up: Procedure(s): MM tomosynthesis screening BI Accession Number(s): [id number] cc: BRUNO MCDANIEL Patient Name: NAHED WALKER MR#: [id number] : 1950 Exam Date: 07/19/2024 Ordering Doctor: [...] lung cancer at age 63. LOCATION: [facility] BREAST COMPOSITION: There are scattered areas [...] M.D. Signed By: 07/20/24726 DD/ 5 TD/TT: Travel Journalist: [facility] (QEEP) Radiology Study observation (narrative) [facility] [employer] MM TOMOSYNTHESIS SCREENING B IOrdered By: Radiologist Radiology on 07-20-2024 [facility]ITAL[facility]idatroniccar e Work Phone: MG MAMM SCREEN 3D LILIANA CADon 07-06-2022 MG MAMM SCREEN 3D LILIANA CAD Patient: NAHED WALKER Exam Date: 07/06/2022 : 1950 Gender:F Ordering : DR KENDRA STANFORD Admission #: [id number] Family : Order #: [id number] CLICK HERE TO VIEW EXAM RADIOLOGY REPORT [...] lung cancer at age 63. LOCATION: [facility] BREAST COMPOSITION: Scattered areas fibroglandular density. [...] M.D. on 07/07/2022 at 11:46 Approved by: Jennifer Mallory M.D. on 07/07/2022 at 12:01 Normal [facility] Complete Blood Count with Au to Diffon 05-28-2021 Basophils (Bld) [#/Vol] 0.02 10*3/uL Normal 0.00-0.20 [facility] Comment on above: Performed By: #### C BCAD, CMP, LIPD #### [facility] [address] [place], [place] [id number] Basophils/100 WBC (Bld) 0.3 % Normal [facility] [employer] I Assembler Comment on above: Performed By: #### C BCAD, CMP, LIPD #### [facility] [address] [place], [place] [id number] Eosinophils (Bld) [#/Vol] 0.04 10*3/uL Normal 0.02-0.50 [facility] [employer] As[employer]er Comment on above: Performed By: #### C BCAD, CMP, LIPD #### [facility] [address] [place], [place] [id number] Eosinophils/100 WBC (Bld) 0.6 % Normal [facility] [employer] Comment on above: Performed By: #### C BCAD, CMP, LIPD #### [facility] [address] [place], [place] [id number] Erythrocyte distribution width (RBC) [Ratio] 13.2 % Normal 11.0-15.0 [facility] Comment on above: Performed By: #### C BCAD, CMP, LIPD #### [facility] [address] [place], [place] [id number] Hematocrit (Bld) [Volume fraction] 41.5 % Normal 35.0-47.0 [facility] [employer] Comment on above: Performed By: #### C BCAD, CMP, LIPD #### [facility] [address] [place], [place] [id number] Hemoglobin (Bld) [Mass/Vol] 13.7 g/dL Normal 11.6-15.5 [facility] Comment on above: Performed By: #### C BCAD, CMP, LIPD #### [facility] [address] [place], [place] [id number] Lymphocytes (Bld) [#/Vol] 2.3 10*3/uL Normal 0.9-3.9 [facility] Comment on above: Performed By: #### C BCAD, CMP, LIPD #### [facility] [address] [place], [place] [id number] Lymphocytes/100 WBC (Bld) 32.3 % Normal [facility] Comment on above: Performed By: #### C BCAD, CMP, LIPD #### [facility] [address] [place], [place] [id number] MCH (RBC) [Entitic mass] 30.7 pg Normal 27.0-33.0 [facility] Comment on above: Performed By: #### C BCAD, CMP, LIPD #### [facility] [address] [place], [place] [id number] MCHC (RBC) [Mass/Vol] 33.0 g/dL Normal 32.0-36.0 [facility] [employer]er Comment on above: Performed By: #### C BCAD, CMP, LIPD #### [facility] [address] [place], [place] [id number] MCV (RBC) [Entitic vol] 93 fL Normal 80-100 [facility] [employer] As[employer]er Comment on above: Performed By: #### C BCAD, CMP, LIPD #### [facility] [address] [place], [place] [id number] Monocytes (Bld) [#/Vol] 0.6 10*3/uL Normal 0.2-0.9 [facility] Comment on above: Performed By: #### C BCAD, CMP, LIPD #### [facility] [address] [place], [place] [id number] Monocytes/100 WBC (Bld) 8.0 % Normal [facility] [employer]er Comment on above: Performed By: #### C BCAD, CMP, LIPD #### [facility] [address] [place], [place] [id number] Neutrophils (Bld) [#/Vol] 4.1 10*3/uL Normal 1.5-7.8 [facility] Comment on above: Performed By: #### C BCAD, CMP, LIPD #### [facility] [address] [facility] [place] [id number] Neutrophils/100 WBC (Bld) 58.5 % Normal [facility] Comment on above: Performed By: #### C BCAD, CMP, LIPD #### [facility] [address] [place], [place] [id number] Platelet mean volume (Bld) [Entitic vol] 9.70 fL Normal 7.50-12.50 [facility] Comment on above: Performed By: #### C BCAD, CMP, LIPD #### [facility] [address] [place], [place] [id number] Platelets (Bld) [#/Vol] 238 10*3/uL Normal 140-400 [facility] Comment on above: Performed By: #### C BCAD, CMP, LIPD #### [facility] [address] [place], [place] [id number] RBC (Bld) [#/Vol] 4.46 10*6/uL Normal 3.90-5.20 [facility] Comment on above: Performed By: #### C BCAD, CMP, LIPD #### [facility] [address], [place] [id number] RDW-SD 45.0 fL Normal 37.0-50.0 [facility] Comment on above: Performed By: #### C BCAD, CMP, LIPD #### [facility] [address], [place] [id number] WBC (Bld) [#/Vol] 7.0 10*3/uL Normal 3.8-11.0 [facility] Comment on above: Performed By: #### C BCAD, CMP, LIPD #### [facility] [address] [facility] [place] [id number] Comprehensive Metabolic Pane [facility] 05-28-2021 Albumin [Mass/Vol] 4.3 g/dL Normal 3.6-5.1 [facility] Comment on above: Performed By: #### C BCAD, CMP, LIPD #### [facility] [address], [place] [id number] Albumin/Globulin [Mass ratio] 1.6 {ratio} Normal 1.0-2.5 [facility] Comment on above: Performed By: #### C BCAD, CMP, LIPD #### [facility] [address], [place] [id number] ALP [Catalytic activity/Vol] 86 U/L Normal 35-119 [facility] Comment on above: Performed By: #### C BCAD, CMP, LIPD #### [facility] [address], [place] [id number] ALT [Catalytic activity/Vol] 16 U/L Normal 6-33 [facility] Comment on above: Result Comment: 05/13 Female reference range changed. Performed By: #### C BCAD, CMP, LIPD #### [facility] [address], [place] [id number] Anion gap [Moles/Vol] 18 mmol/L Normal 12-20 [facility] Comment on above: Result Comment: Effe ctive 06/18/2019 reference range changed. Performed By: #### C BCAD, CMP, LIPD #### [facility] [address], [place] [id number] AST [Catalytic activity/Vol] 16 U/L Normal 9-34 [facility] Comment on above: Performed By: #### C BCAD, CMP, LIPD #### [facility] [address], [place] [id number] Bilirubin [Mass/Vol] 0.53 mg/dL Normal 0.30-1.20 [facility] Comment on above: Performed By: #### C BCAD, CMP, LIPD #### [facility] [address], [place] [id number] BUN/CREA 20 Ratio Normal 6-22 [facility] Comment on above: Performed By: #### C BCAD, CMP, LIPD #### [facility] [address], [place] [id number] Calcium [Mass/Vol] 10.1 mg/dL Normal 8.6-10.2 [facility] [place] [employer] Comment on above: Performed By: #### C BCAD, CMP, LIPD #### [facility] [address], [place] [id number] Chloride [Moles/Vol] 101 mmol/L Normal 98-107 [facility] [employer] Comment on above: Performed By: #### C BCAD, CMP, LIPD #### [facility] [address], [place] [id number] CO2 [Moles/Vol] 28 mmol/L Normal 20-31 [facility] [employer] Comment on above: Performed By: #### C BCAD, CMP, LIPD #### [facility] [address], [place] [id number] Creatinine [Mass/Vol] 0.8 mg/dL Normal 0.6-1.4 [facility] [employer] Comment on above: Performed By: #### C BCAD, CMP, LIPD #### [facility] [address], [place] [id number] eGFRAA 84 mL/min/1.73m2 Normal >60 [facility] [employer] Comment on above: Performed By: #### C BCAD, CMP, LIPD #### [facility] [address], [place] [id number] eGFRNAA 69 mL/min/1.73m2 Normal >60 [facility] [employer] Comment on above: Performed By: #### C BCAD, CMP, LIPD #### [facility] [address], [place] [id number] Globulin (S) [Mass/Vol] 2.7 g/dL Normal 1.9-3.7 [facility] [employer] Comment on above: Performed By: #### C BCAD, CMP, LIPD #### [facility] [address], [place] [id number] Glucose [Mass/Vol] 91 mg/dL Normal 65-99 [facility] [place] [employer] Comment on above: Result Comment: For FASTING Glucose --- ADA reference ranges: Normal 65-99 mg/dl Prediabetes 100-125 Diabetes >/= 126 Performed By: #### C BCAD, CMP, LIPD #### [facility] [address] [place] [id number] Potassium [Moles/Vol] 3.8 mmol/L Normal 3.5-5.5 [facility] [employer] Comment on above: Performed By: #### C BCAD, CMP, LIPD #### [facility] [address] [place] [id number] Protein [Mass/Vol] 7.0 g/dL Normal 6.1-8.1 [facility] [employer] Comment on above: Performed By: #### C BCAD, CMP, LIPD #### [facility] [address] [place] [id number] Sodium [Moles/Vol] 143 mmol/L Normal 135-146 [facility] [employer] Comment on above: Performed By: #### C BCAD, CMP, LIPD #### [facility] [address] [facility] [id number] Urea nitrogen [Mass/Vol] 16 mg/dL Normal 7-25 [facility] [employer] Comment on above: Performed By: #### C BCAD, CMP, LIPD #### [facility] [address] [facility] [id number] Lipid Panelon 05-28-2021 Cholesterol [Mass/Vol] 181 mg/dL Normal 125-200 [facility] [employer] Comment on above: Result Comment: Low risk < 200mg/dL Borderline risk 201-239 mg/dl High risk > or equal to 240 Performed By: #### C BCAD, CMP, LIPD #### [facility] [address] [facility] [place] [id number] Cholesterol in HDL [Mass/Vol] 54 mg/dL Normal >40 [facility] [employer] Comment on above: Result Comment: High Cardiovascular Risk HDL <40 mg/dL Low Cardiovascular Risk HDL > or equal to 60 mg/dl Performed By: #### C BCAD, CMP, LIPD #### [facility] [address] [place] [id number] Cholesterol in LDL [Mass/Vol] 96 mg/dL Normal [facility] [employer] Comment on above: Result Comment: LDL ATP III CLASSIFICATION LDL less than 100 mg/dl Optimal LDL 100-129 mg/dl Near or above optimal LDL 130-159 Borderline high LDL 160-189 High LDL greater than 189 mg/dl Very High Performed By: #### C BCAD, CMP, LIPD #### [facility] [address], [place] [id number] Cholesterol in VLDL [Mass/Vol] 31 mg/dL Normal [facility] [employer] Comment on above: Performed By: #### C BCAD, CMP, LIPD #### [facility] [address], [place] [id number] Cholesterol.total/ Cholesterol in HDL [Mass ratio] 3 {ratio} Normal [facility] Comment on above: Performed By: #### C BCAD, CMP, LIPD #### [facility] [address], [place] [id number] Triglyceride [Mass/Vol] 157 mg/dL High 30-150 [facility] [employer] Comment on above: Result Comment: TRIG ATPIII CLASSIFICATIONS TRIG less than 150 mg/dl Normal TRIG 150-199 mg/dl Borderline High TRIG 200-500 mg/dl High TRIG greather than 500 mg/dl Very High Performed By: #### C BCAD, CMP, LIPD #### [facility] [address], [place] [id number] CNOVon 04-04-2019 CNOV Office Visit (RAHULA ) NAHED WALKER ([id number]) 1950 F Date Time Provider Department 04/04/19 2:00 PM JOYCE BARRETO During your visit today, we recorded the following information about you: Temperature Pulse Respiration Blood pressure 98.3 degrees 83/minute 16/minute 141/81 Weight 128.7 kg Joyce Barreto MD 04/04/2019 2:27 PM Signed Radiation Oncology - Follow Up Note PATIENT NAME: Nahed Mckinney Burtonrajat PATIENT DIAGNOSIS: ?Stage II (T2N0M0) squamous cell [...] mg Tab Take by mouth twice daily. [place]-3 Fatty Acids-Vitamin E (FISH OIL) 1,000 mg [...] department. ? Signed by: Joyce Barreto M.D., FACRO ? cc: Dr. Bruno Edouard ? This note was dictated with Dragon Naturally Speaking and may contain some grammatical errors due to limitations of the software. Natalia Flores MA, was present in the examination room throughout the encounter. Referring Provider: JOYCE BARRETO [[id number]] Allergies As of Date: 04/04/2019 Noted Allergy [...] Status:Closed by JOYCE BARRETO MD on 04/04/19 Normal [facility] PROGRESSon 04-04-2019 PROGRESS HNO ID: [id number] Author: Joyce Barreto Service: ? Author Type: [...] mg Tab Take by mouth twice daily. [place]-3 Fatty Acids-Vitamin E (FISH OIL) 1,000 mg [...] the examination room throughout the encounter. Normal [facility] CNOVon 04-05-2018 CNOV Office Visit (RADTSA ) NAHED WALKER ([id number]) 1950 F Date Time Provider Department 04/05/18 [...] mg Tab Take by mouth twice daily. [place]-3 Fatty Acids-Vitamin E (FISH OIL) 1,000 mg [...] examination. ? Signed by: Joyce Barreto M.D., [facility] ? cc: Dr. [place] Edou[place] ? This note was dictated with Dragon Naturally Speaking and may contain some grammatical errors due to limitations of the software. Magali Andino RN was present in the room throughout the encounter. Referring Provider: JOYCE BARRETO [[id number]] Allergies As of Date: 04/05/2018 Noted Allergy [...] Status:Closed by JOYCE BARRETO MD on 04/05/18 [facility] PROGRESSon 04-05-2018 PROGRESS HNO ID: [id number] Author: Joyce Barreto Service: (none) Author Type: [...] mg Tab Take by mouth twice daily. [place]-3 Fatty Acids-Vitamin E (FISH OIL) 1,000 mg [...] in the room throughout the encounter. Normal [facility] Vital Signs Date Time Vital Sign Value Performing Clinician Facility 03-19-2025 15:04-0400 Body height 160 cm Kendra Hemmer PA Work Phone: [facility] 03-19-2025 15:04-0400 Body mass index (BMI) [Ratio] 38.79 kg/m2 Kendra Hemmer PA Work Phone: [facility] 03-19-2025 15:04-0400 Body weight 99.34 kg Kendra Hemmer PA Work Phone: [facility] 03-19-2025 15:04-0400 Diastolic blood pressure 64 mm[Hg] Kendra Hemmer PA Work Phone: [facility] 03-19-2025 15:04-0400 Heart rate 61 /min Kendra Hemmer PA Work Phone: [facility] 03-19-2025 15:04-0400 Respiratory rate 16 /min Kendra Hemmer PA Work Phone: [facility] 03-19-2025 15:04-0400 SaO2% (BldA) [Mass fraction] 96 % Kendra Hemmer PA Work Phone: [facility] 03-19-2025 15:04-0400 Systolic blood pressure 136 mm[Hg] Knedra Hemmer PA Work Phone: [facility] 03-12-2025 14:34-0400 Body height 158.8 cm Kendra Hemmer PA Work Phone: [facility] 03-12-2025 14:34-0400 Body mass index (BMI) [Ratio] 39.56 kg/m2 Kendra Hemmer PA Work Phone: [facility] 03-12-2025 14:34-0400 Body weight 99.7 kg Kendra Hemmer PA Work Phone: [facility] 03-12-2025 14:34-0400 Diastolic blood pressure 84 mm[Hg] Kendra Hemmer PA Work Phone: [facility] 03-12-2025 14:34-0400 Heart rate 69 /min Kendra Hemmer PA Work Phone: [facility] 03-12-2025 14:34-0400 Respiratory rate 16 /min Kendra Hemmer PA Work Phone: [facility] 03-12-2025 14:34-0400 SaO2% (BldA) [Mass fraction] 96 % Kendra Hemmer PA Work Phone: [facility] 03-12-2025 14:34-0400 Systolic blood pressure 132 mm[Hg] Kendra Hemmer PA Work Phone: [facility] 03-11-2025 13:58-0400 Body height 160 cm Edward Kohler [employer] Work Phone: [facility] 03-11-2025 13:58-0400 Body mass index (BMI) [Ratio] 38.44 kg/m2 Edward Kohler [employer] Work Phone: [facility] 03-11-2025 13:58-0400 Body weight 98.43 kg Edward Kohler NP Work Phone: [facility] 02-28-2025 10:37-0400 Body height 161.3 cm [facility] 02-28-2025 10:37-0400 Body mass index (BMI) [Ratio] 37.66 kg/m2 [facility] 02-28-2025 10:37-0400 Body weight 97.98 kg [facility] 01-30-2025 14:40-0400 Body height 158.8 cm Kendra Hemmer PA Work Phone: [facility] 01-30-2025 14:40-0400 Body mass index (BMI) [Ratio] 40.03 kg/m2 Kendra Hemmer PA Work Phone: [facility] 01-30-2025 14:40-0400 Body weight 100.88 kg Kendra Hemmer PA Work Phone: [facility] 01-30-2025 14:40-0400 Diastolic blood pressure 82 mm[Hg] Kendra Hemmer PA Work Phone: [facility] 01-30-2025 14:40-0400 Heart rate 64 /min Kendra Hemmer PA Work Phone: [facility] 01-30-2025 14:40-0400 Respiratory rate 16 /min Kendra Hemmer PA Work Phone: [facility] 01-30-2025 14:40-0400 SaO2% (BldA) [Mass fraction] 95 % Kendra Hemmer PA Work Phone: [facility] 01-30-2025 14:40-0400 Systolic blood pressure 134 mm[Hg] Kendra Hemmer PA Work Phone: [facility] 10-29-2024 13:31-0400 Body height 161.3 cm Kendra Hemmer PA Work Phone: [facility] 10-29-2024 13:31-0400 Body mass index (BMI) [Ratio] 38.39 kg/m2 Kendra Hemmer PA Work Phone: [facility] 10-29-2024 13:31-0400 Body weight 99.88 kg Kendra Hemmer PA Work Phone: [facility] 10-29-2024 13:31-0400 Diastolic blood pressure 72 mm[Hg] Kendra Hemmer PA Work Phone: [facility] 10-29-2024 13:31-0400 Heart rate 68 /min Kendra Hemmer PA Work Phone: [facility] 10-29-2024 13:31-0400 Respiratory rate 16 /min Kendra Hemmer PA Work Phone: [facility] 10-29-2024 13:31-0400 SaO2% (BldA) [Mass fraction] 97 % Kendra Hemmer PA Work Phone: [facility] 10-29-2024 13:31-0400 Systolic blood pressure 130 mm[Hg] Kendra Hemmer PA Work Phone: [facility] 10-16-2024 14:43-0400 Body height 161.3 cm Kendra Hemmer PA Work Phone: [facility] 10-16-2024 14:43-0400 Body mass index (BMI) [Ratio] 38.46 kg/m2 Kendra Hemmer PA Work Phone: [facility] 10-16-2024 14:43-0400 Body weight 100.06 kg Kendra Hemmer PA Work Phone: [facility] 10-16-2024 14:43-0400 Diastolic blood pressure 74 mm[Hg] Kendra Hemmer PA Work Phone: [facility] 10-16-2024 14:43-0400 Heart rate 73 /min Kendra Hemmer PA Work Phone: [facility] 10-16-2024 14:43-0400 Respiratory rate 16 /min Kendra Hemmer PA Work Phone: [facility] 10-16-2024 14:43-0400 SaO2% (BldA) [Mass fraction] 97 % Kendra Hemmer PA Work Phone: [facility] 10-16-2024 14:43-0400 Systolic blood pressure 126 mm[Hg] Kendra Hemmer PA Work Phone: [facility] 09-17-2024 12:10-0400 Heart rate 55 /min Cheng Dick DO Work Phone: [facility] 09-17-2024 12:10-0400 Respiratory rate 20 /min Cheng Dick DO Work Phone: [facility] 09-17-2024 12:10-0400 SaO2% (BldA) [Mass fraction] 94 % Cheng Dick DO Work Phone: [facility] 09-17-2024 12:05-0400 Diastolic blood pressure 62 mm[Hg] Cheng Dick DO Work Phone: [facility] 09-17-2024 12:05-0400 Systolic blood pressure 127 mm[Hg] Cheng Dick DO Work Phone: [facility] 09-17-2024 11:30-0400 Body temperature 97.5 [degF] Cheng Dick DO Work Phone: [facility] 09-17-2024 09:41-0400 Body height 162.6 cm Cheng Dick DO Work Phone: [facility] 09-17-2024 09:41-0400 Body mass index (BMI) [Ratio] 36.99 kg/m2 Cheng Dick DO [facility] 09-17-2024 09:41-0400 Body weight 97.75 kg Cheng Dick DO [facility] 07-31-2024 14:04-0500 Body height 161.3 cm Kendra Hemmer PA Work Phone: [facility] 07-31-2024 14:04-0500 Body mass index (BMI) [Ratio] 38.05 kg/m2 Kendra Hemmer PA Work Phone: [facility] 07-31-2024 14:04-0500 Body weight 98.97 kg Kendra Hemmer PA Work Phone: [facility] 07-31-2024 14:04-0500 Diastolic blood pressure 76 mm[Hg] Kendra Hemmer PA Work Phone: [facility] 07-31-2024 14:04-0500 Heart rate 67 /min Kendra Hemmer PA Work Phone: [facility] 07-31-2024 14:04-0500 Respiratory rate 16 /min Kendraronak Gillboo PA Work Phone: [facility] 07-31-2024 14:04-0500 SaO2% (BldA) [Mass fraction] 95 % Kendra Gillboo PA Work Phone: [facility] 07-31-2024 14:04-0500 Systolic blood pressure 128 mm[Hg] Kendraronak Gillboo PA Work Phone: [facility] 04-09-2024 14:03-0400 Body mass index (BMI) [Ratio] 41.95 kg/m2 Bruno Mcdaniel MD Work Phone: [facility] 04-09-2024 14:03-0400 Body weight 109.14 kg Bruno Mcdaniel MD Work Phone: [facility] 04-09-2024 14:03-0400 Diastolic blood pressure 75 mm[Hg] Bruno Mcdaniel MD Work Phone: [facility] 04-09-2024 14:03-0400 Heart rate 81 /min Bruno Mcdaniel MD Work Phone: [facility] 04-09-2024 14:03-0400 Respiratory rate 18 /min Bruno Mcdaniel MD Work Phone: [facility] 04-09-2024 14:03-0400 SaO2% (BldA) [Mass fraction] 96 % Bruno Mcdaniel MD Work Phone: [facility] 04-09-2024 14:03-0400 Systolic blood pressure 130 mm[Hg] Bruno Mcdaniel MD Work Phone: [facility] 07-13-2023 13:37-0500 Body mass index (BMI) [Ratio] 42.06 kg/m2 Bruno Mcdaniel MD Work Phone: [facility] 07-13-2023 13:37-0500 Body weight 109.41 kg Bruno Mcdaniel MD Work Phone: [facility] 07-13-2023 13:37-0500 Diastolic blood pressure 89 mm[Hg] Bruno Mcdaniel MD Work Phone: [facility] 07-13-2023 13:37-0500 Heart rate 77 /min Bruno Mcdaniel MD Work Phone: [facility] 07-13-2023 13:37-0500 Respiratory rate 16 /min Bruno Mcdaniel MD Work Phone: [facility] 07-13-2023 13:37-0500 SaO2% (BldA) [Mass fraction] 97 % Bruno Mcdaniel MD Work Phone: [facility] 07-13-2023 13:37-0500 Systolic blood pressure 138 mm[Hg] Bruno Mcdaniel MD Work Phone: [facility] Healthcare Encounters Encounter Date Encounter Type Care Provider Facility Start: 03-19-2025 End: 03-19-2025 Office outpatient visit 15 minutes Kendra Landaverde PA Work Phone: [facility] Comment on above: Loose stools (Primar y Dx); Radiation proctitis Start: 03-19-2025 End: 03-19-2025 ambulatory KENDRA LANDAVERDE Not Available Start: 03-19-2025 End: 03-19-2025 Bamboo flowsheet Kendra Landaverde PA Work Phone: [facility] Start: 03-19-2025 End: 03-19-2025 Bamboo flowsheet Kendra Landaverde PA Work Phone: [facility] Start: 03-15-2025 End: 03-15-2025 Bamboo flowsheet Sam Northeim PA Work Phone: [facility] Start: 03-15-2025 End: 03-15-2025 Bamboo flowsheet Sam Northeim PA Work Phone: [facility] Start: 03-15-2025 End: 03-15-2025 Office outpatient visit 10 minutes Sam Northeim PA Work Phone: [facility] Comment on above: Seborrheic keratosis (Primary Dx) Start: 03-15-2025 End: 03-15-2025 ambulatory SAM ATKINSON Not Available Start: 03-12-2025 End: 03-12-2025 Office outpatient visit 25 minutes Kendra STANFORD [facility] Comment on above: Recurrent UTI (Prima ry Dx); Dysuria; Spinal stenosis of lumbar region without neurogenic claudication; Chronic superficial gastritis without bleeding; Ulcerative proctocolitis (HCC); Loose stools Start: 03-12-2025 End: 03-12-2025 ambulatory KENDRA LANDAVERDE Not Available Start: 03-12-2025 End: 03-12-2025 Bamboo flowsheet Kendra STANFORD Work Phone: [facility] Start: 03-12-2025 End: 03-12-2025 Bamboo flowsheet Kendra STANFORD [facility] Start: 03-11-2025 End: 03-11-2025 Bamboo flowsheet Edward Kohler [employer] Work Phone: [facility] Start: 03-11-2025 End: 03-11-2025 Bamboo flowsheet dEward Kohler [employer] Work Phone: [facility] Start: 03-11-2025 End: 03-11-2025 Patient encounter procedure Edward Kohler [employer] Work Phone: [facility] Comment on above: Pre-op evaluation (P rimary Dx) Start: 03-11-2025 End: 03-11-2025 Preprocedural examination done Edward Kohler [employer] Work Phone: [facility] Work Phone: Start: 03-11-2025 End: 03-11-2025 ambulatory EDWARD KOHLER Not Available Start: 02-28-2025 End: 02-28-2025 Patient encounter procedure [facility] Pre-Admission Testing 2 [facility] Pre [facility] Comment on above: Preop examination (P rimary Dx); Hypertension, unspecified type Start: 02-28-2025 End: 02-28-2025 Preprocedural examination done [facility] Start: 02-28-2025 End: 02-28-2025 ambulatory BRUNO MCDANIEL [facility] Start: 02-28-2025 Encounter for other preprocedural examination BRUNO [facility] Start: 02-25-2025 End: 02-26-2025 Telephone encounter Charlotte Gini Olivera DO Work Phone: [facility] Comment on above: having mole removed March 15, 2025 Start: 02-05-2025 End: 02-05-2025 Bamkasey rameshheet Charlotte Gini Olivera DO Work Phone: [facility] Start: 02-05-2025 End: 02-05-2025 Bamboo flowsheet Jr. Charlotte Olivera DO Work Phone: [facility] Start: 02-05-2025 End: 02-05-2025 Office outpatient visit 40 minutes Jr. Charlotte Olivera DO Work Phone: [facility] Comment on above: Acute pain of left s houlder (Primary Dx); Sprain of left rotator cuff capsule, initial encounter Start: 02-05-2025 End: 02-05-2025 ambulatory CHARLOTTE JAIME Not Available Start: 01-31-2025 End: 01-31-2025 ambulatory Charity Pinon PT Work Phone: [facility] Comment on above: Acute pain of left s houlder (Primary Dx) Start: 01-30-2025 End: 01-30-2025 ambulatory KENDRA LANDAVERDE Not Available Start: 01-30-2025 End: 01-30-2025 Office outpatient visit 25 minutes Kendra [facility]andaverde [facility] Comment on above: Benign essential hyp ertension (Primary Dx); Recurrent UTI; Spinal stenosis of lumbar region without neurogenic claudication; Neoplasm of uncertain behavior of skin of back Start: 01-30-2025 End: 01-30-2025 Bamboo flowsheet Kendra STANFORD Work Phone: [facility] Start: 01-30-2025 End: 01-30-2025 Bamboo flowsheet Kendra STANFORD Work Phone: [facility] Start: 01-29-2025 End: 01-29-2025 Bamboo flowsheet Chelsea Estes [facility] Start: 01-29-2025 End: 01-29-2025 Bamboo flowsheet Chelsea Estes [facility] Start: 01-29-2025 End: 01-29-2025 ambulatory Chelsea Estes [facility] Comment on above: Acute pain of left s hermilo (Primary Dx) Start: 01-24-2025 End: 01-24-2025 Bamboo flowsheet Chelsea Estes [facility] Start: 01-24-2025 End: 01-24-2025 Bamboo flowsheet Chelsea Estes [employer] [facility] Start: 01-24-2025 End: 01-24-2025 ambulatory Chelsea Estes [employer] [facility] Comment on above: Acute pain of left s hermilo (Primary Dx) Start: 01-17-2025 End: 01-17-2025 Bamboo flowsheet Charity Pinon PT Work Phone: [facility] Start: 01-17-2025 End: 01-17-2025 Bamboo flowsheet Charity Buckley Lan PT Work Phone: [facility] Start: 01-17-2025 End: 01-17-2025 ambulatory Charity Buckley Lan PT Work Phone: [facility] Comment on above: Acute pain of left s hermilo (Primary Dx) Start: 01-08-2025 End: 01-08-2025 Bamboo flowsheet JrAguilar Rubalcava Stepcesario DO Work Phone: [facility] Start: 01-08-2025 End: 01-08-2025 Bamboo flowsheet JrAguilar Rubalcava Stepcesario DO Work Phone: [facility] Start: 01-08-2025 End: 01-08-2025 Office outpatient new 45 minutes JrAguilar Rubalcava Stepcesario DO Work Phone: [facility] Comment on above: Sprain of left rotat or cuff capsule, initial encounter (Primary Dx); Acute pain of left shoulder Start: 01-08-2025 End: 01-08-2025 ambulatory , CHARLOTTE Rubalcava GABRIELLA Not Available Start: 12-10-2024 End: 12-11-2024 External [...] External Department Unsolicited Start: 11-12-2024 End: 11-12-2024 Refill Bruno Mcdaniel MD Work Phone: [facility] Comment on above: Spinal stenosis of l umbar region without neurogenic claudication Start: 11-09-2024 End: 11-09-2024 Telephone encounter Kendra STANFORD Work Phone: [facility] Start: 10-29-2024 End: 10-29-2024 Bamboo flowsheet Kendra Landaverde PA Work Phone: [facility] Start: 10-29-2024 End: 10-29-2024 Bamboo flowsheet Kendra Diaz Saima STANFORD Work Phone: [facility] Start: 10-29-2024 End: 10-29-2024 Office outpatient visit 25 minutes Kendraronak STANFORD Work Phone: [facility] Comment on above: Internal derangement of left shoulder (Primary Dx); Chronic left shoulder pain; Atypical chest pain; Benign essential hypertension (CMS/HCC); Chronic superficial gastritis without bleeding Start: 10-29-2024 End: 10-29-2024 ambulatory KENDRA LANDAVERDE Not Available Start: 10-16-2024 End: 10-16-2024 Office [...] Start: 09-17-2024 End: 09-17-2024 ambulatory [facility] Velas[facility] Start: 09-17-2024 End: 09-17-2024 Subsequent hospital visit by physician Cheng Dick DO Work Phone: [facility] Comment on above: Encounter for screen ing colonoscopy; Nausea and vomiting Start: 08-28-2024 End: 08-28-2024 ambulatory [facility] Start: 08-28-2024 End: 08-28-2024 Subsequent [...] CI FM Comment on above: Medicare annual [facility] visit, subsequent (Primary Dx); ACP (advance care [...] Phone: [facility] Start: 04-09-2024 End: 10-28-2024 Bamboo flowsheet Bruno Mcdaniel MD Work Phone: [...] Start: 04-02-2024 End: 04-02-2024 Refill Jaclyn Hightower DRY CLEANING COUNTER CLERK [facility] Comment on above: Spinal [...] ecg w/le ast 12 lds w/i&r Cheng D Dick DO Work Phone: Start: 07-20-2024 MM TOMOSYNTHESIS SCR EENING BI Bruno Mcdaniel MD Work Phone: Start: 07-20-2024 Mammography Bruno mccloud MD Work Phone: Start: 07-18-2023 Mammography Bruno mccloud MD Work Phone: Start: 04-07-2018 Colonoscopy Bruno mccloud MD Work Phone: Plan of Treatment Date Care Activity Detail Author Start: 09-17-2034 Screening for malignant neoplasm of colon [facility] Start: 04-07-2028 Screening for malignant neoplasm of colon [facility] Start: 02-28-2026 Adult BMI Screening Adult BMI Screening [facility] Start: 02-28-2026 Tobacco Screening Tobacco Screening [facility] Start: 07-31-2025 Medicare Annual Wellness (AWV) Medicare Annual Wellnes s (AWV) [facility] Start: 07-20-2025 Screening for malignant neoplasm of breast Mammogram [facility] Start: 05-02-2025 End: 05-02-2025 Patient encounter procedure 05/02/2025 2:30 PM EST Off ice Visit [facility] [address] [place] [phone] Kendra Landaverde PA [address] [place] [address] [facility] Start: 04-09-2025 End: 04-09-2025 Patient encounter procedure 04/09/2025 10:00 AM EDT Office Visit [facility] [address] [place] [address] Jitendra Yun PA [address] [place] [address] [facility] Start: 03-26-2025 End: 03-26-2025 Admission to same day surgery center 03/26/2025 12:30 PM EDT - 03/26/2025 2:45 PM EDT Surgery [facility] [address] [place] [address] Charlotte Olivera Jr., DO [address] [place] [address] ARTHROSCOPIC REPAIR ROTATOR CUFF SHOULDER [95680 (CPT )] [facility] Comment on above: ARTHROSCOPIC REPAIR ROTATOR CUFF SHOULDE R [75697 (CPT )] Start: 03-26-2025 End: 03-26-2025 Anesthesia consultation 03/26/2025 12:30 PM EDT Anesthesia Event [facility] [address] [place] [address] Thomas Geiger, DO [address] [place] [address] [facility] Start: 03-26-2025 End: 03-26-2025 Arthroscopy shoulder biceps tenodesis ARTHROSCOPIC TENODESIS BICEPS SHOULDER left shoulder internal derangement 03/26/2025 12:30 PM EDT [facility] Start: 03-26-2025 End: 03-26-2025 Arthroscopy shoulder rotator cuff repair ARTHROSCOPIC REPAIR ROTATOR CUFF SHOULDER left shoulder internal derangement 03/26/2025 12:30 PM EDT [facility] Start: 03-26-2025 Subsequent hospital visit by physician 03/26/2025 12:30 PM EDT Hospital Encounter [facility] [address] [place] [address] Charlotte Olivera Jr., DO [address] [place] [address] [facility] Start: 03-19-2025 End: 03-19-2025 Patient encounter procedure 03/19/2025 3:00 PM EDT Off ice Visit [facility] [address] [facility] [address] [place] [phone] Kendra Landaverde PA [address] [facility] [address] [place] [address] [facility] Comment on above: Arrived Start: 03-19-2025 End: [...] Start: 03-15-2025 End: 03-15-2025 Patient encounter procedure [facility] Comment on above: Neoplasm of uncertain behavior of skin o f back Start: 03-12-2025 End: 03-12-2025 [facility] Comment on above: Arrived Start: 03-12-2025 End: 03-12-2026 URINARY TRACT INFECTION (HTRX) URINARY TRACT INFECTION (HTRX) Lab Routine Dysuria Recurrent UTI Expected: 03/12/2025 (Approximate), Expires: 03/12/2026 [facility] Work Phone: Comment on above: Expected: 03/12/2025 (Approximate), Expi res: 03/12/2026 Start: 03-11-2025 End: 03-11-2025 Patient encounter procedure 03/11/2025 2:00 PM EDT [facility] [address] [place] [phone] Edward Kohler, LAMINATED PLASTICS ASSEMBLER AND GLUER [address] [place], [place] [phone] Arrived [facility] Comment on above: Arrived Start: 03-05-2025 End: 03-05-2025 Patient encounter procedure 03/05/2025 1:30 PM EDT Off ice Visit [facility] [address] [place] [phone] Jitendra Yun, PA [address] [place] [phone] [facility] Start: 02-11-2025 Influenza vaccination [facility] Start: 02-07-2025 End: 02-07-2025 ambulatory 02/07/2025 1:00 PM EDT Treatment [facility] [address] [place] [phone] Amanda Trejo, PICK OUT HAND [address] [place] [address] [facility] Start: 02-05-2025 End: 02-05-2025 ambulatory 02/05/2025 12:00 PM EDT Treatment [facility] [address] [place] [phone] Chelsea Estes PTA [facility] Start: 02-05-2025 End: 02-05-2025 Patient encounter procedure [facility] Comment on above: Arrived Start: 01-31-2025 End: 01-31-2025 ambulatory 01/31/2025 1:00 PM EDT Treatment [facility] [address] [place] [phone] Amanda Trejo, PICK OUT HAND [address] [place] [address] [facility] Start: 01-30-2025 End: 01-30-2025 Patient encounter procedure 01/30/2025 2:30 PM EDT Off ice Visit [facility] [place] [facility] [address] [place] [address] Kendra Landaverde PA [address] [place] [address] [facility] [place] [facility] Start: 01-29-2025 End: 01-29-2025 Patient encounter procedure [facility] Start: 01-29-2025 End: 01-29-2025 ambulatory 01/29/2025 1:30 PM EDT Treatment [facility] [address] [place] [phone] Chelsea Estes PTA Acute pain of left shoulder (Primary Dx) [facility] Comment on above: Acute pain of left shoulder (Primary Dx) Start: 01-24-2025 End: 01-24-2025 ambulatory 01/24/2025 1:00 PM EDT Treatment [facility] [address] [place] [phone] Chelsea Estes PTA Arrived [facility] Comment on above: Arrived Start: 01-17-2025 End: 01-17-2025 ambulatory [facility] Comment on above: Acute pain of left shoulder Start: 01-08-2025 End: 01-08-2025 Patient encounter procedure [facility] Comment on above: Arrived Start: 10-30-2024 End: 10-30-2024 Patient encounter procedure 10/30/2024 2:30 PM EDT Off ice Visit [facility] [address] [place] [address] Kendra Landaverde PA [address] [place] [address] [facility] Start: 10-29-2024 End: 10-29-2024 Patient encounter procedure [facility] Comment on above: Arrived Start: 10-16-2024 End: 10-16-2025 MR Shoulder - left WO contrast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 intervertebral disc without myelopathy documented [facility]* [...] Nausea with vomiting [facility] Diagnosis Encounter for screening colonoscopy Special screening for malignant neoplasms, colon Nausea and vomiting Nausea with vomiting [facility]* Diagnosis Internal derangement of left [...] left shoulder- Primary documented in this encounter [facility] Healthcare[facility]* Diagnosis Acute pain of left shoulder- Primary Sprain of left rotator cuff capsule, initial encounter documented in this encounter [facility] HealthcareEvaluation note* Diagnosis Preop examination- Primary Unspecified pre-operative examination Hypertension, unspecified type Preop examination Unspecified pre-operative examination Hypertension, unspecified type documented [facility] this [facility] Diagnosis Pre-op evaluation- Primary documented in this encounter [facility] HealthcareEvaluation note* Diagnosis Recurrent UTI- Primary Urinary tract infection, site not specified Dysuria Spinal stenosis of lumbar region without neurogenic claudication Chronic superficial gastritis without bleeding Ulcerative proctocolitis (HCC) Loose stools Abnormal feces documented in this encounter [facility] note* Diagnosis Seborrheic keratosis- Primary documented in this encounter [facility]* Diagnosis Loose stools- Primary Abnormal feces Radiation proctitis Other specified disorder of rectum and anus [facility] Auth/Cert Specialty Diagnoses / Procedures Referred By Dominick paige Referred To Contact Diagnoses Encounter for screening colonoscopy Nausea and vomiting Procedures ND COLON CA SCRN NOT HI RSK IND ND ESOPHAGOGASTRODUODENOSCOPY TRANSORAL DIAGNOSTIC ND EGD TRANSORAL BIOPSY SINGLE/MULTIPLE ND EGD BALLOON DILATION ESOPHAGUS <30 MM DIAM ND COLONOSCOPY FLX DX W/COLLJ SPEC WHEN PFRMD ND COLONOSCOPY W/BIOPSY SINGLE/MULTIPLE ND COLSC FLX W/RMVL OF TUMOR POLYP LESION SNARE TQ ND COLORECTAL SCRN; HI RISK IND COLORECTAL CANCER SCREENING, NOT HIGH RISK ESOPHAGOGASTRODUODENOSCOPY Cheng Dick DO [address] [place] [address] Phone: tel: fax: [facility] [address] [place] [address] Referral ID Status Reason Start Date Expiration Date Visits Re quested Visits Authorized [id number] 1 1 [facility] for visit Narrative* Consultation (Routine) - Pending Review Specialty Diagnoses / Procedures Referred By Dominick paige Referred To Contact Physical Therapy Diagnoses Acute pain of left shoulder Procedures ND OFFICE/OUTPATIENT NEW HIGH MDM 60 MINUTES Jr. Charlotte Olivera DO [address] [facility] [address] [place] [address] Phone: tel: fax: Charity Pinon, PT [address] [place] [address] Phone: tel: fax: Referral ID Status Reason Start Date Expiration Date Visits Requested Visits Authorized [id number] Pending Review Consult and Treat 01/08/2025 07/07/2025 1 1 [facility] Consultation (Routine) - Authorized Specialty Diagnoses / Procedures Referred By Contkurtis t Referred To Contact Physical Therapy Diagnoses Acute pain of left shoulder Procedures ND OFFICE/OUTPATIENT NEW HIGH MDM 60 MINUTES Jr. Charlotte Olivera, DO [address] [address] Phone: tel: fax: Charity Pinon, PT [address] [place] [address] Phone: tel: fax: Referral ID Status Reason Start Date Expiration Date Visits Requested Visits Authorized [id number] Authorized Consult and Treat 01/08/2025 07/07/2025 12 12 [facility] Healthcare Summary Purpose Family History No Family History Records FoundNo Family History Records FoundNo Family History Records FoundNo Family History Records FoundNo Family History Records FoundNo Family History Records FoundNo Family History Records Found Advance Directives No Advanced Directives Records Found Date Activated Date Inactivated Comments 03/12/2020 8:15 PM 03/17/2020 5:02 PM Date Activated Date Inactivated Comments 02/27/2020 6:36 AM 03/12/2020 7:13 PM Additional Source Comments INFORMATION SOURCE (unrecogn ized section and content) DATE CREATED AUTHOR 04/05/2019 [facility] DATE CREATED AUTHOR AUTHOR'S ORGANIZ ATION 05/29/2021 [facility] dical Specialist DATE CREATED AUTHOR AUTHOR'S ORGANIZ ATION 09/28/2022 [facility] DATE CREATED AUTHOR AUTHOR'S ORGANIZ ATION 08/30/2024 [facility] DATE CREATED AUTHOR AUTHOR'S ORGANIZ ATION 09/22/2024 [facility] DATE CREATED AUTHOR AUTHOR'S ORGANIZ ATION 03/01/[address] [facility] DATE CREATED AUTHOR AUTHOR'S ORGANIZ ATION 03/22/2025 [facility] dical Specialists [facility] Care Teams (unrecognized sec tion and content) Derivatives Trader Relationship Specialty Start Date End Date Bruno Mcdaniel MD [address] [place] [address] PCP - General Internal Medicine 10/27/22 Derivatives Trader Relationship Specialty Start Date End Date Bruno Mcdaniel MD [address] [place] [address] PCP - General Internal Medicine 10/27/22 Bruno Mcdaniel MD [address] [place] [address] PCP - ACO Reach 08/12/23Tuesday, Magdalene, DRY CLEANING COUNTER CLERK [address] [place] [address] Licensed Practical Nurse Family Medicine 03/09/24 Derivatives Trader Relationship Specialty Start Date End Date Bruno Mcdaniel MD [address] [place] [address] PCP - General Internal Medicine 10/27/22 Bruno Mcdaniel MD [address] [place] [address] PCP - ACO Reach 08/12/23Tuesday, Magdalene, DRY CLEANING COUNTER CLERK [address] [place] [address] Licensed Practical Nurse Family Medicine 03/09/24 Derivatives Trader Relationship Specialty Start Date End Date Bruno Mcdaniel MD [address] [place] [address] PCP - General Internal Medicine 10/27/22 Bruno Mcdaniel MD [address] [place] [address] PCP - ACO Reach 08/12/23Tuesday, Magdalene, DRY CLEANING COUNTER CLERK [address] [place] [address] Licensed Practical Nurse Family Medicine 03/09/24 Derivatives Trader Relationship Specialty Start Date End Date Bruno Mcdaniel MD [address] [place] [address] PCP - General Internal Medicine 10/27/22 Bruno Mcdaniel MD [address] [place] [address] PCP - ACO Reach 08/12/23Tuesday, Magdalene DRY CLEANING COUNTER CLERK [address] [place] [address] Licensed Practical Nurse Family Medicine 03/09/24 Derivatives Trader Relationship Specialty Start Date End Date Bruno Mcdaniel MD [address] [place] [address] PCP - General Internal Medicine 10/27/22 Magnolia Alva, MADELEINE Licensed Practical Nurse Family Medicine 07/20/24 Derivatives Trader Relationship Specialty Start Date End Date Bruno Mcdaniel MD [address] [place] [address] PCP - General Internal Medicine 10/27/22 Bruno Mcdaniel MD [address] [place] [address] PCP - ACO Reach 07/27/24 Magnolia Alva, RN Licensed Practical Nurse Family Medicine 07/20/24 Derivatives Trader Relationship Specialty Start Date End Date Bruno Mcdaniel MD [address] [place] [address] PCP - General Internal Medicine 10/27/22 Bruno Mcdaniel MD [address] [place] [address] PCP - ACO Reach 07/27/24 Magnolia Alva RN Licensed Practical Nurse Family Medicine 07/20/24 Derivatives Trader Relationship Specialty Start Date End Date Bruno Mcdaniel MD [address] [place] [address] PCP - General Internal Medicine 08/13/24 Derivatives Trader Relationship Specialty Start Date End Date Bruno Mcdaniel MD [address] [place] [address] PCP - General Internal Medicine 08/13/24 Derivatives Trader Relationship Specialty Start Date End Date Bruno Mcdaniel MD [address] [place] [address] PCP - General Internal Medicine 10/27/22 Chio Boothe LPN 08/31/24 Derivatives Trader Relationship Specialty Start Date End Date Bruno Mcdaniel MD [address] [place] [address] PCP - General Internal Medicine 10/27/22 Chio Boothe LPN 08/31/24 Derivatives Trader Relationship Specialty Start Date End Date Bruno Mcdaniel MD [address] [place] [address] PCP - General Internal Medicine 10/27/22 Chio Boothe, [facility] 08/31/24 Derivatives Trader Relationship Specialty Start Date End Date Bruno Mcdaniel MD [address] [place] [address] PCP - General Internal Medicine 10/27/22 Chio Boothe, [facility] 08/31/24 Derivatives Trader Relationship Specialty Start Date End Date Bruno Mcdaniel MD [address] [place] [address] PCP - General Internal Medicine 10/27/22 Chio Boothe, [facility] 08/31/24 11/09/24 Derivatives Trader Relationship Specialty Start Date End Date Bruno Mcdaniel MD [address] [place] [address] PCP - General Internal Medicine 10/27/22 Derivatives Trader Relationship Specialty Start Date End Date Bruno Mcdaniel MD [address] [place] [address] PCP - General Internal Medicine 10/27/22 Derivatives Trader Relationship Specialty Start Date End Date Bruno Mcdaniel MD [address] [place] [address] PCP - General Internal Medicine 10/27/22 Derivatives Trader Relationship Specialty Start Date End Date Bruno Mcdaniel MD [address] [place] [address] PCP - General Internal Medicine 10/27/22 Derivatives Trader Relationship Specialty Start Date End Date Bruno Mcdaniel MD [address] [place] [address] PCP - General Internal Medicine 10/27/22 Derivatives Trader Relationship Specialty Start Date End Date Bruno Mcdaniel MD [address] [place] [address] PCP - General Internal Medicine 10/27/22 Derivatives Trader Relationship Specialty Start Date End Date Bruno Mcdaniel MD [address] [place] [address] PCP - General Internal Medicine 10/27/22 Derivatives Trader Relationship Specialty Start Date End Date Bruno Mcdaniel MD [address] [place] [address] PCP - General Internal Medicine 10/27/22 Derivatives Trader Relationship Specialty Start Date End Date Bruno Mcdaniel MD [address] [place] [address] PCP - General Internal Medicine 10/27/22 Derivatives Trader Relationship Specialty Start Date End Date Bruno Mcdaniel MD [address] [place] [address] PCP - General Internal Medicine 10/27/22 Derivatives Trader Relationship Specialty Start Date End Date Bruno Mcdaniel MD [address] [place] [address] PCP - General Internal Medicine 10/27/22 Derivatives Trader Relationship Specialty Start Date End Date Bruno Mcdaniel MD [address] [place] [address] PCP - General Internal Medicine 10/27/22 Derivatives Trader Relationship Specialty Start Date End Date Bruno Mcdaniel MD [address] [place] [address] PCP - General Internal Medicine 10/27/22 Derivatives Trader Relationship Specialty Start Date End Date Bruno Mcdaniel MD [address] [place] [address] PCP - General Internal Medicine 02/27/20 Derivatives Trader Relationship Specialty Start Date End Date Bruno Mcdaniel MD [address] [place] [address] PCP - General Internal Medicine 10/27/22 Derivatives Trader Relationship Specialty Start Date End Date Bruno Mcdaniel MD [address] [place] [address] PCP - General Internal Medicine 10/27/22 Derivatives Trader Relationship Specialty Start Date End Date Bruno Mcdaniel MD [address] [place] [address] PCP - General Internal Medicine 10/27/22 Derivatives Trader Relationship Specialty Start Date End Date Bruno Mcdaniel MD [address] [place] [address] PCP - General Internal Medicine 10/27/22 Derivatives Trader Relationship Specialty Start Date End Date Bruno Mcdaniel MD [address] [place] [address] PCP - General Internal Medicine 10/27/22 Reason for Visit (unrecogniz ed section and content) Reason Onset Date Comments Med Refill 04/02/2024 Reason Onset Date Comments Med Refill 07/23/2024 Reason Comments Med Refill Ondansetron, Bactrim Reason Comments Shoulder Pain Left shoulder is sti ll bothering her. MRI was ordered last o/v for [facility] but she has not heard anything from [facility]. Has been exercising it and [...] uncertain behavior of skin of back Procedures ND OFFICE/OUTPATIENT NEW HIGH MDM 60 MINUTES Kendra Landaverde PA [address] [facility] [address] [place] [address] Phone: tel: fax: Savana Velez MD [address] [place] [address] Phone: tel: fax: Referral ID Status Reason Start Date Expiration Date V isits Requested Visits Authorized [id number] Closed Specialty Services Required 01/30/2025 07/29/2025 1 [...] BE BASED ON THE PRIMARY CLINICAL RECORDS. [facility] [facility]. provides no warranty or guarantee of the accuracy or completeness of information in this document.
== END 2025-03-22 09:13 | disposition home or self-care (01) ==
LOC: LAB 09:12
PROVIDERS: PCP Internal Medicine; Visit Provider Physician Assistant
DX: R19.5 Other fecal abnormalities (principal)
CPT/HCPCS: 87177; 87209